=== PATIENT | female | born 1990 | race Caucasian/White ===

== ENCOUNTER 2016-11-25 00:50 | Emergency (ER) | payer MEDICARE, OTHER ==
[2016-11-25 01:00] VITALS: BP 120/67; PULSE 82; RESP 20; TEMP 98
--- NOTE | 2016-11-25 01:19 | ED ---
General Adult HPI - General Chief complaint: Overdose Stated complaint: Tylenol Overdose Time Seen by Provider: 11/25/16 01:08 Source: patient, RN notes reviewed Mode of arrival: ambulatory Limitations: no limitations - History of Present Illness Initial comments: 26-year-old female presents to the emergency department with a chief complaint of drowsiness. The patient had a mild headache this afternoon. She takes one of her Tylenol threes tonight she is not taking this in over a year. After she took this she felt drowsy. Family states that they were concerned due to the fact that she was drowsy so she thought that they should be evaluated. Mom states that she saw her take the pill there is no other pills taken today. The patient states she just her headache so she took the pill that her mom and her discussed. Patient states she just feels more tired than normal. There is no other medications taken mom states she was started on Tim there is no other medications taken. Child states that she does not feel anything but drowsiness at this time.Patient denies any recent fever, chills, shortness of breath, chest pain, back pain, abdominal pain, nausea vomiting, numbness or tingling, dysuria or hematuria, constipation or diarrhea, headaches or visual changes, or any other current symptoms. - Related Data Home Medications Medication Instructions Recorded Confirmed FLUoxetine HCL [FLUoxetine DR] 90 mg PO FR 04/07/16 09/22/16 Albuterol Sulfate [Proair Hfa] 1 - 2 puff INHALATION [id number] PRN 09/22/16 Allergies Allergy/AdvReac Type Severity Reaction Status Date / Time No Known Allergies Allergy Verified 11/25/16 00:59 Review of Systems ROS Statement: Those systems with pertinent positive or pertinent negative responses have been documented in the HPI. ROS Other: All systems not noted in ROS Statement are negative. Past Medical History Past Medical History: Seizure Disorder Additional Past Medical History / Comment(s): Learning disability, cognitive deficit History of Any Multi-Drug Resistant Organisms: None Reported Past Surgical History: Orthopedic Surgery Additional Past Surgical History / Comment(s): feet Past Anesthesia/Blood Transfusion Reactions: No Reported Reaction Past Psychological History: ADD/ADHD, Depression Smoking Status: Never smoker Past Alcohol Use History: None Reported Past Drug Use History: None Reported General Exam - General Exam Comments Initial Comments: General: The patient is awake and alert, in no distress, and does not appear acutely ill. Eye: Pupils are equal, round and reactive to light, extra-ocular movements are intact; there is normal conjunctiva bilaterally. No signs of icterus. Ears, nose, mouth and throat: There are moist mucous membranes and no oral lesions. Neck: The neck is supple, there is no tenderness. Cardiovascular: There is a regular rate and rhythm. No murmur, rub or gallop is appreciated. Respiratory: Lungs are clear to auscultation, respirations are non-labored, breath sounds are equal. No wheezes, stridor, rales, or rhonchi. Gastrointestinal: Soft, non-distended, non-tender abdomen without masses or organomegaly noted. There is no rebound or guarding present. No CVA tenderness. Bowel sounds are unremarkable. Back: There is no tenderness to palpation in the midline. There is no obvious deformity. No rashes noted. Musculoskeletal: Normal ROM, no tenderness, There is no pedal edema. There is no calf tenderness or swelling. Sensation intact. Pulses equal bilaterally 2+. Neurological: CN II-XII intact, There are no obvious motor or sensory deficits. Coordination appears grossly intact. Speech is normal. Skin: Skin is warm and dry and no rashes or lesions are noted. Psychiatric: Cooperative, appropriate mood & affect, normal judgment. Limitations: no limitations Course Vital Signs 11/25/16 00:57 Temperature 98 F Pulse Rate 82 Respiratory 20 Rate Blood Pressure 120/67 O2 Sat by Pulse 99 Oximetry Medical Decision Making - Medical Decision Making 26-year-old female presents for drowsiness after taking a Tylenol 3. At this time we discussed that this is one of the side effects of the medications. Patient's vital signs are stable patient's exam is stable. Mother was with the child all night and there was no other medications taken. They state they were concerned because she got drowsy after taking the 1 pills the Patient be evaluated. We did offer additional workup that they state now that he notices a side effect they do feel comfortable going home. This time we discussed return parameters and all their questions. They stated they understood. They are in agreement with the plan. This time the patient will be discharged home. Disposition Clinical Impression: Medication side effect, Drowsiness Disposition: HOME SELF-CARE Condition: Stable Instructions: Acetaminophen/Codeine (By mouth) Additional Instructions: Please use medication as discussed. Please follow up with family doctor if symptoms have not improved over the next two days. Please return to the emergency room if your symptoms increase or worsen or for any other concerns. Referrals: Nery Petersen MD [Primary Care Provider] - 1-2 days Time of Disposition: 01:19
== END 2016-11-25 01:24 | disposition home or self-care (01) ==
LOC: EC 00:50
DX: R40.0 Somnolence (principal); T40.2X5A Adverse effect of other opioids, initial encounter; F32.9 Major depressive disorder, single episode, unspecified; R41.89 Other symptoms and signs involving cognitive functions and awareness; F81.9 Developmental disorder of scholastic skills, unspecified; Z79.899 Other long term (current) drug therapy
CPT/HCPCS: 99283

== ENCOUNTER 2017-01-22 16:39 | Emergency (ER) | payer MEDICARE, OTHER ==
[2017-01-22 16:46] VITALS: PULSE 76
[2017-01-22 18:49] LABS: Glucose,Whole Blood 87 mg/dL (75-99)
[2017-01-22] MEDS ORDERED: SODIUM CHLORIDE 0.9% 1,000 ML IV ONE (18:49)
--- NOTE | 2017-01-22 18:54 | ED ---
Altered Mental Status HPI - General Chief Complaint: Altered Mental Status Stated Complaint: Confusion Time Seen by Provider: 01/22/17 18:39 Source: family, RN notes reviewed Mode of arrival: wheelchair Limitations: no limitations - History of Present Illness Initial Comments: 26-year-old female presents to the emergency department with a chief complaint of concern for possible altered mental status. They state that since around 3: 00 today the patient has just been different than normal. They state that she doesn't know the answers to most questions they state that she is just acting off. They state that she did not take anything to their knowledge. They state that she has had a fever she hasn't had a cough she hasn't had any nausea vomiting. Patient denies any pain or discomfort. Patient answers all questions the patient is able to tell who her dad is but states she does not remember the other person in the room she is able to know where she has been not which hospital she knows her birthday she knows the day but she does not know who is present. The patient to the family history is seemed often they are concerned. The patient denies taking any medications besides her Prozac today.Patient denies any recent fever, chills, shortness of breath, chest pain, back pain, abdominal pain, nausea vomiting, numbness or tingling, dysuria or hematuria, constipation or diarrhea, headaches or visual changes, or any other current symptoms. - Related Data Home Medications Medication Instructions Recorded Confirmed FLUoxetine HCL [FLUoxetine DR] 90 mg PO FR 04/07/16 01/22/17 Allergies Allergy/AdvReac Type Severity Reaction Status Date / Time No Known Allergies Allergy Verified 01/22/17 19:24 Review of Systems ROS Statement: Those systems with pertinent positive or pertinent negative responses have been documented in the HPI. ROS Other: All systems not noted in ROS Statement are negative. Past Medical History Past Medical History: Seizure Disorder Additional Past Medical History / Comment(s): Learning disability, cognitive deficit History of Any Multi-Drug Resistant Organisms: None Reported Past Surgical History: Orthopedic Surgery Additional Past Surgical History / Comment(s): feet Past Anesthesia/Blood Transfusion Reactions: No Reported Reaction Past Psychological History: ADD/ADHD, Depression Smoking Status: Never smoker Past Alcohol Use History: None Reported Past Drug Use History: None Reported General Exam - General Exam Comments Initial Comments: General: The patient is awake and alert, in no distress, and does not appear acutely ill. Eye: Pupils are equal, round and reactive to light, extra-ocular movements are intact; there is normal conjunctiva bilaterally. No signs of icterus. Ears, nose, mouth and throat: There are moist mucous membranes. Neck: The neck is supple, there is no tenderness. Cardiovascular: There is a regular rate and rhythm. No murmur, rub or gallop is appreciated. Respiratory: Lungs are clear to auscultation, respirations are non-labored, breath sounds are equal. No wheezes, stridor, rales, or rhonchi. Gastrointestinal: Soft, non-distended, non-tender abdomen without masses or organomegaly noted. There is no rebound or guarding present. No CVA tenderness. Bowel sounds are unremarkable. Back: There is no tenderness to palpation in the midline. There is no obvious deformity. No rashes noted. Musculoskeletal: Normal ROM, no tenderness, There is no pedal edema. There is no calf tenderness or swelling. Sensation intact. Pulses equal bilaterally 2+. Neurological: CN II-XII intact, There are no obvious motor or sensory deficits. Coordination appears grossly intact. Speech is normal. Skin: Skin is warm and dry and no rashes or lesions are noted. Psychiatric: Cooperative, appropriate mood & affect, normal judgment. Limitations: no limitations Course Vital Signs 01/22/17 16:43 Temperature 97.5 F L Pulse Rate 76 Respiratory 20 Rate Blood Pressure 130/75 O2 Sat by Pulse 99 Oximetry Medical Decision Making - Medical Decision Making 26-year-old female presents for concern for possible altered mental status. At this time the patient has normal mentation on reexamination. At this time family states she is doing much better. This started recently after taking the medication. This time we discussed follow-up with her doctor. Discussed return parameters all her questions. They stated they understood and they this time will be discharged home. - Lab Data Result diagrams: 01/22/17 18:55 01/22/17 18:55 Lab Results 01/22/17 01/22/17 01/22/17 Range/Units 18:43 18:55 18:55 WBC 9.9 (3.8-10.6) k/uL RBC 4.65 (3.80-5.40) m/uL Hgb 14.1 (11.4-16.0) gm/dL Hct 42.0 (34.0-46.0) % MCV 90.3 (80.0-100.0) fL MCH 30.3 (25.0-35.0) pg MCHC 33.6 (31.0-37.0) g/dL RDW 12.8 (11.5-15.5) % Plt Count 419 (150-450) k/uL Neutrophils % 60 % Lymphocytes % 29 % Monocytes % 7 % Eosinophils % 2 % Basophils % 1 % Neutrophils # 6.0 (1.3-7.7) k/uL Lymphocytes # 2.8 (1.0-4.8) k/uL Monocytes # 0.7 (0-1.0) k/uL Eosinophils # 0.2 (0-0.7) k/uL Basophils # 0.1 (0-0.2) k/uL PT (9.0-12.0) sec INR (<1.1) APTT (22.0-30.0) sec Sodium (137-145) mmol/L Potassium (3.5-5.1) mmol/L Chloride (98-107) mmol/L Carbon Dioxide (22-30) mmol/L Anion Gap mmol/L BUN (7-17) mg/dL Creatinine (0.52-1.04) mg/dL Est GFR (MDRD) Af Amer (>60 ml/min/1.73 sqM) Est GFR (MDRD) Non-Af (>60 ml/min/1.73 sqM) Glucose (74-99) mg/dL POC Glucose (mg/dL) 87 (75-99) mg/dL POC Glu Shake Cutter ID Tyrone, Nelsy Calcium (8.4-10.2) mg/dL Total Bilirubin (0.2-1.3) mg/dL AST (14-36) U/L ALT (9-52) U/L Alkaline Phosphatase (38-126) U/L Total Creatine Kinase 81 (30-135) U/L CK-MB (CK-2) 0.3 (0.0-2.4) ng/mL CK-MB (CK-2) Rel Index 0.4 Troponin I <0.012 (0.000-0.034) ng/mL Total Protein (6.3-8.2) g/dL Albumin (3.5-5.0) g/dL Urine Color Urine Appearance (Clear) Urine pH (5.0-8.0) Ur Specific [place] (1.001-1.035) Urine Protein (Negative) Urine Glucose (UA) (Negative) Urine Ketones (Negative) Urine Blood (Negative) Urine Nitrite (Negative) Urine Bilirubin (Negative) Urine Urobilinogen (<2.0) mg/dL Ur Leukocyte Esterase (Negative) Urine RBC (0-5) /hpf Urine WBC (0-5) /hpf Ur Squamous Epith Cells (0-4) /hpf Amorphous Sediment (None) /hpf Hyaline Casts (0-2) /lpf Urine HCG, Qual (Not Detectd) Urine Opiates Screen (NotDetected) Ur Oxycodone Screen (NotDetected) Urine Methadone Screen (NotDetected) Ur Propoxyphene Screen (NotDetected) Ur Barbiturates Screen (NotDetected) U Tricyclic Antidepress (NotDetected) Ur Phencyclidine Scrn (NotDetected) Ur Amphetamines Screen (NotDetected) U Methamphetamines Scrn (NotDetected) U Benzodiazepines Scrn (NotDetected) Urine Cocaine Screen (NotDetected) U Marijuana (THC) Screen (NotDetected) 01/22/17 01/22/17 01/22/17 Range/Units 18:55 18:55 18:55 WBC (3.8-10.6) k/uL RBC (3.80-5.40) m/uL Hgb (11.4-16.0) gm/dL Hct (34.0-46.0) % MCV (80.0-100.0) fL MCH (25.0-35.0) pg MCHC (31.0-37.0) g/dL RDW (11.5-15.5) % Plt Count (150-450) k/uL Neutrophils % % Lymphocytes % % Monocytes % % Eosinophils % % Basophils % % Neutrophils # (1.3-7.7) k/uL Lymphocytes # (1.0-4.8) k/uL Monocytes # (0-1.0) k/uL Eosinophils # (0-0.7) k/uL Basophils # (0-0.2) k/uL PT (9.0-12.0) sec INR (<1.1) APTT (22.0-30.0) sec Sodium 142 (137-145) mmol/L Potassium 4.2 (3.5-5.1) mmol/L Chloride 108 H (98-107) mmol/L Carbon Dioxide 28 (22-30) mmol/L Anion Gap 6 mmol/L BUN 13 (7-17) mg/dL Creatinine 0.80 (0.52-1.04) mg/dL Est GFR (MDRD) Af Amer >60 (>60 ml/min/1.73 sqM) Est GFR (MDRD) Non-Af >60 (>60 ml/min/1.73 sqM) Glucose 82 (74-99) mg/dL POC Glucose (mg/dL) (75-99) mg/dL POC Glu Shake Cutter ID Calcium 9.5 (8.4-10.2) mg/dL Total Bilirubin 0.4 (0.2-1.3) mg/dL AST 25 (14-36) U/L ALT 32 (9-52) U/L Alkaline Phosphatase 55 (38-126) U/L Total Creatine Kinase (30-135) U/L CK-MB (CK-2) (0.0-2.4) ng/mL CK-MB (CK-2) Rel Index Troponin I (0.000-0.034) ng/mL Total Protein 6.0 L (6.3-8.2) g/dL Albumin 3.5 (3.5-5.0) g/dL Urine Color Yellow Urine Appearance Cloudy H (Clear) Urine pH 5.5 (5.0-8.0) Ur Specific [place] 1.015 (1.001-1.035) Urine Protein Negative (Negative) Urine Glucose (UA) Negative (Negative) Urine Ketones Negative (Negative) Urine Blood Small H (Negative) Urine Nitrite Negative (Negative) Urine Bilirubin Negative (Negative) Urine Urobilinogen <2.0 (<2.0) mg/dL Ur Leukocyte Esterase Trace H (Negative) Urine RBC 1 (0-5) /hpf Urine WBC 3 (0-5) /hpf Ur Squamous Epith Cells 5 H (0-4) /hpf Amorphous Sediment Rare H (None) /hpf Hyaline Casts 1 (0-2) /lpf Urine HCG, Qual Not Detected (Not Detectd) Urine Opiates Screen Not Detected (NotDetected) Ur Oxycodone Screen Not Detected (NotDetected) Urine Methadone Screen Not Detected (NotDetected) Ur Propoxyphene Screen Not Detected (NotDetected) Ur Barbiturates Screen Not Detected (NotDetected) U Tricyclic Antidepress Not Detected (NotDetected) Ur Phencyclidine Scrn Not Detected (NotDetected) Ur Amphetamines Screen Not Detected (NotDetected) U Methamphetamines Scrn Not Detected (NotDetected) U Benzodiazepines Scrn Not Detected (NotDetected) Urine Cocaine Screen Not Detected (NotDetected) U Marijuana (THC) Screen Not Detected (NotDetected) 01/22/17 Range/Units 18:55 WBC (3.8-10.6) k/uL RBC (3.80-5.40) m/uL Hgb (11.4-16.0) gm/dL Hct (34.0-46.0) % MCV (80.0-100.0) fL MCH (25.0-35.0) pg MCHC (31.0-37.0) g/dL RDW (11.5-15.5) % Plt Count (150-450) k/uL Neutrophils % % Lymphocytes % % Monocytes % % Eosinophils % % Basophils % % Neutrophils # (1.3-7.7) k/uL Lymphocytes # (1.0-4.8) k/uL Monocytes # (0-1.0) k/uL Eosinophils # (0-0.7) k/uL Basophils # (0-0.2) k/uL PT 9.6 (9.0-12.0) sec INR 0.9 (<1.1) APTT 23.4 (22.0-30.0) sec Sodium (137-145) mmol/L Potassium (3.5-5.1) mmol/L Chloride (98-107) mmol/L Carbon Dioxide (22-30) mmol/L Anion Gap mmol/L BUN (7-17) mg/dL Creatinine (0.52-1.04) mg/dL Est GFR (MDRD) Af Amer (>60 ml/min/1.73 sqM) Est GFR (MDRD) Non-Af (>60 ml/min/1.73 sqM) Glucose (74-99) mg/dL POC Glucose (mg/dL) (75-99) mg/dL POC Glu Shake Cutter ID Calcium (8.4-10.2) mg/dL Total Bilirubin (0.2-1.3) mg/dL AST (14-36) U/L ALT (9-52) U/L Alkaline Phosphatase (38-126) U/L Total Creatine Kinase (30-135) U/L CK-MB (CK-2) (0.0-2.4) ng/mL CK-MB (CK-2) Rel Index Troponin I (0.000-0.034) ng/mL Total Protein (6.3-8.2) g/dL Albumin (3.5-5.0) g/dL Urine Color Urine Appearance (Clear) Urine pH (5.0-8.0) Ur Specific [place] (1.001-1.035) Urine Protein (Negative) Urine Glucose (UA) (Negative) Urine Ketones (Negative) Urine Blood (Negative) Urine Nitrite (Negative) Urine Bilirubin (Negative) Urine Urobilinogen (<2.0) mg/dL Ur Leukocyte Esterase (Negative) Urine RBC (0-5) /hpf Urine WBC (0-5) /hpf Ur Squamous Epith Cells (0-4) /hpf Amorphous Sediment (None) /hpf Hyaline Casts (0-2) /lpf Urine HCG, Qual (Not Detectd) Urine Opiates Screen (NotDetected) Ur Oxycodone Screen (NotDetected) Urine Methadone Screen (NotDetected) Ur Propoxyphene Screen (NotDetected) Ur Barbiturates Screen (NotDetected) U Tricyclic Antidepress (NotDetected) Ur Phencyclidine Scrn (NotDetected) Ur Amphetamines Screen (NotDetected) U Methamphetamines Scrn (NotDetected) U Benzodiazepines Scrn (NotDetected) Urine Cocaine Screen (NotDetected) U Marijuana (THC) Screen (NotDetected) 01/22/17 20:23 Normal EKG, 81, VT 156, QRS duration 72, QT 404. Disposition Clinical Impression: Adverse drug reaction Disposition: HOME SELF-CARE Condition: Stable Instructions: Altered Mental Status (ED) Additional Instructions: Please use medication as discussed. Please follow up with family doctor if symptoms have not improved over the next two days. Please return to the emergency room if your symptoms increase or worsen or for any other concerns. Referrals: Nery Petersen MD [Primary Care Provider] - 1-2 days Time of Disposition: 20:23
[2017-01-22 19:20] LABS: Basophils # (A) 0.1 k/uL (0-0.2); Basophils % (A) 1 %; CH 30.2; CHCM 33.5; Eosinophils # (A) 0.2 k/uL (0-0.7); Eosinophils % (A) 2 %; HDW 2.31; HGB 14.1 gm/dL (11.4-16.0); Luc # (Auto) 0.22; Luc % (Auto) 2; Lymphocytes # (A) 2.8 k/uL (1.0-4.8); Lymphocytes % (A) 29 %; MCH 30.3 pg (25.0-35.0); MCHC 33.6 g/dL (31.0-37.0); MCV 90.3 fL (80.0-100.0); Mean Platelet Volume 6.4; Monocytes # (A) 0.7 k/uL (0-1.0); Monocytes % (A) 7 %; Neutrophils % (A) 60 %; RBC 4.65 m/uL (3.80-5.40); RDW 12.8 % (11.5-15.5); WBC 9.9 k/uL (3.8-10.6); WBC (Perox) 9.82
[2017-01-22 19:23] LABS: Amorphous Sediment,Urine Rare /hpf; Appearance,Urine Cloudy (Clear); Bilirubin,Urine Negative (Negative); Glucose,Urine (UA) Negative (Negative); Ketones,Urine Negative (Negative); Leukocyte Esterase,Urine Trace (Negative); Nitrite,Urine Negative (Negative); PH, Urine 5.5 (5.0-8.0); Particle Count 5076; Protein,Urine Negative (Negative); RBC,Urine 1 /hpf (0-5); Specific Gravity,Urine 1.015 (1.001-1.035); Squamous Epithelial Cell,Urine 5 /hpf (0-4); UA Billing (MACRO vs. MICRO) MICRO; Urobilinogen,Urine <2.0 mg/dL (<2.0); WBC,Urine 3 /hpf (0-5)
[2017-01-22 19:30] LABS: ALT 32 U/L (9-52); AST 25 U/L (14-36); Alkaline Phosphatase 55 U/L (38-126); Anion Gap 6 mmol/L; Blood Urea Nitrogen 13 mg/dL (7-17); Calcium 9.5 mg/dL (8.4-10.2); Carbon Dioxide 28 mmol/L (22-30); Chloride 108 mmol/L (98-107); Glucose 82 mg/dL (74-99); Non-African American GFR(MDRD) >60 (>60 ml/min/1.73 sqM); Potassium 4.2 mmol/L (3.5-5.1); Sodium 142 mmol/L (137-145); Total Bilirubin 0.4 mg/dL (0.2-1.3)
[2017-01-22 19:44] LABS: INR 0.9 (<1.1); Partial Thromboplastin Time 23.4 sec (22.0-30.0); Prothrombin Time 9.6 sec (9.0-12.0)
[2017-01-22 19:51] LABS: Creatine Kinase 81 U/L (30-135)
[2017-01-22 20:02] LABS: Creatine Kinase MB 0.3 ng/mL (0.0-2.4); Troponin I <0.012 ng/mL (0.000-0.034)
[2017-01-22 20:57] VITALS: BP 110/69; RESP 18; TEMP 97.9
== END 2017-01-22 20:57 | disposition home or self-care (01) ==
LOC: EC 16:39
DX: R41.82 Altered mental status, unspecified (principal); T50.905A Adverse effect of unspecified drugs, medicaments and biological substances, initial encounter; F32.9 Major depressive disorder, single episode, unspecified; F81.9 Developmental disorder of scholastic skills, unspecified; R41.89 Other symptoms and signs involving cognitive functions and awareness; Z79.899 Other long term (current) drug therapy
CPT/HCPCS: 36415; 80053; 80306; 81001; 81025; 82550; 82553; 84484; 85025; 85610; 85730; 93005; 96360; 99285

== ENCOUNTER 2017-03-20 20:37 | Emergency (ER) | payer MEDICARE, OTHER ==
[2017-03-20 20:45] VITALS: BP 139/86; PULSE 76; RESP 20; TEMP 98.6
--- NOTE | 2017-03-20 20:59 | ED ---
ENT HPI - General Chief complaint: ENT Stated complaint: eye redness Time Seen by Provider: 03/20/17 20:50 Source: patient Mode of arrival: ambulatory Limitations: no limitations - History of Present Illness Initial comments: 26-year-old female presents to the ER complaining of left eye redness for the last week. Patient states it feels irritated and itchy with some mucousy drainage at times. Patient states that she is not getting better. Patient did try 1 dose of ALLERGY eyedrops is just not improving. No visual changes no recent colds or drainage. No fevers no blurry or double vision. No new products. MD complaint: other (Left eye redness) - Related Data Home Medications Medication Instructions Recorded Confirmed FLUoxetine HCL [FLUoxetine DR] 90 mg PO FR 04/07/16 01/22/17 Previous Rx's Medication Instructions Recorded Tobramycin 0.3% Ophth Soln [Tobrex 2 drop BOTH EYES Q6H #10 ml 03/20/17 0.3% Ophth Soln] Allergies Allergy/AdvReac Type Severity Reaction Status Date / Time No Known Allergies Allergy Verified 03/20/17 20:45 Review of Systems ROS Statement: Those systems with pertinent positive or pertinent negative responses have been documented in the HPI. ROS Other: All systems not noted in ROS Statement are negative. Eyes: Reports: eye discharge. Denies: eye pain, vision change ENT: Denies: ear pain, throat pain, dental pain Respiratory: Denies: cough Past Medical History Past Medical History: Seizure Disorder Additional Past Medical History / Comment(s): Learning disability, cognitive deficit History of Any Multi-Drug Resistant Organisms: None Reported Past Surgical History: Orthopedic Surgery Additional Past Surgical History / Comment(s): feet Past Anesthesia/Blood Transfusion Reactions: No Reported Reaction Past Psychological History: ADD/ADHD, Depression Smoking Status: Never smoker Past Alcohol Use History: None Reported Past Drug Use History: None Reported General Exam Limitations: no limitations General appearance: alert, in no apparent distress Eye exam: Present: PERRL, EOMI, conjunctival injection (left medial, no d/c). Absent: periorbital swelling ENT exam: Present: normal exam, mucous membranes moist Respiratory exam: Present: normal lung sounds bilaterally. Absent: respiratory distress, wheezes, rales, rhonchi, stridor Cardiovascular Exam: Present: regular rate, normal rhythm, normal heart sounds. Absent: systolic murmur, diastolic murmur, rubs, gallop, clicks Course Vital Signs 03/20/17 20:42 Temperature 98.6 F Pulse Rate 76 Respiratory 20 Rate Blood Pressure 139/86 O2 Sat by Pulse 99 Oximetry Medical Decision Making - Medical Decision Making Discussed that I think this is more ALLERGIC conjunctivitis and to try over-the- counter Zaditor drops twice a day as needed. Patient may take [id number] antihistamine tablets as well. Patient to only fill antibiotic drops to symptoms progress or worsen. Disposition Clinical Impression: Acute conjunctivitis of left eye Clinical Impression: (Ruled Out): Acute conjunctivitis of right eye Disposition: HOME SELF-CARE Condition: Good Instructions: Conjunctivitis (ED) Prescriptions: Tobramycin 0.3% Ophth Soln [Tobrex 0.3% Ophth Soln] 2 drop BOTH EYES Q6H #10 ml Referrals: Nery Petersen MD [Primary Care Provider] - 1-2 days Time of Disposition: 20:59
== END 2017-03-20 21:20 | disposition home or self-care (01) ==
LOC: EC 20:37
DX: H10.32 Unspecified acute conjunctivitis, left eye (principal); F32.9 Major depressive disorder, single episode, unspecified; Z79.899 Other long term (current) drug therapy
CPT/HCPCS: 99282

== ENCOUNTER → 2017-04-15 | Outpatient (CLI) | payer MEDICARE, OTHER ==
[2017-04-15 12:59] LABS: Basophils % (A) 0 %; CH 29.5; CHCM 33.1; Eosinophils # (A) 0.1 k/uL (0-0.7); Eosinophils % (A) 1 %; HCT 41.6 % (34.0-46.0); HDW 2.28; HGB 14.2 gm/dL (11.4-16.0); Luc # (Auto) 0.12; Luc % (Auto) 1; Lymphocytes # (A) 2.2 k/uL (1.0-4.8); Lymphocytes % (A) 27 %; MCH 30.5 pg (25.0-35.0); MCHC 34.1 g/dL (31.0-37.0); MCV 89.5 fL (80.0-100.0); Mean Platelet Volume 6.5; Monocytes # (A) 0.4 k/uL (0-1.0); Monocytes % (A) 5 %; Neutrophils # (A) 5.3 k/uL (1.3-7.7); Neutrophils % (A) 65 %; RBC 4.65 m/uL (3.80-5.40); RDW 12.7 % (11.5-15.5); WBC 8.1 k/uL (3.8-10.6); WBC (Perox) 8.45
[2017-04-15 13:05] LABS: Anion Gap 9 mmol/L; Blood Urea Nitrogen 12 mg/dL (7-17); Calcium 9.3 mg/dL (8.4-10.2); Carbon Dioxide 25 mmol/L (22-30); Chloride 106 mmol/L (98-107); Cholesterol 173 mg/dL (<200); Glucose 92 mg/dL (74-99); HDL Cholesterol 56 mg/dL (40-60); Non-African American GFR(MDRD) >60 (>60 ml/min/1.73 sqM); Potassium 4.5 mmol/L (3.5-5.1); Sodium 140 mmol/L (137-145); Triglycerides 126 mg/dL (<150)
== END | disposition home or self-care (01) ==
LOC: LABWHC1 12:03
PROVIDERS: ATTEND Internal Medicine
DX: Z13.0 Encounter for screening for diseases of the blood and blood-forming organs and certain disorders involving the immune mechanism (principal); Z13.228 Encounter for screening for other metabolic disorders; Z13.220 Encounter for screening for lipoid disorders; Z13.29 Encounter for screening for other suspected endocrine disorder
CPT/HCPCS: 36415; 80048; 80061; 84443; 85025

== ENCOUNTER 2017-05-13 22:20 | Emergency (ER) | payer MEDICARE, OTHER ==
[2017-05-13] MEDS ORDERED: KETOROLAC 30 MG/ML 1 ML VIAL IVP STA (23:01)
[2017-05-13 23:18] LABS: Basophils % (A) 0 %; CH 30.6; CHCM 33.7; Eosinophils # (A) 0.2 k/uL (0-0.7); Eosinophils % (A) 2 %; HCT 38.9 % (34.0-46.0); HDW 2.21; HGB 12.9 gm/dL (11.4-16.0); Luc % (Auto) 2; Lymphocytes # (A) 2.7 k/uL (1.0-4.8); Lymphocytes % (A) 32 %; MCH 30.3 pg (25.0-35.0); MCHC 33.2 g/dL (31.0-37.0); MCV 91.2 fL (80.0-100.0); Mean Platelet Volume 6.9; Monocytes # (A) 0.5 k/uL (0-1.0); Monocytes % (A) 6 %; Neutrophils # (A) 4.8 k/uL (1.3-7.7); Neutrophils % (A) 57 %; RBC 4.26 m/uL (3.80-5.40); RDW 13.8 % (11.5-15.5); WBC 8.4 k/uL (3.8-10.6); WBC (Perox) 8.31
[2017-05-13 23:27] LABS: ALT 31 U/L (9-52); AST 21 U/L (14-36); Alkaline Phosphatase 62 U/L (38-126); Anion Gap 11 mmol/L; Blood Urea Nitrogen 18 mg/dL (7-17); Calcium 9.4 mg/dL (8.4-10.2); Carbon Dioxide 25 mmol/L (22-30); Chloride 105 mmol/L (98-107); Glucose 91 mg/dL (74-99); Non-African American GFR(MDRD) >60 (>60 ml/min/1.73 sqM); Potassium 4.5 mmol/L (3.5-5.1); Sodium 141 mmol/L (137-145); Total Bilirubin 0.3 mg/dL (0.2-1.3); Total Protein 6.6 g/dL (6.3-8.2)
--- NOTE | 2017-05-13 23:27 | ED ---
Chest Pain HPI - General Chief Complaint: Chest Pain Stated Complaint: Chest Pain Source: patient Mode of arrival: ambulatory Limitations: no limitations - History of Present Illness Initial Comments: Patient is a 26-year-old female who presents for evaluation for left-sided chest pain that is been constant over the last 4 days. Past medical history as below. Patient states the pain is 5 out of 10 at its worse. Improves with rest. Seems to be a little bit worse with exertion. The pain characteristic is a pinching type of sensation. Has been working out more than usual and states that it could be a muscle strain. Has tried Motrin at home with some relief. No radiation of pain. Risk factors for ACS include a family history of her father's cousin having an ND which she from at the age of 31. She' s never had any formal cardiac testing in the past. Currently denies fever, chills, headache, changes in vision, URI symptoms, shortness breath, cough, nausea, vomiting, diarrhea, pain or burning with urination. - Related Data Home Medications Medication Instructions Recorded Confirmed FLUoxetine HCL [FLUoxetine DR] 90 mg PO FR 04/07/16 01/22/17 Previous Rx's Medication Instructions Recorded Tobramycin 0.3% Ophth Soln [Tobrex 2 drop BOTH EYES Q6H #10 ml 03/20/17 0.3% Ophth Soln] Naproxen 500 mg PO BID PRN #14 tablet 05/14/17 Allergies Allergy/AdvReac Type Severity Reaction Status Date / Time No Known Allergies Allergy Verified 05/13/17 22:27 Review of Systems ROS Statement: Those systems with pertinent positive or pertinent negative responses have been documented in the HPI. ROS Other: All systems not noted in ROS Statement are negative. Past Medical History Past Medical History: Seizure Disorder Additional Past Medical History / Comment(s): Learning disability, cognitive deficit, chest pain History of Any Multi-Drug Resistant Organisms: None Reported Past Surgical History: Orthopedic Surgery Additional Past Surgical History / Comment(s): feet Past Anesthesia/Blood Transfusion Reactions: No Reported Reaction Past Psychological History: ADD/ADHD, Depression Smoking Status: Never smoker Past Alcohol Use History: None Reported Past Drug Use History: None Reported General Exam Limitations: no limitations General appearance: alert, in no apparent distress, other (No apparent distress) Head exam: Present: atraumatic, normocephalic, normal inspection Eye exam: Present: normal appearance, PERRL, EOMI. Absent: scleral icterus, conjunctival injection, periorbital swelling ENT exam: Present: normal exam, mucous membranes moist Neck exam: Present: normal inspection. Absent: tenderness, meningismus, lymphadenopathy Respiratory exam: Present: normal lung sounds bilaterally, chest wall tenderness , other (Pain is reproducible with palpation of the left upper chest wall.). Absent: respiratory distress, wheezes, rales, rhonchi, stridor Cardiovascular Exam: Present: regular rate, normal rhythm, normal heart sounds, other (Normal S1 and S2. No murmurs. Distal pulses intact. Warm extremities.) . Absent: systolic murmur, diastolic murmur, rubs, gallop, clicks GI/Abdominal exam: Present: soft, normal bowel sounds. Absent: distended, tenderness, guarding, rebound, rigid Extremities exam: Present: normal inspection, full ROM, normal capillary refill. Absent: tenderness, pedal edema, joint swelling, calf tenderness Back exam: Present: normal inspection Neurological exam: Present: alert, oriented X3, CN II-XII intact Psychiatric exam: Present: normal affect, normal mood Skin exam: Present: warm, dry, intact, normal color. Absent: rash Course Vital Signs 05/13/17 05/13/17 05/13/17 22:23 23:27 23:42 Temperature 98.3 F Pulse Rate 81 74 Respiratory 16 18 18 Rate Blood Pressure 130/83 112/69 O2 Sat by Pulse 99 95 Oximetry [facility] Patient is a 26 year old female who presents with 4 day constant chest pain in the left upper chest. Worse with palpation of the chest. Heart score of 0 as of right now. We'll order EKG, chest x-ray, basic labs with a troponin at the patient's request. We'll also order 15 mg IV Toradol. 2243: Reviewed EKG. Normal sinus rhythm at 72. CT 160. QRS 84. QTc 455. No ST changes. Similar to EKG on 01/22/17. 2355: Reviewed laboratory studies. CBC and CMP within normal limits. Reviewed UA which was concerning for hematuria and leukocytes in the urine. However, the patient is on her menstrual cycle. She denies any pain or burning with urination at this time. Chest pain is greatly improved. 0041: Troponin negative. Reevaluated the patient. She states that she feels comfortable going home. Low risk chest pain. Encourage close follow-up with a primary care physician. Believe that her chest pain associated with either costochondritis versus a pulled muscle as she is been more active as of late. We'll discharge home with a prescription for naproxen. Told her not to take any other NSAIDs with it. Discussed specific signs and symptoms on when to return to the emergency department for further evaluation. Comfortable discharge home and will follow-up with her primary care physician. Disposition Clinical Impression: Chest pain Disposition: HOME SELF-CARE Condition: Good Instructions: Chest Pain (ED), Costochondritis (ED) Prescriptions: Naproxen 500 mg PO BID PRN #14 tablet PRN Reason: Pain Referrals: Nery Petersen MD [Primary Care Provider] - 1-2 days
[2017-05-13 23:30] VITALS: RESP 18
[2017-05-13 23:44] LABS: Appearance,Urine Cloudy (Clear); Bilirubin,Urine Negative (Negative); Glucose,Urine (UA) Negative (Negative); Ketones,Urine Trace (Negative); Leukocyte Esterase,Urine Small (Negative); Nitrite,Urine Negative (Negative); Particle Count 13906; Protein,Urine 2+ (Negative); RBC,Urine >182 /hpf (0-5); Specific Gravity,Urine 1.024 (1.001-1.035); Squamous Epithelial Cell,Urine 18 /hpf (0-4); UA Billing (MACRO vs. MICRO) MICRO; Urobilinogen,Urine <2.0 mg/dL (<2.0); WBC,Urine >182 /hpf (0-5)
--- NOTE | 2017-05-14 00:08 | XR ---
EXAM: XR Chest, 1 View CLINICAL HISTORY: Pain. TECHNIQUE: Frontal view of the chest. COMPARISON: CXR dated 07/23/2016. FINDINGS: Lungs: No focal consolidation. No evidence of pulmonary edema. Pleural space: No pleural effusion. No pneumothorax. Heart: Unremarkable. Normal cardiac silhouette size. Mediastinum: Unremarkable. Bones/joints: Unremarkable. IMPRESSION: No radiographic evidence of acute cardiopulmonary process.
[2017-05-14 00:46] VITALS: BP 116/80; PULSE 70; TEMP 97.9
== END 2017-05-14 00:45 | disposition home or self-care (01) ==
LOC: EC 22:20
DX: R07.9 Chest pain, unspecified (principal); F32.9 Major depressive disorder, single episode, unspecified; Z79.899 Other long term (current) drug therapy
CPT/HCPCS: 36415; 93005; 80053; 84484; 85025; 81001; 81025; 71010; 99285; 96374; J1885

== ENCOUNTER 2017-05-20 13:46 | Emergency (ER) | payer MEDICARE, OTHER ==
[2017-05-20 13:58] VITALS: BP 108/69; PULSE 76; RESP 20; TEMP 97.6
--- NOTE | 2017-05-20 14:45 | ED ---
General Adult HPI - General Chief complaint: Abdominal Pain Stated complaint: No Bowel Movement Time Seen by Provider: 05/20/17 14:01 Source: patient, RN notes reviewed Mode of arrival: ambulatory Limitations: no limitations - History of Present Illness Initial comments: 26 yo female presents to the ER with cc of constipation. Patient states she's been unable had a good bowel movement for the past 2 days. Patient states she does not get the bowel movement out. Patient denies any abdominal pain nausea vomiting fever or chills. Patient states she has not history of constipation in the past. Patient states there is no other symptoms at this time. Patient denies any recent fever, chills, shortness of breath, chest pain, back pain, abdominal pain, nausea vomiting, numbness or tingling, dysuria or hematuria, diarrhea, headaches or visual changes, or any other current symptoms. - Related Data Home Medications Medication Instructions Recorded Confirmed FLUoxetine HCL [FLUoxetine DR] 90 mg PO FR 04/07/16 05/20/17 Omeprazole [Omeprazole] 20 mg PO DAILY 05/20/17 05/20/17 Previous Rx's Medication Instructions Recorded Naproxen 500 mg PO BID PRN #14 tablet 05/14/17 Allergies Allergy/AdvReac Type Severity Reaction Status Date / Time No Known Allergies Allergy Verified 05/20/17 14:12 Review of Systems ROS Statement: Those systems with pertinent positive or pertinent negative responses have been documented in the HPI. ROS Other: All systems not noted in ROS Statement are negative. Past Medical History Past Medical History: Seizure Disorder Additional Past Medical History / Comment(s): Learning disability, cognitive deficit, chest pain History of Any Multi-Drug Resistant Organisms: None Reported Past Surgical History: Orthopedic Surgery Additional Past Surgical History / Comment(s): feet Past Anesthesia/Blood Transfusion Reactions: No Reported Reaction Past Psychological History: ADD/ADHD, Depression Smoking Status: Never smoker Past Alcohol Use History: None Reported Past Drug Use History: None Reported General Exam Limitations: no limitations General appearance: alert, in no apparent distress ENT exam: Present: normal exam, mucous membranes moist Neck exam: Present: normal inspection. Absent: tenderness, meningismus, lymphadenopathy Respiratory exam: Present: normal lung sounds bilaterally. Absent: respiratory distress, wheezes, rales, rhonchi, stridor Cardiovascular Exam: Present: regular rate, normal rhythm, normal heart sounds. Absent: systolic murmur, diastolic murmur, rubs, gallop, clicks GI/Abdominal exam: Present: soft, normal bowel sounds. Absent: distended, tenderness, guarding, rebound, rigid Neurological exam: Present: alert, oriented X3 Psychiatric exam: Present: normal affect, normal mood Skin exam: Present: warm, dry, intact, normal color. Absent: rash Course Vital Signs 05/20/17 13:55 Temperature 97.6 F Pulse Rate 76 Respiratory 20 Rate Blood Pressure 108/69 O2 Sat by Pulse 97 Oximetry Medical Decision Making - Medical Decision Making 26-year-old female presents to the emergency department with a chief complaint of constipation. This time the patient received an enema. The patient states that she is having better. All questions have been answered. This time she will be discharged home. We discussed return parameters and follow-up. - Radiology Data Radiology results: report reviewed, image reviewed Disposition Clinical Impression: Constipation Disposition: HOME SELF-CARE Condition: Stable Instructions: Constipation (ED) Additional Instructions: Please use medication as discussed. Please follow up with family doctor if symptoms have not improved over the next two days. Please return to the emergency room if your symptoms increase or worsen or for any other concerns. Referrals: Nery Petersen MD [Primary Care Provider] - 1-2 days Time of Disposition: 15:35
--- NOTE | 2017-05-20 14:51 | XR ---
EXAMINATION TYPE: XR abdomen 2V DATE OF EXAM: 05/20/2017 COMPARISON: NONE HISTORY: Pain TECHNIQUE: One view abdominal series FINDINGS: The osseous structures are intact. The bowel gas pattern is nonspecific. Lung bases are clear. Hype rtrophic change of the acetabulum bilaterally. Osteitis pubis condensans noted. IMPRESSION: 1. Nonspecific abdomen.
== END 2017-05-20 15:41 | disposition home or self-care (01) ==
LOC: EC 13:46
DX: K59.00 Constipation, unspecified (principal); F32.9 Major depressive disorder, single episode, unspecified; F90.9 Attention-deficit hyperactivity disorder, unspecified type; Z79.899 Other long term (current) drug therapy
CPT/HCPCS: 74020; 99284

== ENCOUNTER 2017-07-15 21:23 | Emergency (ER) | payer MEDICARE, OTHER ==
--- NOTE | 2017-07-15 21:46 | ED ---
General Adult HPI - General Chief complaint: Upper Respiratory Infection Stated complaint: Cough Time Seen by Provider: 07/15/17 21:31 Source: patient, family, RN notes reviewed, old records reviewed Mode of arrival: ambulatory Limitations: no limitations - History of Present Illness Initial comments: Chief complaint history of present illness this is a 26-year-old female who was a complaint of upper respiratory symptoms for one week. Complains of coughing and feeling short of breath. No fever - Related Data Home Medications Medication Instructions Recorded Confirmed FLUoxetine HCL [FLUoxetine DR] 90 mg PO FR 04/07/16 07/15/17 Omeprazole [Omeprazole] 20 mg PO DAILY 05/20/17 07/15/17 Previous Rx's Medication Instructions Recorded Naproxen 500 mg PO BID PRN #14 tablet 05/14/17 Allergies Allergy/AdvReac Type Severity Reaction Status Date / Time No Known Allergies Allergy Verified 07/15/17 22:05 Review of Systems ROS Statement: Those systems with pertinent positive or pertinent negative responses have been documented in the HPI. Review of systems patient denies headache no visual acuity changes mild raspy throat. Frequent coughing but nonproductive. Short of breath at times. No GI/ problems no neuro deficits. All systems are reviewed. Past medical problems significant for learning disability. She had orthopedic surgery on her feet. No cancers in the family. Patient has seasonal ALLERGIES. Nonsmoker nondrinker. No chance of being . ROS Other: All systems not noted in ROS Statement are negative. Past Medical History Past Medical History: Seizure Disorder Additional Past Medical History / Comment(s): Learning disability, cognitive deficit, chest pain History of Any Multi-Drug Resistant Organisms: None Reported Past Surgical History: Orthopedic Surgery Additional Past Surgical History / Comment(s): feet Past Anesthesia/Blood Transfusion Reactions: No Reported Reaction Past Psychological History: ADD/ADHD, Depression Smoking Status: Never smoker Past Alcohol Use History: None Reported Past Drug Use History: None Reported General Exam - General Exam Comments Initial Comments: General: The patient is awake and alert, complains of not feeling well for one week because of frequent coughing. She's taking NyQuil every 4 hours. Vital signs temp 98.8 pulse 123 respiratory rate 24 pulse ox 96% room air blood pressure 125 /86. Eye: Pupils are equal, round and reactive to light, extra-ocular movements are intact ; there is normal conjunctiva bilaterally. No signs of icterus. Ears, nose, mouth and throat: There are moist mucous membranes and no oral lesions. Neck: The neck is supple, there is no tenderness, no anterior cervical lymphadenopathy. Cardiovascular: There is a regular rate and rhythm. No murmur, rub or gallop is appreciated. Respiratory: Lungs are clear to auscultation, respirations are non-labored, breath sounds are equal. No wheezes, stridor, rales, or rhonchi. The patient is calm she's not coughing. Gastrointestinal: Soft, non-distended, non-tender abdomen without masses or organomegaly noted. There is no rebound or guarding present. No CVA tenderness. Bowel sounds are unremarkable. Back: There is no tenderness to palpation in the midline. There is no obvious deformity. No rashes noted. Musculoskeletal: Normal ROM, no tenderness, There is no pedal edema. There is no calf tenderness or swelling. Sensation intact. Neurological: CN II-XII intact, There are no obvious motor or sensory deficits. Coordination appears grossly intact. Speech is normal. No difficulty walking. Denies any weakness. Skin: Skin is warm and dry and no rashes or lesions are noted. Psychiatric: Cooperative, appropriate mood & affect, normal judgment. History of ADD, ADHD and depression. Limitations: no limitations Course Vital Signs 07/15/17 07/15/17 21:25 21:56 Temperature 98.8 F Pulse Rate 123 H Respiratory 24 20 Rate Blood Pressure 125/86 O2 Sat by Pulse 96 Oximetry Medical Decision Making - Medical Decision Making chest x-ray is done AP and lateral view and reviewed by radiologist radiologist' s findings include copious soft tissues partially obscure the lower lungs. There is no focal airspace opacity, pleural effusion, or pneumothorax seen. Cardiac silhouette size is within normal limits. The osseous structures are intact. Impression no acute cardiopulmonary process. As read by Dr. Villalba The patient is afebrile. With probable upper respiratory virus. The patient will be advised to continue with [id number] preparations including Mucinex and NyQuil as needed. Patient advised to follow-up with family physician. Disposition Clinical Impression: Viral syndrome, Common cold Disposition: HOME SELF-CARE Condition: Stable Instructions: Viral Syndrome (ED), Antihistamine/Decongestant (By mouth), Cold Symptoms (ED) Additional Instructions: Increase fluid, use Tylenol or ibuprofen as needed for discomfort and fever. Take [id number] coughs ears or decongestants. Follow-up with family physician Referrals: Nery Petersen MD [Primary Care Provider] - 1-2 days Time of Disposition: 22:41
--- NOTE | 2017-07-15 22:00 | XR ---
EXAMINATION TYPE: XR chest 2V DATE OF EXAM: 07/15/2017 COMPARISON: 05/13/2017 HISTORY: Shortness of breath TECHNIQUE: Frontal and lateral views of the chest are obtained. FINDINGS: Copious soft tissues partially obscure the lower lungs. There is no focal air space opacity , pleural effusion, or pneumothorax seen. The cardiac silhouette size is within normal limits. The osseous structures are intact. IMPRESSION: No acute cardiopulmonary process.
[2017-07-15 22:57] VITALS: BP 133/78; PULSE 77; RESP 18; TEMP 97.6
== END 2017-07-15 22:57 | disposition home or self-care (01) ==
LOC: EC 21:23
DX: B34.9 Viral infection, unspecified (principal); J00 Acute nasopharyngitis [common cold]; F32.9 Major depressive disorder, single episode, unspecified; Z79.899 Other long term (current) drug therapy
CPT/HCPCS: 71020; 99284

== ENCOUNTER → 2017-08-11 | Outpatient (CLI) | payer MEDICARE, OTHER ==
[2017-08-11 13:44] VITALS: BP 125/75; PULSE 87; RESP 16; TEMP 99.6; BMI 48.1
--- NOTE | 2017-10-09 21:54 | P.PN ---
Subjective Progress Note Date: 08/11/17 DATE OF SERVICE: 08/11/2017 CHIEF COMPLAINT: Bariatric evaluation. HISTORY OF PRESENT ILLNESS: Celena Nava is a 26-year-old female who presented with morbid obesity to the bariatric center 07/28/2017. At that time, she cames in weighing 277 pounds. Today she comes in weighing 280 pounds. She has gained 3 pounds in 2 weeks. At her height of 5 foot 4 inches, her ideal body weight is 144 pounds. She is 136 pounds overweight. Her body mass index is 48.1. As a result of her obesity, she has developed hypertensive heart disease, osteoarthritis, depression and gastroesophageal reflux disease. She has completed an upper endoscopy. She was tolerating for a sleeve gastrectomy. She presents for further evaluation and management. Since being started on omeprazole and continuing her medication, her epigastric abdominal pain and reflux has improved. PAST MEDICAL HISTORY: 1. Morbid obesity. 2. Body mass index of 47.6. 3. Depression. 4. Osteoarthritis of the lower back. 5. Hypertensive heart disease. 6. Gastroesophageal reflux disease. PAST SURGICAL HISTORY: 1. Upper endoscopy. HOME MEDICATIONS: 1. Omeprazole. 2. Fluoxetine. ALLERGIES: Denies. SOCIAL HISTORY: No active tobacco use. She is planning to be April 2018. FAMILY HISTORY: No family history of ulcerative colitis disease or Crohn's disease. She does have a family history of morbid obesity. She denies any lupus in her family. No reports of stomach or esophageal cancer. She has a family history of diabetes. Family history of H. pylori gastritis. His grandmother with osteoporosis. REVIEW OF ORGAN SYSTEMS: CONSTITUTIONAL: At her height of 5 foot 4 inches, her ideal body weight is 144 pounds. She is 136 pounds overweight. Her body mass index is 48.1. HEENT: Denies any active troubles with vision or hearing. No troubles with swallowing. ENDOCRINE: No diabetes. No hypothyroidism. CARDIOVASCULAR: No reports of palpitations or heart attacks or chest pain. RESPIRATORY: Has daytime somnolence including occassional snoring. No asthma. GI: Denies any bright red blood per rectum. Has constipation. Does have gastroesophageal reflux disease as described above. MUSCULOSKELETAL: Has lower back pain and joint pain. Has osteoarthritis of the hips and knees. She reports foot problems from flat feet. NEURO: No headaches. No seizure disorders. PSYCH: Has depression without suicidal ideation. RHEUMATOLOGIC: No lupus. No rheumatoid arthritis. HEMATOLOGIC: Denies any abnormal bleeding or bruising. No personal history of DVTs. SKIN: No rash. No skin cancer. FOOD HISTORY: Has intolerance tomatoes including lactose intolerant. PHYSICAL EXAM: VITAL SIGNS: Height 5 foot 4 inches, weight 280 pounds. BMI 48.1. Vital Signs 08/11/17 13:36 Temperature 99.6 F Pulse Rate 87 Respiratory 16 Rate Blood Pressure 125/75 GENERAL: Well-developed female in no acute distress. HEENT: No scleral icterus. Extraocular movements grossly intact. Hears conversational speech. No nasal drainage. NECK: Supple without lymphadenopathy. CHEST: Nonlabored respirations with equal bilateral excursions. CARDIOVASCULAR: Regular rate. Distal 2+ pulses. ABDOMEN: Obese, soft, nontender, nondistended. MUSCULOSKELETAL: No clubbing, cyanosis, or edema. Gross strength 5/5 distal lower extremities. NEURO: No focal or lateralizing signs. Cranial nerves 2 through 12 grossly within normal limits. PSYCH: Appropriate affect. Alert and oriented to person, place and time. SKIN: Good skin turgor. Well perfused. LABS: Vitamin D deficiency. EKG: Reviewed. EGD FINDINGS: Squamocolumnar junction 36 cm from the incisors. Diaphragmatic hiatus at 37 cm. Hiatal hernia 2 cm. Hill grade 3 lower esophageal valve. LA grade B erosive esophagitis. Superficial gastritis. No active duodenitis. Final Pathologic Diagnosis GASTRIC ANTRUM, BIOPSY: CHRONIC GASTRITIS, FOCALLY ACTIVE. IMMUNOPEROXIDASE STAIN NEGATIVE FOR HELICOBACTER PYLORI ORGANISMS (CONTROLS APPROPRIATE). ASSESSMENT: 1. Morbid obesity due to excess calories. 2. Body mass index of 48.1. 3. Depression. 4. Osteoarthritis of the lower back. 5. Hypertensive heart disease. 6. Gastroesophageal reflux disease. 7. Family history of morbid obesity. 8. Family history of diabetes type 2. 9. Obstructive sleep apnea. 10. Diaphragmatic hiatal hernia. PLAN: 1. Laboratory results reviewed in detail. Vitamin D deficiency was identified. Recommend vitamin D supplementation. 2. Upper endoscopy findings were reviewed in detail with diaphragmatic hiatal hernia. Separately, she reports gastroesophageal reflux disease improved with treatment. She is looking into the gastric bypass as a result. 3. She is pending completion of her medical risk assessment, psych assessment, and bariatric profile. 4. Follow-up upon completion of bariatric profile. Objective - Vital Signs Vital signs: Vital Signs Temp 99.6 F 08/11/17 13:36 Pulse 87 08/11/17 13:36 Resp 16 08/11/17 13:36 BP 125/75 08/11/17 13:36 Pulse Ox Intake & Output 08/10/17 08/11/17 08/11/17 18:59 06:59 18:59 Weight 127.176 kg
== END ==
LOC: BARWHC3 12:44
PROVIDERS: ATTEND Surgery Plastic and Reconstructive Surgery
DX: Z48.815 Encounter for surgical aftercare following surgery on the digestive system (principal); E66.01 Morbid (severe) obesity due to excess calories; F32.9 Major depressive disorder, single episode, unspecified; M47.816 Spondylosis without myelopathy or radiculopathy, lumbar region; I11.9 Hypertensive heart disease without heart failure; K21.9 Gastro-esophageal reflux disease without esophagitis; G47.33 Obstructive sleep apnea (adult) (pediatric); K44.9 Diaphragmatic hernia without obstruction or gangrene; Z68.42 Body mass index [BMI] 45.0-49.9, adult; Z79.899 Other long term (current) drug therapy
CPT/HCPCS: 99211

== ENCOUNTER → 2017-08-30 | Outpatient (CLI) | payer MEDICARE, OTHER ==
[2017-08-30 12:47] VITALS: BMI 47.8
== END | disposition home or self-care (01) ==
LOC: BARWHC3 08:51
PROVIDERS: ATTEND Surgery Plastic and Reconstructive Surgery
DX: E66.01 Morbid (severe) obesity due to excess calories (principal)
CPT/HCPCS: 97804

== ENCOUNTER → 2017-10-01 | Outpatient (CLI) | payer MEDICARE, OTHER ==
[2017-10-01 11:34] VITALS: BP 107/77; PULSE 86; TEMP 97.8; BMI 48.8
--- NOTE | 2017-10-27 23:01 | P.PN ---
Subjective Progress Note Date: 10/01/17 DATE OF SERVICE: 10/01/2017 CHIEF COMPLAINT: Bariatric evaluation. HISTORY OF PRESENT ILLNESS: Celena Nava is a 26-year-old female who presented with morbid obesity to the bariatric center 07/28/2017. She has completed her bariatric risk assessment. As result of her obesity, she developed gastroesophageal reflux disease including hypertensive heart disease, osteoarthritis of lower back, and sleep apnea. She reports worsening gastresophageal reflux disease following discontinuation of her omeprazole. At her height of 5 foot 4 inches, her ideal body weight is 144 pounds. She has gained 4 pounds in 1 month. Her highest weight is presently 284 pounds. She is 140 pounds overweight. Her body mass index is 48.8. She has been carefully evaluated and assessed where initially she wanted the sleeve gastrectomy. After treatment for gastroesophageal reflux disease, she is now looking into the gastric bypass to resolve her reflux disease and obtain the most weight loss. PAST MEDICAL HISTORY: 1. Morbid obesity. 2. Body mass index of 47.6. 3. Depression. 4. Osteoarthritis of the lower back. 5. Hypertensive heart disease. 6. Gastroesophageal reflux disease. PAST SURGICAL HISTORY: 1. Upper endoscopy. HOME MEDICATIONS: 1. Omeprazole. 2. Fluoxetine. ALLERGIES: Denies. SOCIAL HISTORY: No active tobacco use. She is planning to be April 2018. FAMILY HISTORY: No family history of ulcerative colitis disease or Crohn's disease. She does have a family history of morbid obesity. She denies any lupus in her family. No reports of stomach or esophageal cancer. She has a family history of diabetes. Family history of H. pylori gastritis. His grandmother with osteoporosis. REVIEW OF ORGAN SYSTEMS: CONSTITUTIONAL: At her height of 5 foot 4 inches, her ideal body weight is 144 pounds. She has gained 4 pounds in 1 month. Her highest weight is presently 284 pounds. She is 140 pounds overweight. Her body mass index is 48.8. HEENT: Denies any active troubles with vision or hearing. No troubles with swallowing. ENDOCRINE: No diabetes. No hypothyroidism. CARDIOVASCULAR: No reports of palpitations or heart attacks or chest pain. RESPIRATORY: Has daytime somnolence including occassional snoring. No asthma. GI: Denies any bright red blood per rectum. Has constipation. Does have gastroesophageal reflux disease as described above. MUSCULOSKELETAL: Has lower back pain and joint pain. Has osteoarthritis of the hips and knees. She reports foot problems from flat feet. NEURO: No headaches. No seizure disorders. PSYCH: Has depression without suicidal ideation. RHEUMATOLOGIC: No lupus. No rheumatoid arthritis. HEMATOLOGIC: Denies any abnormal bleeding or bruising. No personal history of DVTs. SKIN: No rash. No skin cancer. FOOD HISTORY: Has intolerance tomatoes including lactose intolerant. PHYSICAL EXAM: VITAL SIGNS: Height 5 foot 4 inches, weight 284 pounds. BMI 48.8. Vital Signs Temp 97.8 F 10/01/17 11:26 Pulse 86 10/01/17 11:26 Resp BP 107/77 10/01/17 11:26 Pulse Ox GENERAL: Well-developed female in no acute distress. HEENT: No scleral icterus. Extraocular movements grossly intact. Hears conversational speech. No nasal drainage. NECK: Supple without lymphadenopathy. CHEST: Nonlabored respirations with equal bilateral excursions. CARDIOVASCULAR: Regular rate. Distal 2+ pulses. ABDOMEN: Obese, soft, nontender, nondistended. MUSCULOSKELETAL: No clubbing, cyanosis, or edema. Gross strength 5/5 distal lower extremities. NEURO: No focal or lateralizing signs. Cranial nerves 2 through 12 grossly within normal limits. PSYCH: Appropriate affect. Alert and oriented to person, place and time. SKIN: Good skin turgor. Well perfused. ASSESSMENT: 1. Morbid obesity due to excess calories. 2. Body mass index of 48.1. 3. Depression. 4. Osteoarthritis of the lower back. 5. Hypertensive heart disease. 6. Gastroesophageal reflux disease. 7. Family history of morbid obesity. 8. Family history of diabetes type 2. 9. Obstructive sleep apnea. 10. Diaphragmatic hiatal hernia. PLAN: 1. She comes in changing her procedure of choice from sleeve gastrectomy to a gastric bypass. An 8-page bariatric second-generation consent form was reviewed in detail including increased risk for nutritional deficiencies, internal hernias, leak, abdominal pain. 2. DVT prophylaxis. 3. Antibiotic prophylaxis. 4. Inpatient hospitalization anticipated for 2 nights. 5. Two-week high-protein low-carb diet to address hepatomegaly. Objective - Vital Signs Vital signs: Vital Signs Temp 97.8 F 10/01/17 11:26 Pulse 86 10/01/17 11:26 Resp BP 107/77 10/01/17 11:26 Pulse Ox Intake & Output 09/30/17 10/01/17 10/01/17 18:59 06:59 18:59 Weight 129.047 kg
== END | disposition home or self-care (01) ==
LOC: BARWHC3 09:42
PROVIDERS: ATTEND Surgery Plastic and Reconstructive Surgery
DX: E66.01 Morbid (severe) obesity due to excess calories (principal); F32.9 Major depressive disorder, single episode, unspecified; M47.9 Spondylosis, unspecified; I11.9 Hypertensive heart disease without heart failure; G47.33 Obstructive sleep apnea (adult) (pediatric); K21.9 Gastro-esophageal reflux disease without esophagitis; Z83.3 Family history of diabetes mellitus; Z83.49 Family history of other endocrine, nutritional and metabolic diseases; K44.9 Diaphragmatic hernia without obstruction or gangrene; Z68.42 Body mass index [BMI] 45.0-49.9, adult; Z79.899 Other long term (current) drug therapy
CPT/HCPCS: 99211

== ENCOUNTER → 2017-10-14 | Outpatient (CLI) | payer MEDICARE, OTHER ==
[2017-10-14 15:56] LABS: Basophils # (A) 0.1 k/uL (0-0.2); Basophils % (A) 1 %; Eosinophils # (A) 0.1 k/uL (0-0.7); Eosinophils % (A) 1 %; HCT 43.6 % (34.0-46.0); HGB 13.8 gm/dL (11.4-16.0); Lymphocytes % (A) 26 %; MCH 28.1 pg (25.0-35.0); MCHC 31.8 g/dL (31.0-37.0); MCV 88.6 fL (80.0-100.0); Mean Platelet Volume 6.5; Monocytes # (A) 0.4 k/uL (0-1.0); Monocytes % (A) 5 %; Neutrophils # (A) 5.1 k/uL (1.3-7.7); Neutrophils % (A) 65 %; Platelet Count 484 k/uL (150-450); RBC 4.91 m/uL (3.80-5.40); RDW 13.5 % (11.5-15.5); WBC 7.8 k/uL (3.8-10.6)
[2017-10-14 16:07] LABS: ALT 59 U/L (9-52); AST 46 U/L (14-36); Albumin 4.2 g/dL (3.5-5.0); Alkaline Phosphatase 74 U/L (38-126); Anion Gap 14 mmol/L; Blood Urea Nitrogen 16 mg/dL (7-17); Carbon Dioxide 25 mmol/L (22-30); Chloride 100 mmol/L (98-107); Glucose 76 mg/dL (74-99); Potassium 4.8 mmol/L (3.5-5.1); Sodium 139 mmol/L (137-145); Total Bilirubin 0.6 mg/dL (0.2-1.3); Total Protein 7.4 g/dL (6.3-8.2)
== END | disposition home or self-care (01) ==
LOC: LABWHC1 14:56
PROVIDERS: ATTEND Surgery Plastic and Reconstructive Surgery
DX: Z01.812 Encounter for preprocedural laboratory examination (principal)
CPT/HCPCS: 36415; 80053; 85025; 86850; 86900; 86901

== ENCOUNTER 2017-10-25 05:50 | Inpatient (IN) | payer MEDICARE, OTHER ==
[2017-10-15 15:27] VITALS: BMI 46.8
--- NOTE | 2017-10-25 05:15 | P.GSHP ---
History of Present Illness H&P Date: 10/25/17 DATE OF SERVICE: 10/25/2017 CHIEF COMPLAINT: Morbid obesity. HISTORY OF PRESENT ILLNESS: Celena Nava is a 27-year-old female who presented with morbid obesity to the bariatric center 07/28/2017. At that time, she cames in weighing 277 pounds. Today she comes in weighing 272 pounds. She has gained 8 pounds in 3 months. At her height of 5 foot 4 inches, her ideal body weight is 144 pounds. She is 128 pounds overweight. Her body mass index is 48.1 down to 46.9. As a result of her obesity, she has developed hypertensive heart disease, osteoarthritis, depression and gastroesophageal reflux disease. She presents for a gastric bypass. PAST MEDICAL HISTORY: 1. Morbid obesity. 2. Body mass index of 48.1. 3. Depression. 4. Osteoarthritis of the lower back. 5. Hypertensive heart disease. 6. Gastroesophageal reflux disease. PAST SURGICAL HISTORY: 1. Upper endoscopy. HOME MEDICATIONS: 1. Omeprazole. 2. Fluoxetine. ALLERGIES: Denies. SOCIAL HISTORY: No active tobacco use. She is planning to be April 2018. FAMILY HISTORY: No family history of ulcerative colitis disease or Crohn's disease. She does have a family history of morbid obesity. She denies any lupus in her family. No reports of stomach or esophageal cancer. She has a family history of diabetes. Family history of H. pylori gastritis. His grandmother with osteoporosis. REVIEW OF ORGAN SYSTEMS: CONSTITUTIONAL: At her height of 5 foot 4 inches, her ideal body weight is 144 pounds. She is 128 pounds overweight. Her body mass index is 46.9.. HEENT: Denies any active troubles with vision or hearing. No troubles with swallowing. ENDOCRINE: No diabetes. No hypothyroidism. CARDIOVASCULAR: No reports of palpitations or heart attacks or chest pain. RESPIRATORY: Has daytime somnolence including occassional snoring. No asthma. GI: Denies any bright red blood per rectum. Has constipation. Does have gastroesophageal reflux disease as described above. MUSCULOSKELETAL: Has lower back pain and joint pain. Has osteoarthritis of the hips and knees. She reports foot problems from flat feet. NEURO: No headaches. No seizure disorders. PSYCH: Has depression without suicidal ideation. RHEUMATOLOGIC: No lupus. No rheumatoid arthritis. HEMATOLOGIC: Denies any abnormal bleeding or bruising. No personal history of DVTs. SKIN: No rash. No skin cancer. FOOD HISTORY: Has intolerance tomatoes including lactose intolerant. PHYSICAL EXAM: VITAL SIGNS: Height 5 foot 4 inches, weight 280 pounds. BMI 46.9. GENERAL: Well-developed female in no acute distress. HEENT: No scleral icterus. Extraocular movements grossly intact. Hears conversational speech. No nasal drainage. NECK: Supple without lymphadenopathy. CHEST: Nonlabored respirations with equal bilateral excursions. CARDIOVASCULAR: Regular rate. Distal 2+ pulses. ABDOMEN: Obese, soft, nontender, nondistended. MUSCULOSKELETAL: No clubbing, cyanosis, or edema. Gross strength 5/5 distal lower extremities. NEURO: No focal or lateralizing signs. Cranial nerves 2 through 12 grossly within normal limits. PSYCH: Appropriate affect. Alert and oriented to person, place and time. SKIN: Good skin turgor. Well perfused. ASSESSMENT: 1. Morbid obesity due to excess calories. 2. Body mass index of 48.1 down to 46.9. 3. Depression. 4. Osteoarthritis of the lower back. 5. Hypertensive heart disease. 6. Gastroesophageal reflux disease. 7. Family history of morbid obesity. 8. Family history of diabetes type 2. 9. Obstructive sleep apnea. 10. Diaphragmatic hiatal hernia. 11. Elevated liver AST and ALT. 12. Elevated platelets, thrombocytosis. PLAN: 1. Bariatric options between a sleeve and a Kyle-en-Y gastric bypass were reviewed in detail. She elected for a Kyle-en-Y gastric bypass. Robotic assisted approac described. 2. The [place] [facility] Data was also reviewed with benefits and risks as described. 3. An 8 page second-generation bariatric consent form was reviewed in detail including potential of bleeding, infection, leaks, adequate weight loss, nutritional deficiencies which she demonstrated understanding of the risks. 4. She has completed 2 week high-protein low caloric 800 kcal diet to address hepatomegaly. 5. Preoperative labs including compress metabolic panel and CBC with type and screen completed. 6. DVT prophylaxis per [place] [facility]. 7. Antibiotic prophylaxis. 8. Inpatient hospitalization anticipated for more than 2 nights. 9. All questions and concerns were addressed with the patient. 10. Recommend diet classes completed. Past Medical History Past Medical History: GERD/Reflux, Seizure Disorder Additional Past Medical History / Comment(s): seizures as child-no rx, last seizure 2000, "blood clot in head age 4" History of Any Multi-Drug Resistant Organisms: None Reported Past Surgical History: Orthopedic Surgery Additional Past Surgical History / Comment(s): surgery w/plates in arianna feet for "flat feet", recent EGD Past Anesthesia/Blood Transfusion Reactions: No Reported Reaction Smoking Status: Never smoker - Past Family History Mother Family Medical History: No Reported History Medications and Allergies Home Medications Medication Instructions Recorded Confirmed Type FLUoxetine HCL [FLUoxetine DR] 90 mg PO FR 04/07/16 10/15/17 History Omeprazole [Omeprazole] 20 mg PO DAILY 05/20/17 10/15/17 History Ergocalciferol [Vitamin D2 50,000 unit PO Q7D #12 cap 08/11/17 10/15/17 Rx (DRISDOL)] Allergies Allergy/AdvReac Type Severity Reaction Status Date / Time No Known Allergies Allergy Verified 10/15/17 15:25
[~2017-10-25 05:50] MED LIST: CHLORHEXIDINE GLUCONATE 15 ML CUP MUCOUS MEM ONE; DEXAMETHASONE SOD PHOSPHATE 10 MG/ML 1 ML VIAL IV ONE; ENOXAPARIN 40 MG/0.4 ML SYRINGE SQ STA; MORPHINE SULFATE 4 MG/ML SYRINGE IV PRN; ONDANSETRON 4 MG/2 ML VIAL IVP ONE; ONDANSETRON 4 MG/2 ML VIAL IVP PRN; PANTOPRAZOLE 40 MG/10 ML VIAL IV STA; SCOPOLAMINE 1.5MG/72HR PATCH TRANSDERM STA
[2017-10-25] MEDS: LACTATED RINGERS 1,000 ML IV SCH ×3 (06:48→15:31)
[2017-10-25] MEDS ORDERED: DEXAMETHASONE SOD PHOS (MDV) 100 MG/10 ML VIAL IV ONE (06:49)
[2017-10-25] MEDS ORDERED: LIDOCAINE 1% 20 ML VIAL (10MG/ML) FOR IV START INTRADERMA ONE (06:49)
[2017-10-25] MEDS ORDERED: LABETALOL 5 MG/ML VIAL MDV ONE (07:28)
[2017-10-25] MEDS ORDERED: GLYCOPYRROLATE 0.2 MG/ML 2 ML VIAL ONE (07:28)
[2017-10-25] MEDS ORDERED: SUCCINYLCHOLINE CHLORIDE VIAL 200 MG/10 ML VIAL IV ONE (07:28)
[2017-10-25] MEDS ORDERED: LIDOCAINE 1% INJ 10MG/ML (20 ML MDV) ONE (07:28)
[2017-10-25] MEDS ORDERED: NEOSTIGMINE 1 MG/ML 10 ML VIAL ONE (07:28)
[2017-10-25] MEDS ORDERED: PROPOFOL 10 MG/ML 50 ML VIAL IV ONE (07:28)
[2017-10-25] MEDS ORDERED: ROCURONIUM BROMIDE 10 MG/ML 10 ML VIAL IV ONE (07:28)
[2017-10-25] MEDS ORDERED: fentaNYL (PF) 50 MCG/ML 2 ML AMP ONE (07:28)
[2017-10-25] MEDS ORDERED: MIDAZOLAM 2 MG/2 ML VIAL ONE (07:28)
[2017-10-25] MEDS ORDERED: BUPIVACAINE (PF) 0.25% 30 ML VIAL SQ ONE (07:57)
[2017-10-25] MEDS ORDERED: LACTATED RINGERS 1,000 ML IV ONE (09:10)
[2017-10-25] MEDS ORDERED: diphenhydrAMINE 50 MG/ML 1 ML VIAL IVP PRN (11:35)
[2017-10-25] MEDS ORDERED: NALOXONE 0.4 MG/ML 1 ML VIAL IV PRN (11:35)
[2017-10-25] MEDS: HYDROmorphone 0.5 MG/0.5 ML SYRINGE IVP PRN ×3 (11:36→12:00)
--- NOTE | 2017-10-25 11:59 | P.OP ---
Date of Procedure: 10/25/17 Description of Procedure: DESCRIPTION OF PROCEDURE(S): SURGEON: STEPHANI ELLIOTT MD RAILROAD OPERATOR: 1. LINK ROMAN 2. ZIA JUNE PREOPERATIVE DIAGNOSES: 1. Morbid obesity due to excess calories. 2. Body mass index of 48.1 down to 46.9. 3. Depression. 4. Osteoarthritis of the lower back. 5. Hypertensive heart disease. 6. Gastroesophageal reflux disease. 7. Family history of morbid obesity. 8. Family history of diabetes type 2. 9. Obstructive sleep apnea. 10. Diaphragmatic hiatal hernia. 11. Elevated liver AST and ALT. 12. Elevated platelets, thrombocytosis. POSTOPERATIVE DIAGNOSES: 1. Morbid obesity due to excess calories. 2. Body mass index of 48.1 down to 46.9. 3. Depression. 4. Osteoarthritis of the lower back. 5. Hypertensive heart disease. 6. Gastroesophageal reflux disease. 7. Family history of morbid obesity. 8. Family history of diabetes type 2. 9. Obstructive sleep apnea. 10. Diaphragmatic hiatal hernia. 11. Elevated liver AST and ALT. 12. Elevated platelets, thrombocytosis. 13. Right indirect inguinal hernia, initial. 14. Diaphragmatic hiatal hernia. OPERATION: 1. Robotic assisted da Adi Xi laparoscopic Job-en-Y gastric bypass, 100cm antecolic antegastric Job limb, with 25 mm EEA. 2. Intraoperative esophagogastrojejunoscopy. ANESTHESIA: GETA and local ESTIMATED BLOOD LOSS: 50 mL SPECIMENS REMOVED: None. COMPLICATIONS: NONE. INDICATIONS: Celena Nava is a 27-year-old female who presented with morbid obesity to the bariatric center 07/28/2017. At that time, she cames in weighing 277 pounds. Today she comes in weighing 272 pounds. She has gained 8 pounds in 3 months. At her height of 5 foot 4 inches, her ideal body weight is 144 pounds. She is 128 pounds overweight. Her body mass index is 48.1 down to 46.9. As a result of her obesity, she has developed hypertensive heart disease , osteoarthritis, depression and gastroesophageal reflux disease. She now presents to undergo robotic assisted gastric bypass. A second-generation bariatric consent form was described in detail including the possibility of protein malnutrition, leaks, gastrojejunal stricture, venous thrombosis, need for further surgery for which she demonstrated understanding. Benefits and risks of the procedure were described at length. Informed consent was obtained. DESCRIPTION: The patient was brought into the operating room theater. She was placed on a split leg table. She had received Lovenox subcutaneously for DVT prophylaxis. Additionally she Peridex oral solution as an oral decontaminant was placed per anesthesia. After general induction, the abdomen was prepped and draped in standard sterile fashion. Ioban draping was placed along the abdomen. A robotic da Adi Xi system was prepped and primed. The xiphoid to umbilicus was measured of 19 cm. Proposed port sites were marked with indelible marker along the anterior axillary line bilaterally, mid clavicular line bilaterally with each port marked 10 cm from each other. The assistant child care teacher port was marked along the right lateral lower abdominal wall. The robotic stapler port was marked for the right midclavicular line including along the left midclavicular line. A 5 mm 0 degrees laparoscopic trocar entry was performed along the left upper quadrant. The abdomen was insufflated to 15 mmHg pressure, which she tolerated well. Diagnostic laparoscopy demonstrated no injury to bowel, viscera, or mesentery. The liver surface was unremarkable. A small hiatal hernia was encountered. Along the right groin, a small Nyhus type I inguinal hernia, indirect was identified without incarceration, 1 cm in size. An 8 mm camera port was placed left lateral to the umbilicus at the epigastrium , 15 cm distal to the xiphoid. Next, 12-mm robot stapler port was placed along the right mid abdomen. An 12 mm port was exchanged along the left upper quadrant. An 8 mm port was placed on the left lateral abdominal wall under direct localization. An assistant child care teacher 12 mm trocar was placed along the right lower abdomen under direct visualization approximately 5-7 cm distal to the stapler port and abdominal line. All bariatric length robotic trochars were used. Please note that the ports were placed 18 to 20 cm away from the target anatomy of the stomach. Care was taken to check that each robotic arm was safely away from collision with the bed or the patient. At the epigastrium, a medium sized Vivian liver retractor was placed under direct visualization with the [facility] Manager placed over the right shoulder of the patient. The patient was repositioned in reverse Trendelenburg position at 14-degress after lowering the bed. The robot was docked over the patient. Using grasper for arm 3, a grasper for arm 1, including vessel sealer for arm 2 , the robotic system was docked and primed as described. Instruments were interchanged by the assistant child care teacher including endoscissors, the needle local flatbed driver, and stapler. I had sat at the console. Next, the transverse mesocolon was reflected into the upper abdomen preparing for the jejunojejunostomy portion of the case. The ligament of Treitz was identified and measured 60 cm antegrade and marked using 2-0 Vicryl. The jejunum was divided at the 60 cm point using 45-mm white loads above the suture measurement. The biliopancreatic limb was held in place. The Job limb was measured 100 cm in an antegrade fashion to avoid tension along the proposed gastrojejunal anastomosis. At 100 cm along the anti-mesenteric border of the Job limb, a jejunojejunostomy was proposed whereby enterotomies were created along the biliopancreatic limb including the Job limb using a Bovie cautery. A stay suture of 2-0 Vicryl was placed to align and create the anastomosis. The enterotomies along the anti-mesenteric borders were created followed by unidirectional fire from the patient's right side using 2 - 45 mm white load Smart technology robotic stapler. The jejunojejunostomy was found to be hemostatic. The enterotomy was closed after horizontal mattress stitch of 2-0 silk used to elevate the enterotomy followed by closure with the robotic stapler white load. The jejunal limb was temporarily tacked along the left upper quadrant. Along the jejunojejunostomy, a Ray-Raymond sponge was released from the anastomosis. Attention was now brought to the creation of the gastrojejunostomy. Along the lesser curvature of the stomach between the second and third veins, dissection was made along the retrogastric space to allow first firing of the robotic staple. Moderate posterior stomach were identified, hence increasing the complexity of her case. Multiple blue and green loads of 45 mm staplers were used to divide the stomach to create the gastric pouch. The patient was then prepared for placement of a Orvil. The patient was Mallampati 3. A 25-mm Orvil was selected for placement by the nurse seamark advanced operator maintainer. The Orvil tubing was placed anterior to the staple line of the gastric pouch and brought out through the left inferior lateral port. I re-scrubbed into the case. The robotic arms were temporarily undocked. The Orvil was then carefully and successfully navigated with the help of the nurse seamark advanced operator maintainer into the gastric pouch. The sutures were identified and divided. The tubing was from the 25 mm anvil. As the Orvil had been placed, the blind jejunal limb was brought proximally into the upper abdomen. No torsion was found upon the Job limb. No tension was identified as the limb was brought along the upper abdomen. The blind jejunal limb was previouslu opened using Bovie cautery. The 25-mm EEA stapler was brought through the left anterior lateral port site from the left side. The EEA stapler was brought through the open jejunal limb and its needle was deployed at the antimesenteric border where the anvil were mated for approximately 1 minute upon firing. The stapler was removed after irrigating the shaft of the instrument with warm normal saline. Donuts were found to be intact and on both sides. The da Adi XiI robot arms were then re-docked. I sat at the console. The open jejunal limb defect was closed using 45 mm white loads after releasing any tension from the blind jejunal limb. Care was taken to avoid any long blind limb to avoid candycane syndrome. Reinforcement sutures were placed along the gastrojejunal anastomosis at the 12: 00, 9:00 and 3 o'clock position using 3-0 Vicryl. The Dooley and jejunojejunostomy mesenteric defects were obliterated by her intra-abdominal fat. I then went to the head of the bed to perform the esophagogastrojejunoscopy and a leak test. An Olympus gastroscope was passed along the posterior oropharynx which was unremarkable for any injury to the vocal cords. The scope was passed down to the proximal portion of the pouch, whereby no active bleeding was encountered. Excellent visualization of the gastrojejunostomy anastomosis, including the Job limb was encountered with endoscopic image obtained. The anastomosis was found to be patent. The gastrointestinal tract was desufflated. No evidence of intraoperative leak was encountered as the gastric pouch and anastomosis were submerged under normal saline solution. The robot was then undocked. I then went back to the bedside of the patient, whereby with coordinated effort of the assistant child care teacher, irrigation was aspirated from the upper abdominal cavity. Tisseel was placed circumferentially over the anastomosis of the gastrojejunostomy. The fascial defect of the EEA stapler was closed using Finesse Ramirez and 0 Vicryl. All instruments and pneumoperitoneum were evacuated from the abdominal cavity. The port correlating with the EEA stapler device was cleansed with normal saline solution and hydrogen peroxide. The rest of incisions were reapproximated using 3-0 Vicryl for deep subcutaneous tissue and dermis followed by 4-0 Monocryl in an interrupted subcuticular fashion. Local anesthetic was infiltrated along the skin for postop analgesia. Dermabond was applied to the skin. OptiFoam dressing was placed along the EEA stapler site. At the end of the procedure, needle, sponge and instrument count had been verified correct by the licensed psychiatric technician. She had tolerated the procedure well and was extubated and taken to the postanesthesia unit in stable condition. Operative Findings: 1. Initial right inguinal hernia without incarceration, indirect, 1 cm. 2. Bypass performed using 100 cm job limb secondary to avoid increased tension at 150 cm. 3. Villegas defect and jejunojejunostomy defect obliterated by moderate intra- abdominal fat. 4. Leak test negative with gastrojejunal anastomosis patent and hemostatic. 5. Robotic staplers total of 13 combined blue and green 45 mm used. 6. Reinforcement sutures were placed along the gastrojejunal anastomosis at the 12:00, 9:00 and 3 o'clock position using 3-0 Vicryl.
[2017-10-25] MEDS ORDERED: 0.9% NACL WITH KCL 20 MEQ/L 1,000 ML IV ONE (13:15)
[2017-10-25] MEDS: AMPICILLIN-SULBACTAM 3 GM in SODIUM CHLORIDE 0.9% 100 ML IVPB SCH ×3 (13:30→17:33)
[2017-10-25] MEDS: 0.9% NACL WITH KCL 20 MEQ/L 1,000 ML IV SCH ×3 (13:30→19:33)
[2017-10-25] MEDS ORDERED: ONDANSETRON 4 MG/2 ML VIAL IVP ONE (14:51)
[2017-10-25] MEDS: HYOSCYAMINE ORAL DROPS 1.875 MG/15 ML BOTTLE PO SCH ×2 (15:32→17:36)
[2017-10-25] MEDS: SIMETHICONE 40 MG/0.6 ML DROPS 2,000 MG/30 ML BOTTLE PO SCH ×2 (15:32→17:39)
[2017-10-25] MEDS: ALBUTEROL NEBULIZED 2.5 MG/3 ML INHALATION SCH ×3 (15:37→19:24)
[2017-10-25] MEDS: HYDROmorphone 2 MG/ML 1 ML SYRINGE IVP PRN (18:02)
[2017-10-25] MEDS ORDERED: SCOPOLAMINE 1.5MG/72HR PATCH TRANSDERM STA (18:12)
[2017-10-25] MEDS ORDERED: METOCLOPRAMIDE 5 MG/ML 2 ML VIAL IVP STA (18:13)
[2017-10-25] MEDS ORDERED: SODIUM CHLORIDE 0.9% 2,000 ML IV ONE (18:21)
[2017-10-26] MEDS: HYDROmorphone 2 MG/ML 1 ML SYRINGE IVP PRN (00:30)
[2017-10-26] MEDS: SIMETHICONE 40 MG/0.6 ML DROPS 2,000 MG/30 ML BOTTLE PO SCH ×4 (00:31→17:34)
[2017-10-26] MEDS: HYOSCYAMINE ORAL DROPS 1.875 MG/15 ML BOTTLE PO SCH ×4 (00:31→17:34)
[2017-10-26] MEDS: ONDANSETRON 4 MG/2 ML VIAL IVP PRN ×2 (00:41→14:48)
[2017-10-26] MEDS: 0.9% NACL WITH KCL 20 MEQ/L 1,000 ML IV SCH ×2 (01:27→10:21)
[2017-10-26] MEDS: HYDROcodone/APAP 15 ML SOLUTION PO PRN ×2 (05:35→17:37)
[2017-10-26 07:43] LABS: Basophils % (A) 0 %; Eosinophils # (A) 0.1 k/uL (0-0.7); Eosinophils % (A) 1 %; HCT 37.1 % (34.0-46.0); HGB 11.9 gm/dL (11.4-16.0); Lymphocytes # (A) 0.8 k/uL (1.0-4.8); Lymphocytes % (A) 7 %; MCH 28.7 pg (25.0-35.0); MCV 89.8 fL (80.0-100.0); Mean Platelet Volume 6.9; Monocytes # (A) 0.6 k/uL (0-1.0); Monocytes % (A) 5 %; Neutrophils # (A) 9.8 k/uL (1.3-7.7); Neutrophils % (A) 85 %; Platelet Count 355 k/uL (150-450); RBC 4.14 m/uL (3.80-5.40); RDW 13.5 % (11.5-15.5); WBC 11.5 k/uL (3.8-10.6)
[2017-10-26 07:59] LABS: Anion Gap 10 mmol/L; Blood Urea Nitrogen 7 mg/dL (7-17); Calcium 8.6 mg/dL (8.4-10.2); Carbon Dioxide 22 mmol/L (22-30); Chloride 108 mmol/L (98-107); Magnesium 1.7 mg/dL (1.6-2.3); Phosphorus 2.3 mg/dL (2.5-4.5); Potassium 3.9 mmol/L (3.5-5.1); Sodium 140 mmol/L (137-145)
[2017-10-26] MEDS ORDERED: 1: MVI, ADULT NO.4 WITH VIT K 10 ML, THIAMINE 100 MG, FOLIC ACID 1 MG, POTASSIUM CHLORID IV SCH ×6 (08:00)
[2017-10-26 08:17] VITALS: TEMP 97.5
[2017-10-26] MEDS: ALBUTEROL NEBULIZED 2.5 MG/3 ML INHALATION SCH ×3 (08:45→16:36)
[2017-10-26] MEDS ORDERED: ENOXAPARIN 40 MG/0.4 ML SYRINGE SQ SCH (09:00)
[2017-10-26] MEDS: MAGNESIUM SULFATE-D5W PMX 1 GM in DEXTROSE/WATER 1 100ML.BAG IVPB SCH ×3 (10:21→16:08)
--- NOTE | 2017-10-26 10:22 | P.PN ---
Subjective Progress Note Date: 10/26/17 27-year-old female being seen and examined at bedside. Patient has been up ambulating in the hallway this morning. No nausea vomiting. Surgical tenderness appropriate white count 11.5 this morning hemoglobin 11.9 electrolytes reviewed within normal limits afebrile heart rate 90s to 110 with a sat of 91% on room air Patient is postop done on October 25 Robotic assisted da Adi Xi laparoscopic Kyle-en-Y gastric bypass, 100cm antecolic antegastric Kyle limb, with 25 mm EEA intraoperative esophagogastrojejunoscopy . Patient has a history of morbid obesity being followed by the bariatric center. Presented to undergo gastric bypass surgery Objective - Vital Signs Vital signs: Vital Signs Temp 97.5 F L 10/26/17 07:00 Pulse 110 H 10/26/17 09:06 Resp 17 10/26/17 07:00 BP 104/61 10/26/17 07:00 Pulse Ox 91 L 10/26/17 09:06 Intake & Output 10/25/17 10/26/17 10/26/17 18:59 06:59 18:59 Intake Total 2872 2000 Output Total 420 2200 700 Balance 2452 -200 -700 Weight 123.831 kg Intake: IV 2772 Invasive Line 1 372 Intake, IV Titration 100 2000 Amount Ampicillin-Sulbactam 3 gm 100 In Sodium Chloride 0.9% 100 ml @ 100 mls/hr IVPB Q6HR [facility] Rx#:[id number] Sodium Chloride 0.9% 2, 2000 000 ml @ 999 mls/hr IV . Q2H1M ONE Rx#:[id number] Output: Urine 370 2200 700 Uretheral (Cruz) 700 Estimated Blood Loss 50 Other: Voiding Method Indwelling Catheter Indwelling Catheter Indwelling Catheter - Exam Physical exam 27-year-old female pleasant oriented 3 appears in no acute distress Lungs adequate air movement bilaterally currently on room air sats 91% Heart S1-S2 audible regular Abdomen obese soft nontender surgical dressing sites dry not distended bowel tones present urinating no difficulty no nausea no vomiting Extremities Venodyne's on to the bilateral lower extremities no edema noted - Labs CBC & Chem 7: 10/26/17 07:17 10/26/17 07:17 Labs: Abnormal Lab Results - Last 24 Hours (Table) 01/30/18 01/30/18 Range/Units 07:17 07:17 WBC 11.5 H (3.8-10.6) k/uL Neutrophils # 9.8 H (1.3-7.7) k/uL Lymphocytes # 0.8 L (1.0-4.8) k/uL Chloride 108 H (98-107) mmol/L Phosphorus 2.3 L (2.5-4.5) mg/dL Assessment and Plan Assessment: Impression Morbid obesity due to excess calories BMI of 48 down to 46 Depression Osteoarthritis of the lower back Family history of morbid obesity Elevated liver AST and ALT Elevated platelets Positive family history of diabetes type 2 Postop robotic-assisted kyle-en-y gastric bypass done on October 25 History of obstructive sleep apnea A diaphragmatic hiatal hernia Plan Bariatric clear liquid diet Continue postop surgical care Increase activity Prepped for probable discharge today after seen by dr rush Dietary consult for nutritional support PT OT eval Pain control The above impression and plan of care have been discussed and directed by signing physician. Adriane Lafleur nurse practitioner acting as scribe for signing physician.
[2017-10-26] MEDS: SODIUM PHOSPHATE 10 MMOL in SODIUM CHLORIDE 0.9% 250 ML IVPB SCH ×3 (11:41→16:08)
[2017-10-26] MEDS: LACTATED RINGERS 1,000 ML IV SCH ×2 (13:55→14:44)
[2017-10-26 15:11] VITALS: BP 106/60; RESP 16
[2017-10-26 16:57] VITALS: PULSE 90
[2017-10-27] MEDS ORDERED: BISACODYL 5 MG TABLET.DR PO PRN (08:00)
== END 2017-10-26 18:45 | disposition home or self-care (01) | DRG 621 ==
LOC: 2ORMAIN 05:50 → 3SUR 14:42
PROVIDERS: ADMIT Surgery Plastic and Reconstructive Surgery; ATTEND Surgery Plastic and Reconstructive Surgery
PROC: 0DJ08ZZ Inspection of Upper Intestinal Tract, Via Natural or Artificial Opening Endoscopic (ICD-10-PCS; 2017-10-25)
PROC: 8E0W4CZ Robotic Assisted Procedure of Trunk Region, Percutaneous Endoscopic Approach (ICD-10-PCS; 2017-10-25)
PROC: 0D164ZA Bypass Stomach to Jejunum, Percutaneous Endoscopic Approach (ICD-10-PCS; principal; 2017-10-25 07:30)
DX: E66.01 Morbid (severe) obesity due to excess calories (principal); I11.9 Hypertensive heart disease without heart failure; F32.9 Major depressive disorder, single episode, unspecified; G40.909 Epilepsy, unspecified, not intractable, without status epilepticus; G47.33 Obstructive sleep apnea (adult) (pediatric); K21.9 Gastro-esophageal reflux disease without esophagitis; K40.90 Unilateral inguinal hernia, without obstruction or gangrene, not specified as recurrent; K44.9 Diaphragmatic hernia without obstruction or gangrene; M47.9 Spondylosis, unspecified; R74.8 Abnormal levels of other serum enzymes; R79.89 Other specified abnormal findings of blood chemistry; Z68.42 Body mass index [BMI] 45.0-49.9, adult; Z79.899 Other long term (current) drug therapy
CPT/HCPCS: 80051; 81025; 82310; 82565; 83735; 84100; 84520; 85025; 86850; 86900; 86901; 94640

== ENCOUNTER → 2017-10-27 | Outpatient (CLI) | payer MEDICARE, OTHER ==
[~2017-10-27] MED LIST changes: -CHLORHEXIDINE GLUCONATE 15 ML CUP MUCOUS MEM ONE; -DEXAMETHASONE SOD PHOSPHATE 10 MG/ML 1 ML VIAL IV ONE; -ENOXAPARIN 40 MG/0.4 ML SYRINGE SQ STA; -MORPHINE SULFATE 4 MG/ML SYRINGE IV PRN; -ONDANSETRON 4 MG/2 ML VIAL IVP ONE; -ONDANSETRON 4 MG/2 ML VIAL IVP PRN; -PANTOPRAZOLE 40 MG/10 ML VIAL IV STA
[2017-10-27 16:50] VITALS: BP 122/71; PULSE 94; TEMP 97.6; BMI 48.8
--- NOTE | 2017-11-28 20:16 | P.PN ---
Subjective Progress Note Date: 10/27/17 DATE OF SERVICE: 10/27/2017 CHIEF COMPLAINT: Status post gastric bypass HISTORY OF PRESENT ILLNESS: Celena Nava is a 26-year-old female is status post gastric bypass 10/25/2017. She is now postoperative day 2. Since her evaluation one month ago, she has not lost any weight. She did not follow the preop bariatric diet as evidenced by her lack of weight loss. She comes in today complaining of nausea. She is not drinking her fluids. She is exhibiting medical noncompliance. No reports of fevers or chills. At her height of 5 foot 4 inches, her ideal body weight is 144 pounds. Her weight is unchanged in 1 month. Her highest weight is presently 284 pounds. She is 140 pounds overweight. Her body mass index is 48.8. PHYSICAL EXAM: VITAL SIGNS: Height 5 foot 4 inches, weight 284 pounds. BMI 48.8. Vital Signs Temp 97.6 F 10/27/17 16:45 Pulse 94 10/27/17 16:45 Resp BP 122/71 10/27/17 16:45 Pulse Ox GENERAL: Well-developed female in no acute distress. HEENT: No scleral icterus. Extraocular movements grossly intact. Hears conversational speech. No nasal drainage. NECK: Supple without lymphadenopathy. CHEST: Nonlabored respirations with equal bilateral excursions. CARDIOVASCULAR: Regular rate. Distal 2+ pulses. ABDOMEN: Obese, soft, mildly distended. Incisions clean dry and intact. No signs of infection. Dressing discontinued. Minimal tenderness along the left upper quadrant as expected. MUSCULOSKELETAL: No clubbing, cyanosis, or edema. Gross strength 5/5 distal lower extremities. NEURO: No focal or lateralizing signs. Cranial nerves 2 through 12 grossly within normal limits. PSYCH: Appropriate affect. Alert and oriented to person, place and time. SKIN: Good skin turgor. Well perfused. ASSESSMENT: 1. Morbid obesity due to excess calories. 2. Body mass index of 48.8. 3. Dehydration. 4. Status post gastric bypass. 5. Medical noncompliance to bariatric diet. PLAN: 1. Recommend IV fluid hydration. 2. She was counseled to strictly adhere to her daily fluids. 3. Additional Zofran and scopolamine has been written for her 4. Will need close follow-up weekly. Additionally, bariatric center is calling daily to follow patient.
== END | disposition home or self-care (01) ==
LOC: BARWHC3 15:27
PROVIDERS: ATTEND Surgery Plastic and Reconstructive Surgery
DX: Z48.815 Encounter for surgical aftercare following surgery on the digestive system (principal); E66.01 Morbid (severe) obesity due to excess calories; E86.0 Dehydration; Z98.84 Bariatric surgery status; Z91.19 Patient's noncompliance with other medical treatment and regimen; Z68.42 Body mass index [BMI] 45.0-49.9, adult
CPT/HCPCS: 99211

== ENCOUNTER → 2017-10-28 | Outpatient (CLI) | payer MEDICARE, OTHER ==
[2017-10-28 12:52] VITALS: BP 120/65; PULSE 90; RESP 17; TEMP 98.2
[2017-10-28] MEDS: SODIUM CHLORIDE 0.9% 1,000 ML IV SCH ×2 (13:01→13:57)
== END | disposition home or self-care (01) ==
LOC: PROCWHC3 12:40
PROVIDERS: ATTEND Surgery Plastic and Reconstructive Surgery
DX: E86.0 Dehydration (principal); R11.2 Nausea with vomiting, unspecified
CPT/HCPCS: 96360; 96361

== ENCOUNTER → 2017-11-03 | Outpatient (CLI) | payer MEDICARE, OTHER ==
[2017-11-03 15:13] VITALS: BP 131/77; PULSE 93; TEMP 97; BMI 44.4
--- NOTE | 2017-11-28 20:23 | P.PN ---
Subjective Progress Note Date: 11/03/17 DATE OF SERVICE: 11/03/2017 CHIEF COMPLAINT: Status post gastric bypass HISTORY OF PRESENT ILLNESS: Celena Nava is a 26-year-old female is status post gastric bypass 10/25/2017. She is now one week out. She has had troubles following her bariatric diet. She is now drinking more water. She required multiple IV infusions secondary to her lack of following care plan. She denies any current nausea and vomiting. She is eager to start eating more including solid food which is against the bariatric diet plan. At her height of 5 foot 4 inches, her ideal body weight is 144 pounds. Her weight is down 25 pounds in 1 week. She comes in weighing 258 pounds. Her highest weight was 284 pounds. She is 114 pounds overweight. Her body mass index is down from 48.8 to 44.4. Percent excess weight loss is 18%. PHYSICAL EXAM: VITAL SIGNS: Height 5 foot 4 inches, weight 258 pounds. BMI 44.4 Vital Signs Temp 97 F L 11/03/17 15:10 Pulse 93 11/03/17 15:10 Resp BP 131/77 11/03/17 15:10 Pulse Ox GENERAL: Well-developed female in no acute distress. HEENT: No scleral icterus. Extraocular movements grossly intact. Hears conversational speech. No nasal drainage. NECK: Supple without lymphadenopathy. CHEST: Nonlabored respirations with equal bilateral excursions. CARDIOVASCULAR: Regular rate. Distal 2+ pulses. ABDOMEN: Obese, soft, nondistended. Minimal tenderness left upper quadrant incision. No signs of infection or cellulitis. MUSCULOSKELETAL: No clubbing, cyanosis, or edema. Gross strength 5/5 distal lower extremities. NEURO: No focal or lateralizing signs. Cranial nerves 2 through 12 grossly within normal limits. PSYCH: Appropriate affect. Alert and oriented to person, place and time. SKIN: Good skin turgor. Well perfused. ASSESSMENT: 1. Morbid obesity due to excess calories. 2. Body mass index of 48.8 down to 44.4. 3. Status post gastric bypass. 4. Medical noncompliance to bariatric diet. PLAN: 1. Sugar-free putting is encouraged. She may also start Sinhala yogurt. 2. She is encouraged to drink more water. 3. She was emphasized to avoid vitamins at this time. 4. Close follow-up at the bariatric center advised in 1 week. Objective - Vital Signs Vital signs: Vital Signs Temp 97 F L 11/03/17 15:10 Pulse 93 11/03/17 15:10 Resp BP 131/77 11/03/17 15:10 Pulse Ox Intake & Output 11/02/17 11/03/17 11/03/17 18:59 06:59 18:59 Weight 117.344 kg
== END | disposition home or self-care (01) ==
LOC: BARWHC3 14:47
PROVIDERS: ATTEND Surgery Plastic and Reconstructive Surgery
DX: Z48.815 Encounter for surgical aftercare following surgery on the digestive system (principal); T73.0XXA Starvation, initial encounter; E66.01 Morbid (severe) obesity due to excess calories; Z68.42 Body mass index [BMI] 45.0-49.9, adult; Z98.84 Bariatric surgery status; Z91.19 Patient's noncompliance with other medical treatment and regimen
CPT/HCPCS: 97803; G0463; 99211

== ENCOUNTER 2017-11-11 15:26 | Emergency (ER) | payer MEDICARE, OTHER ==
[2017-11-11] MEDS ORDERED: SODIUM CHLORIDE 0.9% 1,000 ML IV STA ×2 (18:54→20:12)
[2017-11-11] MEDS ORDERED: ONDANSETRON 4 MG/2 ML VIAL IVP STA (18:54)
[2017-11-11] MEDS ORDERED: FAMOTIDINE 20 MG/2 ML VIAL IV STA (18:55)
--- NOTE | 2017-11-11 19:08 | ED ---
Nausea/Vomiting/Diarrhea HPI - General Chief complaint: Nausea/Vomiting/Diarrhea Stated complaint: Vomiting Time Seen by Provider: 11/11/17 18:44 Source: patient, family Mode of arrival: ambulatory - History of Present Illness Initial comments: Patient presents with nausea and vomiting for one day. Patient states she ate old hard-boiled eggs for breakfast that had been in the refrigerator for over a week, had a foul smell to them. States around noon she started vomiting. Denies diarrhea. Denies blood in vomit. Patient states she had a protein shake and yogurt at lunch time which she also vomited. Patient states she's been able to tolerate water but nothing else. Patient had bariatric Kyle-en-Y surgery and of September 2017. Patient states she has mild cramping pain across her upper abdomen. Patient denies constipation. Patient states everything was normal yesterday. Denies any fevers. Denies urinary symptoms. MD complaint: nausea, vomiting - Related Data Home Medications Medication Instructions Recorded Confirmed FLUoxetine HCL [FLUoxetine DR] 90 mg PO FR 04/07/16 11/11/17 Omeprazole [Omeprazole] 20 mg PO DAILY 05/20/17 11/11/17 Previous Rx's Medication Instructions Recorded Acetaminophen Oral Susp (Peds) 500 mg PO Q4H PRN #480 bottle 10/27/17 [Tylenol Oral Susp For Peds (Grape)] Ondansetron Odt [Zofran Odt] 4 mg PO Q8HR PRN #10 tab 11/12/17 Allergies Allergy/AdvReac Type Severity Reaction Status Date / Time No Known Allergies Allergy Verified 11/11/17 19:49 Review of Systems ROS Statement: Those systems with pertinent positive or pertinent negative responses have been documented in the HPI. ROS Other: All systems not noted in ROS Statement are negative. Constitutional: Denies: fever, chills, weakness Eyes: Denies: vision change ENT: Reports: throat pain (after vomiting). Denies: congestion Respiratory: Denies: cough, dyspnea, wheezes Cardiovascular: Denies: chest pain, palpitations Endocrine: Denies: fatigue Gastrointestinal: Reports: abdominal pain, nausea, vomiting. Denies: diarrhea, constipation, hematemesis, melena, hematochezia Genitourinary: Denies: urgency, dysuria, frequency, hematuria, discharge, abnormal menses Musculoskeletal: Denies: back pain Skin: Denies: rash, change in color Neurological: Denies: headache, confusion Past Medical History Past Medical History: GERD/Reflux, Seizure Disorder Additional Past Medical History / Comment(s): seizures as child-no rx, last seizure 2000, "blood clot in head age 4", History of Any Multi-Drug Resistant Organisms: None Reported Past Surgical History: Bariatric Surgery, Orthopedic Surgery Additional Past Surgical History / Comment(s): surgery to pu plates in arianna feet for "flat feet" gastric bypass 10-25-17 Past Anesthesia/Blood Transfusion Reactions: No Reported Reaction Past Psychological History: ADD/ADHD, Depression Smoking Status: Never smoker Past Alcohol Use History: None Reported Past Drug Use History: None Reported - Past Family History Mother Family Medical History: Asthma, Diabetes Mellitus, Sleep Apnea/CPAP/BIPAP Additional Family Medical History / Comment(s): Type 2 Diabetes - diet controlled Father Family Medical History: Hyperlipidemia, Hypertension Additional Family Medical History / Comment(s): Hypertension. Hyperlipidaemia General Exam - General Exam Comments Initial Comments: Sitting up on bed. There is mildly nauseated. Conversing normally. Calm, pleasant. Does not appear in pain. Limitations: no limitations General appearance: alert, in no apparent distress Head exam: Present: atraumatic, normocephalic Eye exam: Present: normal appearance, PERRL, EOMI ENT exam: Present: normal exam, normal oropharynx, mucous membranes moist, other (Oropharynx clear, no erythema or exudates appreciated.) Neck exam: Present: normal inspection Respiratory exam: Present: normal lung sounds bilaterally. Absent: respiratory distress, wheezes, rales, rhonchi, chest wall tenderness, accessory muscle use Cardiovascular Exam: Present: normal rhythm, tachycardia GI/Abdominal exam: Present: soft, tenderness. Absent: distended, guarding, rebound, rigid, hernia (Mild diffuse tenderness across upper abdomen. Nondistended. Port incisions appear clean dry and intact.) Extremities exam: Present: normal inspection Neurological exam: Present: alert, oriented X3 Psychiatric exam: Present: normal affect, normal mood Skin exam: Present: warm, dry, intact, normal color. Absent: rash, erythema, pallor Course Vital Signs 11/11/17 11/11/17 11/11/17 16:10 19:55 22:05 Temperature 98.4 F 98.1 F 98.5 F Pulse Rate 111 H 90 109 H Respiratory 20 20 18 Rate Blood Pressure 128/70 122/66 118/80 O2 Sat by Pulse 99 95 98 Oximetry Medical Decision Making - Medical Decision Making IV fluids, Zofran ordered. Lipase 800 XR shows poss obstruction vs ileus, given elevated lipase we'll get computed tomography scan of abdomen and pelvis. CT abdomen and pelvis negative. Spoke with patient's surgeon Dr. Early, updated patient condition results. Recommends patient start clear liquid diet, states patient can follow-up in her office tomorrow morning. Request ultrasound of the abdomen to assess for possible gallstones, can f/u on results in her office tomorrow morning. Ultrasound normal. Patient's family updated with results and plan. Patient agrees to clear liquid diet home. Agrees to follow-up with surgeons office in the morning without fail. We'll discharge home at this time. Prescription Zofran given. All questions answered. - Lab Data Result diagrams: 11/11/17 19:15 11/11/17 19:15 Lab Results 11/11/17 11/11/17 11/11/17 Range/Units 16:20 19:15 19:15 WBC 7.6 (3.8-10.6) k/uL RBC 4.98 (3.80-5.40) m/uL Hgb 14.0 (11.4-16.0) gm/dL Hct 44.9 (34.0-46.0) % MCV 90.1 (80.0-100.0) fL MCH 28.1 (25.0-35.0) pg MCHC 31.2 (31.0-37.0) g/dL RDW 14.1 (11.5-15.5) % Plt Count 411 (150-450) k/uL Neutrophils % 65 % Lymphocytes % 24 % Monocytes % 7 % Eosinophils % 3 % Basophils % 1 % Neutrophils # 4.9 (1.3-7.7) k/uL Lymphocytes # 1.8 (1.0-4.8) k/uL Monocytes # 0.5 (0-1.0) k/uL Eosinophils # 0.2 (0-0.7) k/uL Basophils # 0.0 (0-0.2) k/uL Sodium 140 (137-145) mmol/L Potassium 3.6 (3.5-5.1) mmol/L Chloride 104 (98-107) mmol/L Carbon Dioxide 20 L (22-30) mmol/L Anion Gap 16 mmol/L BUN 9 (7-17) mg/dL Creatinine 0.60 (0.52-1.04) mg/dL Est GFR (MDRD) Af Amer >60 (>60 ml/min/1.73 sqM) Est GFR (MDRD) Non-Af >60 (>60 ml/min/1.73 sqM) Glucose 85 (74-99) mg/dL Calcium 9.7 (8.4-10.2) mg/dL Total Bilirubin 0.5 (0.2-1.3) mg/dL AST 41 H (14-36) U/L ALT 73 H (9-52) U/L Alkaline Phosphatase 94 (38-126) U/L Total Protein 6.9 (6.3-8.2) g/dL Albumin 4.0 (3.5-5.0) g/dL Lipase 808 H (23-300) U/L Urine Color Urine Appearance (Clear) Urine pH (5.0-8.0) Ur Specific [place] (1.001-1.035) Urine Protein (Negative) Urine Glucose (UA) (Negative) Urine Ketones (Negative) Urine Blood (Negative) Urine Nitrite (Negative) Urine Bilirubin (Negative) Urine Urobilinogen (<2.0) mg/dL Ur Leukocyte Esterase (Negative) Urine RBC (0-5) /hpf Urine WBC (0-5) /hpf Ur Squamous Epith Cells (0-4) /hpf Urine Mucus (None) /hpf Urine HCG, Qual (Not Detectd) Group A Strep Rapid Negative (Negative) 11/11/17 11/11/17 Range/Units 19:22 19:22 WBC (3.8-10.6) k/uL RBC (3.80-5.40) m/uL Hgb (11.4-16.0) gm/dL Hct (34.0-46.0) % MCV (80.0-100.0) fL MCH (25.0-35.0) pg MCHC (31.0-37.0) g/dL RDW (11.5-15.5) % Plt Count (150-450) k/uL Neutrophils % % Lymphocytes % % Monocytes % % Eosinophils % % Basophils % % Neutrophils # (1.3-7.7) k/uL Lymphocytes # (1.0-4.8) k/uL Monocytes # (0-1.0) k/uL Eosinophils # (0-0.7) k/uL Basophils # (0-0.2) k/uL Sodium (137-145) mmol/L Potassium (3.5-5.1) mmol/L Chloride (98-107) mmol/L Carbon Dioxide (22-30) mmol/L Anion Gap mmol/L BUN (7-17) mg/dL Creatinine (0.52-1.04) mg/dL Est GFR (MDRD) Af Amer (>60 ml/min/1.73 sqM) Est GFR (MDRD) Non-Af (>60 ml/min/1.73 sqM) Glucose (74-99) mg/dL Calcium (8.4-10.2) mg/dL Total Bilirubin (0.2-1.3) mg/dL AST (14-36) U/L ALT (9-52) U/L Alkaline Phosphatase (38-126) U/L Total Protein (6.3-8.2) g/dL Albumin (3.5-5.0) g/dL Lipase (23-300) U/L Urine Color Yellow Urine Appearance Turbid H (Clear) Urine pH 6.5 (5.0-8.0) Ur Specific [place] 1.027 (1.001-1.035) Urine Protein 2+ H (Negative) Urine Glucose (UA) Negative (Negative) Urine Ketones 4+ H (Negative) Urine Blood Negative (Negative) Urine Nitrite Negative (Negative) Urine Bilirubin 1+ H (Negative) Urine Urobilinogen 4.0 (<2.0) mg/dL Ur Leukocyte Esterase Trace H (Negative) Urine RBC 2 (0-5) /hpf Urine WBC 6 H (0-5) /hpf Ur Squamous Epith Cells 11 H (0-4) /hpf Urine Mucus Few H (None) /hpf Urine HCG, Qual Not Detected (Not Detectd) Group A Strep Rapid (Negative) Disposition Clinical Impression: Pancreatitis Disposition: HOME SELF-CARE Condition: Good Instructions: Pancreatitis (ED), Acute Nausea and Vomiting (ED) Additional Instructions: Drink clear liquids only until cleared by your surgeon. Follow-up at your surgeon's office tomorrow morning without fail. Return to ER if new or worsening symptoms. Prescriptions: Ondansetron Odt [Zofran Odt] 4 mg PO Q8HR PRN #10 tab PRN Reason: Nausea Referrals: Nery Petersen MD [Primary Care Provider] - 1-2 days
[2017-11-11 19:25] LABS: Basophils % (A) 1 %; Eosinophils # (A) 0.2 k/uL (0-0.7); Eosinophils % (A) 3 %; HCT 44.9 % (34.0-46.0); Lymphocytes # (A) 1.8 k/uL (1.0-4.8); Lymphocytes % (A) 24 %; MCH 28.1 pg (25.0-35.0); MCHC 31.2 g/dL (31.0-37.0); MCV 90.1 fL (80.0-100.0); Mean Platelet Volume 6.4; Monocytes # (A) 0.5 k/uL (0-1.0); Monocytes % (A) 7 %; Neutrophils # (A) 4.9 k/uL (1.3-7.7); Neutrophils % (A) 65 %; Platelet Count 411 k/uL (150-450); RBC 4.98 m/uL (3.80-5.40); RDW 14.1 % (11.5-15.5); WBC 7.6 k/uL (3.8-10.6)
[2017-11-11 19:36] LABS: ALT 73 U/L (9-52); AST 41 U/L (14-36); Alkaline Phosphatase 94 U/L (38-126); Anion Gap 16 mmol/L; Blood Urea Nitrogen 9 mg/dL (7-17); Calcium 9.7 mg/dL (8.4-10.2); Carbon Dioxide 20 mmol/L (22-30); Chloride 104 mmol/L (98-107); Glucose 85 mg/dL (74-99); Lipase 808 U/L (23-300); Potassium 3.6 mmol/L (3.5-5.1); Sodium 140 mmol/L (137-145); Total Bilirubin 0.5 mg/dL (0.2-1.3); Total Protein 6.9 g/dL (6.3-8.2)
[2017-11-11 19:46] LABS: Appearance,Urine Turbid (Clear); Bilirubin,Urine 1+ (Negative); Blood,Urine Negative (Negative); Color,Urine Yellow; Glucose,Urine (UA) Negative (Negative); Ketones,Urine 4+ (Negative); Leukocyte Esterase,Urine Trace (Negative); Mucus,Urine Few /hpf; Nitrite,Urine Negative (Negative); PH, Urine 6.5 (5.0-8.0); Protein,Urine 2+ (Negative); RBC,Urine 2 /hpf (0-5); Specific Gravity,Urine 1.027 (1.001-1.035); Squamous Epithelial Cell,Urine 11 /hpf (0-4); WBC,Urine 6 /hpf (0-5)
[2017-11-11] MEDS ORDERED: RX INFO: IV CONTRAST WAS GIVEN 1 EACH MISC MISCELLANE PRN (20:10)
--- NOTE | 2017-11-11 20:11 | XR ---
EXAMINATION TYPE: XR abdomen acute w cxr DATE OF EXAM: 11/11/2017 COMPARISON: 05/20/2017 HISTORY: Abdominal pain TECHNIQUE: 4 views. FINDINGS: Heart and mediastinum are normal. Lungs are clear. Diaphragm is normal. Bowel gas pattern shows some gas-filled mildly dilated small bowel loops. There is no sign of free air. There are no pathologic c alcifications over the kidneys. IMPRESSION: There are new dilated small bowel loops that could relate to a localized ileus or mechanical small saúl wel obstruction. There are some surgical clips in the left mid abdomen. No active cardiopulmonary disease.
--- NOTE | 2017-11-11 21:42 | CT ---
EXAMINATION TYPE: CT abdomen pelvis w con DATE OF EXAM: 11/11/2017 COMPARISON: NONE HISTORY: Post op vomiting. CT DLP: 1981.1 mGycm Automated exposure control for dose reduction was used. TECHNIQUE: Helical acquisition of images was performed from the lung bases through the pelvis. CONTRAST: Performed without Oral Contrast and with IV Contrast, patient injected with 100ml mL of Omnipaque 300 . FINDINGS: Lung bases are clear. There is no pleural effusion. There are numerous surgical clips around the stom ach. Liver spleen pancreas gallbladder appear normal. Bile ducts are not dilated. There is no adrenal mass. Kidneys show satisfactory contrast opacification. There is no hydronephrosi s. I see no intestinal wall thickening. There are no dilated loops. There is no sign of free air. The re is no ascites. There is no retroperitoneal adenopathy. Bladder distends smoothly. There is no sign of a pelvic mass. I see no intestinal wall thickening. Th ere are surgical clips in the left mid abdomen probably in the jejunum. The bony structures are intac t. IMPRESSION: GASTRIC BYPASS SURGERY. NO SIGN OF ACUTE ABDOMEN AND PELVIS.
--- NOTE | 2017-11-11 23:58 | US ---
EXAMINATION TYPE: US abdomen limited DATE OF EXAM: 11/11/2017 COMPARISON: 11/20/2014 CLINICAL HISTORY: Pain, poss gall stone pancreatitis. RUQ pain. Exam limitations due to body habitus. EXAM MEASUREMENTS: Liver Length: 15.3 cm Gallbladder Wall: 0.3 cm CBD: 0.3 cm Right Kidney: 11.7 x 4.8 x 4.9 cm Pancreas: Obscured by bowel gas Liver: Increased attenuation Gallbladder: Suggestive of stones vs. sludge. Evidence for sonographic Jorge's sign: No CBD: wnl Right Kidney: No hydronephrosis or masses seen Suggestive of gallstones vs. sludge. IMPRESSION: There is echogenic bile. No dilated ducts. No definite gallstones identified.
[2017-11-12 00:47] VITALS: BP 126/75; PULSE 107; RESP 20; TEMP 98
== END 2017-11-12 00:44 | disposition home or self-care (01) ==
LOC: EC 15:26
DX: K85.90 Acute pancreatitis without necrosis or infection, unspecified (principal); K21.9 Gastro-esophageal reflux disease without esophagitis; F32.9 Major depressive disorder, single episode, unspecified; F90.9 Attention-deficit hyperactivity disorder, unspecified type; Z79.899 Other long term (current) drug therapy
CPT/HCPCS: 36415; 80053; 83690; 85025; 81001; 81025; 87081; 87430; 74022; 76705; 74177; 99284; 96374; 96375; 96361 ×5; J2405; Q9967

== ENCOUNTER → 2017-11-12 | Outpatient (CLI) | payer MEDICARE, OTHER ==
[2017-11-12 14:13] VITALS: BP 123/77; PULSE 86; RESP 14; TEMP 97.7; BMI 43.6
--- NOTE | 2017-11-28 20:30 | P.PN ---
Subjective Progress Note Date: 11/12/17 DATE OF SERVICE: 11/12/2017 CHIEF COMPLAINT: Status post gastric bypass HISTORY OF PRESENT ILLNESS: Celena Nava is a 26-year-old female is status post gastric bypass 10/25/2017. She is now 3 weeks out. Yesterday she went to the ER despite close discussion to follow up at the bariatric center for any issues. She comes in with diffuse abdominal pain. She has not had a bowel movement. Her father at bedside reports that she is not following increased activity of at least 5000 steps daily. She overall is not following the care plan set for her. At her height of 5 foot 4 inches, her ideal body weight is 144 pounds. Her weight is down 4 pounds in 1 week. She comes in weighing 254 pounds. Her highest weight was 284 pounds. She has lost 30 pounds lifetime. She is 110 pounds overweight. Her body mass index is down from 48.8 to 43.7. Percent excess weight loss is 22%. PHYSICAL EXAM: VITAL SIGNS: Height 5 foot 4 inches, weight 254 pounds. BMI 43.7 Vital Signs Temp 97.7 F 11/12/17 13:38 Pulse 86 11/12/17 13:38 Resp 14 11/12/17 13:38 BP 123/77 11/12/17 13:38 Pulse Ox GENERAL: Well-developed female in no acute distress. HEENT: No scleral icterus. Extraocular movements grossly intact. Hears conversational speech. No nasal drainage. NECK: Supple without lymphadenopathy. CHEST: Nonlabored respirations with equal bilateral excursions. CARDIOVASCULAR: Regular rate. Distal 2+ pulses. ABDOMEN: Obese, soft, nondistended. Bilateral lower abdominal tenderness. All incisions granulated. MUSCULOSKELETAL: No clubbing, cyanosis, or edema. Gross strength 5/5 distal lower extremities. NEURO: No focal or lateralizing signs. Cranial nerves 2 through 12 grossly within normal limits. PSYCH: Appropriate affect. Alert and oriented to person, place and time. SKIN: Good skin turgor. Well perfused. LABS: Reviewed from ER demonstrated elevated lipase. STUDIES: CT of the abdomen and pelvis to machetes no evidence of leak. Findings consistent with diffuse constipation. ASSESSMENT: 1. Morbid obesity due to excess calories. 2. Body mass index of 48.8 down to 44.4. 3. Status post gastric bypass. 4. Medical noncompliance to bariatric diet. 5. Inadequate oral intake. 6. Inadequate protein intake. 7. Constipation. PLAN: 1. I've asked her to do primarily liquid diet as she has severe constipation. Protein shakes advised. 2. MiraLAX constipation has been written. 3. Recommend ambulation daily at least 4 times day. 4. Patient overall demonstrates difficulty in understanding bariatric plan despite multiple education opportunities with myself, bariatric team, including bariatric dietitian. We'll continue with close observation. Objective - Vital Signs Vital signs: Vital Signs Temp 97.7 F 11/12/17 13:38 Pulse 86 11/12/17 13:38 Resp 14 11/12/17 13:38 BP 123/77 11/12/17 13:38 Pulse Ox
== END | disposition home or self-care (01) ==
LOC: BARWHC3 08:38
PROVIDERS: ATTEND Surgery Plastic and Reconstructive Surgery
DX: E66.01 Morbid (severe) obesity due to excess calories (principal); K59.00 Constipation, unspecified; Z98.84 Bariatric surgery status; Z68.42 Body mass index [BMI] 45.0-49.9, adult; Z91.19 Patient's noncompliance with other medical treatment and regimen
CPT/HCPCS: 99211

== ENCOUNTER → 2017-11-17 | Outpatient (CLI) | payer MEDICARE, OTHER ==
[~2017-11-17] MED LIST changes: -SCOPOLAMINE 1.5MG/72HR PATCH TRANSDERM STA; +SODIUM CHLORIDE 0.9% 500 ML IV NR
[2017-11-17 11:29] VITALS: BP 105/76
[2017-11-17] MEDS: SODIUM CHLORIDE 0.9% 500 ML in EMPTY BAG 1 BAG IV PRN ×4 (11:35→13:00)
[2017-11-17 12:13] LABS: Basophils % (A) 1 %; Eosinophils # (A) 0.2 k/uL (0-0.7); Eosinophils % (A) 3 %; HCT 43.5 % (34.0-46.0); HGB 13.4 gm/dL (11.4-16.0); Hypochromasia Slight; Lymphocytes # (A) 1.6 k/uL (1.0-4.8); Lymphocytes % (A) 27 %; MCHC 30.8 g/dL (31.0-37.0); Mean Platelet Volume 6.9; Monocytes # (A) 0.5 k/uL (0-1.0); Monocytes % (A) 8 %; Neutrophils # (A) 3.4 k/uL (1.3-7.7); Neutrophils % (A) 59 %; Platelet Count 452 k/uL (150-450); RBC 4.78 m/uL (3.80-5.40); WBC 5.7 k/uL (3.8-10.6)
[2017-11-17 12:18] VITALS: BMI 42.9
[2017-11-17 12:20] LABS: INR 1.1 (<1.2); Partial Thromboplastin Time 24.8 sec (22.0-30.0); Prothrombin Time 10.7 sec (9.0-12.0)
[2017-11-17 12:52] LABS: ALT 53 U/L (9-52); AST 45 U/L (14-36); Albumin 3.7 g/dL (3.5-5.0); Alkaline Phosphatase 75 U/L (38-126); Anion Gap 17 mmol/L; Blood Urea Nitrogen 3 mg/dL (7-17); Calcium 9.5 mg/dL (8.4-10.2); Carbon Dioxide 18 mmol/L (22-30); Chloride 106 mmol/L (98-107); Cholesterol 134 mg/dL (<200); Glucose 89 mg/dL (74-99); HDL Cholesterol 41 mg/dL (40-60); LDL Cholesterol,Calculated 73 mg/dL (0-99); Magnesium 1.7 mg/dL (1.6-2.3); Phosphorus 3.8 mg/dL (2.5-4.5); Sodium 141 mmol/L (137-145); Total Bilirubin 0.9 mg/dL (0.2-1.3); Total Protein 6.8 g/dL (6.3-8.2); Triglycerides 99 mg/dL (<150)
[2017-11-17 15:30] VITALS: PULSE 80; RESP 14; TEMP 97.6
[2017-11-17 19:44] LABS: Iron Saturation 18.18 (12.00-45.00)
[2017-11-17 19:51] LABS: Vitamin D 25 Hydroxy 33.7 ng/mL (30.0-100.0)
[2017-11-17 20:16] LABS: Folate, Serum 11.8 ng/mL
[2017-11-17 20:32] LABS: Parathyroid Hormone Intact 41.1 pg/mL (14.0-72.0)
[2017-11-18 14:17] LABS: Vitamin B1 40 ug/L (38-122)
[2017-11-18 14:22] LABS: Zinc, Serum 124 ug/dL (60-130)
[2017-11-20 08:44] LABS: Vitamin A <13 ug/dL (38-106)
[2017-11-20 11:01] LABS: Selenium 109 mcg/L (63-160)
--- NOTE | 2017-11-28 20:36 | P.PN ---
Subjective Progress Note Date: 11/17/17 DATE OF SERVICE: 11/17/2017 CHIEF COMPLAINT: Status post gastric bypass HISTORY OF PRESENT ILLNESS: Celena Nava is a 26-year-old female is status post gastric bypass 10/25/2017. She is now 3.5 weeks out. She is undergoing very close observation as she last presented with constipation 5 days ago despite MiraLAX. She still is not drinking adequate fluids. She is not exercising. In fact upon further discussion, patient has been eating stale food. She comes in with abdominal pain since she had stale food. She had been asked to stay on liquid diet but she's been eating foods with fat and solid foods despite education. At her height of 5 foot 4 inches, her ideal body weight is 144 pounds. Her weight is down 4 pounds in 5 days. She comes in weighing 249 pounds. Her highest weight was 284 pounds. She has lost 35 pounds lifetime. She is 105 pounds overweight. Her body mass index is down from 48.8 to 42.9. Percent excess weight loss is 25%. PHYSICAL EXAM: VITAL SIGNS: Height 5 foot 4 inches, weight 249 pounds. BMI 42.9 Vital Signs Temp 97.6 F 11/17/17 14:07 Pulse 80 11/17/17 14:07 Resp 14 11/17/17 14:07 BP 105/76 11/17/17 14:07 Pulse Ox GENERAL: Well-developed female in no acute distress. HEENT: No scleral icterus. Extraocular movements grossly intact. Hears conversational speech. No nasal drainage. NECK: Supple without lymphadenopathy. CHEST: Nonlabored respirations with equal bilateral excursions. CARDIOVASCULAR: Regular rate. Distal 2+ pulses. ABDOMEN: Obese, soft, mildly distended. Bilateral lower abdominal tenderness. All incisions granulated. No signs of infection. MUSCULOSKELETAL: No clubbing, cyanosis, or edema. Gross strength 5/5 distal lower extremities. NEURO: No focal or lateralizing signs. Cranial nerves 2 through 12 grossly within normal limits. PSYCH: Appropriate affect. Alert and oriented to person, place and time. SKIN: Good skin turgor. Well perfused. ASSESSMENT: 1. Morbid obesity due to excess calories. 2. Body mass index of 48.8 down to 42.9. 3. Status post gastric bypass. 4. Medical noncompliance to bariatric diet. 5. Inadequate oral intake. 6. Inadequate protein intake. 7. Constipation. PLAN: 1. She was encouraged to exercise it is hoped with her bowel movements. Per discussion with her family members, she has still not adhered to the guidelines of her bariatric education and activity. 2. Continue with liquid diet as stool softener and MiraLAX is prescribed. 3. Recommend IV fluid hydration. 4. Zofran and scopolamine patches written. Objective - Vital Signs Vital signs: Vital Signs Temp 97.9 F 11/17/17 12:15 Pulse 82 11/17/17 12:15 Resp 16 11/17/17 11:27 BP 105/76 11/17/17 12:15 Pulse Ox Intake & Output 11/16/17 11/17/17 11/17/17 18:59 06:59 18:59 Intake Total 708.333 Balance 708.333 Weight 113.398 kg Intake: Intake, IV Titration 708.333 Amount Sodium Chloride 0.9% 500 708.333 ml In Empty Bag 1 bag @ 20 mls/hr IV .Q24H PRN Rx #:[id number] - Labs CBC & Chem 7: 11/17/17 11:35 11/17/17 11:35 Labs: Abnormal Lab Results - Last 24 Hours (Table) 11/17/17 11/17/17 Range/Units 11:35 11:35 MCHC 30.8 L (31.0-37.0) g/dL Plt Count 452 H (150-450) k/uL Carbon Dioxide 18 L (22-30) mmol/L BUN 3 L (7-17) mg/dL Creatinine 0.50 L (0.52-1.04) mg/dL AST 45 H (14-36) U/L ALT 53 H (9-52) U/L
== END | disposition home or self-care (01) ==
LOC: BARWHC3 10:54
PROVIDERS: ATTEND Surgery Plastic and Reconstructive Surgery
DX: E86.0 Dehydration (principal); E21.1 Secondary hyperparathyroidism, not elsewhere classified; E89.1 Postprocedural hypoinsulinemia; D50.9 Iron deficiency anemia, unspecified; K90.9 Intestinal malabsorption, unspecified; E55.9 Vitamin D deficiency, unspecified; K74.1 Hepatic sclerosis; N19 Unspecified kidney failure; K50.90 Crohn's disease, unspecified, without complications; E66.01 Morbid (severe) obesity due to excess calories; Z68.41 Body mass index [BMI] 40.0-44.9, adult; Z71.3 Dietary counseling and surveillance
CPT/HCPCS: 84255; 84134; 84425; 80061; 80053; 82607; 82728; 82525; 82746; 83540; 83550; 83735; 84100; 84443; 84590; 84630; 85025; 85610; 85730; 82306; 83970; 97803; 96360; 96361; 36415; G0463; 99211

== ENCOUNTER 2017-11-19 22:40 | Emergency (ER) | payer MEDICARE, OTHER ==
[2017-11-19 23:22] VITALS: RESP 18
[2017-11-20] MEDS ORDERED: SODIUM CHLORIDE 0.9% 2,000 ML IV ONE (00:23)
--- NOTE | 2017-11-20 00:58 | US ---
EXAMINATION TYPE: US venous doppler duplex LE RT DATE OF EXAM: 11/20/2017 12:46 AM COMPARISON: NONE CLINICAL HISTORY: Pain. Right leg pain SIDE PERFORMED: right TECHNIQUE: The lower extremity deep venous system is examined utilizing real time linear array sonog rashida with graded compression, doppler sonography and color-flow sonography. VESSELS IMAGED: External Iliac Vein (EIV) Common Femoral Vein Deep Femoral Vein Greater Saphenous Vein * Femoral Vein Popliteal Vein Small Saphenous Vein * Proximal Calf Veins (* superficial vessels) Right Leg: No evidence of DVT. Anechoic area right popliteal fossa = 3.4 x 1.6 x 1.8cm, probable Michael er's cyst IMPRESSION: Popliteal cyst is demonstrated. No evidence of deep venous thrombosis in the right leg.
[2017-11-20 01:31] LABS: Appearance,Urine Cloudy (Clear); Bacteria,Urine Occasional /hpf; Bilirubin,Urine 1+ (Negative); Blood,Urine Negative (Negative); Color,Urine Yellow; Glucose,Urine (UA) Negative (Negative); Hyaline Casts,Urine 4 /lpf (0-2); Ketones,Urine 4+ (Negative); Leukocyte Esterase,Urine Trace (Negative); Mucus,Urine Few /hpf; Nitrite,Urine Negative (Negative); Protein,Urine 1+ (Negative); RBC,Urine 1 /hpf (0-5); Specific Gravity,Urine 1.015 (1.001-1.035); Squamous Epithelial Cell,Urine 12 /hpf (0-4); WBC,Urine 9 /hpf (0-5)
--- NOTE | 2017-11-20 01:32 | ED ---
Nausea/Vomiting/Diarrhea HPI - General Chief complaint: Nausea/Vomiting/Diarrhea Stated complaint: left leg pain Time Seen by Provider: 11/19/17 23:52 Source: patient Mode of arrival: wheelchair Limitations: no limitations - History of Present Illness Initial comments: 27-year-old female patient presents to the emergency department today with complaints of right leg pain and vomiting. Patient states that she has been vomiting for the last week. Patient underwent gastric bypass surgery one month ago. She states that she was seen here when symptoms started. States she had lab testing and computed tomography scan. States that she follow-up with Dr. Early in the office. The changed her diet from pure back to full liquids. Patient states that she has been keeping down water and Jell-O however is unable to keep down anything thicker. States that she vomited 4 times today. Denies any hematemesis. She denies any constipation or diarrhea. Denies any hematochezia or melena. Patient states that her right leg has been hurting since this morning. Patient states that she was told by her surgeon that she should walk around frequently however reports that since her surgery she's been mostly lying on the couch watching television, states that she only and relates to get to the bathroom. Patient states the pain is located in her thigh and behind her knee. She denies any redness or swelling. She denies any fevers or chills. Denies any known injury to the leg. Denies any numbness or tingling. Patient denies any recent rash, fever, chills, shortness breath, chest pain, abdominal pain, back pain, dizziness, weakness, hematuria, dysuria, urinary urgency, urinary frequency, headache, visual changes, or any other complaints. - Related Data Home Medications Medication Instructions Recorded Confirmed FLUoxetine HCL [FLUoxetine DR] 90 mg PO FR 04/07/16 11/17/17 Omeprazole [Omeprazole] 20 mg PO DAILY 05/20/17 11/17/17 Previous Rx's Medication Instructions Recorded Acetaminophen Oral Susp (Peds) 500 mg PO Q4H PRN #480 bottle 10/27/17 [Tylenol Oral Susp For Peds (Grape)] Ondansetron Odt [Zofran Odt] 4 mg PO Q8HR PRN #10 tab 11/12/17 Ondansetron [Zofran ODT] 8 mg PO Q8HR #10 tab 11/16/17 Magnesium Hydroxide [Milk of 2,400 mg PO DAILY #780 ml 11/17/17 Magnesia] Scopolamine 1.5MG/72Hr Patch 1 patch TRANSDERM Q72H #4 patch 11/17/17 [TransDerm Scop] Allergies Allergy/AdvReac Type Severity Reaction Status Date / Time No Known Allergies Allergy Verified 11/19/17 23:22 Review of Systems ROS Statement: Those systems with pertinent positive or pertinent negative responses have been documented in the HPI. ROS Other: All systems not noted in ROS Statement are negative. Past Medical History Past Medical History: GERD/Reflux, Seizure Disorder Additional Past Medical History / Comment(s): seizures as child-no rx, last seizure 2000, "blood clot in head age 4", History of Any Multi-Drug Resistant Organisms: None Reported Past Surgical History: Bariatric Surgery, Orthopedic Surgery Additional Past Surgical History / Comment(s): surgery to pu plates in arianna feet for "flat feet" gastric bypass 10-25-17 Past Anesthesia/Blood Transfusion Reactions: No Reported Reaction Past Psychological History: ADD/ADHD, Depression Smoking Status: Never smoker Past Alcohol Use History: None Reported Past Drug Use History: None Reported - Past Family History Mother Family Medical History: Asthma, Diabetes Mellitus, Sleep Apnea/CPAP/BIPAP Additional Family Medical History / Comment(s): Type 2 Diabetes - diet controlled Father Family Medical History: Hyperlipidemia, Hypertension Additional Family Medical History / Comment(s): Hypertension. Hyperlipidaemia General Exam Limitations: no limitations General appearance: alert, in no apparent distress, other (This is a well- developed, well-nourished obese female patient in no acute distress. Vital signs upon presentation are temperature 97.4F, pulse 80, respirations 18, blood pressure 109/67, pulse ox 99% on room air.) Eye exam: Present: normal appearance, PERRL, EOMI. Absent: scleral icterus, conjunctival injection, periorbital swelling ENT exam: Present: normal exam, normal oropharynx, mucous membranes moist Respiratory exam: Present: normal lung sounds bilaterally. Absent: respiratory distress, wheezes, rales, rhonchi, stridor Cardiovascular Exam: Present: regular rate, normal rhythm, normal heart sounds. Absent: systolic murmur, diastolic murmur, rubs, gallop, clicks GI/Abdominal exam: Present: soft, normal bowel sounds, other (There are multiple healing laparoscopic incisions noted over the abdomen. There is no surrounding erythema, drainage, or tenderness around the incisions.). Absent: distended, tenderness, guarding, rebound, rigid Neurological exam: Present: alert, oriented X3, CN II-XII intact Psychiatric exam: Present: normal affect, normal mood Skin exam: Present: warm, dry, intact, normal color. Absent: rash Course Vital Signs 11/19/17 23:19 Temperature 97.4 F L Pulse Rate 80 Respiratory 18 Rate Blood Pressure 109/67 O2 Sat by Pulse 99 Oximetry Medical Decision Making - Medical Decision Making 27-year-old female patient percents into the emergency department today for evaluation of vomiting and right leg pain. Physical examination is unremarkable. Labs reviewed and unremarkable. Patient was concerned for DVT, right leg was negative for DVT via ultrasound. We did do CT of the abdomen and pelvis as patient did have recent gastric bypass surgery. CT showed that there is no obstruction or leakage from her surgical site. Did show possible mild ileus as her as a couple of small bowel air-fluid levels. Labs do not reflect dehydration. Patient appears well moisturized. She does have nausea medication at home. We will discharge her to follow-up with her surgeon as soon as possible. We did attempt multiple times to call her surgeon, we received no call back. As patient is stable at this time imaging appears stable. We feel is safe to discharge her home. I did discuss results and plan with the patient. She is in agreement. Return parameters were discussed in detail. - Lab Data Result diagrams: 11/20/17 01:17 11/20/17 01:17 Lab Results 11/20/17 11/20/17 11/20/17 Range/Units 01:07 01:17 01:17 WBC 6.5 (3.8-10.6) k/uL RBC 4.71 (3.80-5.40) m/uL Hgb 13.4 (11.4-16.0) gm/dL Hct 41.3 (34.0-46.0) % MCV 87.7 (80.0-100.0) fL MCH 28.5 (25.0-35.0) pg MCHC 32.5 (31.0-37.0) g/dL RDW 14.5 (11.5-15.5) % Plt Count 426 (150-450) k/uL Neutrophils % 53 % Lymphocytes % 34 % Monocytes % 9 % Eosinophils % 2 % Basophils % 0 % Neutrophils # 3.5 (1.3-7.7) k/uL Lymphocytes # 2.2 (1.0-4.8) k/uL Monocytes # 0.6 (0-1.0) k/uL Eosinophils # 0.1 (0-0.7) k/uL Basophils # 0.0 (0-0.2) k/uL Sodium 138 (137-145) mmol/L Potassium 3.8 (3.5-5.1) mmol/L Chloride 105 (98-107) mmol/L Carbon Dioxide 17 L (22-30) mmol/L Anion Gap 16 mmol/L BUN 2 L (7-17) mg/dL Creatinine 0.50 L (0.52-1.04) mg/dL Est GFR (MDRD) Af Amer >60 (>60 ml/min/1.73 sqM) Est GFR (MDRD) Non-Af >60 (>60 ml/min/1.73 sqM) Glucose 80 (74-99) mg/dL Calcium 9.5 (8.4-10.2) mg/dL Total Bilirubin 0.7 (0.2-1.3) mg/dL AST 33 (14-36) U/L ALT 49 (9-52) U/L Alkaline Phosphatase 82 (38-126) U/L Total Protein 6.8 (6.3-8.2) g/dL Albumin 3.7 (3.5-5.0) g/dL Amylase 55 (30-110) U/L Lipase 565 H (23-300) U/L Urine Color Yellow Urine Appearance Cloudy H (Clear) Urine pH 6.0 (5.0-8.0) Ur Specific Pawling 1.015 (1.001-1.035) Urine Protein 1+ H (Negative) Urine Glucose (UA) Negative (Negative) Urine Ketones 4+ H (Negative) Urine Blood Negative (Negative) Urine Nitrite Negative (Negative) Urine Bilirubin 1+ H (Negative) Urine Urobilinogen 3.0 (<2.0) mg/dL Ur Leukocyte Esterase Trace H (Negative) Urine RBC 1 (0-5) /hpf Urine WBC 9 H (0-5) /hpf Ur Squamous Epith Cells 12 H (0-4) /hpf Urine Bacteria Occasional H (None) /hpf Hyaline Casts 4 H (0-2) /lpf Urine Mucus Few H (None) /hpf - Radiology Data Radiology results: report reviewed, image reviewed CT of the abdomen and pelvis with oral and IV contrast was obtained, the report was reviewed in its entirety. Impression by Dr. Gregg shows stable post bariatric surgical changes without evidence for bowel obstruction or focal inflammation. There are a few small bowel full levels which may be transient or related to a mild ileus. Ultrasound of the right lower extremities was obtained, report was reviewed in its entirety. Impression by Dr. Johnston shows negative for DVT. Disposition Clinical Impression: Michelle's cyst, Knee pain, Vomiting Disposition: HOME SELF-CARE Condition: Good Instructions: Acute Nausea and Vomiting (ED), Bakers Cyst (ED), Knee Pain (ED) Additional Instructions: Rest and ice the right knee. Follow-up with her primary care physician if symptoms aren't improving over the next few days. Continue taking home nausea medication. Follow diet as indicated by her surgeon. Follow-up with her surgeon as soon as possible for further recommendations regarding the vomiting. Return here immediately for any new, worsening, or concerning symptoms. Referrals: Nery Petersen MD [Primary Care Provider] - 1-2 days Time of Disposition: 04:06
[2017-11-20 01:36] LABS: Basophils % (A) 0 %; Eosinophils # (A) 0.1 k/uL (0-0.7); Eosinophils % (A) 2 %; HCT 41.3 % (34.0-46.0); HGB 13.4 gm/dL (11.4-16.0); Lymphocytes # (A) 2.2 k/uL (1.0-4.8); Lymphocytes % (A) 34 %; MCH 28.5 pg (25.0-35.0); MCHC 32.5 g/dL (31.0-37.0); MCV 87.7 fL (80.0-100.0); Mean Platelet Volume 6.6; Monocytes # (A) 0.6 k/uL (0-1.0); Monocytes % (A) 9 %; Neutrophils # (A) 3.5 k/uL (1.3-7.7); Neutrophils % (A) 53 %; Platelet Count 426 k/uL (150-450); RBC 4.71 m/uL (3.80-5.40); RDW 14.5 % (11.5-15.5); WBC 6.5 k/uL (3.8-10.6)
[2017-11-20 01:47] LABS: ALT 49 U/L (9-52); AST 33 U/L (14-36); Albumin 3.7 g/dL (3.5-5.0); Alkaline Phosphatase 82 U/L (38-126); Amylase 55 U/L (30-110); Anion Gap 16 mmol/L; Blood Urea Nitrogen 2 mg/dL (7-17); Calcium 9.5 mg/dL (8.4-10.2); Carbon Dioxide 17 mmol/L (22-30); Chloride 105 mmol/L (98-107); Glucose 80 mg/dL (74-99); Lipase 565 U/L (23-300); Potassium 3.8 mmol/L (3.5-5.1); Sodium 138 mmol/L (137-145); Total Bilirubin 0.7 mg/dL (0.2-1.3); Total Protein 6.8 g/dL (6.3-8.2)
[2017-11-20] MEDS ORDERED: IOHEXOL 350 MG/ML 25 ML BOTTLE (ORAL USE) PO PRN (03:02)
[2017-11-20] MEDS ORDERED: RX INFO: IV CONTRAST WAS GIVEN 1 EACH MISC MISCELLANE PRN (03:02)
--- NOTE | 2017-11-20 03:55 | CT ---
EXAM: CT Abdomen and Pelvis With Intravenous Contrast CLINICAL HISTORY: ITS.REASON CT Reason: Pain TECHNIQUE: Axial computed tomography images of the abdomen and pelvis with intravenous contrast. CTDI is 34.1 mGy and DLP is 2640.3 mGy-cm. This CT exam was performed using one or more of the following dose reduction techniques: automated exposure control, adjustment of the mA and/or kV according to patient size, and/or use of iterative reconstruction technique. Coronal and sagittal reformatted images were created and reviewed. COMPARISON: 11/11/2017 FINDINGS: Lower thorax: No acute findings. ABDOMEN: Liver: Nonacute. No mass. Gallbladder and bile ducts: Unremarkable. No calcified stones. No ductal dilation. Pancreas: Unremarkable. No mass. No ductal dilation. Spleen: Unremarkable. No splenomegaly. Adrenals: Unremarkable. No mass. Kidneys and ureters: No evidence for hydronephrosis or nephrolithiasis. Small right renal cyst is stable. Stomach and bowel: Stable postoperative configuration of the stomach, with gastrojejunostomy changes. Contrast is seen within the GI system, without evidence for extravasation into the peritoneal cavity at this time. No significant regional edema or evidence for acute inflammation. Small bowel anastomosis also seen in the leftward abdomen, without evidence for obstruction. A few fluid levels are present in the small bowel, without dilation and may be transient related to a mild ileus. Slight multifocal colonic wall thickening is likely related to peristalsis and under distention. Appendix: No findings to suggest acute appendicitis. PELVIS: Bladder: Under distended. Reproductive: Unremarkable as visualized. ABDOMEN and PELVIS: Intraperitoneal space: Scant free fluid. No free air. Bones/joints: No acute fracture. No dislocation. Soft tissues: Small fatty umbilical hernia. Multiple foci of scarring in the anterior abdominal soft tissues. Vasculature: Unremarkable. No abdominal aortic aneurysm. Lymph nodes: Unremarkable. No enlarged lymph nodes. IMPRESSION: 1. Stable post-bariatric surgical changes, without evidence for bowel obstruction or focal inflammation. 2. A few small bowel fluid levels may be transient or related to a mild ileus.
[2017-11-20 04:29] VITALS: BP 138/76; PULSE 72; TEMP 98
== END 2017-11-20 04:29 | disposition home or self-care (01) ==
LOC: EC 22:40
DX: M71.21 Synovial cyst of popliteal space [Baker], right knee (principal); R11.10 Vomiting, unspecified; K21.9 Gastro-esophageal reflux disease without esophagitis; F32.9 Major depressive disorder, single episode, unspecified; Z98.84 Bariatric surgery status; Z79.899 Other long term (current) drug therapy
CPT/HCPCS: 36415; 80053; 82150; 83690; 85025; 81001; 93971; 74177; 99283; 96360; Q9967

== ENCOUNTER → 2017-11-26 | Outpatient (CLI) | payer MEDICARE, OTHER ==
[~2017-11-26] MED LIST changes: -SODIUM CHLORIDE 0.9% 500 ML IV NR; +SODIUM CHLORIDE 0.9% 500 ML in EMPTY BAG 1 BAG IV PRN
[2017-11-26 13:33] VITALS: BP 127/86; PULSE 73; RESP 16; TEMP 98.7
[2017-11-26] MEDS: SODIUM CHLORIDE 0.9% 1,000 ML IV NR ×2 (13:33→14:30)
== END ==
LOC: PROCWHC3 12:47
PROVIDERS: ATTEND Surgery Plastic and Reconstructive Surgery
DX: E86.0 Dehydration (principal)
CPT/HCPCS: 96360; 96361

== ENCOUNTER 2017-11-29 07:35 | Day surgery (SDC) | payer MEDICARE, OTHER ==
[2017-11-26 12:18] VITALS: BMI 40.3
--- NOTE | 2017-11-29 05:24 | P.GSHP ---
History of Present Illness H&P Date: 11/29/17 CHIEF COMPLAINT: GERD HISTORY OF PRESENT ILLNESS: The patient is a 27-year-old female who presents reports gastroesophageal reflux disease. Upper endoscopy was offered for further evaluation and management. PAST MEDICAL HISTORY: Please see list. PAST SURGICAL HISTORY: Please see list. MEDICATIONS: Please see list. ALLERGIES: Please see list. SOCIAL HISTORY: No illicit drug use FAMILY HISTORY: No reports of Crohn disease or ulcerative colitis. REVIEW OF ORGAN SYSTEMS: CONSTITUTIONAL: No reports of fevers or chills. GI: Denies any blood in stools or constipation. PHYSICAL EXAM: VITAL SIGNS: Stable GENERAL: Well-developed and pleasant in no acute distress. HEENT: No scleral icterus. Extraocular movements grossly intact. Moist buccal mucosa. NECK: Supple without lymphadenopathy. CHEST: Unlabored respirations. Equal bilateral excursions. CARDIOVASCULAR: Regular rate and rhythm. Distal 2+ pulses. ABDOMEN: Soft, nondistended. MUSCULOSKELETAL: No clubbing, cyanosis, or edema. ASSESSMENT: 1. Gastroesophageal reflux disease PLAN: 1. Recommend proceeding with an upper endoscopy Past Medical History Past Medical History: GERD/Reflux, Seizure Disorder Additional Past Medical History / Comment(s): seizures as child-no rx, last seizure 2000, "blood clot in head age 4", History of Any Multi-Drug Resistant Organisms: None Reported Past Surgical History: Bariatric Surgery, Orthopedic Surgery Additional Past Surgical History / Comment(s): surgery to pu plates in arianna feet for "flat feet", gastric bypass 10-25-17 Past Anesthesia/Blood Transfusion Reactions: No Reported Reaction Smoking Status: Never smoker - Past Family History Mother Family Medical History: Asthma, Diabetes Mellitus, Sleep Apnea/CPAP/BIPAP Additional Family Medical History / Comment(s): Type 2 Diabetes - diet controlled Father Family Medical History: Hyperlipidemia, Hypertension Additional Family Medical History / Comment(s): Hypertension. Hyperlipidaemia Medications and Allergies Home Medications Medication Instructions Recorded Confirmed Type FLUoxetine HCL [FLUoxetine DR] 90 mg PO FR 04/07/16 11/26/17 History Omeprazole [Omeprazole] 20 mg PO DAILY PRN 05/20/17 11/26/17 History Acetaminophen Oral Susp (Peds) 500 mg PO Q4H PRN #480 bottle 10/27/17 11/26/17 Rx [Tylenol Oral Susp For Peds (Grape)] Ondansetron Odt [Zofran Odt] 4 mg PO Q8HR PRN #10 tab 11/12/17 11/26/17 Rx Allergies Allergy/AdvReac Type Severity Reaction Status Date / Time No Known Allergies Allergy Verified 11/26/17 12:10
[~2017-11-29 07:35] MED LIST changes: +LACTATED RINGERS 1,000 ML IV SCH; +LIDOCAINE 1% 20 ML VIAL (10MG/ML) FOR IV START INTRADERMA PRN; -SODIUM CHLORIDE 0.9% 500 ML in EMPTY BAG 1 BAG IV PRN
[2017-11-29 09:21] VITALS: RESP 16; TEMP 97.3
[2017-11-29] MEDS ORDERED: SODIUM CHLORIDE 0.9% 1,000 ML IV SCH (09:37)
[2017-11-29 09:49] LABS: ALT 38 U/L (9-52); AST 31 U/L (14-36); Albumin 3.5 g/dL (3.5-5.0); Alkaline Phosphatase 74 U/L (38-126); Anion Gap 13 mmol/L; Blood Urea Nitrogen 5 mg/dL (7-17); Calcium 9.1 mg/dL (8.4-10.2); Carbon Dioxide 22 mmol/L (22-30); Chloride 101 mmol/L (98-107); Glucose 101 mg/dL (74-99); Potassium 3.3 mmol/L (3.5-5.1); Sodium 136 mmol/L (137-145); Total Bilirubin 0.8 mg/dL (0.2-1.3); Total Protein 6.2 g/dL (6.3-8.2)
[2017-11-29] MEDS ORDERED: LIDOCAINE 1% INJ 10MG/ML (20 ML MDV) ONE (10:03)
[2017-11-29] MEDS ORDERED: MIDAZOLAM 2 MG/2 ML VIAL ONE (10:03)
[2017-11-29] MEDS ORDERED: fentaNYL (PF) 50 MCG/ML 2 ML AMP ONE (10:03)
[2017-11-29] MEDS ORDERED: PROPOFOL 10 MG/ML 20 ML VIAL IV ONE (10:03)
[2017-11-29] MEDS ORDERED: POTASSIUM CHLORIDE 20 MEQ in SODIUM CHLORIDE 0.9% 100 ML IVPB STA (10:20)
--- NOTE | 2017-11-29 10:24 | P.PCN ---
Date of Procedure: 11/29/17 Description of Procedure: PREOPERATIVE DIAGNOSIS: Dysphagia. Nausea with vomiting, intractable. Morbid obesity. POSTOPERATIVE DIAGNOSIS: Dysphagia. Nausea with vomiting, intractable. Morbid obesity. Gastrojejunal stricture with chronic ulcer without perforation OPERATION: Esophagogastrojejunoscopy with balloon dilatation from 5 to 10 mm. SURGEON: Leila Early MD ANESTHESIA: MAC. INDICATIONS: The patient is a 27-year-old female who presents with a history of dysphagia, gastric bypass including new-onset nausea and vomiting. Benefits and risks of the procedure were described. Informed consent was obtained. DESCRIPTION: The patient was brought into the endoscopy suite and laid in the left lateral decubitus position. After a timeout was confirmed, the procedure was initiated. An Olympus gastroscope was passed along the posterior oropharynx down to the distal esophagus where the squamocolumnar junction was unremarkable. The gastric pouch was entered. A gastrojejunal stricture of 5 mm was found as the adult gastroscope was 9.2 mm in size. A [employer]iva balloon dilator was placed through the scope. Final insufflation up to 10 mm was performed with a total of 2 minutes. The scope was advanced up to 60 cm from the incisors into the Kyle limb. The mucosa of the gastrojejunal anastomosis was intact. However chronic gastrojejunal marginal ulcer was encountered. No full-thickness injury was encountered. The GI tract was desufflated. The patient tolerated the procedure well. FINDINGS: Squamocolumnar junction unremarkable at 37 cm. Stricture of approximately 5 mm encountered. Chronic gastrojejunal ulceration encountered. Successful balloon dilatation to 20 mm. RECOMMENDATIONS: Start combined therapy of Carafate and omeprazole of at least 4 weeks. Plan - Discharge Summary New Discharge Prescriptions: New Omeprazole 40 mg PO DAILY #30 capsule.dr Sucralfate [Carafate] 1 gm PO BID #480 ml Discontinued Omeprazole [Omeprazole] 20 mg PO DAILY PRN PRN Reason: reflux No Action FLUoxetine HCL [FLUoxetine DR] 90 mg PO FR Acetaminophen Oral Susp (Peds) [Tylenol Oral Susp For Peds (Grape)] 500 mg PO Q4H PRN #480 bottle PRN Reason: Pain Ondansetron Odt [Zofran Odt] 4 mg PO Q8HR PRN #10 tab PRN Reason: Nausea Discharge Medication List FLUoxetine HCL [FLUoxetine DR] 90 mg PO FR 04/07/16 [History] Acetaminophen Oral Susp (Peds) [Tylenol Oral Susp For Peds (Grape)] 500 mg PO Q4H PRN #480 bottle 10/27/17 [Rx] Ondansetron Odt [Zofran Odt] 4 mg PO Q8HR PRN #10 tab 11/12/17 [Rx] Omeprazole 40 mg PO DAILY #30 capsule. 11/29/17 [Rx] Sucralfate [Carafate] 1 gm PO BID #480 ml 11/29/17 [Rx] Follow up Appointment(s)/Referral(s): [facility] [[facility]] - 12/08/17 Patient Instructions/Handouts: Esophageal Dilation (DC) Activity/Diet/Wound Care/Special Instructions: Liquid diet today. Discharge Disposition: HOME SELF-CARE
[2017-11-29] MEDS ORDERED: MAGNESIUM SULFATE-D5W PMX 1 GM in DEXTROSE/WATER 1 100ML.BAG IVPB SCH (10:30)
[2017-11-29 11:28] VITALS: BP 120/71; PULSE 88
== END 2017-11-29 12:01 | disposition home or self-care (01) ==
LOC: ORWHC2ENDO 07:35
PROVIDERS: ATTEND Surgery Plastic and Reconstructive Surgery
DX: K31.89 Other diseases of stomach and duodenum (principal); Z98.84 Bariatric surgery status; E66.01 Morbid (severe) obesity due to excess calories; Z68.41 Body mass index [BMI] 40.0-44.9, adult; Z79.899 Other long term (current) drug therapy
CPT/HCPCS: 81025; 80053; 83735; 43245; J2250; J2001; J3010; J2704; C1726

== ENCOUNTER 2017-11-30 07:38 | Outpatient (CLI) | payer MEDICARE, OTHER ==
[~2017-11-30 07:38] MED LIST changes: -LACTATED RINGERS 1,000 ML IV SCH; -LIDOCAINE 1% 20 ML VIAL (10MG/ML) FOR IV START INTRADERMA PRN; +SODIUM CHLORIDE 0.9% 1,000 ML IV NR; +SODIUM CHLORIDE 0.9% 500 ML in EMPTY BAG 1 BAG IV PRN
[2017-11-30 08:39] VITALS: RESP 16; TEMP 98.7
[2017-11-30] MEDS: POTASSIUM CHLORIDE 10 MEQ in SODIUM CHLORIDE 0.9% 100 ML IVPB NR ×3 (08:40→10:43)
[2017-11-30 10:45] VITALS: BP 112/83; PULSE 91
[2017-11-30] MEDS: MAGNESIUM SULFATE-D5W PMX 1 GM in DEXTROSE/WATER 1 100ML.BAG IVPB NR ×3 (11:48→14:22)
[2017-11-30] MEDS ORDERED: ONDANSETRON 4 MG/2 ML VIAL IVP STA (13:58)
== END 2017-12-01 11:25 | disposition home or self-care (01) ==
LOC: PROCWHC3 07:38
PROVIDERS: ATTEND Surgery Plastic and Reconstructive Surgery
DX: E61.2 Magnesium deficiency (principal); E87.6 Hypokalemia; E86.0 Dehydration
CPT/HCPCS: 96365; 96366; 96367; 96375; J2405; J3480; J3475

== ENCOUNTER 2017-12-01 21:25 | Emergency (ER) | payer MEDICARE, OTHER ==
[2017-12-01 21:31] VITALS: RESP 18
--- NOTE | 2017-12-01 21:44 | ED ---
Abdominal Pain HPI - General Chief Complaint: Abdominal Pain Stated Complaint: SOB Time Seen by Provider: 12/01/17 21:34 Source: patient Mode of arrival: wheelchair Limitations: no limitations - History of Present Illness Initial Comments: This patient is a 27-year-old woman with history of previous Kyle-en-Y for morbid obesity, who presents with complaint of one day of epigastric abdominal pain and multiple episodes of nausea and vomiting. The patient relates that she had been in the hospital on the fifth and had a procedure with her surgeon who is Dr. Early. Review of the records reveal that the patient had balloon dilation of a stricture of the gastrojejunal area. The patient was doing fairly well that evening and then over the course the past day has had the above symptoms develop. She states she is not able to keep down much oral intake at all. Denies fever or chills. No change in bowel movements or urination. MD Complaint: abdominal pain, other Onset/Timin -: days(s) Location: epigastric Radiation: none Migration to: no migration Severity: moderate Quality: aching Consistency: constant Improves With: nothing Worsens With: nothing - Related Data Home Medications Medication Instructions Recorded Confirmed FLUoxetine HCL [FLUoxetine DR] 90 mg PO FR 04/07/16 12/01/17 Ibuprofen 600 mg PO Q6H PRN 12/01/17 12/01/17 Scopolamine 1 patch TRANSDERM Q72H 12/01/17 12/01/17 Previous Rx's Medication Instructions Recorded Ondansetron Odt [Zofran Odt] 4 mg PO Q8HR PRN #10 tab 11/12/17 Omeprazole 40 mg PO DAILY #30 capsule. 11/29/17 Sucralfate [Carafate] 1 gm PO BID #480 ml 11/29/17 Ondansetron Odt [Zofran ODT] 4 mg PO Q8HR PRN #10 tab 12/02/17 Allergies Allergy/AdvReac Type Severity Reaction Status Date / Time No Known Allergies Allergy Verified 12/01/17 21:53 Review of Systems ROS Statement: Those systems with pertinent positive or pertinent negative responses have been documented in the HPI. ROS Other: All systems not noted in ROS Statement are negative. Constitutional: Denies: fever, chills Respiratory: Denies: cough, dyspnea Cardiovascular: Denies: chest pain, palpitations Gastrointestinal: Reports: abdominal pain, nausea, vomiting. Denies: diarrhea, constipation, hematemesis, melena, hematochezia Genitourinary: Denies: dysuria, hematuria Musculoskeletal: Denies: back pain Skin: Denies: rash Neurological: Denies: headache, weakness Past Medical History Past Medical History: GERD/Reflux, Seizure Disorder Additional Past Medical History / Comment(s): seizures as child-no rx, last seizure 2000, "blood clot in head age 4", History of Any Multi-Drug Resistant Organisms: None Reported Past Surgical History: Bariatric Surgery, Orthopedic Surgery Additional Past Surgical History / Comment(s): surgery to pu plates in arianna feet for "flat feet", gastric bypass 10-25-17 Past Anesthesia/Blood Transfusion Reactions: No Reported Reaction Past Psychological History: ADD/ADHD, Depression Smoking Status: Never smoker - Past Family History Mother Family Medical History: Asthma, Diabetes Mellitus, Sleep Apnea/CPAP/BIPAP Additional Family Medical History / Comment(s): Type 2 Diabetes - diet controlled Father Family Medical History: Hyperlipidemia, Hypertension Additional Family Medical History / Comment(s): Hypertension. Hyperlipidaemia General Exam Limitations: no limitations General appearance: alert, obese Head exam: Present: atraumatic Eye exam: Present: normal appearance. Absent: scleral icterus, conjunctival injection ENT exam: Present: normal oropharynx Neck exam: Present: normal inspection Respiratory exam: Present: normal lung sounds bilaterally. Absent: respiratory distress, wheezes, rales, rhonchi, stridor Cardiovascular Exam: Present: regular rate, normal rhythm, normal heart sounds. Absent: systolic murmur, diastolic murmur, rubs, gallop GI/Abdominal exam: Present: soft, normal bowel sounds. Absent: distended, tenderness, guarding, rebound, mass, pulsatile mass, hernia Extremities exam: Present: normal inspection, normal capillary refill. Absent: pedal edema, calf tenderness Back exam: Present: normal inspection. Absent: CVA tenderness (R), CVA tenderness (L) Neurological exam: Present: alert Skin exam: Present: warm, dry, intact, normal color. Absent: rash Course Vital Signs 12/01/17 12/01/17 21:27 23:37 Temperature 97.7 F 97.5 F L Pulse Rate 74 72 Respiratory 18 18 Rate Blood Pressure 116/74 120/75 O2 Sat by Pulse 98 97 Oximetry Medical Decision Making - Medical Decision Making Patient is 27-year-old woman with nausea vomiting abdominal pain. She does have some mild hypokalemia and mild elevation of the lipase. Remainder of the workup is normal. She has had marked improvement with medications and following fluid and ondansetron requested to go home. Return parameters discussed and patient will follow-up with Dr. Early. - Lab Data Result diagrams: 12/01/17 21:59 12/01/17 21:59 Lab Results 12/01/17 12/01/17 12/01/17 Range/Units 21:59 21:59 21:59 WBC 6.5 (3.8-10.6) k/uL RBC 4.74 (3.80-5.40) m/uL Hgb 13.8 (11.4-16.0) gm/dL Hct 41.0 (34.0-46.0) % MCV 86.6 (80.0-100.0) fL MCH 29.1 (25.0-35.0) pg MCHC 33.6 (31.0-37.0) g/dL RDW 15.3 (11.5-15.5) % Plt Count 365 (150-450) k/uL Neutrophils % 64 % Lymphocytes % 22 % Monocytes % 10 % Eosinophils % 3 % Basophils % 0 % Neutrophils # 4.1 (1.3-7.7) k/uL Lymphocytes # 1.5 (1.0-4.8) k/uL Monocytes # 0.6 (0-1.0) k/uL Eosinophils # 0.2 (0-0.7) k/uL Basophils # 0.0 (0-0.2) k/uL Sodium 138 (137-145) mmol/L Potassium 3.2 L (3.5-5.1) mmol/L Chloride 100 (98-107) mmol/L Carbon Dioxide 29 (22-30) mmol/L Anion Gap 9 mmol/L BUN 4 L (7-17) mg/dL Creatinine 0.50 L (0.52-1.04) mg/dL Est GFR (CKD-EPI)AfAm >90 (>60 ml/min/1.73 sqM) Est GFR (CKD-EPI)NonAf >90 (>60 ml/min/1.73 sqM) Glucose 99 (74-99) mg/dL Plasma Lactic Acid Scott 1.1 (0.7-2.0) mmol/L Calcium 9.4 (8.4-10.2) mg/dL Total Bilirubin 0.6 (0.2-1.3) mg/dL AST 41 H (14-36) U/L ALT 49 (9-52) U/L Alkaline Phosphatase 80 (38-126) U/L Total Protein 6.4 (6.3-8.2) g/dL Albumin 3.6 (3.5-5.0) g/dL Amylase 58 (30-110) U/L Lipase 639 H (23-300) U/L Urine Color Urine Appearance (Clear) Urine pH (5.0-8.0) Ur Specific Adkins (1.001-1.035) Urine Protein (Negative) Urine Glucose (UA) (Negative) Urine Ketones (Negative) Urine Blood (Negative) Urine Nitrite (Negative) Urine Bilirubin (Negative) Urine Urobilinogen (<2.0) mg/dL Ur Leukocyte Esterase (Negative) Urine RBC (0-5) /hpf Urine WBC (0-5) /hpf Ur Squamous Epith Cells (0-4) /hpf Urine Bacteria (None) /hpf Hyaline Casts (0-2) /lpf Urine Mucus (None) /hpf Urine HCG, Qual (Not Detectd) 12/01/17 12/01/17 Range/Units 21:59 21:59 WBC (3.8-10.6) k/uL RBC (3.80-5.40) m/uL Hgb (11.4-16.0) gm/dL Hct (34.0-46.0) % MCV (80.0-100.0) fL MCH (25.0-35.0) pg MCHC (31.0-37.0) g/dL RDW (11.5-15.5) % Plt Count (150-450) k/uL Neutrophils % % Lymphocytes % % Monocytes % % Eosinophils % % Basophils % % Neutrophils # (1.3-7.7) k/uL Lymphocytes # (1.0-4.8) k/uL Monocytes # (0-1.0) k/uL Eosinophils # (0-0.7) k/uL Basophils # (0-0.2) k/uL Sodium (137-145) mmol/L Potassium (3.5-5.1) mmol/L Chloride (98-107) mmol/L Carbon Dioxide (22-30) mmol/L Anion Gap mmol/L BUN (7-17) mg/dL Creatinine (0.52-1.04) mg/dL Est GFR (CKD-EPI)AfAm (>60 ml/min/1.73 sqM) Est GFR (CKD-EPI)NonAf (>60 ml/min/1.73 sqM) Glucose (74-99) mg/dL Plasma Lactic Acid Scott (0.7-2.0) mmol/L Calcium (8.4-10.2) mg/dL Total Bilirubin (0.2-1.3) mg/dL AST (14-36) U/L ALT (9-52) U/L Alkaline Phosphatase (38-126) U/L Total Protein (6.3-8.2) g/dL Albumin (3.5-5.0) g/dL Amylase (30-110) U/L Lipase (23-300) U/L Urine Color Dark Brown Urine Appearance Turbid H (Clear) Urine pH 6.0 (5.0-8.0) Ur Specific Adkins 1.017 (1.001-1.035) Urine Protein 2+ H (Negative) Urine Glucose (UA) Negative (Negative) Urine Ketones 2+ H (Negative) Urine Blood Large H (Negative) Urine Nitrite Negative (Negative) Urine Bilirubin Negative (Negative) Urine Urobilinogen 4.0 (<2.0) mg/dL Ur Leukocyte Esterase Large H (Negative) Urine RBC >182 H (0-5) /hpf Urine WBC >182 H (0-5) /hpf Ur Squamous Epith Cells 28 H (0-4) /hpf Urine Bacteria Rare H (None) /hpf Hyaline Casts 22 H (0-2) /lpf Urine Mucus Few H (None) /hpf Urine HCG, Qual Not Detected (Not Detectd) Disposition Clinical Impression: Nausea & vomiting, Pancreatitis, Hypokalemia Disposition: HOME SELF-CARE Condition: Good Instructions: Acute Nausea and Vomiting (ED) Prescriptions: Ondansetron Odt [Zofran ODT] 4 mg PO Q8HR PRN #10 tab PRN Reason: Nausea Referrals: Nery Petersen MD [Primary Care Provider] - 1-2 days Leila Early MD [STAFF PHYSICIAN] - 1-2 days
[2017-12-01] MEDS ORDERED: ONDANSETRON 4 MG/2 ML VIAL IVP STA ×2 (22:02→23:21)
[2017-12-01 22:17] LABS: Basophils % (A) 0 %; Eosinophils # (A) 0.2 k/uL (0-0.7); Eosinophils % (A) 3 %; HGB 13.8 gm/dL (11.4-16.0); Lymphocytes # (A) 1.5 k/uL (1.0-4.8); Lymphocytes % (A) 22 %; MCH 29.1 pg (25.0-35.0); MCHC 33.6 g/dL (31.0-37.0); MCV 86.6 fL (80.0-100.0); Mean Platelet Volume 7.4; Monocytes # (A) 0.6 k/uL (0-1.0); Monocytes % (A) 10 %; Neutrophils # (A) 4.1 k/uL (1.3-7.7); Neutrophils % (A) 64 %; Platelet Count 365 k/uL (150-450); RBC 4.74 m/uL (3.80-5.40); RDW 15.3 % (11.5-15.5); WBC 6.5 k/uL (3.8-10.6)
[2017-12-01 22:24] LABS: ALT 49 U/L (9-52); AST 41 U/L (14-36); Albumin 3.6 g/dL (3.5-5.0); Alkaline Phosphatase 80 U/L (38-126); Amylase 58 U/L (30-110); Anion Gap 9 mmol/L; Blood Urea Nitrogen 4 mg/dL (7-17); Calcium 9.4 mg/dL (8.4-10.2); Carbon Dioxide 29 mmol/L (22-30); Chloride 100 mmol/L (98-107); Glucose 99 mg/dL (74-99); Lipase 639 U/L (23-300); Potassium 3.2 mmol/L (3.5-5.1); Sodium 138 mmol/L (137-145); Total Bilirubin 0.6 mg/dL (0.2-1.3); Total Protein 6.4 g/dL (6.3-8.2)
[2017-12-01 22:38] LABS: Appearance,Urine Turbid (Clear); Bacteria,Urine Rare /hpf; Bilirubin,Urine Negative (Negative); Blood,Urine Large (Negative); Color,Urine Dark Brown; Glucose,Urine (UA) Negative (Negative); Hyaline Casts,Urine 22 /lpf (0-2); Ketones,Urine 2+ (Negative); Leukocyte Esterase,Urine Large (Negative); Mucus,Urine Few /hpf; Protein,Urine 2+ (Negative); RBC,Urine >182 /hpf (0-5); Specific Gravity,Urine 1.017 (1.001-1.035); Squamous Epithelial Cell,Urine 28 /hpf (0-4); WBC,Urine >182 /hpf (0-5)
--- NOTE | 2017-12-01 22:45 | XR ---
EXAMINATION TYPE: XR KUB DATE OF EXAM: 12/01/2017 COMPARISON: 11/11/2017 HISTORY: Abdominal pain TECHNIQUE: 2 views FINDINGS: There is no sign of intestinal obstruction or pneumoperitoneum. Fecal pattern is normal. Skyla ng bases are clear. There is no sign of a mass. There are no pathologic calcifications over the kidne ys. IMPRESSION: Nonacute abdomen. There is clearing of the distended gas-filled small bowel loops in the midabdomen compared to old exam..
[2017-12-01] MEDS ORDERED: cefTRIAXone IN SWFI 1,000 MG/10 ML SYRINGE IVP STA (23:12)
[2017-12-01] MEDS ORDERED: POTASSIUM BICARB-CITRIC ACID 25 MEQ TABLET.EFF PO STA (23:13)
[2017-12-01] MEDS ORDERED: POTASSIUM BICARBONATE/CIT AC 20 MEQ TABLET.EFF PO STA (23:17)
[2017-12-01] MEDS ORDERED: DICYCLOMINE 10 MG/ML 2 ML AMP IM STA (23:21)
[2017-12-01 23:38] VITALS: BP 120/75; PULSE 72; TEMP 97.5
== END 2017-12-02 00:34 | disposition home or self-care (01) ==
LOC: EC 21:25
DX: K85.90 Acute pancreatitis without necrosis or infection, unspecified (principal); E87.6 Hypokalemia; F32.9 Major depressive disorder, single episode, unspecified; E66.01 Morbid (severe) obesity due to excess calories; Z68.41 Body mass index [BMI] 40.0-44.9, adult; Z98.84 Bariatric surgery status; Z79.899 Other long term (current) drug therapy
CPT/HCPCS: 36415; 80053; 82150; 83605; 83690; 85025; 81001; 81025; 74018; 99284; 96374; 96375; 96376; 96372; J0500; J2405; J0696

== ENCOUNTER → 2017-12-08 | Outpatient (CLI) | payer MEDICARE, OTHER ==
[2017-12-08 17:22] VITALS: BP 111/79; PULSE 102; RESP 16; TEMP 98.3; BMI 42.3
--- NOTE | 2018-01-21 11:53 | P.PN ---
Subjective Progress Note Date: 12/08/17 DATE OF SERVICE: 12/08/2017 CHIEF COMPLAINT: Status post gastric bypass HISTORY OF PRESENT ILLNESS: Celena Nava is a 27-year-old female is status post gastric bypass 10/25/2017. She is over 1.5 months out. She previously had epigastric abdominal pain. She completed upper endoscopy consistent with a large gastrojejunal ulcer. After her upper endoscopy and balloon dilatation, her abdominal pain is resolved. She has been placed on Carafate including Prilosec. She is eager to eat solid food. No further ports of vomiting. At her height of 5 foot 4 inches, her ideal body weight is 144 pounds. Her weight is down 3 pounds in 1 month. She comes in weighing 246 pounds. Her highest weight was 284 pounds. She has lost 38 pounds lifetime. She is 102 pounds overweight. Her body mass index is down from 48.9 to 42.3. Percent excess weight loss is 27%. PHYSICAL EXAM: VITAL SIGNS: Height 5 foot 4 inches, weight 246 pounds. BMI 42.3 Vital Signs Temp 98.3 F 12/08/17 17:19 Pulse 102 H 12/08/17 17:19 Resp 16 12/08/17 17:19 BP 111/79 12/08/17 17:19 Pulse Ox GENERAL: Well-developed female in no acute distress. HEENT: No scleral icterus. Extraocular movements grossly intact. Hears conversational speech. No nasal drainage. NECK: Supple without lymphadenopathy. CHEST: Nonlabored respirations with equal bilateral excursions. CARDIOVASCULAR: Tachycardic. Distal 2+ pulses. ABDOMEN: Obese, soft, nontender. Nondistended. MUSCULOSKELETAL: No clubbing, cyanosis, or edema. Gross strength 5/5 distal lower extremities. NEURO: No focal or lateralizing signs. Cranial nerves 2 through 12 grossly within normal limits. PSYCH: Appropriate affect. Alert and oriented to person, place and time. SKIN: Good skin turgor. Well perfused. ASSESSMENT: 1. Morbid obesity due to excess calories. 2. Body mass index of 48.8 down to 42.3. 3. Status post gastric bypass. 4. Chronic gastrojejunal ulcer. 5. Epigastric abdominal pain resolved 6. Gastric stricture PLAN: 1. She will likely need another upper endoscopy with balloon dilatation for the severity of her stricture. 2. Continue omeprazole and Prilosec for at least 4 weeks. 3. She has been encouraged to increase her protein intake including eating chili. 4. Follow-up in 1 month. Objective - Vital Signs Vital signs: Vital Signs Temp 98.3 F 12/08/17 17:19 Pulse 102 H 12/08/17 17:19 Resp 16 12/08/17 17:19 BP 111/79 12/08/17 17:19 Pulse Ox Intake & Output 12/07/17 12/08/17 12/08/17 18:59 06:59 18:59 Weight 111.839 kg
== END | disposition home or self-care (01) ==
LOC: BARWHC3 15:43
PROVIDERS: ATTEND Surgery Plastic and Reconstructive Surgery
DX: Z48.815 Encounter for surgical aftercare following surgery on the digestive system (principal); E66.01 Morbid (severe) obesity due to excess calories; K28.9 Gastrojejunal ulcer, unspecified as acute or chronic, without hemorrhage or perforation; K31.2 Hourglass stricture and stenosis of stomach; T73.0XXA Starvation, initial encounter; Z98.84 Bariatric surgery status; Z68.41 Body mass index [BMI] 40.0-44.9, adult
CPT/HCPCS: 99211

== ENCOUNTER 2017-12-15 09:39 | Day surgery (SDC) | payer MEDICARE, OTHER ==
[2017-12-13 16:08] VITALS: BMI 42.2
[~2017-12-15 09:39] MED LIST changes: +LACTATED RINGERS 1,000 ML IV SCH; -SODIUM CHLORIDE 0.9% 1,000 ML IV NR; -SODIUM CHLORIDE 0.9% 500 ML in EMPTY BAG 1 BAG IV PRN
--- NOTE | 2017-12-15 09:55 | P.GSHP ---
History of Present Illness H&P Date: 12/15/17 CHIEF COMPLAINT: GERD HISTORY OF PRESENT ILLNESS: The patient is a 27-year-old female who presents reports gastroesophageal reflux disease. Upper endoscopy was offered for further evaluation and management. PAST MEDICAL HISTORY: Please see list. PAST SURGICAL HISTORY: Please see list. MEDICATIONS: Please see list. ALLERGIES: Please see list. SOCIAL HISTORY: No illicit drug use FAMILY HISTORY: No reports of Crohn disease or ulcerative colitis. REVIEW OF ORGAN SYSTEMS: CONSTITUTIONAL: No reports of fevers or chills. GI: Denies any blood in stools or constipation. PHYSICAL EXAM: VITAL SIGNS: Stable GENERAL: Well-developed and pleasant in no acute distress. HEENT: No scleral icterus. Extraocular movements grossly intact. Moist buccal mucosa. NECK: Supple without lymphadenopathy. CHEST: Unlabored respirations. Equal bilateral excursions. CARDIOVASCULAR: Regular rate and rhythm. Distal 2+ pulses. ABDOMEN: Soft, nondistended. MUSCULOSKELETAL: No clubbing, cyanosis, or edema. ASSESSMENT: 1. Gastroesophageal reflux disease PLAN: 1. Recommend proceeding with an upper endoscopy Past Medical History Past Medical History: GERD/Reflux, Seizure Disorder Additional Past Medical History / Comment(s): seizures as child-no rx, last seizure 2000, "blood clot in head age 4", ulcer History of Any Multi-Drug Resistant Organisms: None Reported Past Surgical History: Bariatric Surgery, Orthopedic Surgery Additional Past Surgical History / Comment(s): surgery to put plates in arianna feet for "flat feet", gastric bypass 10-25-17, recent endoscopy 11-29-17 Past Anesthesia/Blood Transfusion Reactions: No Reported Reaction Smoking Status: Never smoker - Past Family History Mother Family Medical History: Asthma, Diabetes Mellitus, Sleep Apnea/CPAP/BIPAP Additional Family Medical History / Comment(s): Type 2 Diabetes - diet controlled Father Family Medical History: Hyperlipidemia, Hypertension Additional Family Medical History / Comment(s): Hypertension. Hyperlipidaemia Medications and Allergies Home Medications Medication Instructions Recorded Confirmed Type FLUoxetine HCL [FLUoxetine DR] 90 mg PO FR 04/07/16 12/13/17 History Ondansetron Odt [Zofran Odt] 4 mg PO Q8HR PRN #10 tab 11/12/17 12/13/17 Rx Omeprazole 40 mg PO DAILY #30 capsule. 11/29/17 12/13/17 Rx Sucralfate [Carafate] 1 gm PO BID #480 ml 11/29/17 12/13/17 Rx Allergies Allergy/AdvReac Type Severity Reaction Status Date / Time No Known Allergies Allergy Verified 12/13/17 15:55
[2017-12-15 10:13] VITALS: RESP 16; TEMP 96.4
[2017-12-15] MEDS ORDERED: LIDOCAINE 1% 20 ML VIAL (10MG/ML) FOR IV START INTRADERMA ONE (10:21)
[2017-12-15] MEDS ORDERED: LIDOCAINE 1% INJ 10MG/ML (20 ML MDV) ONE (11:28)
[2017-12-15] MEDS ORDERED: PROPOFOL 10 MG/ML 20 ML VIAL IV ONE (11:28)
--- NOTE | 2017-12-15 11:43 | P.PCN ---
Date of Procedure: 12/15/17 Description of Procedure: PREOPERATIVE DIAGNOSIS: Dysphagia. Gastrojejunal stricture with chronic ulcer without perforation POSTOPERATIVE DIAGNOSIS: Dysphagia. Gastrojejunal stricture with chronic ulcer without perforation OPERATION: Esophagogastrojejunoscopy with balloon dilatation from 5 to 9.5 mm. SURGEON: Leila Early MD ANESTHESIA: MAC. INDICATIONS: The patient is a 27-year-old female who presents with a gastrojejunal stricture. Benefits and risks of the procedure were described. Informed consent was obtained. DESCRIPTION: The patient was brought into the endoscopy suite and laid in the left lateral decubitus position. After a timeout was confirmed, the procedure was initiated. An Olympus gastroscope was passed along the posterior oropharynx down to the distal esophagus where the squamocolumnar junction was unremarkable. The gastric pouch was entered. A gastrojejunal stricture of 5 mm was found as the adult gastroscope was 9.6 mm in size. A [employer] balloon dilator was placed through the scope. Final insufflation up to 9.5 mm was performed with a total of 2 minutes. The mucosa of the gastrojejunal anastomosis was intact. However chronic gastrojejunal marginal ulcer was encountered. No full-thickness injury was encountered. The GI tract was desufflated. The patient tolerated the procedure well. FINDINGS: Stricture of approximately 5 mm encountered. Chronic gastrojejunal ulceration encountered. Successful balloon dilatation to 9.5 mm. RECOMMENDATIONS: Continue Carafate and omeprazole for at least another 4 weeks. Plan - Discharge Summary New Discharge Prescriptions: No Action FLUoxetine HCL [FLUoxetine DR] 90 mg PO FR Ondansetron Odt [Zofran Odt] 4 mg PO Q8HR PRN #10 tab PRN Reason: Nausea Omeprazole 40 mg PO DAILY #30 capsule. Sucralfate [Carafate] 1 gm PO BID #480 ml Discharge Medication List FLUoxetine HCL [FLUoxetine DR] 90 mg PO FR 04/07/16 [History] Ondansetron Odt [Zofran Odt] 4 mg PO Q8HR PRN #10 tab 11/12/17 [Rx] Omeprazole 40 mg PO DAILY #30 capsule. 11/29/17 [Rx] Sucralfate [Carafate] 1 gm PO BID #480 ml 11/29/17 [Rx]
[2017-12-15 12:13] VITALS: BP 116/72; PULSE 86
== END 2017-12-15 12:21 | disposition home or self-care (01) ==
LOC: ORWHC2ENDO 09:39
PROVIDERS: ATTEND Surgery Plastic and Reconstructive Surgery
DX: K31.89 Other diseases of stomach and duodenum (principal); Z98.84 Bariatric surgery status; K21.9 Gastro-esophageal reflux disease without esophagitis; F32.9 Major depressive disorder, single episode, unspecified; Z79.899 Other long term (current) drug therapy
CPT/HCPCS: 81025; 84703; 43245; J2001; J2704; C1726; 43249

== ENCOUNTER → 2017-12-29 | Outpatient (CLI) | payer MEDICARE, OTHER ==
[2017-12-29 16:13] VITALS: BP 110/76; PULSE 80; RESP 15; TEMP 98.7; BMI 39.7
--- NOTE | 2018-01-22 16:22 | P.PN ---
Subjective Progress Note Date: 12/29/17 DATE OF SERVICE: 12/29/2017 CHIEF COMPLAINT: Status post gastric bypass HISTORY OF PRESENT ILLNESS: Celena Nava is a 27-year-old female is status post gastric bypass 10/25/2017. She is over 2 months out. She is feeling well no reports of abdominal pain. She is also eating. She is about to get in May 14, 2018. She is still on omeprazole and Carafate for her gastric ulcer. At her height of 5 foot 4 inches, her ideal body weight is 144 pounds. Her weight is down 15 pounds in 3 weeks. She comes in weighing 231 pounds. Her highest weight was 284 pounds. She has lost 53 pounds lifetime. She is 87 pounds overweight. Her body mass index is down from 48.9 to 39.8 Percent excess weight loss is 38%. PHYSICAL EXAM: VITAL SIGNS: Height 5 foot 4 inches, weight 231 pounds. BMI 39.8 Vital Signs Temp 98.7 F 12/29/17 16:11 Pulse 80 12/29/17 16:11 Resp 15 12/29/17 16:11 BP 110/76 12/29/17 16:11 Pulse Ox GENERAL: Well-developed female in no acute distress. HEENT: No scleral icterus. Extraocular movements grossly intact. Hears conversational speech. No nasal drainage. NECK: Supple without lymphadenopathy. CHEST: Nonlabored respirations with equal bilateral excursions. CARDIOVASCULAR: Regular rate and regular rhythm. Distal 2+ pulses. ABDOMEN: Obese, soft, nontender. Nondistended. No incisional hernia. MUSCULOSKELETAL: No clubbing, cyanosis, or edema. Gross strength 5/5 distal lower extremities. NEURO: No focal or lateralizing signs. Cranial nerves 2 through 12 grossly within normal limits. PSYCH: Appropriate affect. Alert and oriented to person, place and time. SKIN: Good skin turgor. Well perfused. ASSESSMENT: 1. Morbid obesity due to excess calories. 2. Body mass index of 48.8 down to 39.8 3. Status post gastric bypass. 4. Chronic gastrojejunal ulcer with stricture. 5. Dietary surveillance and counseling PLAN: 1. Recommend repeat upper endoscopy for history of gastric stricture. 2. Recommend refill for Carafate and omeprazole. 3. recommend increasing diet including eating chicken. 4. Follow-up in 1 month. Objective - Vital Signs Vital signs: Vital Signs Temp 98.7 F 12/29/17 16:11 Pulse 80 12/29/17 16:11 Resp 15 12/29/17 16:11 BP 110/76 12/29/17 16:11 Pulse Ox Intake & Output 12/28/17 12/29/17 12/29/17 18:59 06:59 18:59 Weight 105.097 kg
== END | disposition home or self-care (01) ==
LOC: BARWHC3 14:23
PROVIDERS: ATTEND Surgery Plastic and Reconstructive Surgery
DX: E66.01 Morbid (severe) obesity due to excess calories (principal); K28.9 Gastrojejunal ulcer, unspecified as acute or chronic, without hemorrhage or perforation; E21.1 Secondary hyperparathyroidism, not elsewhere classified; E89.1 Postprocedural hypoinsulinemia; K90.9 Intestinal malabsorption, unspecified; D50.9 Iron deficiency anemia, unspecified; E55.9 Vitamin D deficiency, unspecified; K74.1 Hepatic sclerosis; N19 Unspecified kidney failure; K50.90 Crohn's disease, unspecified, without complications; Z98.84 Bariatric surgery status; Z71.3 Dietary counseling and surveillance; Z68.39 Body mass index [BMI] 39.0-39.9, adult
CPT/HCPCS: 99211

== ENCOUNTER → 2018-01-05 | Outpatient (CLI) | payer MEDICARE, OTHER ==
[2018-01-05 17:50] VITALS: BP 118/71; PULSE 89; TEMP 98.1; BMI 39.9
--- NOTE | 2018-01-22 16:35 | P.PN ---
Subjective Progress Note Date: 01/05/18 DATE OF SERVICE: 01/05/2018 CHIEF COMPLAINT: Status post gastric bypass HISTORY OF PRESENT ILLNESS: Celena Nava is a 27-year-old female is status post gastric bypass 10/25/2017. She is over 2 months out. She is tolerating diet. She presents accompanying her mother. No nausea or vomiting at this time. No epigastric abdominal pain. She has limited her dietary intake. At her height of 5 foot 4 inches, her ideal body weight is 144 pounds. She has gained 1 pound in 1 week. She comes in weighing 232 pounds. Her highest weight was 284 pounds. She has lost 52 pounds lifetime. She is 88 pounds overweight. Her body mass index is down from 48.9 to 40.0. Percent excess weight loss is 37%. PHYSICAL EXAM: VITAL SIGNS: Height 5 foot 4 inches, weight 232 pounds. BMI 40.0 Vital Signs Temp 98.1 F 01/05/18 17:47 Pulse 89 01/05/18 17:47 Resp BP 118/71 01/05/18 17:47 Pulse Ox GENERAL: Well-developed female in no acute distress. HEENT: No scleral icterus. Extraocular movements grossly intact. Hears conversational speech. No nasal drainage. NECK: Supple without lymphadenopathy. CHEST: Nonlabored respirations with equal bilateral excursions. CARDIOVASCULAR: Regular rate and regular rhythm. Distal 2+ pulses. ABDOMEN: Obese, soft, nontender. Nondistended. No incisional hernia. MUSCULOSKELETAL: No clubbing, cyanosis, or edema. Gross strength 5/5 distal lower extremities. NEURO: No focal or lateralizing signs. Cranial nerves 2 through 12 grossly within normal limits. PSYCH: Appropriate affect. Alert and oriented to person, place and time. SKIN: Good skin turgor. Well perfused. ASSESSMENT: 1. Morbid obesity due to excess calories. 2. Body mass index of 48.8 down to 40.0. 3. Status post gastric bypass. 4. Chronic gastrojejunal ulcer with stricture. 5. Dietary surveillance and counseling 6. Inadequate protein intake. PLAN: 1. Recommend follow-up bariatric dietitian. 2. Protein intake over 70 g advised daily. 3. Will need bariatric metabolic panel. 4. Repeat upper endoscopy in 3 weeks. Objective - Vital Signs Vital signs: Vital Signs Temp 98.1 F 01/05/18 17:47 Pulse 89 01/05/18 17:47 Resp BP 118/71 01/05/18 17:47 Pulse Ox
== END | disposition home or self-care (01) ==
LOC: BARWHC3 17:39
PROVIDERS: ATTEND Surgery Plastic and Reconstructive Surgery
DX: Z48.815 Encounter for surgical aftercare following surgery on the digestive system (principal); E66.01 Morbid (severe) obesity due to excess calories; Z68.41 Body mass index [BMI] 40.0-44.9, adult; Z98.84 Bariatric surgery status; K28.9 Gastrojejunal ulcer, unspecified as acute or chronic, without hemorrhage or perforation; Z71.3 Dietary counseling and surveillance
CPT/HCPCS: 97803; G0463; 99211

== ENCOUNTER → 2018-01-10 | Outpatient (CLI) | payer MEDICARE, OTHER ==
[2018-01-10 14:05] LABS: HCT 38.6 % (34.0-46.0); HGB 12.7 gm/dL (11.4-16.0); MCH 29.3 pg (25.0-35.0); MCHC 32.9 g/dL (31.0-37.0); MCV 89.1 fL (80.0-100.0); Mean Platelet Volume 7.1; Platelet Count 325 k/uL (150-450); RBC 4.33 m/uL (3.80-5.40); RDW 15.1 % (11.5-15.5); WBC 5.7 k/uL (3.8-10.6)
[2018-01-10 14:23] LABS: INR 1.1 (<1.2); Partial Thromboplastin Time 24.6 sec (22.0-30.0); Prothrombin Time 10.4 sec (9.0-12.0)
[2018-01-10 14:32] LABS: ALT 32 U/L (9-52); AST 27 U/L (14-36); Albumin 3.5 g/dL (3.5-5.0); Alkaline Phosphatase 71 U/L (38-126); Anion Gap 14 mmol/L; Blood Urea Nitrogen 6 mg/dL (7-17); Calcium 9.4 mg/dL (8.4-10.2); Carbon Dioxide 24 mmol/L (22-30); Chloride 105 mmol/L (98-107); Cholesterol 137 mg/dL (<200); Glucose 91 mg/dL (74-99); HDL Cholesterol 44 mg/dL (40-60); LDL Cholesterol,Calculated 74 mg/dL (0-99); Magnesium 1.9 mg/dL (1.6-2.3); Phosphorus 4.2 mg/dL (2.5-4.5); Potassium 4.1 mmol/L (3.5-5.1); Sodium 143 mmol/L (137-145); Total Bilirubin 0.7 mg/dL (0.2-1.3); Total Protein 6.4 g/dL (6.3-8.2); Triglycerides 96 mg/dL (<150)
[2018-01-10 19:31] LABS: Parathyroid Hormone Intact 55.8 pg/mL (14.0-72.0)
[2018-01-10 20:29] LABS: Iron Saturation 18.42 (12.00-45.00)
[2018-01-10 20:42] LABS: Folate, Serum 6.6 ng/mL; Vitamin D 25 Hydroxy 31.4 ng/mL (30.0-100.0)
[2018-01-11 03:40] LABS: Hemoglobin A1C 4.9 % (4.0-6.0)
[2018-01-11 12:36] LABS: Zinc, Serum 87 ug/dL (60-130)
[2018-01-12 06:46] LABS: Vitamin A 22 ug/dL (38-106)
[2018-01-12 09:16] LABS: Vitamin B1 49 ug/L (38-122)
[2018-01-14 12:37] LABS: Selenium 87 mcg/L (63-160)
== END | disposition home or self-care (01) ==
LOC: LABWHC1 13:41
PROVIDERS: ATTEND Surgery Plastic and Reconstructive Surgery
DX: E66.01 Morbid (severe) obesity due to excess calories (principal); E21.1 Secondary hyperparathyroidism, not elsewhere classified; E89.1 Postprocedural hypoinsulinemia; D50.9 Iron deficiency anemia, unspecified; E44.0 Moderate protein-calorie malnutrition; E55.9 Vitamin D deficiency, unspecified; K74.1 Hepatic sclerosis; N19 Unspecified kidney failure; K50.90 Crohn's disease, unspecified, without complications
CPT/HCPCS: 36415; 80053; 80061; 82306; 82525; 82607; 82728; 82746; 83036; 83540; 83550; 83735; 83970; 84100; 84134; 84255; 84425; 84443; 84590; 84630; 85027; 85610; 85730

== ENCOUNTER 2018-02-02 10:37 | Day surgery (SDC) | payer MEDICARE, OTHER ==
[2018-02-01 08:18] VITALS: BMI 37.8
--- NOTE | 2018-02-02 07:49 | P.GSHP ---
History of Present Illness H&P Date: 02/02/18 CHIEF COMPLAINT: GERD HISTORY OF PRESENT ILLNESS: The patient is a 27-year-old female who presents reports gastroesophageal reflux disease. Upper endoscopy was offered for further evaluation and management. PAST MEDICAL HISTORY: Please see list. PAST SURGICAL HISTORY: Please see list. MEDICATIONS: Please see list. ALLERGIES: Please see list. SOCIAL HISTORY: No illicit drug use FAMILY HISTORY: No reports of Crohn disease or ulcerative colitis. REVIEW OF ORGAN SYSTEMS: CONSTITUTIONAL: No reports of fevers or chills. GI: Denies any blood in stools or constipation. PHYSICAL EXAM: VITAL SIGNS: Stable GENERAL: Well-developed and pleasant in no acute distress. HEENT: No scleral icterus. Extraocular movements grossly intact. Moist buccal mucosa. NECK: Supple without lymphadenopathy. CHEST: Unlabored respirations. Equal bilateral excursions. CARDIOVASCULAR: Regular rate and rhythm. Distal 2+ pulses. ABDOMEN: Soft, nondistended. MUSCULOSKELETAL: No clubbing, cyanosis, or edema. ASSESSMENT: 1. Gastroesophageal reflux disease PLAN: 1. Recommend proceeding with an upper endoscopy Past Medical History Past Medical History: GERD/Reflux, Seizure Disorder Additional Past Medical History / Comment(s): seizures as child-no rx, last seizure 2000, "blood clot in head age 4", ulcer History of Any Multi-Drug Resistant Organisms: None Reported Past Surgical History: Bariatric Surgery, Orthopedic Surgery Additional Past Surgical History / Comment(s): surgery to put plates in arianna feet for "flat feet", gastric bypass 10-25-17, recent endoscopy 11-29-17 Past Anesthesia/Blood Transfusion Reactions: No Reported Reaction Past Psychological History: ADD/ADHD, Depression Additional Psychological History / Comment(s): Takes fluoxetine regularly Smoking Status: Never smoker Past Alcohol Use History: None Reported Past Drug Use History: None Reported - Past Family History Mother Family Medical History: Asthma, Diabetes Mellitus, Sleep Apnea/CPAP/BIPAP Additional Family Medical History / Comment(s): Type 2 Diabetes - diet controlled Father Family Medical History: Hyperlipidemia, Hypertension Additional Family Medical History / Comment(s): Hypertension. Hyperlipidaemia Medications and Allergies Home Medications Medication Instructions Recorded Confirmed Type FLUoxetine HCL [Pam MEDEROS] 90 mg PO FR 04/07/16 02/01/18 History Omeprazole 40 mg PO DAILY #30 capsule. 11/29/17 02/01/18 Rx Sucralfate [Carafate] 1 gm PO BID #480 ml 11/29/17 02/01/18 Rx Multivitamin/Iron/Folic Acid 1 each PO DAILY 02/01/18 02/01/18 History [Centrum Adults Tablet] Allergies Allergy/AdvReac Type Severity Reaction Status Date / Time No Known Allergies Allergy Verified 02/01/18 08:05
[~2018-02-02 10:37] MED LIST changes: +LIDOCAINE 1% 20 ML VIAL (10MG/ML) FOR IV START INTRADERMA PRN; +MIDAZOLAM 2 MG/2 ML VIAL IV PRN
[2018-02-02 11:45] VITALS: RESP 20; TEMP 98.4
[2018-02-02] MEDS ORDERED: LIDOCAINE 1% INJ 10MG/ML (20 ML MDV) ONE (12:10)
[2018-02-02] MEDS ORDERED: PROPOFOL 10 MG/ML 20 ML VIAL IV ONE (12:10)
--- NOTE | 2018-02-02 12:24 | P.PCN ---
Date of Procedure: 02/02/18 Description of Procedure: PREOPERATIVE DIAGNOSIS: Dysphagia. Gastrojejunal stricture with chronic ulcer without perforation POSTOPERATIVE DIAGNOSIS: Dysphagia. Gastrojejunal stricture with chronic ulcer without perforation OPERATION: Esophagogastrojejunoscopy with balloon dilatation from 12 to 18 mm. Esophagogastrojejunoscopy with cold biopsy forceps of gastric pouch SURGEON: Leila Early MD ANESTHESIA: MAC. INDICATIONS: The patient is a 27-year-old female who presents with a gastrojejunal stricture and ulcer. Benefits and risks of the procedure were described. Informed consent was obtained. DESCRIPTION: The patient was brought into the endoscopy suite and laid in the left lateral decubitus position. After a timeout was confirmed, the procedure was initiated. An Olympus gastroscope was passed along the posterior oropharynx down to the distal esophagus where the squamocolumnar junction was unremarkable. The gastric pouch was entered. A gastrojejunal stricture of 12 mm was found as the adult gastroscope was 9.6 mm in size. A Aurora Spine balloon dilator was placed through the scope. Final insufflation up to 18 mm was performed with a total of 2 minutes. The mucosa of the gastrojejunal anastomosis was intact. However chronic gastrojejunal marginal ulcer was encountered but improved. No full-thickness injury was encountered. The GI tract was desufflated. The patient tolerated the procedure well. FINDINGS: Stricture of approximately 12 mm encountered. Chronic gastrojejunal ulceration improved Successful balloon dilatation to 18 mm Cold biopsy of the gastric pouch RECOMMENDATIONS: Continue omeprazole Plan - Discharge Summary New Discharge Prescriptions: No Action FLUoxetine HCL [FLUoxetine DR] 90 mg PO FR Omeprazole 40 mg PO DAILY #30 capsule. Sucralfate [Carafate] 1 gm PO BID #480 ml Multivitamin/Iron/Folic Acid [Centrum Adults Tablet] 1 each PO DAILY Discharge Medication List FLUoxetine HCL [FLUoxetine DR] 90 mg PO FR 04/07/16 [History] Omeprazole 40 mg PO DAILY #30 capsule. 11/29/17 [Rx] Sucralfate [Carafate] 1 gm PO BID #480 ml 11/29/17 [Rx] Multivitamin/Iron/Folic Acid [Centrum Adults Tablet] 1 each PO DAILY 02/01/18 [ History]
[2018-02-02 12:43] VITALS: BP 108/76; PULSE 87
== END 2018-02-02 12:55 | disposition home or self-care (01) ==
LOC: ORWHC2ENDO 10:37
PROVIDERS: ATTEND Surgery Plastic and Reconstructive Surgery
DX: K31.89 Other diseases of stomach and duodenum (principal); K25.7 Chronic gastric ulcer without hemorrhage or perforation; K29.50 Unspecified chronic gastritis without bleeding; Z98.84 Bariatric surgery status; K21.9 Gastro-esophageal reflux disease without esophagitis; R56.9 Unspecified convulsions; F90.9 Attention-deficit hyperactivity disorder, unspecified type; F32.9 Major depressive disorder, single episode, unspecified; Z79.899 Other long term (current) drug therapy
CPT/HCPCS: 81025; 88305; 43239; 43245; J2001; J2704; C1726; 43249

== ENCOUNTER → 2018-02-09 | Outpatient (CLI) | payer MEDICARE, OTHER ==
[2018-02-09 16:28] VITALS: BP 130/86; PULSE 88; TEMP 97.1; BMI 36.2
--- NOTE | 2018-02-09 17:51 | P.PN ---
Subjective Progress Note Date: 02/09/18 DATE OF SERVICE: 02/09/2018 CHIEF COMPLAINT: Status post gastric bypass HISTORY OF PRESENT ILLNESS: Celena Nava is a 27-year-old female is status post gastric bypass 10/25/2017. She is over 4 months out. She ate a large chunk of chicken and got sick yesterday. No further abdominal pain. She is preparing for her wedding day 3 months from now. At her height of 5 foot 4 inches, her ideal body weight is 144 pounds. She has lost 21 pounds in 1 month. She comes in weighing 211 from 232 pounds at her last visit Her highest weight was 284 pounds. She has lost 73 pounds lifetime. She is 67 pounds overweight. Her body mass index is down from 48.9 to 36.3. Percent excess weight loss is 52%. PAST MEDICAL HISTORY: 1. Morbid obesity. 2. Body mass index of 48.9, initial 3. Depression. 4. Osteoarthritis of the lower back. 5. Hypertensive heart disease. 6. Gastroesophageal reflux disease. PAST SURGICAL HISTORY: 1. Upper endoscopy. 2. Gastric bypass. HOME MEDICATIONS: 1. Omeprazole. 2. Fluoxetine. ALLERGIES: Denies. SOCIAL HISTORY: No active tobacco use. She is planning to be April 2018. FAMILY HISTORY: No family history of ulcerative colitis disease or Crohn's disease. She does have a family history of morbid obesity. She denies any lupus in her family. No reports of stomach or esophageal cancer. She has a family history of diabetes. Family history of H. pylori gastritis. His grandmother with osteoporosis. REVIEW OF ORGAN SYSTEMS: CONSTITUTIONAL: Her body mass index was 48.8. At her height of 5 foot 4 inches , her ideal body weight is 144 pounds. She has lost 21 pounds in 1 month. She comes in weighing 211 from 232 pounds at her last visit Her highest weight was 284 pounds. She has lost 73 pounds lifetime. She is 67 pounds overweight. Her body mass index is down from 48.9 to 36.3. Percent excess weight loss is 52 %. HEENT: Denies any active troubles with vision or hearing. Occasional troubles with swallowing. ENDOCRINE: No diabetes. No hypothyroidism. CARDIOVASCULAR: No reports of palpitations or heart attacks or chest pain. RESPIRATORY: Has daytime somnolence including occassional snoring. No asthma. GI: Denies any bright red blood per rectum. Has constipation. Does have gastroesophageal reflux disease as described above. MUSCULOSKELETAL: Has lower back pain and joint pain. Has osteoarthritis of the hips and knees. She reports foot problems from flat feet. NEURO: No headaches. No seizure disorders. PSYCH: Has depression without suicidal ideation. RHEUMATOLOGIC: No lupus. No rheumatoid arthritis. HEMATOLOGIC: Denies any abnormal bleeding or bruising. No personal history of DVTs. SKIN: No rash. No skin cancer. PHYSICAL EXAM: VITAL SIGNS: Height 5 foot 4 inches, weight 211 pounds. BMI 36.3 Vital Signs Temp 97.1 F L 02/09/18 16:23 Pulse 88 02/09/18 16:23 Resp BP 130/86 02/09/18 16:23 Pulse Ox GENERAL: Well-developed female in no acute distress. HEENT: No scleral icterus. Extraocular movements grossly intact. Hears conversational speech. No nasal drainage. NECK: Supple without lymphadenopathy. CHEST: Nonlabored respirations with equal bilateral excursions. CARDIOVASCULAR: Regular rate and regular rhythm. Distal 2+ pulses. ABDOMEN: Obese, soft, nontender. Nondistended. No incisional hernia. MUSCULOSKELETAL: No clubbing, cyanosis, or edema. Gross strength 5/5 distal lower extremities. NEURO: No focal or lateralizing signs. Cranial nerves 2 through 12 grossly within normal limits. PSYCH: Appropriate affect. Alert and oriented to person, place and time. SKIN: Good skin turgor. Well perfused. LABS: Reviewed. Prealbumin is low. Vitamin A is low. TSH suppressed. ASSESSMENT: 1. Morbid obesity due to excess calories. 2. Body mass index of 48.8 down to 36.3 3. Status post gastric bypass. 4. Chronic gastrojejunal ulcer with stricture. 5. Dietary surveillance and counseling 6. Inadequate protein intake. 7. Vitamin A deficiency. 8. Hyperthyroidism from suppressed TSH. PLAN: 1. We reviewed food portions with chicken to avoid any further dysphagia to solid foods. 2. Her abdominal pain is resolved. 3. Blood work from her bariatric labs is reviewed. 4. She will need vitamin A supplement. Objective - Vital Signs Vital signs: Vital Signs Temp 97.1 F L 02/09/18 16:23 Pulse 88 02/09/18 16:23 Resp BP 130/86 02/09/18 16:23 Pulse Ox Intake & Output 02/08/18 02/09/18 02/09/18 18:59 06:59 18:59 Weight 95.844 kg
== END | disposition home or self-care (01) ==
LOC: BARWHC3 15:42
PROVIDERS: ATTEND Surgery Plastic and Reconstructive Surgery
DX: E66.01 Morbid (severe) obesity due to excess calories (principal); Z68.36 Body mass index [BMI] 36.0-36.9, adult; Z98.84 Bariatric surgery status; E50.9 Vitamin A deficiency, unspecified; E05.90 Thyrotoxicosis, unspecified without thyrotoxic crisis or storm; K21.9 Gastro-esophageal reflux disease without esophagitis; K28.9 Gastrojejunal ulcer, unspecified as acute or chronic, without hemorrhage or perforation
CPT/HCPCS: 99211

== ENCOUNTER 2018-02-23 17:04 | Emergency (ER) | payer MEDICARE, OTHER ==
[2018-02-23] MEDS ORDERED: PANTOPRAZOLE 40 MG/10 ML VIAL IVP STA (18:35)
[2018-02-23] MEDS ORDERED: SODIUM CHLORIDE 0.9% 1,000 ML IV STA ×2 (18:35)
[2018-02-23] MEDS ORDERED: MAG HYDROX/AL HYDROX/SIMETH 30 ML, HYOSCYAMINE ELIXIR 10 ML, CIMETIDINE HCL 300 MG, LID... PO STA ×4 (18:37)
[2018-02-23] MEDS ORDERED: ONDANSETRON 4 MG/2 ML VIAL IVP STA (18:37)
--- NOTE | 2018-02-23 18:39 | ED ---
Abdominal Pain HPI - General Chief Complaint: Abdominal Pain Stated Complaint: ABDOMINAL PAIN, Hx BARIATRIC Sx Time Seen by Provider: 02/23/18 18:22 Source: patient, RN notes reviewed, old records reviewed Mode of arrival: ambulatory Limitations: no limitations - History of Present Illness Initial Comments: 27-year-old female with a history of a Kyle-en-Y bariatric surgery in September presents today with 1 day of abdominal pain. She reports some burning in her esophagus and difficulty swallowing. Patient states that she had episodes of vomiting last night. She states she did not eat anything she is not supposed to. Patient is here with her mother and father. Patient denies any changes in bowel habits. No urinary symptoms. - Related Data Home Medications Medication Instructions Recorded Confirmed FLUoxetine HCL [FLUoxetine DR] 90 mg PO FR 04/07/16 02/23/18 Vitamin A Acetate [Vitamin A] 10,000 unit SL DAILY 02/23/18 02/23/18 Vitamin C Gummie 1 tab PO DAILY 02/23/18 02/23/18 Previous Rx's Medication Instructions Recorded Sucralfate [Carafate] 1 gm PO BID #480 ml 11/29/17 Omeprazole 40 mg PO DAILY #30 capsule. 02/02/18 Allergies Allergy/AdvReac Type Severity Reaction Status Date / Time No Known Allergies Allergy Verified 02/23/18 19:03 Review of Systems ROS Statement: Those systems with pertinent positive or pertinent negative responses have been documented in the HPI. ROS Other: All systems not noted in ROS Statement are negative. Past Medical History Past Medical History: GERD/Reflux, Seizure Disorder Additional Past Medical History / Comment(s): seizures as child-no rx, last seizure 2000, "blood clot in head age 4", ulcer History of Any Multi-Drug Resistant Organisms: None Reported Past Surgical History: Bariatric Surgery, Orthopedic Surgery Additional Past Surgical History / Comment(s): surgery to put plates in arianna feet for "flat feet", gastric bypass 10-25-17, recent endoscopy 11-29-17 Past Anesthesia/Blood Transfusion Reactions: No Reported Reaction Past Psychological History: ADD/ADHD, Depression Smoking Status: Never smoker Past Alcohol Use History: None Reported Past Drug Use History: None Reported - Past Family History Mother Family Medical History: Asthma, Diabetes Mellitus, Sleep Apnea/CPAP/BIPAP Additional Family Medical History / Comment(s): Type 2 Diabetes - diet controlled Father Family Medical History: Hyperlipidemia, Hypertension Additional Family Medical History / Comment(s): Hypertension. Hyperlipidaemia General Exam - General Exam Comments Initial Comments: 27-year-old female. Limitations: no limitations General appearance: alert, in no apparent distress Head exam: Present: atraumatic, normocephalic, normal inspection Eye exam: Present: normal appearance, PERRL, EOMI. Absent: scleral icterus, conjunctival injection, periorbital swelling ENT exam: Present: normal exam, mucous membranes moist Neck exam: Present: normal inspection. Absent: tenderness, meningismus, lymphadenopathy Respiratory exam: Present: normal lung sounds bilaterally. Absent: respiratory distress, wheezes, rales, rhonchi, stridor Cardiovascular Exam: Present: regular rate, normal rhythm, normal heart sounds. Absent: systolic murmur, diastolic murmur, rubs, gallop, clicks GI/Abdominal exam: Present: soft, normal bowel sounds. Absent: distended, tenderness, guarding, rebound, rigid Extremities exam: Present: normal inspection, full ROM, normal capillary refill. Absent: tenderness, pedal edema, joint swelling, calf tenderness Back exam: Present: normal inspection Neurological exam: Present: alert, oriented X3, CN II-XII intact Psychiatric exam: Present: normal affect, normal mood Skin exam: Present: warm, dry, intact, normal color. Absent: rash Course Vital Signs 02/23/18 02/23/18 02/23/18 17:31 19:07 20:01 Temperature 97.8 F 98.0 F Pulse Rate 74 76 62 Respiratory 16 18 16 Rate Blood Pressure 127/77 112/72 109/72 O2 Sat by Pulse 99 98 100 Oximetry Medical Decision Making - Lab Data Result diagrams: 02/23/18 19:17 02/23/18 19:17 Lab Results 02/23/18 02/23/18 02/23/18 Range/Units 19:17 19:17 21:15 WBC 7.2 (3.8-10.6) k/uL RBC 4.81 (3.80-5.40) m/uL Hgb 14.1 (11.4-16.0) gm/dL Hct 42.4 (34.0-46.0) % MCV 88.2 (80.0-100.0) fL MCH 29.4 (25.0-35.0) pg MCHC 33.3 (31.0-37.0) g/dL RDW 14.5 (11.5-15.5) % Plt Count 368 (150-450) k/uL Neutrophils % 60 % Lymphocytes % 29 % Monocytes % 6 % Eosinophils % 2 % Basophils % 0 % Neutrophils # 4.3 (1.3-7.7) k/uL Lymphocytes # 2.1 (1.0-4.8) k/uL Monocytes # 0.4 (0-1.0) k/uL Eosinophils # 0.2 (0-0.7) k/uL Basophils # 0.0 (0-0.2) k/uL Sodium 143 (137-145) mmol/L Potassium 3.9 (3.5-5.1) mmol/L Chloride 104 (98-107) mmol/L Carbon Dioxide 18 L (22-30) mmol/L Anion Gap 21 mmol/L BUN 6 L (7-17) mg/dL Creatinine 0.45 L (0.52-1.04) mg/dL Est GFR (CKD-EPI)AfAm >90 (>60 ml/min/1.73 sqM) Est GFR (CKD-EPI)NonAf >90 (>60 ml/min/1.73 sqM) Glucose 62 L (74-99) mg/dL Calcium 9.7 (8.4-10.2) mg/dL Total Bilirubin 0.5 (0.2-1.3) mg/dL AST 27 (14-36) U/L ALT 34 (9-52) U/L Alkaline Phosphatase 72 (38-126) U/L Total Protein 6.8 (6.3-8.2) g/dL Albumin 4.2 (3.5-5.0) g/dL Amylase 46 (30-110) U/L Lipase 240 (23-300) U/L Urine Color Yellow Urine Appearance Cloudy H (Clear) Urine pH 6.0 (5.0-8.0) Ur Specific [place] 1.024 (1.001-1.035) Urine Protein 1+ H (Negative) Urine Glucose (UA) Negative (Negative) Urine Ketones 4+ H (Negative) Urine Blood Negative (Negative) Urine Nitrite Negative (Negative) Urine Bilirubin Negative (Negative) Urine Urobilinogen 2.0 (<2.0) mg/dL Ur Leukocyte Esterase Small H (Negative) Urine RBC 1 (0-5) /hpf Urine WBC 4 (0-5) /hpf Ur Squamous Epith Cells 4 (0-4) /hpf Urine Bacteria Rare H (None) /hpf Hyaline Casts 4 H (0-2) /lpf Urine Mucus Occasional H (None) /hpf Urine HCG, Qual (Not Detectd) 02/23/18 Range/Units 21:15 WBC (3.8-10.6) k/uL RBC (3.80-5.40) m/uL Hgb (11.4-16.0) gm/dL Hct (34.0-46.0) % MCV (80.0-100.0) fL MCH (25.0-35.0) pg MCHC (31.0-37.0) g/dL RDW (11.5-15.5) % Plt Count (150-450) k/uL Neutrophils % % Lymphocytes % % Monocytes % % Eosinophils % % Basophils % % Neutrophils # (1.3-7.7) k/uL Lymphocytes # (1.0-4.8) k/uL Monocytes # (0-1.0) k/uL Eosinophils # (0-0.7) k/uL Basophils # (0-0.2) k/uL Sodium (137-145) mmol/L Potassium (3.5-5.1) mmol/L Chloride (98-107) mmol/L Carbon Dioxide (22-30) mmol/L Anion Gap mmol/L BUN (7-17) mg/dL Creatinine (0.52-1.04) mg/dL Est GFR (CKD-EPI)AfAm (>60 ml/min/1.73 sqM) Est GFR (CKD-EPI)NonAf (>60 ml/min/1.73 sqM) Glucose (74-99) mg/dL Calcium (8.4-10.2) mg/dL Total Bilirubin (0.2-1.3) mg/dL AST (14-36) U/L ALT (9-52) U/L Alkaline Phosphatase (38-126) U/L Total Protein (6.3-8.2) g/dL Albumin (3.5-5.0) g/dL Amylase (30-110) U/L Lipase (23-300) U/L Urine Color Urine Appearance (Clear) Urine pH (5.0-8.0) Ur Specific [place] (1.001-1.035) Urine Protein (Negative) Urine Glucose (UA) (Negative) Urine Ketones (Negative) Urine Blood (Negative) Urine Nitrite (Negative) Urine Bilirubin (Negative) Urine Urobilinogen (<2.0) mg/dL Ur Leukocyte Esterase (Negative) Urine RBC (0-5) /hpf Urine WBC (0-5) /hpf Ur Squamous Epith Cells (0-4) /hpf Urine Bacteria (None) /hpf Hyaline Casts (0-2) /lpf Urine Mucus (None) /hpf Urine HCG, Qual Not Detected (Not Detectd) Disposition Clinical Impression: Nausea & vomiting, Gastritis Disposition: HOME SELF-CARE Condition: Good Instructions: Gastritis (ED) Additional Instructions: Patient is a Motrin Tylenol for pain. Clear liquid diet for the next 1-2 days. follow up with her surgeon. Is patient prescribed a controlled substance at d/c from ED?: No When asked, does pt state using other controlled substances?: No If prescribed controlled substance>3 days was MAPS reviewed?: No If opioid is for acute pain is fill amount 7 days or less?: No If Rx opioid, was Start Talking consent form obtained?: No Referrals: Nery Petersen MD [Primary Care Provider] - 1-2 days Time of Disposition: 21:40
[2018-02-23 19:09] VITALS: TEMP 98
[2018-02-23 19:27] LABS: Basophils % (A) 0 %; Eosinophils # (A) 0.2 k/uL (0-0.7); Eosinophils % (A) 2 %; HCT 42.4 % (34.0-46.0); HGB 14.1 gm/dL (11.4-16.0); Lymphocytes # (A) 2.1 k/uL (1.0-4.8); Lymphocytes % (A) 29 %; MCH 29.4 pg (25.0-35.0); MCHC 33.3 g/dL (31.0-37.0); MCV 88.2 fL (80.0-100.0); Mean Platelet Volume 6.6; Monocytes # (A) 0.4 k/uL (0-1.0); Monocytes % (A) 6 %; Neutrophils # (A) 4.3 k/uL (1.3-7.7); Neutrophils % (A) 60 %; Platelet Count 368 k/uL (150-450); RBC 4.81 m/uL (3.80-5.40); RDW 14.5 % (11.5-15.5); WBC 7.2 k/uL (3.8-10.6)
[2018-02-23 19:59] LABS: ALT 34 U/L (9-52); AST 27 U/L (14-36); Albumin 4.2 g/dL (3.5-5.0); Alkaline Phosphatase 72 U/L (38-126); Amylase 46 U/L (30-110); Anion Gap 21 mmol/L; Blood Urea Nitrogen 6 mg/dL (7-17); Calcium 9.7 mg/dL (8.4-10.2); Carbon Dioxide 18 mmol/L (22-30); Chloride 104 mmol/L (98-107); Glucose 62 mg/dL (74-99); Lipase 240 U/L (23-300); Potassium 3.9 mmol/L (3.5-5.1); Sodium 143 mmol/L (137-145); Total Bilirubin 0.5 mg/dL (0.2-1.3); Total Protein 6.8 g/dL (6.3-8.2)
--- NOTE | 2018-02-23 20:14 | XR ---
EXAMINATION TYPE: XR KUB DATE OF EXAM: 02/23/2018 COMPARISON: 12/14/2017 INDICATION: Abdomen pain history of bypass surgery TECHNIQUE: Single view abdomen FINDINGS: Nonspecific bowel gas within the abdomen. No mass effect is evident. No suspicious air-fluid levels o r differential air-fluid levels are present. No free air is present. Psoas margins are normal. No organomegaly is present. IMPRESSION: 1. Nonspecific abdomen.
[2018-02-23 21:30] LABS: Appearance,Urine Cloudy (Clear); Bacteria,Urine Rare /hpf; Bilirubin,Urine Negative (Negative); Blood,Urine Negative (Negative); Color,Urine Yellow; Glucose,Urine (UA) Negative (Negative); Hyaline Casts,Urine 4 /lpf (0-2); Ketones,Urine 4+ (Negative); Leukocyte Esterase,Urine Small (Negative); Mucus,Urine Occasional /hpf; Nitrite,Urine Negative (Negative); Protein,Urine 1+ (Negative); RBC,Urine 1 /hpf (0-5); Specific Gravity,Urine 1.024 (1.001-1.035); Squamous Epithelial Cell,Urine 4 /hpf (0-4); WBC,Urine 4 /hpf (0-5)
[2018-02-23 22:06] VITALS: BP 121/77; PULSE 71; RESP 18
== END 2018-02-23 22:06 | disposition home or self-care (01) ==
LOC: EC 17:04
DX: K29.70 Gastritis, unspecified, without bleeding (principal); F32.9 Major depressive disorder, single episode, unspecified; F90.9 Attention-deficit hyperactivity disorder, unspecified type; Z79.899 Other long term (current) drug therapy; Z98.84 Bariatric surgery status
CPT/HCPCS: 36415; 80053; 82150; 83690; 85025; 81001; 81025; 74018; 99284; 96374; 96375; 96361 ×2; J2405; C9113

== ENCOUNTER → 2018-03-21 | Outpatient (CLI) | payer MEDICARE, OTHER ==
[2018-03-21 14:09] LABS: T4, Free (Free Thyroxine) 1.35 ng/dL (0.78-2.19)
== END | disposition home or self-care (01) ==
LOC: LABWHC1 12:26
PROVIDERS: ATTEND Internal Medicine Endocrinology, Diabetes & Metabolism
DX: E05.90 Thyrotoxicosis, unspecified without thyrotoxic crisis or storm (principal)
CPT/HCPCS: 36415; 84439; 84443; 84445; 84480

== ENCOUNTER → 2018-04-06 | Outpatient (CLI) | payer MEDICARE, OTHER ==
[2018-04-06 14:59] VITALS: BP 104/77; PULSE 79; RESP 15; TEMP 98.3; BMI 32.2
--- NOTE | 2018-04-06 16:03 | P.PN ---
Subjective Progress Note Date: 04/06/18 HPI: She has lost 96 pounds in 6 pounds. She has not had BM in 2 weeks. PLAN: 1. Bowel prep recommended after hydration. 2. She is seeing Dr. Brown for her thyroid medication. 3. Food portions reviewed. 4. Recommend more fluids daily. Objective - Vital Signs Vital signs: Vital Signs Temp 98.3 F 04/06/18 14:44 Pulse 79 04/06/18 14:44 Resp 15 04/06/18 14:44 BP 104/77 04/06/18 14:44 Pulse Ox Intake & Output 04/05/18 04/06/18 04/06/18 18:59 06:59 18:59 Weight 85.275 kg
== END | disposition home or self-care (01) ==
LOC: BARWHC3 14:33
PROVIDERS: ATTEND Surgery Plastic and Reconstructive Surgery
DX: E66.01 Morbid (severe) obesity due to excess calories (principal); E21.1 Secondary hyperparathyroidism, not elsewhere classified; D50.9 Iron deficiency anemia, unspecified; K90.9 Intestinal malabsorption, unspecified; E55.9 Vitamin D deficiency, unspecified; K76.9 Liver disease, unspecified; N19 Unspecified kidney failure; K50.90 Crohn's disease, unspecified, without complications; Z68.32 Body mass index [BMI] 32.0-32.9, adult
CPT/HCPCS: 97803; G0463; 99211

== ENCOUNTER → 2018-04-20 | Outpatient (CLI) | payer MEDICARE, OTHER ==
--- NOTE | 2018-04-21 09:13 | NM ---
EXAMINATION TYPE: NM thyroid image w uptake DATE OF EXAM: 04/21/2018 COMPARISON: NONE HISTORY: Hyperthyroidism TECHNIQUE: Thyroid iodine uptake is calculated and images performed after the oral administration of 314 uCi 1-123 Capsule. FINDINGS: There is normal distribution of activity throughout the gland. The 4 hour iodine uptake is calculated at 5.7% (normal range 8-14%). The 24-hour iodine uptake is calculated at 14.3% (normal ra nge 15-35%). IMPRESSION: 4 and 24 uptakes are within normal limits or borderline as noted above. No hot or cold de fects are seen.
== END ==
LOC: RADNMMAIN 08:52
PROVIDERS: ATTEND Internal Medicine Endocrinology, Diabetes & Metabolism
DX: E05.90 Thyrotoxicosis, unspecified without thyrotoxic crisis or storm (principal)
CPT/HCPCS: 78014; A9516

== ENCOUNTER 2018-07-25 20:28 | Emergency (ER) | payer MEDICARE, OTHER ==
[2018-07-25 20:35] VITALS: TEMP 98
[2018-07-25] MEDS ORDERED: MECLIZINE 12.5 MG TAB PO STA (21:17)
--- NOTE | 2018-07-25 21:43 | ED ---
Dizziness HPI - General Source: patient, RN notes reviewed, old records reviewed Mode of arrival: wheelchair Limitations: no limitations <Dee Palma - Last Filed: 07/25/18 21:39> <Rhianna Hand - Last Filed: 07/26/18 02:26> - General Chief Complaint: Dizziness Stated Complaint: dizziness/blurred vision Time Seen by Provider: 07/25/18 21:08 - History of Present Illness Initial Comments: Patient is a 27-year-old female who presents emergency Department with occasional dizziness, room spinning sensation for the past 10 days. She also reports to blurriness of her vision. She reports she is supposed to wear glasses but does not. Patient states that she has no black spots in her vision denies any drainage from the eyes. No headache or trauma. She denies any pain. No nausea or vomiting diarrhea. Patient states that she has history of bariatric surgery. No other complaints. Patient denies emergency department and a Halloween costume. (Dee Palma) - Related Data Home Medications Medication Instructions Recorded Confirmed FLUoxetine HCL [FLUoxetine DR] 90 mg PO FR 04/07/16 07/25/18 Vitamin A Acetate [Vitamin A] 10,000 unit SL DAILY 02/23/18 07/25/18 Vitamin C Gummie 1 tab PO DAILY 02/23/18 07/25/18 Vitamin D3 (Unknown Dose) 1 tab PO DAILY 02/24/18 07/25/18 Previous Rx's Medication Instructions Recorded Meclizine [Antivert] 25 mg PO BID #20 tab 07/25/18 Allergies Allergy/AdvReac Type Severity Reaction Status Date / Time No Known Allergies Allergy Verified 07/25/18 20:52 Review of Systems ROS Other: All systems not noted in ROS Statement are negative. <Dee Palma - Last Filed: 07/25/18 21:39> ROS Other: All systems not noted in ROS Statement are negative. <Rhianna Hand - Last Filed: 07/26/18 02:26> ROS Statement: Those systems with pertinent positive or pertinent negative responses have been documented in the HPI. Past Medical History Past Medical History: GERD/Reflux, Seizure Disorder Additional Past Medical History / Comment(s): seizures as child-no rx, last seizure 2000, "blood clot in head age 4", ulcer History of Any Multi-Drug Resistant Organisms: None Reported Past Surgical History: Bariatric Surgery, Orthopedic Surgery Additional Past Surgical History / Comment(s): surgery to put plates in arianna feet for "flat feet", gastric bypass 10-25-17, recent endoscopy 11-29-17 Past Anesthesia/Blood Transfusion Reactions: No Reported Reaction Past Psychological History: ADD/ADHD, Depression Smoking Status: Never smoker Past Alcohol Use History: None Reported Past Drug Use History: None Reported - Past Family History Mother Family Medical History: Asthma, Diabetes Mellitus, Sleep Apnea/CPAP/BIPAP Additional Family Medical History / Comment(s): Type 2 Diabetes - diet controlled Father Family Medical History: Hyperlipidemia, Hypertension Additional Family Medical History / Comment(s): Hypertension. Hyperlipidaemia <Dee Palma - Last Filed: 07/25/18 21:39> General Exam Limitations: no limitations General appearance: alert, in no apparent distress Head exam: Present: atraumatic, normocephalic, normal inspection Eye exam: Present: normal appearance, PERRL, EOMI. Absent: scleral icterus, conjunctival injection, periorbital swelling ENT exam: Present: normal exam, mucous membranes moist Neck exam: Present: normal inspection. Absent: tenderness, meningismus, lymphadenopathy Respiratory exam: Present: normal lung sounds bilaterally. Absent: respiratory distress, wheezes, rales, rhonchi, stridor Cardiovascular Exam: Present: regular rate, normal rhythm, normal heart sounds. Absent: systolic murmur, diastolic murmur, rubs, gallop, clicks Extremities exam: Present: normal inspection, full ROM, normal capillary refill. Absent: tenderness, pedal edema, joint swelling, calf tenderness Back exam: Present: normal inspection Neurological exam: Present: alert, oriented X3, CN II-XII intact Psychiatric exam: Present: normal affect, normal mood <Dee Palma - Last Filed: 07/25/18 21:39> <Rhianna Hand - Last Filed: 07/26/18 02:26> - General Exam Comments Initial Comments: This patient's a 27-year-old female. Alert and oriented 3. No acute distress. (Dee Palma) Vital Signs 07/25/18 07/25/18 20:33 21:49 Temperature 98 F Pulse Rate 84 78 Respiratory 18 16 Rate Blood Pressure 107/72 106/80 O2 Sat by Pulse 98 99 Oximetry Medical Decision Making <Beverley Palmaily - Last Filed: 07/25/18 21:39> <Rhianna Hand - Last Filed: 07/26/18 02:26> - Medical Decision Making 27-year-old female presents emergency department today with chief complaint of dizziness for a few days, complains of room spinning. She also reports that her vision seems a blurry. She does wear glasses but has not been wearing them lately. Patient otherwise appears no acute distress. She arrives emergency department wearing a Halloween costume. I discussed the Patient should be wearing her glasses and she supposed to. Visual acuity is 20/50 of the left eye and 20/30 bilaterally. Patient has no headache or pain. Her eyes appear without conjunctivitis or drainage. Patient at this time will be discharged with prescription for Antivert for seems to be vertigo symptoms as well as nausea medication. Discussed following up with her PCP. (Dee Palma) I was available for consultation in the emergency department. The history and physical exam were done by the midlevel provider. I was consulted for this patient's care. I reviewed the case with the midlevel provider and based on their presentation of the patient, I agree with the assessment, medical decision making and plan of care as documented. (Rhianna Hand) Disposition Is patient prescribed a controlled substance at d/c from ED?: No Time of Disposition: 21:42 <Dee Palma - Last Filed: 07/25/18 21:39> <Rhianna Hand - Last Filed: 07/26/18 02:26> Clinical Impression: Vertigo Disposition: HOME SELF-CARE Condition: Good Instructions: Dizziness (ED) Additional Instructions: Patient should be wearing her glasses. Follow-up with ophthalmology in optometry. Return to the emergency department if any alarming signs or symptoms occur. Ensure staying hydrated and take the medication for anti- dizziness as prescribed. Prescriptions: Meclizine [Antivert] 25 mg PO BID #20 tab Referrals: Nery Petersen MD [Primary Care Provider] - 1-2 days
[2018-07-25 21:50] VITALS: BP 106/80; PULSE 78; RESP 16
== END 2018-07-25 21:48 | disposition home or self-care (01) ==
LOC: EC 20:28
DX: R42 Dizziness and giddiness (principal); H53.8 Other visual disturbances; F32.9 Major depressive disorder, single episode, unspecified; Z98.84 Bariatric surgery status; Z98.890 Other specified postprocedural states; Z79.899 Other long term (current) drug therapy
CPT/HCPCS: 99284

== ENCOUNTER → 2018-09-14 | Outpatient (CLI) | payer MEDICARE, OTHER ==
[2018-09-14 15:14] VITALS: BP 113/80; PULSE 71; TEMP 97.7; BMI 29.8
--- NOTE | 2018-09-14 15:54 | P.PN ---
Subjective Progress Note Date: 09/14/18 HPI: She is doing well. No GERD. She has dysphagia. She has lost 100 pounds. She is looking into skin removal surgery. Has dysphagia PLAN: 1. Needs gallbladder out for cholecystectomy, needs 1 week recovery 2. Needs EGD for dysphagia Objective - Vital Signs Vital signs: Vital Signs Temp 97.7 F 09/14/18 15:12 Pulse 71 09/14/18 15:12 Resp BP 113/80 09/14/18 15:12 Pulse Ox Intake & Output 09/13/18 09/14/18 09/14/18 18:59 06:59 18:59 Weight 78.925 kg
[2018-09-14 16:47] LABS: HCT 40.7 % (34.0-46.0); HGB 12.8 gm/dL (11.4-16.0); MCH 29.6 pg (25.0-35.0); MCHC 31.5 g/dL (31.0-37.0); Mean Platelet Volume 6.4; Platelet Count 382 k/uL (150-450); RBC 4.33 m/uL (3.80-5.40); RDW 12.9 % (11.5-15.5); WBC 7.8 k/uL (3.8-10.6)
[2018-09-14 16:54] LABS: INR 0.9 (<1.2); Partial Thromboplastin Time 25.6 sec (22.0-30.0); Prothrombin Time 10.1 sec (9.0-12.0)
[2018-09-15 02:22] LABS: Parathyroid Hormone Intact 87.5 pg/mL (14.0-72.0)
[2018-09-15 02:31] LABS: Hemoglobin A1C 5.1 % (4.0-6.0)
[2018-09-15 04:16] LABS: Iron Saturation 11.86 (12.00-45.00)
[2018-09-15 04:19] LABS: Albumin 4.4 g/dL (3.80-4.90); Albumin/Globulin Ratio 2.2 (1.20-2.10); Calcium 9.1 mg/dL (8.7-10.3); Phosphorus 4.6 mg/dL (2.4-5.1); Potassium 4.2 mmol/L (3.5-5.5); Total Bilirubin 0.4 mg/dL (0.3-1.2); Total Protein 6.4 g/dL (6.2-8.2)
[2018-09-15 04:23] LABS: Vitamin D 25 Hydroxy 21.3 ng/mL (30.0-100.0)
[2018-09-15 04:25] LABS: Folate, Serum 4.3 ng/mL
[2018-09-15 12:40] LABS: Zinc, Serum 75 ug/dL (60-130)
[2018-09-15 12:52] LABS: Vitamin A 47 ug/dL (38-106)
[2018-09-16 05:52] LABS: Vitamin B1 83 ug/L (38-122)
== END ==
LOC: BARWHC3 14:57
PROVIDERS: ATTEND Surgery Plastic and Reconstructive Surgery
DX: R13.10 Dysphagia, unspecified (principal); E66.01 Morbid (severe) obesity due to excess calories; E89.1 Postprocedural hypoinsulinemia; E21.1 Secondary hyperparathyroidism, not elsewhere classified; K90.9 Intestinal malabsorption, unspecified; E44.0 Moderate protein-calorie malnutrition; E55.9 Vitamin D deficiency, unspecified; K74.1 Hepatic sclerosis; N19 Unspecified kidney failure; K50.90 Crohn's disease, unspecified, without complications; Z68.29 Body mass index [BMI] 29.0-29.9, adult
CPT/HCPCS: 84255; 84134; 84425; 80061; 80053; 82607; 82728; 82525; 82746; 83540; 83550; 83735; 84100; 84443; 84590; 84630; 85027; 85610; 85730; 82306; 83970; 83036; 97803; 36415; G0463; 99211

== ENCOUNTER 2018-10-31 07:04 | Day surgery (SDC) | payer OTHER ==
[2018-10-27 11:35] VITALS: BMI 27.4
--- NOTE | 2018-10-31 05:35 | P.GSHP ---
History of Present Illness H&P Date: 10/31/18 CHIEF COMPLAINT: GERD HISTORY OF PRESENT ILLNESS: The patient is a 28-year-old female who presents reports gastroesophageal reflux disease. Upper endoscopy was offered for further evaluation and management. PAST MEDICAL HISTORY: Please see list. PAST SURGICAL HISTORY: Please see list. MEDICATIONS: Please see list. ALLERGIES: Please see list. SOCIAL HISTORY: No illicit drug use FAMILY HISTORY: No reports of Crohn disease or ulcerative colitis. REVIEW OF ORGAN SYSTEMS: CONSTITUTIONAL: No reports of fevers or chills. GI: Denies any blood in stools or constipation. PHYSICAL EXAM: VITAL SIGNS: Stable GENERAL: Well-developed and pleasant in no acute distress. HEENT: No scleral icterus. Extraocular movements grossly intact. Moist buccal mucosa. NECK: Supple without lymphadenopathy. CHEST: Unlabored respirations. Equal bilateral excursions. CARDIOVASCULAR: Regular rate and rhythm. Distal 2+ pulses. ABDOMEN: Soft, nondistended. MUSCULOSKELETAL: No clubbing, cyanosis, or edema. ASSESSMENT: 1. Gastroesophageal reflux disease PLAN: 1. Recommend proceeding with an upper endoscopy Past Medical History Past Medical History: GERD/Reflux, Seizure Disorder, Thyroid Disorder Additional Past Medical History / Comment(s): seizures as child-no rx, last seizure 2000, "blood clot in head age 4", ulcer History of Any Multi-Drug Resistant Organisms: None Reported Past Surgical History: Bariatric Surgery, Orthopedic Surgery Additional Past Surgical History / Comment(s): surgery to put plates in arianna feet for "flat feet", gastric bypass 10-25-17, endoscopy 11-29-17 Past Anesthesia/Blood Transfusion Reactions: No Reported Reaction Smoking Status: Never smoker - Past Family History Mother Family Medical History: Asthma, Diabetes Mellitus, Sleep Apnea/CPAP/BIPAP Additional Family Medical History / Comment(s): Type 2 Diabetes - diet controlled Father Family Medical History: Hyperlipidemia, Hypertension Additional Family Medical History / Comment(s): Hypertension. Hyperlipidaemia Medications and Allergies Home Medications Medication Instructions Recorded Confirmed Type Vitamin A Acetate [Vitamin A] 10,000 unit SL DAILY 02/23/18 10/27/18 History Vitamin D3 (Unknown Dose) 1 tab PO DAILY 02/24/18 10/27/18 History FLUoxetine HCL [PROzac] 40 mg PO FR 09/14/18 10/27/18 History Melatonin 5 mg PO HS 09/14/18 10/27/18 History Multivitamins, Thera [Multivitamin 1 tab PO DAILY 09/14/18 10/27/18 History (formulary)] Allergies Allergy/AdvReac Type Severity Reaction Status Date / Time No Known Allergies Allergy Verified 10/27/18 11:26
[~2018-10-31 07:04] MED LIST changes: -LIDOCAINE 1% 20 ML VIAL (10MG/ML) FOR IV START INTRADERMA PRN; -MIDAZOLAM 2 MG/2 ML VIAL IV PRN
[2018-10-31 07:20] VITALS: RESP 18; TEMP 97.8
[2018-10-31] MEDS ORDERED: LACTATED RINGERS 1,000 ML IV ONE (07:20)
[2018-10-31] MEDS ORDERED: LIDOCAINE 1% 20 ML VIAL (10MG/ML) FOR IV START INTRADERMA ONE (07:21)
[2018-10-31] MEDS ORDERED: PROPOFOL 10 MG/ML 20 ML VIAL IV ONE (08:55)
[2018-10-31] MEDS ORDERED: LIDOCAINE 1% INJ 10MG/ML (20 ML MDV) ONE (08:55)
--- NOTE | 2018-10-31 09:36 | P.PCN ---
Date of Procedure: 10/31/18 Description of Procedure: PREOPERATIVE DIAGNOSIS: Dysphagia. s/p Kyle-en-y gastric bypass. Nausea with vomiting. POSTOPERATIVE DIAGNOSIS: Dysphagia. s/p Kyle-en-y gastric bypass. Nausea with vomiting. Gastrojejunal stricture with chronic ulcer without perforation OPERATION: Esophagogastrojejunoscopy with balloon dilatation 20 mm. SURGEON: Leila Early MD ANESTHESIA: MAC. INDICATIONS: The patient is a 28-year-old female who presents with a history of dysphagia, gastric bypass including nausea and vomiting. Benefits and risks of the procedure were described. Informed consent was obtained. DESCRIPTION: The patient was brought into the endoscopy suite and laid in the left lateral decubitus position. After a timeout was confirmed, the procedure was initiated. An Olympus gastroscope was passed along the posterior oropharynx down to the distal esophagus where the squamocolumnar junction was unremarkable. The gastric pouch was entered. A gastrojejunal stricture of 15 mm was found as the adult gastroscope was 9.5 mm in size. A Design A balloon dilator was placed through the scope. Final insufflation up to 20 mm was performed with a total of 2 minutes. The scope was advanced up to 60 cm from the incisors into the Kyle limb. The mucosa of the gastrojejunal anastomosis was intact. However chronic gastrojejunal marginal ulcer was encountered. No full-thickness injury was encountered. The GI tract was desufflated. The patient tolerated the procedure well. FINDINGS: Squamocolumnar junction remarkable at 37 cm. Stricture of approximately 15 mm encountered. Chronic gastrojejunal ulceration encountered. Successful balloon dilatation to 20 mm. Diaphragmatic hiatus at 40 cm. RECOMMENDATIONS: Omeprazole 40 mg daily Plan - Discharge Summary Discharge Rx Participant: Yes New Discharge Prescriptions: No Action Vitamin A Acetate [Vitamin A] 10,000 unit SL DAILY Vitamin D3 (Unknown Dose) 1 tab PO DAILY FLUoxetine HCL [PROzac] 40 mg PO FR Melatonin 5 mg PO HS Multivitamins, Thera [Multivitamin (formulary)] 1 tab PO DAILY Discharge Medication List Vitamin A Acetate [Vitamin A] 10,000 unit SL DAILY 02/23/18 [History] Vitamin D3 (Unknown Dose) 1 tab PO DAILY 02/24/18 [History] FLUoxetine HCL [PROzac] 40 mg PO FR 09/14/18 [History] Melatonin 5 mg PO HS 09/14/18 [History] Multivitamins, Thera [Multivitamin (formulary)] 1 tab PO DAILY 09/14/18 [History ] Patient Instructions/Handouts: *Surgery [facility] - (Anesthesia) Endoscopy Discharge Instructions, Esophageal Dilation (DC), Upper Endoscopy (DC)
[2018-10-31 10:02] VITALS: BP 97/65; PULSE 67
== END 2018-10-31 10:25 | disposition home or self-care (01) ==
LOC: ORWHC2ENDO 07:04
PROVIDERS: ATTEND Surgery Plastic and Reconstructive Surgery
DX: K31.89 Other diseases of stomach and duodenum (principal); K28.7 Chronic gastrojejunal ulcer without hemorrhage or perforation; K21.9 Gastro-esophageal reflux disease without esophagitis; G40.909 Epilepsy, unspecified, not intractable, without status epilepticus; E07.9 Disorder of thyroid, unspecified; Z98.84 Bariatric surgery status; Z79.899 Other long term (current) drug therapy
CPT/HCPCS: 81025; 43245; J2001; J2704; C1726

== ENCOUNTER → 2019-08-10 | Outpatient (CLI) | payer OTHER ==
[2019-08-10 10:59] VITALS: BP 112/74; PULSE 75; TEMP 97.8; BMI 26.6
--- NOTE | 2019-08-10 11:09 | P.PN ---
Subjective Progress Note Date: 08/10/19 She comes is over 1.5 years out. She reports occasional abdominal pain. She is down from BMI 48. Recommend EGD with dilation. Recommend dietitian follow-up. Protein is unclear. She is going out. NO gas cramps. She has cheese. US gallbladder Gallbladder problems. Get labs Objective - Vital Signs Vital signs: Vital Signs Temp 97.8 F 08/10/19 10:54 Pulse 75 08/10/19 10:54 Resp BP 112/74 08/10/19 10:54 Pulse Ox Intake & Output 08/09/19 08/10/19 08/10/19 18:59 06:59 18:59 Weight 70.307 kg
[2019-08-10 14:06] LABS: HCT 38.9 % (34.0-46.0); HGB 12.6 gm/dL (11.4-16.0); MCH 30.5 pg (25.0-35.0); MCHC 32.4 g/dL (31.0-37.0); MCV 94.1 fL (80.0-100.0); Mean Platelet Volume 5.6; Platelet Count 380 k/uL (150-450); RBC 4.13 m/uL (3.80-5.40); RDW 13.1 % (11.5-15.5); WBC 6.4 k/uL (3.8-10.6)
[2019-08-10 14:22] LABS: INR 0.9 (<1.2); Prothrombin Time 10.2 sec (9.0-12.0)
[2019-08-10 20:17] LABS: % Iron Saturation 16.95 (12.00-45.00); ALT 17 U/L (8-44); AST 26 U/L (13-35); African American GFR (CKD) 136.7 (60.0-200.0); Albumin/Globulin Ratio 2.15 (1.60-3.17); Alkaline Phosphatase 61 U/L (41-126); BUN/Creat Ratio 22.86 Ratio (12.00-20.00); Calcium 8.9 mg/dL (8.7-10.3); Carbon Dioxide 24.6 mmol/L (21.6-31.8); Chloride 106 mmol/L (96-109); Chol/HDL Ratio 2.06; Cholesterol 130 mg/dL (0-200); Glucose 75 mg/dL (70-110); Iron 69 ug/dL (50-170); Magnesium 2.1 mg/dL (1.5-2.4); Phosphorus 4.2 mg/dL (2.4-5.1); Potassium 4.2 mmol/L (3.5-5.5); Sodium 139 mmol/L (135-145); Total Bilirubin 0.5 mg/dL (0.3-1.2); Total Iron Binding Capacity 407 ug/dL (228-460); Total Protein 6.3 g/dL (6.2-8.2); Triglycerides <50.0 mg/dL (0.0-149.0)
[2019-08-10 21:10] LABS: Ferritin 11.3 ng/mL (10.0-291.0)
[2019-08-11 12:33] LABS: Zinc, Serum 80 ug/dL (60-130)
[2019-08-12 13:55] LABS: Vit B1(Thiamine) 65 ug/L (38-122)
== END | disposition home or self-care (01) ==
LOC: BARWHC3 09:49
PROVIDERS: ATTEND Surgery Plastic and Reconstructive Surgery
DX: R10.9 Unspecified abdominal pain (principal); E21.1 Secondary hyperparathyroidism, not elsewhere classified; D50.9 Iron deficiency anemia, unspecified; E44.0 Moderate protein-calorie malnutrition; E55.9 Vitamin D deficiency, unspecified; K74.1 Hepatic sclerosis; K50.90 Crohn's disease, unspecified, without complications
CPT/HCPCS: 80053; 80061; 82306; 82525; 82607; 82728; 82746; 83036; 83540; 83550; 83735; 83970; 84100; 84134; 84255; 84425; 84443; 84590; 84630; 85027; 85610; 85730; 99211

== ENCOUNTER → 2019-08-29 | Outpatient (CLI) | payer OTHER ==
--- NOTE | 2019-08-29 09:15 | US ---
EXAMINATION TYPE: US gallbladder DATE OF EXAM: 08/29/2019 COMPARISON: CT November 20, 2017 CLINICAL HISTORY: R10.11 right upper quadrant pain. Abdominal pain, nausea, gastric bypass 10/14 EXAM MEASUREMENTS: Liver Length: 15.9 cm Gallbladder Wall: 0.3 cm CBD: 0.3 cm Right Kidney: 11.8 x 4.0 x 4.7 cm Pancreas: Obscured by bowel gas Liver: appears wnl Gallbladder: no evidence of stones Evidence for sonographic Jorge's sign: no CBD: wnl Right Kidney: no evidence of hydronephrosis Suboptimal evaluation of pancreas on initial 2 images. Visualized liver shows no worrisome mass or du ctal dilatation. Gallbladder shows no shadowing mobile gallstones. No right-sided hydronephrosis. Yanni pect right extrarenal pelvis. Subcentimeter simple appearing cyst upper pole right kidney on CT is no t clearly identified on ultrasound images saved. IMPRESSION: No gallstones or ultrasound evidence for acute cholecystitis. Suboptimal evaluation of pa ncreas otherwise unremarkable study.
== END | disposition home or self-care (01) ==
LOC: RADUSWWP 08:17
PROVIDERS: ATTEND Surgery Plastic and Reconstructive Surgery
DX: R10.11 Right upper quadrant pain (principal)
CPT/HCPCS: 76705

== ENCOUNTER → 2020-02-14 | Outpatient (CLI) | payer OTHER ==
--- NOTE | 2020-02-14 14:53 | P.PN ---
Subjective Progress Note Date: 02/14/20 DATE OF SERVICE: 02/14/2020 CHIEF COMPLAINT: Status post gastric bypass HISTORY OF PRESENT ILLNESS: Celena Nava now Celena Jorge is a 29-year-old female is status post gastric bypass 10/25/2017. She is 2 years out. She has been trying to undergo skin removal surgery with the plastic surgeon h ad been denied. She comes in with new complaints of bilateral lower abdominal pain. She reports diarrhea. She reports vomiting. She has trouble swallowing. No reports of blood in stools. She is trying to get . She also reports panniculitis and troubles with her apron. She is taking tylenol for pain. She comes in with new problems panniculitis including bilateral lower abdominal pain and dysphagia. She also reports ongoing problems with her skin for over 6 months. At her height of 5 foot 4 inches, her ideal body weight is 144 pounds. Her highest weight was 284 pounds. She comes in 171 pounds from 155 pounds, 6 months ago. She has gained 16 pounds in 6 months. Lifetime weight loss of 113 pounds. Her body mass index is down from 48.9 to 29.4. Percent excess weight loss is 81 %. PAST MEDICAL HISTORY: 1. Morbid obesity due to excess weight loss 2. Body mass index of 48.9, initial 3. Depression. 4. Osteoarthritis of the lower back. 5. Hypertensive heart disease. 6. Gastroesophageal reflux disease. PAST SURGICAL HISTORY: 1. Upper endoscopy. 2. Gastric bypass. HOME MEDICATIONS: Medication Instructions Recorded Confirmed FLUoxetine HCL [PROzac] 40 mg PO FR 09/14/18 02/16/20 Melatonin 5 mg PO HS PRN 09/14/18 02/16/20 Multivitamins, Thera [Multivitamin 1 tab PO DAILY 09/14/18 02/16/20 (formulary)] Ferrous Sulfate [Feosol] 325 mg PO DAILY 08/10/19 02/16/20 OXcarbazepine [Oxtellar Xr] 150 mg PO DAILY 08/10/19 02/16/20 Omeprazole [PriLOSEC] 20 mg PO [id number] 08/10/19 02/16/20 Previous Rx's Medication Instructions Recorded Nystatin 100,000 Unit/gm Powd 1 applic TOPICAL BID #60 powder 02/14/20 [Mycostatin Powder] ALLERGIES: Denies. SOCIAL HISTORY: No active tobacco use. She is planning to be April 2018. FAMILY HISTORY: No family history of ulcerative colitis disease or Crohn's disease. She does have a family history of morbid obesity. She denies any lupus in her family. No reports of stomach or esophageal cancer. She has a family history of diabetes. Family history of H. pylori gastritis. His grandmother with osteoporosis. REVIEW OF ORGAN SYSTEMS: CONSTITUTIONAL: Her body mass index was 48.9. At her height of 5 foot 4 inches, her ideal body weight is 144 pounds. Her highest weight was 284 pounds. HEENT: Denies any active troubles with vision or hearing. ENDOCRINE: No diabetes. No hypothyroidism. CARDIOVASCULAR: No reports of palpitations or heart attacks or chest pain. RESPIRATORY: Has daytime somnolence including occassional snoring. No asthma. GI: Denies any bright red blood per rectum. Has diarrhea. MUSCULOSKELETAL: Has lower back pain and joint pain. Has osteoarthritis of the hips and knees. She reports foot problems from flat feet. NEURO: No headaches. No seizure disorders. PSYCH: Has depression without suicidal ideation. RHEUMATOLOGIC: No lupus. No rheumatoid arthritis. HEMATOLOGIC: Denies any abnormal bleeding or bruising. No personal history of DVTs. SKIN: Has panniculitis. No skin cancer. PHYSICAL EXAM: VITAL SIGNS: Height 5 foot 4 inches, weight 171 pounds. BMI 29.4 Vital Signs Temp 98.4 F 02/14/20 16:00 Pulse 77 02/14/20 16:00 Resp BP 100/74 02/14/20 16:00 Pulse Ox GENERAL: Well-developed female in no acute distress. HEENT: No scleral icterus. Extraocular movements grossly intact. Hears conversational speech. No nasal drainage. NECK: Supple without lymphadenopathy. CHEST: Nonlabored respirations with equal bilateral excursions. CARDIOVASCULAR: Regular rate and regular rhythm. Distal 2+ pulses. ABDOMEN: Obese, soft, nontender. Nondistended. Pannus over pubis at least 7 cm. Hyperpigmentation of with panniculitis identified. Weight of pannus over 10 pounds. MUSCULOSKELETAL: No clubbing, cyanosis, or edema. Tender along the bilateral pelvic bones NEURO: No focal or lateralizing signs. Cranial nerves 2 through 12 grossly within normal limits. PSYCH: Appropriate affect. Alert and oriented to person, place and time. SKIN: Good skin turgor. Well perfused. STUDIES: Gallbladder ultrasound reviewed demonstrating no evidence of gallstones. No evidence of cholecystitis or gallbladder wall thickening LABS: Vitamin D is low. Bariatric labs revieiwed. ASSESSMENT: 1. Morbid obesity due to excess calories. 2. Body mass index of 48.9 down to 29.4 3. Status post gastric bypass. 4. Chronic gastrojejunal ulcer with stricture 5. Dietary surveillance and counseling 6. Inadequate protein intake. 7. Vitamin A deficiency. 8. Panniculitis 9. Dysphagia 10. Gallbladder disorder PLAN: 1. Recommend CT of abdomen for diverticulitis and bilateral lower abdominal pain. 2. She reports recurrent panniculitis. Recommend treatment with nystatin po wder. 3. Recommend EGD with possible dilation for which she is increased risk for complication with history of gastric ulcers 4. Recommend bariatric labs 5. Recommend current ultrasound of gallbladder for gallstones.
[2020-02-14 16:02] VITALS: BP 100/74; PULSE 77; TEMP 98.4; BMI 29.3
== END | disposition home or self-care (01) ==
LOC: BARWHC3 13:57
PROVIDERS: ATTEND Surgery Plastic and Reconstructive Surgery
DX: E66.01 Morbid (severe) obesity due to excess calories (principal); Z68.29 Body mass index [BMI] 29.0-29.9, adult; M79.3 Panniculitis, unspecified; R13.10 Dysphagia, unspecified; E44.1 Mild protein-calorie malnutrition; K28.7 Chronic gastrojejunal ulcer without hemorrhage or perforation; E50.9 Vitamin A deficiency, unspecified; Z71.3 Dietary counseling and surveillance; Z98.84 Bariatric surgery status; Z79.899 Other long term (current) drug therapy
CPT/HCPCS: 99211

== ENCOUNTER 2020-02-22 16:54 | Emergency (ER) | payer OTHER ==
[2020-02-22] MEDS ORDERED: SODIUM CHLORIDE 0.9% 1,000 ML IV STA (17:28)
--- NOTE | 2020-02-22 17:33 | ED ---
General Adult HPI - General Chief complaint: Overdose Stated complaint: Overdose Time Seen by Provider: 02/22/20 17:18 Source: patient, RN notes reviewed, old records reviewed Mode of arrival: ambulatory Limitations: no limitations - History of Present Illness Initial comments: Patient is a 29-year-old female who presents emergency Department today with a "accidental overdose". Patient reports that she was upset as her and her cousin were in an argument. She then subsequently took 10 40 mg tablets of Prozac to help her calm down at 1 PM. Patient complains of dizziness, and shakiness after this occurred. She subsequently became dizzy and fell forward cracking the front upper tooth and half. She states that she has no other complaints of pain at this time just complains of some dizziness and nausea. She reports that she did have some episodes of vomiting but does not know if she vomited the pills up. Patient states that she is not suicidal. She does follow with a counselor at [facility] and psychiatrist at [facility]. - Related Data Home Medications Medication Instructions Recorded Confirmed FLUoxetine HCL [PROzac] 40 mg PO FR 09/14/18 02/16/20 Melatonin 5 mg PO HS PRN 09/14/18 02/16/20 Multivitamins, Thera [Multivitamin 1 tab PO DAILY 09/14/18 02/16/20 (formulary)] Ferrous Sulfate [Feosol] 325 mg PO DAILY 08/10/19 02/16/20 OXcarbazepine [Oxtellar Xr] 150 mg PO DAILY 08/10/19 02/16/20 Omeprazole [PriLOSEC] 20 mg PO AC-BRKFST 08/10/19 02/16/20 Previous Rx's Medication Instructions Recorded Nystatin 100,000 Unit/gm Powd 1 applic TOPICAL BID #60 powder 02/14/20 [Mycostatin Powder] Amoxicillin/Potassium Clav 1 tab PO BID 10 Days #20 tab 02/22/20 [Augmentin 875-125 Tablet] Allergies Allergy/AdvReac Type Severity Reaction Status Date / Time No Known Allergies Allergy Verified 02/22/20 17:17 Review of Systems ROS Statement: Those systems with pertinent positive or pertinent negative responses have been documented in the HPI. ROS Other: All systems not noted in ROS Statement are negative. Past Medical History Past Medical History: GERD/Reflux, Seizure Disorder, Thyroid Disorder Additional Past Medical History / Comment(s): seizures as child-no rx, last seizure 2000, "blood clot in head age 4", ulcer History of Any Multi-Drug Resistant Organisms: None Reported Past Surgical History: Bariatric Surgery, Orthopedic Surgery Additional Past Surgical History / Comment(s): surgery to put plates in arianna feet for "flat feet", gastric bypass 10-25-17, endoscopy 11-29-17 Past Anesthesia/Blood Transfusion Reactions: No Reported Reaction Past Psychological History: ADD/ADHD, Depression Smoking Status: Never smoker Past Alcohol Use History: None Reported Past Drug Use History: None Reported - Past Family History Mother Family Medical History: Asthma, Diabetes Mellitus, Sleep Apnea/CPAP/BIPAP Additional Family Medical History / Comment(s): Type 2 Diabetes - diet controlled Father Family Medical History: Hyperlipidemia, Hypertension Additional Family Medical History / Comment(s): Hypertension. Hyperlipidaemia General Exam - General Exam Comments Initial Comments: 29 year old female, no distress. Limitations: no limitations General appearance: alert, in no apparent distress Head exam: Present: atraumatic, normocephalic, normal inspection Eye exam: Present: normal appearance, PERRL, EOMI. Absent: scleral icterus, conjunctival injection, periorbital swelling ENT exam: Present: normal exam, mucous membranes moist Neck exam: Present: normal inspection. Absent: tenderness, meningismus, lymphadenopathy Respiratory exam: Present: normal lung sounds bilaterally. Absent: respiratory distress, wheezes, rales, rhonchi, stridor Cardiovascular Exam: Present: regular rate, normal rhythm, normal heart sounds. Absent: systolic murmur, diastolic murmur, rubs, gallop, clicks GI/Abdominal exam: Present: soft, normal bowel sounds. Absent: distended, tenderness, guarding, rebound, rigid Extremities exam: Present: normal inspection, full ROM, normal capillary refill. Absent: tenderness, pedal edema, joint swelling, calf tenderness Back exam: Present: normal inspection Neurological exam: Present: alert, oriented X3, CN II-XII intact Psychiatric exam: Present: normal affect, normal mood Skin exam: Present: warm, dry, intact, normal color. Absent: rash Course Vital Signs 02/22/20 02/22/20 02/22/20 17:14 17:16 18:16 Temperature 97.4 F L Pulse Rate 103 H 92 Respiratory 18 20 20 Rate Blood Pressure 127/78 124/82 O2 Sat by Pulse 98 96 Oximetry 02/22/20 02/22/20 19:00 22:30 Temperature Pulse Rate 92 102 H Respiratory 20 18 Rate Blood Pressure 124/82 119/73 O2 Sat by Pulse 96 98 Oximetry - Reevaluation(s) Reevaluation #1: 02/22/20 18:30 Poison control was contacted and informed of patient's overdose. He suggested to give the Patient normal saline and to continue to monitor to for any concerning for torsades and seizure. Reevaluation #2: 02/22/20 19:49 Patient was reevaluated this time so complaint dizziness, spinning episodes as well as with her history of fall computed tomography scan will be completed. EKG Findings - EKG Comments: EKG Findings:: EKG performed at 1748 shows normal sinus rhythm nonspecific ST abnormality. Prolonged QT. Abnormal EKG. Ventricular rate 85 beats were minute. Intervals 156 ms. QRS duration is 82 ms. QT QTc is 416/4 and 95 ms. Repeat EKG performed at 2302 shows normal sinus rhythm with normal EKG. Ventricular rate of 89 bpm. Intervals 162 ms. QS duration 74 ms. QT QTc is 394/479 ms. Medical Decision Making - Medical Decision Making Patient is 29-year-old female, who presents emergency department today for evaluation with complaint of overdose of Prozac. She reports that this was not intentional for suicide but she took it because she was anxious about this will help calm her down. She complains of some nausea. Patient labs show some leukocytosis, patient has no fever. Patient has no acute abdominal pain. Patient has no vomiting. Patient was dizzy and patient has fallen and broken tooth. Patient CT brain is normal. Patient CXR is negative. Patient has no other complaints at this time. Patient has been evaluated by EPS and agrees to safety plan. Patient is medically clear after second normal EKG. Patient will be discharged at this time. - Lab Data Result diagrams: 02/22/20 18:16 02/22/20 18:16 Lab Results 02/22/20 02/22/20 02/22/20 Range/Units 18:16 18:16 18:16 WBC 18.1 H (3.8-10.6) k/uL RBC 4.28 (3.80-5.40) m/uL Hgb 13.1 (11.4-16.0) gm/dL Hct 38.9 (34.0-46.0) % MCV 91.0 (80.0-100.0) fL MCH 30.7 (25.0-35.0) pg MCHC 33.7 (31.0-37.0) g/dL RDW 12.8 (11.5-15.5) % Plt Count 347 (150-450) k/uL Neutrophils % 89 % Lymphocytes % 5 % Monocytes % 5 % Eosinophils % 1 % Basophils % 0 % Neutrophils # 16.0 H (1.3-7.7) k/uL Lymphocytes # 1.0 (1.0-4.8) k/uL Monocytes # 0.9 (0-1.0) k/uL Eosinophils # 0.1 (0-0.7) k/uL Basophils # 0.0 (0-0.2) k/uL Sodium 135 L (137-145) mmol/L Potassium 3.8 (3.5-5.1) mmol/L Chloride 102 (98-107) mmol/L Carbon Dioxide 22 (22-30) mmol/L Anion Gap 11 mmol/L BUN 16 (7-17) mg/dL Creatinine 0.54 (0.52-1.04) mg/dL Est GFR (CKD-EPI)AfAm >90 (>60 ml/min/1.73 sqM) Est GFR (CKD-EPI)NonAf >90 (>60 ml/min/1.73 sqM) Glucose 156 H (74-99) mg/dL Calcium 9.1 (8.4-10.2) mg/dL Phosphorus (2.5-4.5) mg/dL Magnesium (1.6-2.3) mg/dL Total Bilirubin 0.4 (0.2-1.3) mg/dL AST 26 (14-36) U/L ALT 12 (4-34) U/L Alkaline Phosphatase 69 (38-126) U/L Troponin I <0.012 (0.000-0.034) ng/mL Total Protein 7.0 (6.3-8.2) g/dL Albumin 4.1 (3.5-5.0) g/dL Urine Color Urine Appearance (Clear) Urine pH (5.0-8.0) Ur Specific Oak (1.001-1.035) Urine Protein (Negative) Urine Glucose (UA) (Negative) Urine Ketones (Negative) Urine Blood (Negative) Urine Nitrite (Negative) Urine Bilirubin (Negative) Urine Urobilinogen (<2.0) mg/dL Ur Leukocyte Esterase (Negative) Urine RBC (0-5) /hpf Urine WBC (0-5) /hpf Urine Mucus (None) /hpf Urine HCG, Qual (Not Detectd) Salicylates <1.0 mg/dL Urine Opiates Screen (NotDetected) Ur Oxycodone Screen (NotDetected) Urine Methadone Screen (NotDetected) Ur Propoxyphene Screen (NotDetected) Acetaminophen <10.0 ug/mL Ur Barbiturates Screen (NotDetected) U Tricyclic Antidepress (NotDetected) Ur Phencyclidine Scrn (NotDetected) Ur Amphetamines Screen (NotDetected) U Methamphetamines Scrn (NotDetected) U Benzodiazepines Scrn (NotDetected) Urine Cocaine Screen (NotDetected) U Marijuana (THC) Screen (NotDetected) Serum Alcohol <10 mg/dL 02/22/20 02/22/20 02/22/20 Range/Units 18:16 19:10 19:41 WBC (3.8-10.6) k/uL RBC (3.80-5.40) m/uL Hgb (11.4-16.0) gm/dL Hct (34.0-46.0) % MCV (80.0-100.0) fL MCH (25.0-35.0) pg MCHC (31.0-37.0) g/dL RDW (11.5-15.5) % Plt Count (150-450) k/uL Neutrophils % % Lymphocytes % % Monocytes % % Eosinophils % % Basophils % % Neutrophils # (1.3-7.7) k/uL Lymphocytes # (1.0-4.8) k/uL Monocytes # (0-1.0) k/uL Eosinophils # (0-0.7) k/uL Basophils # (0-0.2) k/uL Sodium (137-145) mmol/L Potassium (3.5-5.1) mmol/L Chloride (98-107) mmol/L Carbon Dioxide (22-30) mmol/L Anion Gap mmol/L BUN (7-17) mg/dL Creatinine (0.52-1.04) mg/dL Est GFR (CKD-EPI)AfAm (>60 ml/min/1.73 sqM) Est GFR (CKD-EPI)NonAf (>60 ml/min/1.73 sqM) Glucose (74-99) mg/dL Calcium (8.4-10.2) mg/dL Phosphorus 3.9 (2.5-4.5) mg/dL Magnesium 1.6 (1.6-2.3) mg/dL Total Bilirubin (0.2-1.3) mg/dL AST (14-36) U/L ALT (4-34) U/L Alkaline Phosphatase (38-126) U/L Troponin I (0.000-0.034) ng/mL Total Protein (6.3-8.2) g/dL Albumin (3.5-5.0) g/dL Urine Color Urine Appearance (Clear) Urine pH (5.0-8.0) Ur Specific Oak (1.001-1.035) Urine Protein (Negative) Urine Glucose (UA) (Negative) Urine Ketones (Negative) Urine Blood (Negative) Urine Nitrite (Negative) Urine Bilirubin (Negative) Urine Urobilinogen (<2.0) mg/dL Ur Leukocyte Esterase (Negative) Urine RBC (0-5) /hpf Urine WBC (0-5) /hpf Urine Mucus (None) /hpf Urine HCG, Qual Not Detected (Not Detectd) Salicylates mg/dL Urine Opiates Screen (NotDetected) Ur Oxycodone Screen (NotDetected) Urine Methadone Screen (NotDetected) Ur Propoxyphene Screen (NotDetected) Acetaminophen ug/mL Ur Barbiturates Screen (NotDetected) U Tricyclic Antidepress (NotDetected) Ur Phencyclidine Scrn (NotDetected) Ur Amphetamines Screen (NotDetected) U Methamphetamines Scrn (NotDetected) U Benzodiazepines Scrn (NotDetected) Urine Cocaine Screen (NotDetected) U Marijuana (THC) Screen (NotDetected) Serum Alcohol mg/dL 02/22/20 Range/Units 19:41 WBC (3.8-10.6) k/uL RBC (3.80-5.40) m/uL Hgb (11.4-16.0) gm/dL Hct (34.0-46.0) % MCV (80.0-100.0) fL MCH (25.0-35.0) pg MCHC (31.0-37.0) g/dL RDW (11.5-15.5) % Plt Count (150-450) k/uL Neutrophils % % Lymphocytes % % Monocytes % % Eosinophils % % Basophils % % Neutrophils # (1.3-7.7) k/uL Lymphocytes # (1.0-4.8) k/uL Monocytes # (0-1.0) k/uL Eosinophils # (0-0.7) k/uL Basophils # (0-0.2) k/uL Sodium (137-145) mmol/L Potassium (3.5-5.1) mmol/L Chloride (98-107) mmol/L Carbon Dioxide (22-30) mmol/L Anion Gap mmol/L BUN (7-17) mg/dL Creatinine (0.52-1.04) mg/dL Est GFR (CKD-EPI)AfAm (>60 ml/min/1.73 sqM) Est GFR (CKD-EPI)NonAf (>60 ml/min/1.73 sqM) Glucose (74-99) mg/dL Calcium (8.4-10.2) mg/dL Phosphorus (2.5-4.5) mg/dL Magnesium (1.6-2.3) mg/dL Total Bilirubin (0.2-1.3) mg/dL AST (14-36) U/L ALT (4-34) U/L Alkaline Phosphatase (38-126) U/L Troponin I (0.000-0.034) ng/mL Total Protein (6.3-8.2) g/dL Albumin (3.5-5.0) g/dL Urine Color Yellow Urine Appearance Clear (Clear) Urine pH 5.5 (5.0-8.0) Ur Specific Oak 1.023 (1.001-1.035) Urine Protein Negative (Negative) Urine Glucose (UA) Negative (Negative) Urine Ketones 1+ H (Negative) Urine Blood Negative (Negative) Urine Nitrite Negative (Negative) Urine Bilirubin Negative (Negative) Urine Urobilinogen <2.0 (<2.0) mg/dL Ur Leukocyte Esterase Small H (Negative) Urine RBC 1 (0-5) /hpf Urine WBC 1 (0-5) /hpf Urine Mucus Rare H (None) /hpf Urine HCG, Qual (Not Detectd) Salicylates mg/dL Urine Opiates Screen Not Detected (NotDetected) Ur Oxycodone Screen Not Detected (NotDetected) Urine Methadone Screen Not Detected (NotDetected) Ur Propoxyphene Screen Not Detected (NotDetected) Acetaminophen ug/mL Ur Barbiturates Screen Not Detected (NotDetected) U Tricyclic Antidepress Not Detected (NotDetected) Ur Phencyclidine Scrn Not Detected (NotDetected) Ur Amphetamines Screen Not Detected (NotDetected) U Methamphetamines Scrn Not Detected (NotDetected) U Benzodiazepines Scrn Detected H (NotDetected) Urine Cocaine Screen Not Detected (NotDetected) U Marijuana (THC) Screen Not Detected (NotDetected) Serum Alcohol mg/dL - Radiology Data Radiology results: report reviewed Negative unenhanced head CT scan. No change. CXR is negative for acute process. Disposition Clinical Impression: Overdose, Broken tooth Disposition: HOME SELF-CARE Condition: Good Instructions (If sedation given, give patient instructions): Adult Overdose (ED), Acute Dental Trauma (ED) Additional Instructions: Follow up with [facility] and take medication for dental trauma. Patient should return to ED if any alarming signs or symptoms occur. Prescriptions: Amoxicillin/Potassium Clav [Augmentin 875-125 Tablet] 1 tab PO BID 10 Days #20 tab Is patient prescribed a controlled substance at d/c from ED?: No Referrals: None,Stated [Primary Care Provider] - 1-2 days Time of Disposition: 23:14
[2020-02-22 18:27] LABS: Basophils % (A) 0 %; Eosinophils # (A) 0.1 k/uL (0-0.7); Eosinophils % (A) 1 %; HCT 38.9 % (34.0-46.0); HGB 13.1 gm/dL (11.4-16.0); Lymphocytes % (A) 5 %; MCH 30.7 pg (25.0-35.0); MCHC 33.7 g/dL (31.0-37.0); Mean Platelet Volume 7.1; Monocytes # (A) 0.9 k/uL (0-1.0); Monocytes % (A) 5 %; Neutrophils % (A) 89 %; Platelet Count 347 k/uL (150-450); RBC 4.28 m/uL (3.80-5.40); RDW 12.8 % (11.5-15.5); WBC 18.1 k/uL (3.8-10.6)
[2020-02-22 18:37] LABS: ALT 12 U/L (4-34); AST 26 U/L (14-36); Acetaminophen <10.0 ug/mL; African American GFR (CKD) >90 (>60 ml/min/1.73 sqM); Albumin 4.1 g/dL (3.5-5.0); Alcohol <10 mg/dL; Alkaline Phosphatase 69 U/L (38-126); Anion Gap 11 mmol/L; Blood Urea Nitrogen 16 mg/dL (7-17); Calcium 9.1 mg/dL (8.4-10.2); Carbon Dioxide 22 mmol/L (22-30); Chloride 102 mmol/L (98-107); Glucose 156 mg/dL (74-99); Non-African American GFR(CKD) >90 (>60 ml/min/1.73 sqM); Potassium 3.8 mmol/L (3.5-5.1); Salicylate <1.0 mg/dL; Sodium 135 mmol/L (137-145); Total Bilirubin 0.4 mg/dL (0.2-1.3)
--- NOTE | 2020-02-22 19:18 | XR ---
EXAMINATION TYPE: XR chest 2V DATE OF EXAM: 02/22/2020 COMPARISON: 07/15/2017 HISTORY: Dizziness TECHNIQUE: FINDINGS: Heart and mediastinum are normal. Lungs are clear. Diaphragm is normal. Bony thorax is inta ct. IMPRESSION: Normal chest. No change.
[2020-02-22] MEDS ORDERED: ACETAMINOPHEN TAB 500 MG TAB PO STA (19:38)
[2020-02-22] MEDS ORDERED: SODIUM CHLORIDE 0.9% 1,000 ML IV ONE (19:48)
[2020-02-22 19:50] LABS: Appearance,Urine Clear (Clear); Bilirubin,Urine Negative (Negative); Blood,Urine Negative (Negative); Color,Urine Yellow; Glucose,Urine (UA) Negative (Negative); Ketones,Urine 1+ (Negative); Leukocyte Esterase,Urine Small (Negative); Mucus,Urine Rare /hpf; Nitrite,Urine Negative (Negative); PH, Urine 5.5 (5.0-8.0); Protein,Urine Negative (Negative); RBC,Urine 1 /hpf (0-5); Specific Gravity,Urine 1.023 (1.001-1.035); Urobilinogen,Urine <2.0 mg/dL (<2.0); WBC,Urine 1 /hpf (0-5)
[2020-02-22] MEDS ORDERED: SODIUM CHLORIDE 0.9% 1,000 ML IV SCH (20:00)
[2020-02-22 20:03] LABS: Amphetamine Screen,Urine Not Detected (NotDetected); Barbiturate Screen,Urine Not Detected (NotDetected); Benzodiazepines Screen,Urine Detected (NotDetected); Cocaine Screen,Urine Not Detected (NotDetected); Methadone Screen, Urine Not Detected (NotDetected); Opiate Screen,Urine Not Detected (NotDetected); Oxycodone Screen, Urine Not Detected (NotDetected); Phencyclidine Screen,Urine Not Detected (NotDetected); Tricyclic Antidepressant,Urine Not Detected (NotDetected); Urn Cannabinoid Scrn Not Detected (NotDetected)
--- NOTE | 2020-02-22 20:26 | CT ---
EXAMINATION TYPE: CT brain wo con DATE OF EXAM: 02/22/2020 COMPARISON: 08/19/2015 HISTORY: Overdose CT DLP: 1211.4 mGycm Automated exposure control for dose reduction was used. Ventricles and sulci appear normal. There is no mass effect nor midline shift. There is no sign of in tracranial hemorrhage. Calvarium is intact. There is no evidence of cerebral edema. IMPRESSION: Negative unenhanced head CT scan. No change.
[2020-02-22] MEDS ORDERED: IBUPROFEN 600 MG TAB PO STA (20:40)
[2020-02-22] MEDS ORDERED: PANTOPRAZOLE 40 MG/10 ML VIAL IVP STA (21:06)
[2020-02-22 22:31] VITALS: RESP 18
[2020-02-22 23:55] VITALS: BP 117/74; PULSE 84; TEMP 98.2
== END 2020-02-22 23:50 | disposition home or self-care (01) ==
LOC: EC 16:54
DX: T43.221A Poisoning by selective serotonin reuptake inhibitors, accidental (unintentional), initial encounter (principal); S02.5XXA Fracture of tooth (traumatic), initial encounter for closed fracture; D72.829 Elevated white blood cell count, unspecified; K21.9 Gastro-esophageal reflux disease without esophagitis; F32.9 Major depressive disorder, single episode, unspecified; G40.909 Epilepsy, unspecified, not intractable, without status epilepticus; Z79.899 Other long term (current) drug therapy; W19.XXXA Unspecified fall, initial encounter
CPT/HCPCS: 36415; 93005; 80053; 83735; 84100; 84484; 85025; 81001; 81025; 80306; 83520; 80329; 80320; 71046; 70450; 96374; 96361 ×3; 99285; C9113

== ENCOUNTER → 2020-02-27 | Outpatient (CLI) | payer OTHER | END | disposition home or self-care (01) | LOC: LABWHC1 14:16 | PROVIDERS: ATTEND Surgery Plastic and Reconstructive Surgery | DX: Z11.59 Encounter for screening for other viral diseases (principal) ==

== ENCOUNTER 2020-02-29 07:30 | Day surgery (SDC) | payer OTHER ==
[2020-02-28 10:05] VITALS: BMI 29.3
--- NOTE | 2020-02-28 19:46 | P.GSHP ---
History of Present Illness H&P Date: 02/29/20 CHIEF COMPLAINT: GERD HISTORY OF PRESENT ILLNESS: The patient is a 29-year-old female who presents reports gastroesophageal reflux disease. Upper endoscopy was offered for further evaluation and management. PAST MEDICAL HISTORY: Please see list. PAST SURGICAL HISTORY: Please see list. MEDICATIONS: Please see list. ALLERGIES: Please see list. SOCIAL HISTORY: No illicit drug use FAMILY HISTORY: No reports of Crohn disease or ulcerative colitis. REVIEW OF ORGAN SYSTEMS: CONSTITUTIONAL: No reports of fevers or chills. GI: Denies any blood in stools or constipation. PHYSICAL EXAM: VITAL SIGNS: Stable GENERAL: Well-developed and pleasant in no acute distress. HEENT: No scleral icterus. Extraocular movements grossly intact. Moist buccal mucosa. NECK: Supple without lymphadenopathy. CHEST: Unlabored respirations. Equal bilateral excursions. CARDIOVASCULAR: Regular rate and rhythm. Distal 2+ pulses. ABDOMEN: Soft, nondistended. MUSCULOSKELETAL: No clubbing, cyanosis, or edema. ASSESSMENT: 1. Gastroesophageal reflux disease PLAN: 1. Recommend proceeding with an upper endoscopy Past Medical History Past Medical History: GERD/Reflux, Seizure Disorder, Thyroid Disorder Additional Past Medical History / Comment(s): seizures as child-no rx, last seizure 2000, "blood clot in head age 4", hx of stomach ulcer History of Any Multi-Drug Resistant Organisms: None Reported Past Surgical History: Bariatric Surgery, Orthopedic Surgery Additional Past Surgical History / Comment(s): surgery to put plates in arianna feet for "flat feet", gastric bypass 10-25-17, endoscopy 11-29-17 Past Anesthesia/Blood Transfusion Reactions: No Reported Reaction Smoking Status: Never smoker - Past Family History Mother Family Medical History: Asthma, Diabetes Mellitus, Sleep Apnea/CPAP/BIPAP Additional Family Medical History / Comment(s): Type 2 Diabetes - diet controlled Father Family Medical History: Hyperlipidemia, Hypertension Additional Family Medical History / Comment(s): Hypertension. Hyperlipidaemia Medications and Allergies Home Medications Medication Instructions Recorded Confirmed Type FLUoxetine HCL [PROzac] 40 mg PO DAILY 09/14/18 02/28/20 History Multivitamins, Thera [Multivitamin 1 tab PO DAILY 09/14/18 02/28/20 History (formulary)] OXcarbazepine [Oxtellar Xr] 150 mg PO TID 08/10/19 02/28/20 History FLUoxetine HCL [PROzac] 20 mg PO TID 02/28/20 02/28/20 History Allergies Allergy/AdvReac Type Severity Reaction Status Date / Time No Known Allergies Allergy Verified 02/28/20 10:05
[2020-02-29 08:01] VITALS: TEMP 98.4
[2020-02-29] MEDS ORDERED: LACTATED RINGERS 1,000 ML IV ONE (08:08)
[2020-02-29] MEDS ORDERED: PROPOFOL 10 MG/ML 20 ML VIAL IV ONE (08:41)
[2020-02-29] MEDS ORDERED: LIDOCAINE 1% INJ 10MG/ML (20 ML MDV) ONE (08:41)
--- NOTE | 2020-02-29 08:49 | P.HPADDEND ---
H&P Addendum H&P Addendum Date: 02/29/20 Patient reports epigastric abdominal pain including her sister ulcers. We'll proceed with upper endoscopy.
--- NOTE | 2020-02-29 09:00 | P.PCN ---
Date of Procedure: 02/29/20 Description of Procedure: PREOPERATIVE DIAGNOSIS: Dysphagia. Epigastric abdominal pain Nausea with vomiting. Morbid obesity. POSTOPERATIVE DIAGNOSIS: Dysphagia. Epigastric abdominal pain Nausea with vomiting. Morbid obesity. 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 SURGEON: Leila Early MD ANESTHESIA: MAC. INDICATIONS: The patient is a 29-year-old female who presents with a history of dysphagia, epigastric abdominal pain and nausea and vomiting. Benefits and risks of the procedure were described. Informed consent was obtained. DESCRIPTION: The patient was brought into the endoscopy suite and laid in the left lateral decubitus position. After a timeout was confirmed, the procedure was initiated. An Olympus gastroscope was passed along the posterior oropharynx down to the distal esophagus where the squamocolumnar junction was unremarkable. The gastric pouch was entered. A gastrojejunal stricture of 15 mm was found as the adult gastroscope was 9.5 mm in size. A [employer] balloon dilator was placed through the scope. Final insufflation up to 20 mm was performed with a total of 2 minutes. The scope was advanced up to 60 cm from the incisors into the Kyle limb. The mucosa of the gastrojejunal anastomosis was intact. However chronic gastrojejunal marginal ulcer was encountered, less than 5 mm x 4 islands along the jejunal side. No full-thickness injury was encountered. The GI tract was desufflated. The patient tolerated the procedure well. FINDINGS: Squamocolumnar junction unremarkable at 35 cm. Diaphragmatic hiatus at 38 cm from the incisor Diaphragmatic hiatal hernia, 3 cm fixed Blind jejunal limb 5 cm Anastomosis at 43 cm from the anastomosis Gastric pouch 5 cm Stricture of approximately 12 mm encountered. Chronic gastrojejunal ulceration encountered. Successful balloon dilatation to 20 mm. RECOMMENDATIONS: Start combined therapy of Carafate and omeprazole of at least [address] of abdomen and pelvis for patient's history of epigastric and bilateral upper abdominal pain with history of gastric bypass Plan - Discharge Summary Discharge Rx Participant: No New Discharge Prescriptions: New Sucralfate [Carafate] 1 gm PO BID #60 tablet Omeprazole [PriLOSEC] 40 mg PO DAILY #90 cap Continue FLUoxetine HCL [PROzac] 40 mg PO DAILY Multivitamins, Thera [Multivitamin (formulary)] 1 tab PO DAILY OXcarbazepine [Oxtellar Xr] 150 mg PO TID FLUoxetine HCL [PROzac] 20 mg PO ONCE Discharge Medication List FLUoxetine HCL [PROzac] 40 mg PO DAILY 09/14/18 [History] Multivitamins, Thera [Multivitamin (formulary)] 1 tab PO DAILY 09/14/18 [History] OXcarbazepine [Oxtellar Xr] 150 mg PO TID 08/10/19 [History] FLUoxetine HCL [PROzac] 20 mg PO ONCE 02/28/20 [History] Omeprazole [PriLOSEC] 40 mg PO DAILY #90 cap 02/29/20 [Rx] Sucralfate [Carafate] 1 gm PO BID #60 tablet 02/29/20 [Rx] [facility]ment[facility]Ref[facility] [place] [facility] - [facility] Patient Instructions/Handouts: *Surgery [facility] - (Anesthesia) Endoscopy Discharge Instructions, Upper Endoscopy (DC), Diet for Stomach Ulcers and Gastritis (ED), Esophageal Dilation (DC) Activity/Diet/Wound Care/Special Instructions: Avoid Motrin, ibuprofen, aspirin, Aleve for ulcers. Discharge Disposition: HOME SELF-CARE
[2020-02-29 09:41] VITALS: BP 125/74; PULSE 77; RESP 16
== END 2020-02-29 09:55 | disposition home or self-care (01) ==
LOC: ORWHC2ENDO 07:30
PROVIDERS: ATTEND Surgery Plastic and Reconstructive Surgery
DX: K95.89 Other complications of other bariatric procedure (principal); K56.699 Other intestinal obstruction unspecified as to partial versus complete obstruction; K28.7 Chronic gastrojejunal ulcer without hemorrhage or perforation; K44.9 Diaphragmatic hernia without obstruction or gangrene; K21.9 Gastro-esophageal reflux disease without esophagitis; K08.89 Other specified disorders of teeth and supporting structures; F90.9 Attention-deficit hyperactivity disorder, unspecified type; F41.9 Anxiety disorder, unspecified; F32.9 Major depressive disorder, single episode, unspecified; E66.01 Morbid (severe) obesity due to excess calories; Z68.29 Body mass index [BMI] 29.0-29.9, adult; G40.909 Epilepsy, unspecified, not intractable, without status epilepticus; E07.9 Disorder of thyroid, unspecified; Z86.79 Personal history of other diseases of the circulatory system; Z98.890 Other specified postprocedural states; Z79.899 Other long term (current) drug therapy; Z82.5 Family history of asthma and other chronic lower respiratory diseases; Z83.3 Family history of diabetes mellitus; Z82.0 Family history of epilepsy and other diseases of the nervous system; Z83.438 Family history of other disorder of lipoprotein metabolism and other lipidemia; Z82.49 Family history of ischemic heart disease and other diseases of the circulatory system
CPT/HCPCS: 81025; 43245; J2001; J2704; C1726; 43249

== ENCOUNTER → 2020-03-16 | Outpatient (CLI) | payer OTHER ==
--- NOTE | 2020-03-17 23:11 | CT ---
EXAMINATION TYPE: CT abdomen pelvis w con DATE OF EXAM: 03/16/2020 COMPARISON: 11/20/2017 HISTORY: 29-year-old female abdominal pain TECHNIQUE: Contiguous axial scanning of the abdomen and pelvis following administration of 100 ml Iso nelida 300 IV contrast. Delayed images through the kidneys and coronal/sagittal reconstructions perform ed. CT DLP: 1013.4 mGycm Automated exposure control for dose reduction was used. FINDINGS: Heart normal size without pericardial effusion. Lung bases clear without pleural effusion. Srimw-po-zlimwtcp size hiatal hernia with post surgical changes of Kyle-en-Y gastric bypass. Transient short 1.6 cm long segment intussusception of the left mid abdominal jejunal loop, axial claudia ge 40. Some scattered prominent small bowel loops are present measuring up to 2.8 cm there are no dilated sm all bowel, free fluid, or free air. Oral contrast has progressed to the distal small bowel but not in to the colon. Mild to moderate overall stone burden. No pericolonic inflammatory change. Scattered prominent mesenteric lymph nodes are present measuring up to 6 mm. Tiny 5 mm hypodensity posterior right liver lobe, indeterminate, although tiny cyst. Portal venous sy stem is patent. No biliary ductal dilatation. Gallbladder, adrenal glands, kidneys, spleen, and pancreas show no gross abnormality. As compared to 2018, there has been significant interval decrease in the amount of intra-abdominal fa t. Additional decrease in the amount of subcutaneous adipose is well. Bladder urine distended. Uterus anteverted. Both ovaries are visualized. No abnormal fluid collection in the pelvis or pelvic lymphadenopathy. Bones: No osseous destructive process. IMPRESSION: 1. INTERVAL DECREASE IN THE INTRA-ABDOMINAL FAT COMPARED TO 2018 STATUS POST KYLE-EN-Y GASTRIC BYP ASS. SOME OF THE SUBCUTANEOUS ADIPOSE HAS ALSO DECREASED. 2. THE KYLE-EN-Y GASTRIC BYPASS SHOWS A SMALL TO MODERATE-SIZED HIATAL HERNIA. 3. SOME PROMINENT SMALL BOWEL LOOPS THROUGHOUT THE LEFT SIDE OF THE ABDOMEN MEASURING UP TO 2.8 CM CO ULD BE TRANSIENT. CORRELATE TO EXCLUDE ANY SYMPTOMS OF ENTERITIS.
== END | disposition home or self-care (01) ==
LOC: RADCTMAIN 10:52
PROVIDERS: ATTEND Surgery Plastic and Reconstructive Surgery
DX: K44.9 Diaphragmatic hernia without obstruction or gangrene (principal); K57.80 Diverticulitis of intestine, part unspecified, with perforation and abscess without bleeding; Z98.84 Bariatric surgery status
CPT/HCPCS: 74177; Q9967

== ENCOUNTER → 2020-04-03 | Outpatient (CLI) | payer OTHER ==
--- NOTE | 2020-04-03 16:33 | P.PN ---
Subjective Progress Note Date: 04/03/20 She reports pain from her pannus. She also reports pain from her pannus. She is looking into skin removal. Looking for stable weight loss. Hiatal hernia advised from CT scan Objective - Vital Signs Vital signs: Vital Signs Temp 98.2 F 04/03/20 16:04 Pulse 85 04/03/20 16:04 Resp 16 04/03/20 16:04 BP 112/76 04/03/20 16:04 Pulse Ox Intake & Output 04/02/20 04/03/20 04/03/20 18:59 06:59 18:59 Weight 78.273 kg
[2020-04-05 09:35] VITALS: BP 112/76; PULSE 85; RESP 16; TEMP 98.2; BMI 29.6
== END | disposition home or self-care (01) ==
LOC: BARWHC3 15:01
PROVIDERS: ATTEND Surgery Plastic and Reconstructive Surgery
DX: E66.01 Morbid (severe) obesity due to excess calories (principal); Z71.3 Dietary counseling and surveillance; Z68.29 Body mass index [BMI] 29.0-29.9, adult; K44.9 Diaphragmatic hernia without obstruction or gangrene
CPT/HCPCS: 99211

== ENCOUNTER → 2020-04-30 | Outpatient (CLI) | payer OTHER ==
[2020-04-30 09:02] LABS: Basophils % (A) 0 %; Eosinophils # (A) 0.1 k/uL (0-0.7); Eosinophils % (A) 1 %; HCT 37.8 % (34.0-46.0); HGB 11.8 gm/dL (11.4-16.0); Lymphocytes # (A) 1.6 k/uL (1.0-4.8); Lymphocytes % (A) 23 %; MCH 28.6 pg (25.0-35.0); MCHC 31.3 g/dL (31.0-37.0); MCV 91.5 fL (80.0-100.0); Mean Platelet Volume 6.6; Monocytes # (A) 0.5 k/uL (0-1.0); Monocytes % (A) 8 %; Neutrophils # (A) 4.4 k/uL (1.3-7.7); Neutrophils % (A) 65 %; Platelet Count 350 k/uL (150-450); RBC 4.13 m/uL (3.80-5.40); RDW 13.4 % (11.5-15.5); WBC 6.7 k/uL (3.8-10.6)
[2020-04-30 09:17] LABS: ALT 8 U/L (4-34); AST 22 U/L (14-36); African American GFR (CKD) >90 (>60 ml/min/1.73 sqM); Albumin 3.7 g/dL (3.5-5.0); Alkaline Phosphatase 56 U/L (38-126); Anion Gap 6 mmol/L; Blood Urea Nitrogen 15 mg/dL (7-17); Calcium 8.8 mg/dL (8.4-10.2); Carbon Dioxide 27 mmol/L (22-30); Chloride 104 mmol/L (98-107); Glucose 72 mg/dL (74-99); Non-African American GFR(CKD) >90 (>60 ml/min/1.73 sqM); Potassium 4.5 mmol/L (3.5-5.1); Sodium 137 mmol/L (137-145); Total Bilirubin 0.4 mg/dL (0.2-1.3); Total Protein 6.1 g/dL (6.3-8.2)
== END | disposition home or self-care (01) ==
LOC: LABPAT 07:35
PROVIDERS: ATTEND Surgery Plastic and Reconstructive Surgery
DX: Z01.818 Encounter for other preprocedural examination (principal)
CPT/HCPCS: 36415; 80053; 85025

== ENCOUNTER → 2020-05-13 | Day surgery (SDC) | payer OTHER ==
[2020-05-03 16:06] VITALS: BMI 29.2
[~2020-05-13] MED LIST changes: +ACETAMINOPHEN TAB 500 MG TAB PO STA; +CHLORHEXIDINE GLUCONATE 15 ML CUP MUCOUS MEM ONE; +DEXAMETHASONE SOD PHOSPHATE 10 MG/ML 1 ML VIAL IV ONE; +GABAPENTIN 300 MG CAP PO STA; +HYDROmorphone 0.5 MG/0.5 ML SYRINGE IVP PRN; +MIDAZOLAM 2 MG/2 ML VIAL IV PRN; +ONDANSETRON 4 MG/2 ML VIAL IVP ONE; +PANTOPRAZOLE 40 MG/10 ML VIAL IV STA; +SCOPOLAMINE 1.5MG/72HR PATCH TRANSDERM ONE; +SCOPOLAMINE 1.5MG/72HR PATCH TRANSDERM STA
--- NOTE | 2020-05-13 07:43 | P.GSHP ---
History of Present Illness H&P Date: 05/13/20 CHIEF COMPLAINT: Paraesophageal hiatal hernia with gastroesophageal reflux disease. HISTORY OF PRESENT ILLNESS: The patient is a 83-year-old female who presents with paraesophageal hiatal hernia. She has completed an upper endoscopy workup. Now she presents for surgical intervention. PAST MEDICAL HISTORY: Please see list. PAST SURGICAL HISTORY: Please see list. MEDICATIONS: Please see list. ALLERGIES: Please see list. SOCIAL HISTORY: No illicit drug use FAMILY HISTORY: No reports of Crohn disease or ulcerative colitis. REVIEW OF ORGAN SYSTEMS: CONSTITUTIONAL: No reports of fevers or chills. GI: Denies any blood in stools or constipation. PHYSICAL EXAM: VITAL SIGNS: Stable GENERAL: Well-developed pleasant and in no acute distress. HEENT: No scleral icterus. Extraocular movements grossly intact. Moist buccal mucosa. NECK: Supple without lymphadenopathy. CHEST: Unlabored respirations. Equal bilateral excursions. CARDIOVASCULAR: Regular rate and rhythm. Distal 2+ pulses. ABDOMEN: Soft, nondistended. No peritoneal signs. MUSCULOSKELETAL: No clubbing, cyanosis, or edema. SKIN: Well-perfused. Good skin turgor. ASSESSMENT: 1. Diaphragmatic paraesophageal hiatal hernia with severe gastroesophageal reflux disease. PLAN: 1. Recommend proceeding with a robotic paraesophageal hiatal hernia with possible mesh. 2. Benefits and risks of surgical intervention was discussed including possibility of open technique. 3. Inpatient hospitalization recommended of 2 nights 4. DVT prophylaxis. 5. Antibiotic prophylaxis. 6. She has also completed a very low caloric high-protein diet to address underlying hepatomegaly. Past Medical History Past Medical History: GERD/Reflux, Seizure Disorder, Thyroid Disorder Additional Past Medical History / Comment(s): seizures as child-no rx, last seiz ure 2000, "blood clot in head age 4", ulcer History of Any Multi-Drug Resistant Organisms: None Reported Past Surgical History: Bariatric Surgery, Orthopedic Surgery Additional Past Surgical History / Comment(s): surgery to put plates in arianna feet for "flat feet", gastric bypass 10-25-17, endoscopy 11-29-17 Past Anesthesia/Blood Transfusion Reactions: No Reported Reaction Smoking Status: Never smoker - Past Family History Mother Family Medical History: Asthma, Diabetes Mellitus, Sleep Apnea/CPAP/BIPAP Additional Family Medical History / Comment(s): Type 2 Diabetes - diet controlled Father Family Medical History: Hyperlipidemia, Hypertension Additional Family Medical History / Comment(s): Hypertension. Hyperlipidaemia Medications and Allergies Home Medications Medication Instructions Recorded Confirmed Type FLUoxetine HCL [PROzac] 60 mg PO DAILY 09/14/18 05/03/20 History Multivitamins, Thera [Multivitamin 1 tab PO DAILY 09/14/18 05/03/20 History (formulary)] OXcarbazepine [Oxtellar Xr] 150 mg PO TID 08/10/19 05/03/20 History Omeprazole [PriLOSEC] 40 mg PO DAILY #90 cap 02/29/20 05/03/20 Rx Allergies Allergy/AdvReac Type Severity Reaction Status Date / Time No Known Allergies Allergy Verified 05/03/20 15:59
[2020-05-13 09:53] VITALS: BP 137/67; PULSE 78; RESP 18; TEMP 99.2
--- NOTE | 2020-05-13 10:47 | P.HPADDEND ---
H&P Addendum H&P Addendum Date: 05/13/20 Patient presented to the preanesthesia care unit area. Blood drawn including urine hCG test positive for . Patient is not aware that she was . Case is canceled secondary to new . Patient advised to immediately contact her knapsack sprayer and start care
== END ==
LOC: OR 09:37
PROVIDERS: ATTEND Surgery Plastic and Reconstructive Surgery
DX: K44.9 Diaphragmatic hernia without obstruction or gangrene (principal); Z53.09 Procedure and treatment not carried out because of other contraindication; Z33.1 Pregnant state, incidental; G40.909 Epilepsy, unspecified, not intractable, without status epilepticus; E07.9 Disorder of thyroid, unspecified; Z79.899 Other long term (current) drug therapy; Z98.84 Bariatric surgery status; Z98.890 Other specified postprocedural states; Z83.3 Family history of diabetes mellitus; Z82.5 Family history of asthma and other chronic lower respiratory diseases; Z82.49 Family history of ischemic heart disease and other diseases of the circulatory system
CPT/HCPCS: 36415; 86850; 86900; 86901

== ENCOUNTER 2020-06-17 19:17 | Emergency (ER) | payer OTHER ==
[2020-06-17 19:26] VITALS: RESP 18
[2020-06-17] MEDS ORDERED: SODIUM CHLORIDE 0.9% 1,000 ML IV ONE (19:52)
--- NOTE | 2020-06-17 20:06 | ED ---
Female Urogenital HPI - General Chief complaint: Vaginal Bleeding Stated complaint: vaginal bleeding Time Seen by Provider: 06/17/20 19:20 Source: patient, EMS, RN notes reviewed, old records reviewed Mode of arrival: EMS Limitations: no limitations - History of Present Illness Initial comments: 29-year-old female presents the ER today for evaluation with complaints of vaginal bleeding for the past 2 days. She was seen at [facility] yesterday for vaginal bleeding starting at that time. Discussed she is likely miscarrying. She states that she is a female. She is aproximately 12 weeks . Her last menstrual period. Her work called EMS because reports that she is bleeding through her pants today. Her RUBBER GOODS TESTER is Dr. Rodriguez and in [place]. - Related Data Home Medications Medication Instructions Recorded Confirmed FLUoxetine HCL [PROzac] 60 mg PO DAILY 09/14/18 05/03/20 Multivitamins, Thera [Multivitamin 1 tab PO DAILY 09/14/18 05/03/20 (formulary)] OXcarbazepine [Oxtellar Xr] 150 mg PO TID 08/10/19 05/03/20 Previous Rx's Medication Instructions Recorded Omeprazole [PriLOSEC] 40 mg PO DAILY #90 cap 02/29/20 Allergies Allergy/AdvReac Type Severity Reaction Status Date / Time No Known Allergies Allergy Verified 06/17/20 19:26 Review of Systems ROS Statement: Those systems with pertinent positive or pertinent negative responses have been documented in the HPI. ROS Other: All systems not noted in ROS Statement are negative. Past Medical History Past Medical History: GERD/Reflux, Seizure Disorder, Thyroid Disorder Additional Past Medical History / Comment(s): seizures as child-no rx, last seizure 2000, "blood clot in head age 4", ulcer History of Any Multi-Drug Resistant Organisms: None Reported Past Surgical History: Bariatric Surgery, Orthopedic Surgery Additional Past Surgical History / Comment(s): surgery to put plates in arianna feet for "flat feet", gastric bypass 10-25-17, endoscopy 11-29-17 Past Anesthesia/Blood Transfusion Reactions: No Reported Reaction Past Psychological History: ADD/ADHD, Depression Smoking Status: Never smoker Past Alcohol Use History: None Reported Past Drug Use History: None Reported - Past Family History Mother Family Medical History: Asthma, Diabetes Mellitus, Sleep Apnea/CPAP/BIPAP Additional Family Medical History / Comment(s): Type 2 Diabetes - diet controlled Father Family Medical History: Hyperlipidemia, Hypertension Additional Family Medical History / Comment(s): Hypertension. Hyperlipidaemia General Exam - General Exam Comments Initial Comments: 29-year-old female. Alert and oriented. No distress. Limitations: no limitations General appearance: alert, in no apparent distress Head exam: Present: atraumatic, normocephalic, normal inspection Eye exam: Present: normal appearance, PERRL, EOMI. Absent: scleral icterus, conjunctival injection, periorbital swelling ENT exam: Present: normal exam, mucous membranes moist Neck exam: Present: normal inspection. Absent: tenderness, meningismus, lymphadenopathy Respiratory exam: Present: normal lung sounds bilaterally. Absent: respiratory distress, wheezes, rales, rhonchi, stridor Cardiovascular Exam: Present: regular rate, normal rhythm, normal heart sounds. Absent: systolic murmur, diastolic murmur, rubs, gallop, clicks GI/Abdominal exam: Present: soft, normal bowel sounds. Absent: distended, tenderness, guarding, rebound, rigid External exam: Present: normal external exam Speculum exam: Present: vaginal bleeding, other (Patient passed large clots). Absent: normal speculum exam By manual exam: Absent: normal by manual exam Extremities exam: Present: normal inspection, full ROM, normal capillary refill. Absent: tenderness, pedal edema, joint swelling, calf tenderness Course Vital Signs 06/17/20 06/17/20 19:23 22:21 Temperature 98.6 F 98.1 F Pulse Rate 85 77 Respiratory 18 18 Rate Blood Pressure 114/70 107/69 O2 Sat by Pulse 100 100 Oximetry Medical Decision Making - Medical Decision Making 29-year-old female presenting to the ER today for increased vaginal bleeding. Patient is a female. She believes she is approximately 12 weeks . She was diagnosed with miscarriage at [facility] yesterday. I reviewed lab work and findings from [facility]. Ultrasound at that time did show a non-viable 10 week . She has an upcoming appointment scheduled with her [employer]BBER GOODS TESTER on Wednesday. She presents today with bleeding. Patient is an ER she did pass large clots and likely appears to have passed the retained particles of conception. The ultrasound shows no intrauterine . Serum hCG is 1500. Previously she states it was 14,000. I discussed that this is confirmatory of completing a miscarriage. She is Rh+. I discussed that she needs to have her hCG redrawn and to follow-up with PCP. Hemoglobin is stable at 11.5. Yesterday was also 11. I discussed the Patient will proceed have some bleeding but needs follow-up with her [employer]ER GOODS TESTER. Patient is agreeable to plan. - Lab Data Result diagrams: 06/17/20 20:02 Lab Results 06/17/20 06/17/20 06/17/20 Range/Units 20:02 20:02 20:13 WBC 8.2 (3.8-10.6) k/uL RBC 4.09 (3.80-5.40) m/uL Hgb 11.7 (11.4-16.0) gm/dL Hct 36.9 (34.0-46.0) % MCV 90.1 (80.0-100.0) fL MCH 28.6 (25.0-35.0) pg MCHC 31.8 (31.0-37.0) g/dL RDW 13.9 (11.5-15.5) % Plt Count 312 (150-450) k/uL Neutrophils % 74 % Lymphocytes % 18 % Monocytes % 5 % Eosinophils % 1 % Basophils % 0 % Neutrophils # 6.1 (1.3-7.7) k/uL Lymphocytes # 1.5 (1.0-4.8) k/uL Monocytes # 0.4 (0-1.0) k/uL Eosinophils # 0.1 (0-0.7) k/uL Basophils # 0.0 (0-0.2) k/uL HCG, Quant 1566.9 mIU/mL Blood Type A Positive Blood Type Recheck A Pos Bld Type Recheck Status No - Radiology Data Radiology results: report reviewed Ultrasound shows empty uterus. No adnexal mass. Tiny amount of fluid in the cul-de-sac. Disposition Clinical Impression: Miscarriage Disposition: HOME SELF-CARE Condition: Good Instructions (If sedation given, give patient instructions): Miscarriage (ED) Additional Instructions: Patient take Motrin Tylenol for pain. Please follow up with RUBBER GOODS TESTER on Wednesday. Please return to the emergency room if your symptoms increase or worsen or for any other concerns. Is patient prescribed a controlled substance at d/c from ED?: No Referrals: Nery Petersen MD [Primary Care Provider] - 1-2 days Time of Disposition: 22:28
[2020-06-17 20:18] LABS: Basophils % (A) 0 %; Eosinophils # (A) 0.1 k/uL (0-0.7); Eosinophils % (A) 1 %; HCT 36.9 % (34.0-46.0); HGB 11.7 gm/dL (11.4-16.0); Lymphocytes # (A) 1.5 k/uL (1.0-4.8); Lymphocytes % (A) 18 %; MCH 28.6 pg (25.0-35.0); MCHC 31.8 g/dL (31.0-37.0); MCV 90.1 fL (80.0-100.0); Mean Platelet Volume 6.9; Monocytes # (A) 0.4 k/uL (0-1.0); Monocytes % (A) 5 %; Neutrophils # (A) 6.1 k/uL (1.3-7.7); Neutrophils % (A) 74 %; Platelet Count 312 k/uL (150-450); RBC 4.09 m/uL (3.80-5.40); RDW 13.9 % (11.5-15.5); WBC 8.2 k/uL (3.8-10.6)
--- NOTE | 2020-06-17 21:15 | US ---
EXAMINATION TYPE: Transabdominal DATE OF EXAM: 06/17/2020 9:03 PM COMPARISON: NONE CLINICAL HISTORY: pain. Pain and bleeding x 2 days. Large clots passed. . EXAM PERFORMED: Transabdominal (TA). Patient passing large clots. No transvaginal ultrasound to be p erformed at this time per ordering physician. EXAM MEASUREMENTS: GESTATIONAL AGE / DATING Physician Established: Unknown Dates by LMP: Unknown Dates by First Scan: This is first scan. Dates by Current Scan for: No IUP seen at this time. MATERNAL ANATOMY Uterus: 10.9 x 6.7 x 5.7 cm. Anteverted. No gestational sac seen at this time. Endometrium appears to be slightly heterogeneous and thick measuring 1.63 cm AP. Right Ovary: Not seen Left Ovary: Not seen Post CDS / Adnexa: Possible minimal fluid in cul de sac. Presence of free fluid: Possible minimal amount of fluid in CDS. GESTATION / SURVEY IUP: No definite gestational sac seen at this time. Date of LMP: Unknown Beta HcG (if available): 1,566.9 IMPRESSION: Empty uterus. No adnexal mass. Tiny amount of free fluid in the cul-de-sac.
[2020-06-17 22:22] VITALS: BP 107/69; PULSE 77; TEMP 98.1
== END 2020-06-17 22:40 | disposition home or self-care (01) ==
LOC: EC 19:17
DX: O03.9 Complete or unspecified spontaneous abortion without complication (principal); F32.9 Major depressive disorder, single episode, unspecified; F90.9 Attention-deficit hyperactivity disorder, unspecified type; G40.909 Epilepsy, unspecified, not intractable, without status epilepticus; Z79.899 Other long term (current) drug therapy
CPT/HCPCS: 36415; 76801; 84702; 85025; 86900; 86901; 96360; 96361; 99285

== ENCOUNTER → 2020-06-19 | Outpatient (CLI) | payer OTHER | END | disposition home or self-care (01) | LOC: LABWHC1 07:31 | PROVIDERS: ATTEND Physician Assistant Medical | DX: O20.0 Threatened abortion (principal); Z3A.00 Weeks of gestation of pregnancy not specified | CPT/HCPCS: 36415; 84702 ==

== ENCOUNTER → 2020-07-24 | Outpatient (CLI) | payer OTHER ==
[2020-07-24 12:52] VITALS: BP 115/63; PULSE 72; TEMP 98.2
--- NOTE | 2020-07-24 13:06 | P.PN ---
Subjective Progress Note Date: 07/24/20 DATE OF SERVICE: 07/24/2020 CHIEF COMPLAINT: Status post gastric bypass HISTORY OF PRESENT ILLNESS: Celena Nava now Celena Jorge is a 29-year-old female is status post gastric bypass 10/25/2017. She is 2 years out. She had a threatened less than 1 month ago. She presents with moderate epigastric pain and symptomatic hiatal hernia. She reports trouble with eating as well. At her height of 5 foot 4 inches, her ideal body weight is 144 pounds. Her highest weight was 284 pounds. She comes in 171 pounds from 172 pounds, 3 months ago. She has lost 2 pounds in 3 months. Lifetime weight loss of 113 pounds. Her body mass index is down from 48.9 to 29.4. Percent excess weight loss is 81 %. PAST MEDICAL HISTORY: 1. Morbid obesity due to excess weight loss 2. Body mass index of 48.9, initial 3. Depression. 4. Osteoarthritis of the lower back. 5. Hypertensive heart disease. 6. Gastroesophageal reflux disease. PAST SURGICAL HISTORY: 1. Upper endoscopy. 2. Gastric bypass. HOME MEDICATIONS: Medication Instructions Recorded Confirmed FLUoxetine HCL [PROzac] 40 mg PO FR 09/14/18 02/16/20 Melatonin 5 mg PO HS PRN 09/14/18 02/16/20 Multivitamins, Thera [Multivitamin 1 tab PO DAILY 09/14/18 02/16/20 (formulary)] Ferrous Sulfate [Feosol] 325 mg PO DAILY 08/10/19 02/16/20 OXcarbazepine [Oxtellar Xr] 150 mg PO DAILY 08/10/19 02/16/20 Omeprazole [PriLOSEC] 20 mg PO [id number] 08/10/19 02/16/20 Previous Rx's Medication Instructions Recorded Nystatin 100,000 Unit/gm Powd 1 applic TOPICAL BID #60 powder 02/14/20 [Mycostatin Powder] ALLERGIES: Denies. SOCIAL HISTORY: No active tobacco use. She is planning to be April 2018. FAMILY HISTORY: No family history of ulcerative colitis disease or Crohn's disease. She does have a family history of morbid obesity. She denies any lupus in her family. No reports of stomach or esophageal cancer. She has a family history of diabetes. Family history of H. pylori gastritis. His grandmother with osteoporosis. REVIEW OF ORGAN SYSTEMS: CONSTITUTIONAL: Her body mass index was 48.9. At her height of 5 foot 4 inches, her ideal body weight is 144 pounds. Her highest weight was 284 pounds. HEENT: Denies any active troubles with vision or hearing. ENDOCRINE: No diabetes. No hypothyroidism. CARDIOVASCULAR: No reports of palpitations or heart attacks or chest pain. RESPIRATORY: Has daytime somnolence including occassional snoring. No asthma. GI: Denies any bright red blood per rectum. Has gastroesophageal reflux disease. MUSCULOSKELETAL: Has lower back pain and joint pain. Has osteoarthritis of the hips and knees. NEURO: No headaches. No seizure disorders. PSYCH: Has depression without suicidal ideation. RHEUMATOLOGIC: No lupus. No rheumatoid arthritis. HEMATOLOGIC: Denies any abnormal bleeding or bruising. No personal history of DVTs. SKIN: Has panniculitis. No skin cancer. PHYSICAL EXAM: VITAL SIGNS: Height 5 foot 4 inches, weight 171 pounds. BMI 29.4 Vital Signs Temp 98.2 F 07/24/20 12:47 Pulse 72 07/24/20 12:47 Resp BP 115/63 07/24/20 12:47 Pulse Ox GENERAL: Well-developed female in no acute distress. HEENT: No scleral icterus. Extraocular movements grossly intact. Hears conversational speech. No nasal drainage. NECK: Supple without lymphadenopathy. CHEST: Nonlabored respirations with equal bilateral excursions. CARDIOVASCULAR: Regular rate and regular rhythm. Distal 2+ pulses. ABDOMEN: Obese, soft, nontender. Nondistended. MUSCULOSKELETAL: No clubbing, cyanosis, or edema. NEURO: No focal or lateralizing signs. Cranial nerves 2 through 12 grossly within normal limits. PSYCH: Appropriate affect. Alert and oriented to person, place and time. SKIN: Good skin turgor. Well perfused. ASSESSMENT: 1. Morbid obesity due to excess calories. 2. Body mass index of 48.9 down to 29.4 3. Status post gastric bypass. 4. Chronic gastrojejunal ulcer with stricture 5. Dietary surveillance and counseling 6. Inadequate protein intake. 7. Vitamin A deficiency. 8. Panniculitis 9. Dysphagia 10. Gallbladder disorder 11. Hiatal hernia PLAN: 1. Recommend hiatal hernia repair for symptomatic gastroesophageal reflux disease. 2. She also reports panniculitis and may benefit from panniculectomy in the future. 3. Recommend 2 week protein diet. Objective - Vital Signs Vital signs: Vital Signs Temp 98.2 F 07/24/20 12:47 Pulse 72 07/24/20 12:47 Resp BP 115/63 07/24/20 12:47 Pulse Ox Intake & Output 07/23/20 07/24/20 07/24/20 18:59 06:59 18:59 Weight 77.564 kg
== END | disposition home or self-care (01) ==
LOC: BARWHC3 11:54
PROVIDERS: ATTEND Surgery Plastic and Reconstructive Surgery
DX: Z48.815 Encounter for surgical aftercare following surgery on the digestive system (principal); E66.01 Morbid (severe) obesity due to excess calories; K28.9 Gastrojejunal ulcer, unspecified as acute or chronic, without hemorrhage or perforation; K56.699 Other intestinal obstruction unspecified as to partial versus complete obstruction; E63.8 Other specified nutritional deficiencies; E50.9 Vitamin A deficiency, unspecified; M79.3 Panniculitis, unspecified; K82.8 Other specified diseases of gallbladder; K44.9 Diaphragmatic hernia without obstruction or gangrene; Z68.29 Body mass index [BMI] 29.0-29.9, adult; Z71.3 Dietary counseling and surveillance; Z98.84 Bariatric surgery status; Z79.899 Other long term (current) drug therapy
CPT/HCPCS: 99211

== ENCOUNTER → 2020-09-05 | Outpatient (CLI) | payer OTHER ==
[2020-09-05 09:18] LABS: Basophils # (A) 0.1 k/uL (0-0.2); Basophils % (A) 1 %; Eosinophils # (A) 0.1 k/uL (0-0.7); Eosinophils % (A) 1 %; HCT 38.5 % (34.0-46.0); HGB 12.6 gm/dL (11.4-16.0); Lymphocytes % (A) 32 %; MCHC 32.8 g/dL (31.0-37.0); MCV 88.3 fL (80.0-100.0); Mean Platelet Volume 6.5; Monocytes # (A) 0.5 k/uL (0-1.0); Monocytes % (A) 8 %; Neutrophils # (A) 3.5 k/uL (1.3-7.7); Neutrophils % (A) 55 %; Platelet Count 356 k/uL (150-450); RBC 4.35 m/uL (3.80-5.40); RDW 13.8 % (11.5-15.5); WBC 6.3 k/uL (3.8-10.6)
[2020-09-05 09:36] LABS: ALT 11 U/L (4-34); AST 25 U/L (14-36); African American GFR (CKD) >90 (>60 ml/min/1.73 sqM); Albumin 4.1 g/dL (3.5-5.0); Alkaline Phosphatase 52 U/L (38-126); Anion Gap 7 mmol/L; Blood Urea Nitrogen 19 mg/dL (7-17); Calcium 9.3 mg/dL (8.4-10.2); Carbon Dioxide 25 mmol/L (22-30); Chloride 106 mmol/L (98-107); Glucose 86 mg/dL (74-99); Non-African American GFR(CKD) >90 (>60 ml/min/1.73 sqM); Potassium 4.1 mmol/L (3.5-5.1); Sodium 138 mmol/L (137-145); Total Bilirubin 0.4 mg/dL (0.2-1.3); Total Protein 6.8 g/dL (6.3-8.2)
== END | disposition home or self-care (01) ==
LOC: LABPAT 08:10
PROVIDERS: ATTEND Surgery Plastic and Reconstructive Surgery
DX: Z01.818 Encounter for other preprocedural examination (principal)
CPT/HCPCS: 80053; 85025; 93005

== ENCOUNTER 2020-09-09 11:12 | Observation (INO) | payer OTHER ==
--- NOTE | 2020-09-09 05:14 | P.GSHP ---
History of Present Illness H&P Date: 09/09/20 CHIEF COMPLAINT: Paraesophageal hiatal hernia with gastroesophageal reflux disease. HISTORY OF PRESENT ILLNESS: The patient is a 29-year-old female who presents with paraesophageal hiatal hernia and moderate to severe gastroesophageal reflux disease. She has completed an upper endoscopy workup. Now she presents for surgical intervention. PAST MEDICAL HISTORY: Please see list. PAST SURGICAL HISTORY: Please see list. MEDICATIONS: Please see list. ALLERGIES: Please see list. SOCIAL HISTORY: No illicit drug use FAMILY HISTORY: No reports of Crohn disease or ulcerative colitis. REVIEW OF ORGAN SYSTEMS: CONSTITUTIONAL: No reports of fevers or chills. GI: Denies any blood in stools or constipation. PHYSICAL EXAM: VITAL SIGNS: Stable GENERAL: Well-developed pleasant and in no acute distress. HEENT: No scleral icterus. Extraocular movements grossly intact. Moist buccal mucosa. NECK: Supple without lymphadenopathy. CHEST: Unlabored respirations. Equal bilateral excursions. CARDIOVASCULAR: Regular rate and rhythm. Distal 2+ pulses. ABDOMEN: Soft, nondistended. No peritoneal signs. MUSCULOSKELETAL: No clubbing, cyanosis, or edema. SKIN: Well-perfused. Good skin turgor. ASSESSMENT: 1. Diaphragmatic paraesophageal hiatal hernia with severe gastroesophageal reflux disease. PLAN: 1. Recommend proceeding with a robotic paraesophageal hiatal hernia with possible mesh. 2. Benefits and risks of surgical intervention was discussed including possibility of open technique. 3. Inpatient hospitalization recommended of 2 nights 4. DVT prophylaxis. 5. Antibiotic prophylaxis. 6. He has also completed a very low caloric high-protein diet to address under lying hepatomegaly. Past Medical History Past Medical History: GERD/Reflux, Seizure Disorder, Thyroid Disorder Additional Past Medical History / Comment(s): seizures as child-no rx, last seizure 2000, "blood clot in head age 4", gastric ulcer," vomiting a times" past history of rapid heartbeat. History of Any Multi-Drug Resistant Organisms: None Reported Past Surgical History: Bariatric Surgery, Orthopedic Surgery Additional Past Surgical History / Comment(s): surgery to put plates in arianna feet for "flat feet", gastric bypass 10-25-17, endoscopy Past Anesthesia/Blood Transfusion Reactions: No Reported Reaction Smoking Status: Never smoker - Past Family History Mother Family Medical History: Asthma, Diabetes Mellitus, Sleep Apnea/CPAP/BIPAP Additional Family Medical History / Comment(s): Type 2 Diabetes - diet controlled Father Family Medical History: Hyperlipidemia, Hypertension Additional Family Medical History / Comment(s): Hypertension. Hyperlipidaemia Medications and Allergies Home Medications Medication Instructions Recorded Confirmed Type FLUoxetine HCL [PROzac] 60 mg PO DAILY 09/14/18 09/04/20 History Multivitamins, Thera [Multivitamin 1 tab PO DAILY 09/14/18 09/04/20 History (formulary)] Allergies Allergy/AdvReac Type Severity Reaction Status Date / Time No Known Allergies Allergy Verified 09/04/20 13:06
[~2020-09-09 11:12] MED LIST changes: -CHLORHEXIDINE GLUCONATE 15 ML CUP MUCOUS MEM ONE; -DEXAMETHASONE SOD PHOSPHATE 10 MG/ML 1 ML VIAL IV ONE; +DEXAMETHASONE SOD PHOSPHATE 4 MG/ML 1 ML VIAL IV ONE; +HEPARIN SODIUM,PORCINE 5,000 UNIT/ML 1 ML VIAL SQ STA; +LIDOCAINE 1% (10MG/ML) FOR IV START INTRADERMA PRN; -MIDAZOLAM 2 MG/2 ML VIAL IV PRN; -PANTOPRAZOLE 40 MG/10 ML VIAL IV STA; -SCOPOLAMINE 1.5MG/72HR PATCH TRANSDERM STA
[2020-09-09] MEDS ORDERED: KETAMINE 10 MG/ML 20 ML VIAL ONE (13:16)
[2020-09-09] MEDS ORDERED: HYDROmorphone (PF) 1 MG/ML ONE (13:16)
[2020-09-09] MEDS ORDERED: LIDOCAINE 1% INJ 10MG/ML (20 ML MDV) ONE (13:16)
[2020-09-09] MEDS ORDERED: MIDAZOLAM 2 MG/2 ML VIAL ONE (13:16)
[2020-09-09] MEDS ORDERED: PROPOFOL 10 MG/ML 20 ML VIAL IV ONE (13:16)
[2020-09-09] MEDS ORDERED: GLYCOPYRROLATE 0.2 MG/ML 2 ML VIAL ONE (13:16)
[2020-09-09] MEDS ORDERED: NEOSTIGMINE 1 MG/ML 10 ML VIAL ONE (13:16)
[2020-09-09] MEDS ORDERED: ROCURONIUM 10 MG/ML (10 ML VIAL) IV ONE (13:16)
[2020-09-09] MEDS ORDERED: fentaNYL (PF) 50 MCG/ML 2 ML AMP ONE (13:16)
[2020-09-09] MEDS ORDERED: LIDOCAINE 2%-EPI 1:100,000 20 ML VIAL SQ ONE (13:44)
[2020-09-09] MEDS ORDERED: LACTATED RINGERS 1,000 ML IV ONE (14:18)
[2020-09-09] MEDS ORDERED: NALOXONE 0.4 MG/ML 1 ML VIAL IV PRN (15:37)
[2020-09-09] MEDS ORDERED: diphenhydrAMINE 50 MG/ML 1 ML VIAL IVP PRN (15:37)
--- NOTE | 2020-09-09 15:52 | P.OP ---
Date of Procedure: 09/09/20 Description of Procedure: SURGEON: STEPHANI ELLIOTT MD PREOPERATIVE DIAGNOSES: 1. Gastroesophageal reflux disease, with erosive esophagitis 2. Paraesophageal hiatal hernia, midline 3. History of gastric bypass POSTOPERATIVE DIAGNOSES: 1. Gastroesophageal reflux disease, with erosive esophagitis 2. Paraesophageal hiatal hernia, midline 3. History of gastric bypass 4. Peritoneal adhesions with partial small bowel obstruction 5. Chronic gastrojejunal ulcers. OPERATION: 1. Robotic-assisted da Adi Xi laparoscopic reduction and repair of incarcerated paraesophageal hiatal hernia, 3 x 2 cm without mesh 2. Intraoperative esophagogastroscopy ANESTHESIA: General with local anesthetic. ESTIMATED BLOOD LOSS: 10 mL Pathology: None COMPLICATIONS: None. FINDINGS: 1. Incarcerated upper pole of the stomach 2. 2 cm paraesophageal incarcerated diaphragmatic hiatal hernia 3. Peritoneal adhesion of jejujejunostomy to abdominal wall causing functional intermittent small bowel obstruction lysed. 4. Chronic gastrojejunal ulcer INDICATIONS: The patient is a 29 year-old female who presents with epigastric abdominal pain, dysphagia, history of sleeve gastrectomy, gastroesophageal reflux recalcitrant to medical therapy with a symptomatic diaphragmatic hiatal hernia. Preoperative workup including upper endoscopy demonstrated hiatal hernia with erosive esophagitis. Given the severity of symptoms, she had elected for surgical intervention. Benefits and risks including bleeding, infection, recurrence, dysphagia, injury to the lung, need for further surgery was described at length. Informed consent was obtained. DESCRIPTION: The patient was brought into the operating room and placed in supine position. Preoperatively she had received heparin subcutaneously for DVT prophylaxis. After general induction, the abdomen was prepped and draped in standard sterile fashion. The patient had previously voided prior to coming to the operating room. Ioban draping was placed along the abdomen. A timeout protocol was confirmed with the surgical team, for which the patient's name, procedure to be performed including DVT prophylaxis with bilateral SCDs, and preoperative antibiotics were also confirmed. A robotic da Adi Xi system was prepped and primed. At 13 cm from the xiphoid to just below the umbilicus, proposed port sites were marked with indelible marker along the left axillary line, left mid-clavicular line with each ports were marked 10 cm from each other. A 5 mm 0 degrees laparoscopic trocar entry was performed along the left upper quadrant. The abdomen was insufflated to 15 mmHg pressure was tolerated well. Diagnostic laparoscopy demonstrated no injury to bowel, viscera. Adhesions along the left upper quadrant involving the jejunojejunostomy to the abdominal wall created a functional intermittent small bowel obstruction. Next, one 8 mm robotic port was placed along the right upper abdomen. An 8-mm port was were placed along the left lateral abdominal wall. The camera 8-mm port was maintained along the epigastrium. Another 12 mm port was placed along the left upper abdominal wall after exchanging the 5 mm port. Please note that the ports were placed at least 20 cm away from the target anatomy. Care was taken to check that each robotic arm were safely away from collision with the bed or the patient. The patient was repositioned in reverse Trendelenburg position at 21-degrees after lowering the bed. The robot was docked above the left side of the patient. Using a grasper for arm 3, a grasper for arm 1, including vessel sealer for arm 2, the robotic system was docked and primed as described. Instruments were inte rchanged by the dental front office assistant. I had sat at the console. Initial attention was brought to hiatus. Circumferentially the dissection at the hiatus was performed using vessel sealer including blunt dissection. The adhesive band at the left upper quadrant was resected releasing an intermittent small bowel obstruction at the jejunojejunostomy. The gastrohepatic ligament was cleaved using a vessel sealer. Next, the phrenoesophageal ligament was mobilized and the distal esophagus was mobilized circumferentially. An incarcerated hernia sac was found into the mediastinum. The left and right crura was identified. Circumferentially, the hernia sac was incised and brought into the abdominal cavity. Care was taken to avoid any gastrotomy to the incarcerated upper pole of the stomach. The measured defect was measured with a ruler consistent with 3 cm axial length and 2 cm in width. The distal esophagus at least 1 cm was brought into the abdominal cavity. Once the hiatus and crura was dissected, 2-0 VLOC nonabsorbable suture was placed as a running suture to re-approximate the diaphragmatic hiatus posteriorly. Next, intraoperative esophagogastroduodenoscopy was performed. An Olympus gastroscope was passed through posterior oropharynx, where the anastomosis, two gastrojejunal chronic ulcers 2 to 3 mm in size was found without active bleeding. The hiatus repair was confirmed from the incisors. The stomach was entered. The stomach had been desufflated. No evidence of leaks were found or mucosal defects of the esophagus or stomach. This concluded the endoscopic portion of the case. The robot was undocked from the patient. I re-scrubbed into the case. All instruments and pneumoperitoneum were evacuated from the abdominal cavity. The incisions were cleansed with dilute hydrogen peroxide with saline solution. Incisions were reapproximated using 4-0 Monocryl in an interrupted subcuticular fashion. The 12-mm port site fascial defect was less than 8 mm in size. Exofin was applied to the skin. Local anesthetic was infiltrated in all wounds for postop analgesia. Multiple intra-abdominal films were obtained. At the end of the procedure, needle, sponge, and instrument count was verified correct by the sanitation technician. The patient had tolerated the procedure well and was taken to the postanesthesia unit in stable condition. Intraoperative films were reviewed with the patient's family who were pleased with the level of care. Plan - Discharge Summary Discharge Rx Participant: Yes New Discharge Prescriptions: No Action FLUoxetine HCL [PROzac] 60 mg PO DAILY Multivitamins, Thera [Multivitamin (formulary)] 1 tab PO DAILY Discharge Medication List FLUoxetine HCL [PROzac] 60 mg PO DAILY 09/14/18 [History] Multivitamins, Thera [Multivitamin (formulary)] 1 tab PO DAILY 09/14/18 [History]
[2020-09-09] MEDS ORDERED: ACETAMINOPHEN IV (For NPO) 1,000 MG in EMPTY BAG 1 BAG IVPB ONE (16:45)
[2020-09-09] MEDS: ALBUTEROL NEBULIZED 2.5 MG/3 ML INHALATION SCH ×2 (16:49→21:18)
[2020-09-09] MEDS: 0.9% NACL WITH KCL 20 MEQ/L 1,000 ML IV SCH ×2 (17:12→22:14)
[2020-09-09] MEDS: SIMETHICONE 40 MG/0.6 ML DROPS 2,000 MG/30 ML BOTTLE PO SCH ×2 (17:57→23:37)
[2020-09-09] MEDS: HYOSCYAMINE ORAL DROPS 1.875 MG/15 ML BOTTLE PO SCH ×2 (18:00→23:36)
[2020-09-09] MEDS: KETOROLAC 15 MG/ML 1 ML VIAL IVP SCH ×2 (18:01→23:39)
[2020-09-09] MEDS: ONDANSETRON 4 MG/2 ML VIAL IVP SCH ×2 (18:02→23:39)
[2020-09-09] MEDS: HYDROmorphone 1 MG/ML 1 ML SYRINGE IVP PRN (19:57)
[2020-09-10] MEDS: HYDROmorphone 1 MG/ML 1 ML SYRINGE IVP PRN ×2 (02:49→06:02)
[2020-09-10] MEDS: 0.9% NACL WITH KCL 20 MEQ/L 1,000 ML IV SCH ×3 (04:58→20:31)
[2020-09-10] MEDS: KETOROLAC 15 MG/ML 1 ML VIAL IVP SCH ×4 (05:32→23:32)
[2020-09-10] MEDS: ONDANSETRON 4 MG/2 ML VIAL IVP SCH ×4 (05:33→23:32)
[2020-09-10] MEDS: HYOSCYAMINE ORAL DROPS 1.875 MG/15 ML BOTTLE PO SCH ×4 (05:37→23:33)
[2020-09-10] MEDS: SIMETHICONE 40 MG/0.6 ML DROPS 2,000 MG/30 ML BOTTLE PO SCH ×4 (05:37→23:33)
[2020-09-10 07:12] LABS: Basophils % (A) 0 %; Eosinophils % (A) 1 %; HCT 36.5 % (34.0-46.0); HGB 11.7 gm/dL (11.4-16.0); Lymphocytes % (A) 25 %; MCH 28.1 pg (25.0-35.0); MCHC 31.9 g/dL (31.0-37.0); Mean Platelet Volume 6.3; Monocytes # (A) 0.5 k/uL (0-1.0); Monocytes % (A) 7 %; Neutrophils # (A) 5.4 k/uL (1.3-7.7); Neutrophils % (A) 66 %; Platelet Count 322 k/uL (150-450); RBC 4.15 m/uL (3.80-5.40); WBC 8.1 k/uL (3.8-10.6)
[2020-09-10 07:18] LABS: African American GFR (CKD) >90 (>60 ml/min/1.73 sqM); Anion Gap 3 mmol/L; Blood Urea Nitrogen 11 mg/dL (7-17); Calcium 8.7 mg/dL (8.4-10.2); Carbon Dioxide 26 mmol/L (22-30); Chloride 109 mmol/L (98-107); Magnesium 1.9 mg/dL (1.6-2.3); Non-African American GFR(CKD) >90 (>60 ml/min/1.73 sqM); Potassium 4.2 mmol/L (3.5-5.1); Sodium 138 mmol/L (137-145)
[2020-09-10] MEDS: ALBUTEROL NEBULIZED 2.5 MG/3 ML INHALATION SCH ×4 (07:51→19:15)
[2020-09-10 08:42] LABS: Appearance,Urine Clear (Clear); Bilirubin,Urine Negative (Negative); Blood,Urine Negative (Negative); Color,Urine Yellow; Glucose,Urine (UA) Negative (Negative); Ketones,Urine 1+ (Negative); Leukocyte Esterase,Urine Negative (Negative); Nitrite,Urine Negative (Negative); Protein,Urine Negative (Negative); Specific Gravity,Urine 1.023 (1.001-1.035); Urobilinogen,Urine <2.0 mg/dL (<2.0)
--- NOTE | 2020-09-10 09:03 | FL ---
EXAMINATION TYPE: FL UGI DATE OF EXAM: 09/10/2020 LIMITED UGI-ESOPHAGRAM: CLINICAL HISTORY: History of gastric bypass surgery in the past with hiatal hernia and reflux, statu s post Joshua fundoplication surgery yesterday TECHNIQUE: Limited esophagram is performed utilizing 75 oz of Isovue-370. A total of 16 seconds of f luoroscopic time was utilized during procedure. 18 spot images saved to PACS. FINDINGS: The patient swallowed contrast without difficulty or delay. Esophageal peristalsis and mo tility are within normal limits. There is good flow of contrast along the diaphragmatic hiatus into t he stomach remnant and subsequent efferent small bowel loop, there is no evidence of contrast extrava sation to suggest leak. Small persistent hiatal hernia is seen. Small amount of free air below right hemidiaphragm presumed postoperative. Patient remains asymptomatic. IMPRESSION: No evidence of leak or significant obstruction status post Walker fundoplication surgery yesterday. Small residual hiatal hernia is noted on images saved.
[2020-09-10] MEDS: ACETAMINOPHEN TAB 500 MG TAB PO SCH ×3 (09:12→20:29)
[2020-09-10] MEDS: ENOXAPARIN 40 MG/0.4 ML SYRINGE SQ SCH (09:13)
[2020-09-10] MEDS: SUCRALFATE 1 GM TAB PO SCH ×3 (09:14→18:13)
[2020-09-10] MEDS: TAMSULOSIN 0.4 MG CAP.ER.24H PO SCH (11:02)
[2020-09-10] MEDS: SODIUM CHLORIDE 0.9% 1,000 ML IV SCH ×2 (11:10→13:11)
[2020-09-10 12:01] VITALS: BMI 27.0
--- NOTE | 2020-09-10 12:44 | P.PN ---
Subjective Progress Note Date: 09/10/20 CHIEF COMPLAINT: Paraesophageal hiatal hernia and GERD HISTORY OF PRESENT ILLNESS: Patient is postop day #1 status post Robotic- assisted da Adi Xi laparoscopic reduction and repair of incarcerated paraes ophageal hiatal hernia, 3 x 2 cm without mesh and Intraoperative esophagogastroscopy. Patient had been complaining of abdominal pain mostly in the suprapubic area. She had issues with urinary retention and had to be straight cathed 2 times to the night. Patient has been tolerating the bariatric clear liquid diet. She does report having a full sensation earlier than usual. She has been tachycardic heart rate 118 into the low 100s. She's receiving 2 L fluid bolus. She did have some nausea. And does feel dry. Patient denies any vomiting. Afebrile. WBC 8.1 hemoglobin 11.7 potassium 4.2 magnesium 1.9 Upper GI shows no evidence of leak or significant obstruction PHYSICAL EXAM: VITAL SIGNS: Reviewed GENERAL: Well-developed in no acute distress. HEENT: No sclera icterus. Extraocular movements grossly intact. Moist buccal mucosa. Head is atraumatic, normocephalic. Hears conversational speech. No nasal drainage. NECK: Supple without lymphadenopathy. CHEST: Non-labored respirations and equal bilateral excursions. CARDIOVASCULAR: Regular rate with regular rhythm. Palpable 2+ radial pulses. ABDOMEN: Soft. Nondistended. suprapubic tenderness incision sites clean dry and intact MUSCULOSKELETAL: No clubbing or cyanosis. NEUROLOGIC: No focal or lateralizing signs. Cranial nerves II through XII grossly intact. PSYCH: Appropriate affect. Alert and oriented to person, place and time. SKIN: Well perfused. Good skin turgor. ASSESSMENT: 1. Gastroesophageal reflux disease, with erosive esophagitis 2. Paraesophageal hiatal hernia, midline 3. History of gastric bypass 4. Peritoneal adhesions with partial small bowel obstruction 5. Chronic gastrojejunal ulcers. 6. Urinary retention likely secondary to anesthesia PLAN: -continue bariatric clear liquid diet -We'll give the 2 L fluid bolus -Flomax added for urinary retention -Check postvoid residual and insert Cruz catheter if patient has further evidence of urinary retention -Continue pain medication regimen Physician Business Support note has been reviewed by physician. Signing provider agrees with the documented findings, assessment, and plan of care. Objective - Vital Signs Vital signs: Vital Signs Temp 97.9 F 12/15/20 08:00 Pulse 74 09/10/20 11:33 Resp 17 09/10/20 11:33 BP 100/66 09/10/20 08:00 Pulse Ox 99 09/10/20 08:00 Intake & Output 09/09/20 09/10/20 09/10/20 18:59 06:59 18:59 Intake Total 1910 Output Total 10 1400 Balance 1900 -1400 Weight 71.4 kg 71.4 kg Intake: IV 1850 Oral 60 Output: Urine 1400 Straight 1400 Estimated Blood Loss 10 Other: Voiding Method Toilet Toilet Toilet Indwelling Catheter - Labs CBC & Chem 7: 09/10/20 06:50 09/10/20 06:50 Labs: Abnormal Lab Results - Last 24 Hours (Table) 09/10/20 09/10/20 Range/Units 06:50 08:15 Chloride 109 H (98-107) mmol/L Urine Ketones 1+ H (Negative)
[2020-09-11] MEDS: ACETAMINOPHEN TAB 500 MG TAB PO SCH ×3 (02:12→13:47)
[2020-09-11] MEDS: 0.9% NACL WITH KCL 20 MEQ/L 1,000 ML IV SCH (05:27)
[2020-09-11] MEDS: KETOROLAC 15 MG/ML 1 ML VIAL IVP SCH ×2 (06:19→11:51)
[2020-09-11] MEDS: ONDANSETRON 4 MG/2 ML VIAL IVP SCH ×2 (06:19→13:13)
[2020-09-11] MEDS: SUCRALFATE 1 GM TAB PO SCH ×2 (06:19→11:52)
[2020-09-11] MEDS: HYOSCYAMINE ORAL DROPS 1.875 MG/15 ML BOTTLE PO SCH ×2 (06:20→11:53)
[2020-09-11] MEDS: SIMETHICONE 40 MG/0.6 ML DROPS 2,000 MG/30 ML BOTTLE PO SCH ×2 (06:20→11:52)
[2020-09-11] MEDS: ALBUTEROL NEBULIZED 2.5 MG/3 ML INHALATION SCH ×2 (07:56→11:31)
[2020-09-11] MEDS ORDERED: bisacodyL 5 MG TABLET.DR PO PRN (08:00)
[2020-09-11 08:47] VITALS: BP 96/61; RESP 20; TEMP 97.3
[2020-09-11] MEDS: ENOXAPARIN 40 MG/0.4 ML SYRINGE SQ SCH (08:59)
[2020-09-11] MEDS: TAMSULOSIN 0.4 MG CAP.ER.24H PO SCH (08:59)
[2020-09-11 11:34] VITALS: PULSE 80
--- NOTE | 2020-09-11 13:26 | P.DS ---
Providers Date of admission: 09/09/20 15:37 Expected date of discharge: 09/11/20 Attending physician: Leila Early Primary care physician: Stated None Hospital Course: Discharge diagnosis 1. Gastroesophageal reflux disease, with erosive esophagitis 2. Paraesophageal hiatal hernia, midline 3. History of gastric bypass 4. Peritoneal adhesions with partial small bowel obstruction 5. Chronic gastrojejunal ulcers. 6. Urinary retention likely secondary to anesthesia Hospital course The patient is a 29 year-old female who presents with epigastric abdominal pain, dysphagia, history of sleeve gastrectomy, gastroesophageal reflux recalcitrant to medical therapy with a symptomatic diaphragmatic hiatal hernia. Preoperative workup including upper endoscopy demonstrated hiatal hernia with erosive esophagitis. Patient is status post Robotic-assisted da Adi Xi laparoscopic reduction and repair of incarcerated paraesophageal hiatal hernia, 3 x 2 cm without mesh and Intraoperative esophagogastroscopy. Patient is tolerating bariatric clear liquid diet. She had upper GI completed which showed no evidence of leak or significant obstruction. Her pain is controlled. She is afebrile. She is passing gas. She is urinating without difficulty. She is ambulating. Patient is stable for discharge home. Physician Line Camera Operator note has been reviewed by physician. Signing provider agrees with the documented findings, assessment, and plan of care. Patient Condition at Discharge: Stable Plan - Discharge Summary Discharge Rx Participant: Yes New Discharge Prescriptions: New Sucralfate [Carafate] 1 gm PO AC-TID #180 tab Pantoprazole Sodium [Protonix] 40 mg PO DAILY #60 tablet. Acetaminophen Tab [Tylenol] 1,000 mg PO Q6H PRN #30 tab PRN Reason: Pain Continue FLUoxetine HCL [PROzac] 60 mg PO DAILY Discontinued Multivitamins, Thera [Multivitamin (formulary)] 1 tab PO DAILY Discharge Medication List FLUoxetine HCL [PROzac] 60 mg PO DAILY 09/14/18 [History] Acetaminophen Tab [Tylenol] 1,000 mg PO Q6H PRN #30 tab 09/11/20 [Rx] Pantoprazole Sodium [Protonix] 40 mg PO DAILY #60 tablet. 09/11/20 [Rx] Sucralfate [Carafate] 1 gm PO AC-TID #180 tab 09/11/20 [Rx] [place] [facility] [facility] Activity/Diet/Wound Care/Special Instructions: Wear abdominal binder at all times for comfort. No lifting over 4 pounds in 4 weeks until Oct 07. January shower. No bath tub soaks for two weeks until Sep 23 Use ice along incisions for the today to prevent swelling. No straws and carbonated beverages Continue Bariatric liquid diet Discharge Disposition: HOME SELF-CARE
== END 2020-09-11 14:20 | disposition home or self-care (01) ==
LOC: OR 11:12 → 6PED 15:37 → INTOOBSV 15:37 → OR 15:37 → 6PED 15:42 → UNDODISIN 09-11 14:20
PROVIDERS: ADMIT Surgery Plastic and Reconstructive Surgery; ATTEND Surgery Plastic and Reconstructive Surgery
PROC: 0BQT4ZZ Repair Diaphragm, Percutaneous Endoscopic Approach (ICD-10-PCS; principal; 2020-09-09 12:40)
PROC: 0DNW4ZZ Release Peritoneum, Percutaneous Endoscopic Approach (ICD-10-PCS; principal; 2020-09-09 12:40)
PROC: 8E0W4CZ Robotic Assisted Procedure of Trunk Region, Percutaneous Endoscopic Approach (ICD-10-PCS; principal; 2020-09-09 12:40)
PROC: 0DJ08ZZ Inspection of Upper Intestinal Tract, Via Natural or Artificial Opening Endoscopic (ICD-10-PCS; principal; 2020-09-09 12:40)
DX: K44.9 Diaphragmatic hernia without obstruction or gangrene (principal); K56.51 Intestinal adhesions [bands], with partial obstruction; K21.00 Gastro-esophageal reflux disease with esophagitis, without bleeding; K28.7 Chronic gastrojejunal ulcer without hemorrhage or perforation; R33.8 Other retention of urine; R11.0 Nausea; R16.0 Hepatomegaly, not elsewhere classified; E07.9 Disorder of thyroid, unspecified; F32.9 Major depressive disorder, single episode, unspecified; F41.9 Anxiety disorder, unspecified; F90.9 Attention-deficit hyperactivity disorder, unspecified type; Z87.39 Personal history of other diseases of the musculoskeletal system and connective tissue; Z98.84 Bariatric surgery status; Z86.69 Personal history of other diseases of the nervous system and sense organs; Z98.890 Other specified postprocedural states; Z87.898 Personal history of other specified conditions; Z82.49 Family history of ischemic heart disease and other diseases of the circulatory system; Z83.3 Family history of diabetes mellitus; Z82.5 Family history of asthma and other chronic lower respiratory diseases
CPT/HCPCS: 43281; S2900; 74240; 80051; 81003; 81025; 82310; 82565; 83735; 84100; 84520; 85025; 87086; 88305; 94640; 94760

== ENCOUNTER → 2020-09-18 | Outpatient (CLI) | payer OTHER ==
[2020-09-18 13:51] VITALS: BP 108/68; PULSE 80; RESP 18; TEMP 98
--- NOTE | 2020-09-18 13:57 | P.PN ---
Subjective Progress Note Date: 09/18/20 DATE OF SERVICE: 09/18/2020 CHIEF COMPLAINT: Status post gastric bypass HISTORY OF PRESENT ILLNESS: Celena Nava now Celena Jorge is a 29-year-old female is status post gastric bypass 10/25/2017. She is 2 years out. She is now status post hiatal hernia repair, 09/09/2020. She is 2 weeks out. She had ulcers at the time of her surgery. No reports of acute abdominal pain. She reports lower abdominal pain. Separately she is looking into a panniculectomy. At her height of 5 foot 4 inches, her ideal body weight is 144 pounds. Her highest weight was 284 pounds. She comes in 162 pounds from 171 pounds, 2 months ago. She has lost 9 pounds in 2 months. Lifetime weight loss of 122 pounds. Her body mass index is down from 48.9 to 27.8. Percent excess weight loss is 87 %. PHYSICAL EXAM: VITAL SIGNS: Height 5 foot 4 inches, weight 162 pounds. BMI 27.8 Vital Signs Temp 98 F 09/18/20 13:46 Pulse 80 09/18/20 13:46 Resp 18 09/18/20 13:46 BP 108/68 09/18/20 13:46 Pulse Ox GENERAL: Well-developed female in no acute distress. HEENT: No scleral icterus. Extraocular movements grossly intact. Hears conversational speech. No nasal drainage. NECK: Supple without lymphadenopathy. CHEST: Nonlabored respirations with equal bilateral excursions. CARDIOVASCULAR: Regular rate and regular rhythm. Distal 2+ pulses. ABDOMEN: Incisions are intact MUSCULOSKELETAL: No clubbing, cyanosis, or edema. NEURO: No focal or lateralizing signs. Cranial nerves 2 through 12 grossly within normal limits. PSYCH: Appropriate affect. Alert and oriented to person, place and time. SKIN: Good skin turgor. Well perfused. ASSESSMENT: 1. Morbid obesity due to excess calories. 2. Body mass index of 48.9 down to 27.8 3. Status post gastric bypass. 4. Chronic gastrojejunal ulcer with stricture 5. Dietary surveillance and counseling 6. Inadequate protein intake. 7. Vitamin A deficiency. 8. Panniculitis 9. Dysphagia 10. Gallbladder disorder 11. Status post hiatal hernia repair 12. Gastric ulcers PLAN: 1. Recommend carafate and prilosec for gastric ulcers. 2. Recommend deferred assessment for panniculectomy. Objective - Vital Signs Vital signs: Vital Signs Temp 98 F 09/18/20 13:46 Pulse 80 09/18/20 13:46 Resp 18 09/18/20 13:46 BP 108/68 09/18/20 13:46 Pulse Ox Intake & Output 09/17/20 09/18/20 09/18/20 18:59 06:59 18:59 Weight 73.482 kg
== END | disposition home or self-care (01) ==
LOC: BARWHC3 13:09
PROVIDERS: ATTEND Surgery Plastic and Reconstructive Surgery
DX: E66.01 Morbid (severe) obesity due to excess calories (principal); K25.9 Gastric ulcer, unspecified as acute or chronic, without hemorrhage or perforation; E50.9 Vitamin A deficiency, unspecified; E63.8 Other specified nutritional deficiencies; R13.10 Dysphagia, unspecified; M79.3 Panniculitis, unspecified; K82.9 Disease of gallbladder, unspecified; Z68.27 Body mass index [BMI] 27.0-27.9, adult; Z98.84 Bariatric surgery status; Z71.3 Dietary counseling and surveillance; Z98.890 Other specified postprocedural states
CPT/HCPCS: 99211

== ENCOUNTER → 2021-07-23 | Outpatient (CLI) | payer BC, OTHER ==
[2021-07-23 14:55] VITALS: BP 99/63; PULSE 83; RESP 18; TEMP 98.7; BMI 28.6
--- NOTE | 2021-07-23 14:59 | P.HPBAR ---
Bariatric H&P - History & Physicial H&P Date: 07/23/21 History & Physicial: Visit/CC: follow up Patient initial contact: 05/05/17 Initial weight: 137.529 kg Initial weight in pounds: 303.20 Height: 5 ft 4 in Initial BMI: 52.0 Last weight: Current weight: 75.75 kg Current weight in pounds: 167.00 Current BMI: 28.6 [place] body weight (based on NIH guidelines): 54.431 kg Excess body weight loss: 74.3% The patient is a 30 year-old F who presents for Bariatric Assessment. She is 1st trimester. She has not checked her bariatric labs in 2 years. She has not told her OB of her bariatric procedure. Recommend bariatric labs. Increase PNV to 2 daily. Follow up in 1 month. Past Medical History Past Medical History: GERD/Reflux, Seizure Disorder, Thyroid Disorder Additional Past Medical History / Comment(s): seizures as child-no rx, last seizure 2000, "blood clot in head age 4", gastric ulcer," vomiting a times" past history of rapid heartbeat. History of Any Multi-Drug Resistant Organisms: None Reported Past Surgical History: Bariatric Surgery, Orthopedic Surgery Additional Past Surgical History / Comment(s): surgery to put plates in arianna feet for "flat feet", gastric bypass 10-25-17, endoscopy Past Anesthesia/Blood Transfusion Reactions: No Reported Reaction Smoking Status: Never smoker - Past Family History Mother Family Medical History: Asthma, Diabetes Mellitus, Sleep Apnea/CPAP/BIPAP Additional Family Medical History / Comment(s): Type 2 Diabetes - diet controlled Father Family Medical History: Hyperlipidemia, Hypertension Additional Family Medical History / Comment(s): Hypertension. Hyperlipidaemia Surgical - Exam Vital Signs Temp Pulse Resp BP 98.7 F 83 18 99/63 07/23/21 14:49 07/23/21 14:49 07/23/21 14:49 07/23/21 14:49 Bariatric Checklist Checklist: Plan: Checklist: EGD: 1. Hiatal hernia: 2. H. Pylori: HgbA1c: Vitamin D: Smoking: Never smoker Primary care physician referral: [facility] Psychiatry clearance: Cardiology clearance: Sleep study: Diet journal: VTE risk score: VTE risk level: Rehab needs at discharge:
[2021-07-23 15:47] LABS: Anisocytosis Slight; HCT 34.6 % (34.0-46.0); HGB 11.2 gm/dL (11.4-16.0); MCH 27.5 pg (25.0-35.0); MCHC 32.4 g/dL (31.0-37.0); MCV 84.9 fL (80.0-100.0); Platelet Count 355 k/uL (150-450); RBC 4.07 m/uL (3.80-5.40); RDW 17.8 % (11.5-15.5); WBC 9.3 k/uL (3.8-10.6)
[2021-07-23 18:54] LABS: INR 0.9 (<1.2); Partial Thromboplastin Time 21.5 sec (22.0-30.0); Prothrombin Time 9.5 sec (9.0-12.0)
[2021-07-24 01:03] LABS: % Iron Saturation 15.04 (12.00-45.00); ALT 13 U/L (8-44); AST 20 U/L (13-35); African American GFR (CKD) 166.2 (60.0-200.0); Albumin 3.9 g/dL (3.8-4.9); Albumin/Globulin Ratio 1.83 (1.60-3.17); Alkaline Phosphatase 45 U/L (41-126); Blood Urea Nitrogen 13.8 mg/dL (9.0-27.0); Calcium 9.2 mg/dL (8.7-10.3); Carbon Dioxide 29.3 mmol/L (21.6-31.8); Chloride 103 mmol/L (96-109); Chol/HDL Ratio 1.86 Ratio; Ferritin 7.6 ng/mL (10.0-291.0); Globulin 2.1 g/dL (1.6-3.3); Glucose 80 mg/dL (70-110); Iron 72 ug/dL (50-170); LDL Cholesterol,Calculated 51.4 mg/dL (0.0-131.0); Magnesium 1.8 mg/dL (1.5-2.4); Non-African American GFR(CKD) 143.4 (60.0-200.0); Phosphorus 4.1 mg/dL (2.4-5.1); Potassium 4.3 mmol/L (3.5-5.5); Prealbumin 21.1 mg/dL (18.0-42.0); Sodium 134 mmol/L (135-145); Total Bilirubin <0.20 mg/dL (0.30-1.20); Total Iron Binding Capacity 480 ug/dL (228-460); VLDL Calculation 10.88 mg/dL (5.00-40.00)
[2021-07-24 13:24] LABS: Zinc, Serum 87 ug/dL (60-130)
[2021-07-25 06:46] LABS: Vitamin A 40 ug/dL (38-106)
[2021-07-25 13:23] LABS: Vit B1(Thiamine) 99 ug/L (38-122)
== END ==
LOC: BARWHC3 13:39
PROVIDERS: ATTEND Surgery Plastic and Reconstructive Surgery
DX: E66.01 Morbid (severe) obesity due to excess calories (principal); E89.1 Postprocedural hypoinsulinemia; D50.8 Other iron deficiency anemias; E44.0 Moderate protein-calorie malnutrition; E55.9 Vitamin D deficiency, unspecified; K74.1 Hepatic sclerosis; N19 Unspecified kidney failure; K50.90 Crohn's disease, unspecified, without complications; Z68.28 Body mass index [BMI] 28.0-28.9, adult; Z98.84 Bariatric surgery status
CPT/HCPCS: 80053; 80061; 82306; 82525; 82607; 82728; 82746; 83036; 83540; 83550; 83735; 83970; 84100; 84134; 84255; 84425; 84443; 84590; 84630; 85027; 85610; 85730; 99211

== ENCOUNTER 2021-09-07 14:09 | Emergency (ER) | payer BC ==
[2021-09-07 14:26] VITALS: RESP 18; TEMP 98.3
[2021-09-07] MEDS ORDERED: SODIUM CHLORIDE 0.9% 1,000 ML IV STA ×2 (14:53→15:54)
[2021-09-07 15:10] LABS: Basophils % (A) 0 %; Eosinophils # (A) 0.1 k/uL (0-0.7); Eosinophils % (A) 2 %; HCT 33.6 % (34.0-46.0); HGB 10.6 gm/dL (11.4-16.0); Hypochromasia Slight; Lymphocytes # (A) 1.1 k/uL (1.0-4.8); Lymphocytes % (A) 17 %; MCH 27.3 pg (25.0-35.0); MCHC 31.5 g/dL (31.0-37.0); MCV 86.8 fL (80.0-100.0); Mean Platelet Volume 7.4; Monocytes # (A) 0.4 k/uL (0-1.0); Monocytes % (A) 7 %; Neutrophils # (A) 4.8 k/uL (1.3-7.7); Neutrophils % (A) 73 %; Platelet Count 389 k/uL (150-450); RBC 3.87 m/uL (3.80-5.40); RDW 15.4 % (11.5-15.5); WBC 6.5 k/uL (3.8-10.6)
[2021-09-07 15:25] LABS: Potassium 3.4 mmol/L (3.5-5.1)
[2021-09-07 15:26] LABS: ALT 12 U/L (4-34); AST 25 U/L (14-36); African American GFR (CKD) >90 (>60 ml/min/1.73 sqM); Albumin 3.4 g/dL (3.5-5.0); Alkaline Phosphatase 50 U/L (38-126); Amylase 64 U/L (30-110); Anion Gap 7 mmol/L; Appearance,Urine Cloudy (Clear); Bacteria,Urine Occasional /hpf; Bilirubin,Urine Negative (Negative); Blood Urea Nitrogen 6 mg/dL (7-17); Blood,Urine Negative (Negative); Calcium 8.5 mg/dL (8.4-10.2); Carbon Dioxide 19 mmol/L (22-30); Chloride 107 mmol/L (98-107); Color,Urine Yellow; Glucose 79 mg/dL (74-99); Glucose,Urine (UA) Negative (Negative); Ketones,Urine 3+ (Negative); Leukocyte Esterase,Urine Moderate (Negative); Lipase 174 U/L (23-300); Mucus,Urine Occasional /hpf; Nitrite,Urine Negative (Negative); Non-African American GFR(CKD) >90 (>60 ml/min/1.73 sqM); PH, Urine 5.5 (5.0-8.0); Protein,Urine Trace (Negative); RBC,Urine 3 /hpf (0-5); Sodium 133 mmol/L (137-145); Specific Gravity,Urine 1.017 (1.001-1.035); Squamous Epithelial Cell,Urine 7 /hpf (0-4); Total Bilirubin 0.4 mg/dL (0.2-1.3); Total Protein 6.2 g/dL (6.3-8.2); Urobilinogen,Urine <2.0 mg/dL (<2.0); WBC,Urine 4 /hpf (0-5)
--- NOTE | 2021-09-07 15:27 | ED ---
General Adult HPI - General Chief complaint: Vaginal Bleeding Stated complaint: 17 weeks , dehydrated Time Seen by Provider: 09/07/21 14:34 Source: patient, EMS, RN notes reviewed Mode of arrival: EMS - History of Present Illness Initial comments: 30-year-old female currently 17 weeks presents to the emergency room for a chief complaint of abdominal pain. Patient states she has had sharp abdominal cramping in the lower abdomen for the past day or so. Prior to that she hadn't felt the baby move for a few days. Patient is having diarrhea and is not sure if this is what causing the pain. Patient denies fevers. She denies nausea vomiting.Patient has no other complaints at this time including shortness of breath, chest pain, nausea or vomiting, headache, or visual changes. - Related Data Home Medications Medication Instructions Recorded Confirmed Pnv No.95/Ferrous Fum/Folic AC 1 each PO DAILY 07/23/21 07/23/21 [ Multivitamin Tablet] Previous Rx's Medication Instructions Recorded Acetaminophen Tab [Tylenol] 1,000 mg PO Q6H PRN #30 tab 09/11/20 Allergies Allergy/AdvReac Type Severity Reaction Status Date / Time No Known Allergies Allergy Verified 07/23/21 14:55 Review of Systems ROS Statement: Those systems with pertinent positive or pertinent negative responses have been documented in the HPI. ROS Other: All systems not noted in ROS Statement are negative. Past Medical History Past Medical History: GERD/Reflux, Seizure Disorder, Thyroid Disorder Additional Past Medical History / Comment(s): seizures as child-no rx, last seizure 2000, "blood clot in head age 4", gastric ulcer," vomiting a times" past history of rapid heartbeat. History of Any Multi-Drug Resistant Organisms: None Reported Past Surgical History: Bariatric Surgery, Orthopedic Surgery Additional Past Surgical History / Comment(s): surgery to put plates in arianna feet for "flat feet", gastric bypass 10-25-17, endoscopy Past Anesthesia/Blood Transfusion Reactions: No Reported Reaction Past Psychological History: ADD/ADHD, Depression Smoking Status: Never smoker Past Alcohol Use History: None Reported Past Drug Use History: None Reported - Past Family History Mother Family Medical History: Asthma, Diabetes Mellitus, Sleep Apnea/CPAP/BIPAP Additional Family Medical History / Comment(s): Type 2 Diabetes - diet controlled Father Family Medical History: Hyperlipidemia, Hypertension Additional Family Medical History / Comment(s): Hypertension. Hyperlipidaemia General Exam General appearance: alert, in no apparent distress Head exam: Present: atraumatic Eye exam: Present: normal appearance, PERRL, EOMI. Absent: scleral icterus, conjunctival injection ENT exam: Present: normal exam, mucous membranes moist Neck exam: Present: normal inspection, full ROM. Absent: tenderness Respiratory exam: Present: normal lung sounds bilaterally. Absent: respiratory distress, wheezes Cardiovascular Exam: Present: regular rate, normal rhythm, normal heart sounds GI/Abdominal exam: Present: soft, normal bowel sounds. Absent: distended, tenderness (No abdominal tenderness on exam), guarding, rebound, rigid Neurological exam: Present: alert Course Vital Signs 09/07/21 14:20 Temperature 98.3 F Pulse Rate 90 Respiratory 18 Rate Blood Pressure 101/71 O2 Sat by Pulse 99 Oximetry Medical Decision Making - Medical Decision Making Vitals are stable. HPI and physical exam as documented. Nontender abdomen. No vaginal bleeding. CBC unremarkable. CMP does show evidence of dehydration with 3+ ketones in the urine. COVID-19 negative. ultrasound shows a gestational age of 18 weeks without complicating process. Patient was given 2 L of fluid for dehydration. He was assured that this point in time ultrasound looks good for her but that she needs to follow up with her OB. She does have an established OB out of town. She will return here for any worsening symptoms - Lab Data Result diagrams: 09/07/21 15:06 09/07/21 15:06 Lab Results 09/07/21 09/07/21 09/07/21 Range/Units 15:06 15:06 15:06 WBC 6.5 (3.8-10.6) k/uL RBC 3.87 (3.80-5.40) m/uL Hgb 10.6 L (11.4-16.0) gm/dL Hct 33.6 L (34.0-46.0) % MCV 86.8 (80.0-100.0) fL MCH 27.3 (25.0-35.0) pg MCHC 31.5 (31.0-37.0) g/dL RDW 15.4 (11.5-15.5) % Plt Count 389 (150-450) k/uL MPV 7.4 Neutrophils % 73 % Lymphocytes % 17 % Monocytes % 7 % Eosinophils % 2 % Basophils % 0 % Neutrophils # 4.8 (1.3-7.7) k/uL Lymphocytes # 1.1 (1.0-4.8) k/uL Monocytes # 0.4 (0-1.0) k/uL Eosinophils # 0.1 (0-0.7) k/uL Basophils # 0.0 (0-0.2) k/uL Hypochromasia Slight Sodium 133 L (137-145) mmol/L Potassium 3.4 L (3.5-5.1) mmol/L Chloride 107 (98-107) mmol/L Carbon Dioxide 19 L (22-30) mmol/L Anion Gap 7 mmol/L BUN 6 L (7-17) mg/dL Creatinine 0.41 L (0.52-1.04) mg/dL Est GFR (CKD-EPI)AfAm >90 (>60 ml/min/1.73 sqM) Est GFR (CKD-EPI)NonAf >90 (>60 ml/min/1.73 sqM) Glucose 79 (74-99) mg/dL Calcium 8.5 (8.4-10.2) mg/dL Total Bilirubin 0.4 (0.2-1.3) mg/dL AST 25 (14-36) U/L ALT 12 (4-34) U/L Alkaline Phosphatase 50 (38-126) U/L Total Protein 6.2 L (6.3-8.2) g/dL Albumin 3.4 L (3.5-5.0) g/dL Amylase 64 (30-110) U/L Lipase 174 (23-300) U/L Urine Color Yellow Urine Appearance Cloudy H (Clear) Urine pH 5.5 (5.0-8.0) Ur Specific [place] 1.017 (1.001-1.035) Urine Protein Trace H (Negative) Urine Glucose (UA) Negative (Negative) Urine Ketones 3+ H (Negative) Urine Blood Negative (Negative) Urine Nitrite Negative (Negative) Urine Bilirubin Negative (Negative) Urine Urobilinogen <2.0 (<2.0) mg/dL Ur Leukocyte Esterase Moderate H (Negative) Urine RBC 3 (0-5) /hpf Urine WBC 4 (0-5) /hpf Ur Squamous Epith Cells 7 H (0-4) /hpf Urine Bacteria Occasional H (None) /hpf Urine Mucus Occasional H (None) /hpf Coronavirus (PCR) (Not Detectd) 09/07/21 Range/Units 15:14 WBC (3.8-10.6) k/uL RBC (3.80-5.40) m/uL Hgb (11.4-16.0) gm/dL Hct (34.0-46.0) % MCV (80.0-100.0) fL MCH (25.0-35.0) pg MCHC (31.0-37.0) g/dL RDW (11.5-15.5) % Plt Count (150-450) k/uL MPV Neutrophils % % Lymphocytes % % Monocytes % % Eosinophils % % Basophils % % Neutrophils # (1.3-7.7) k/uL Lymphocytes # (1.0-4.8) k/uL Monocytes # (0-1.0) k/uL Eosinophils # (0-0.7) k/uL Basophils # (0-0.2) k/uL Hypochromasia Sodium (137-145) mmol/L Potassium (3.5-5.1) mmol/L Chloride (98-107) mmol/L Carbon Dioxide (22-30) mmol/L Anion Gap mmol/L BUN (7-17) mg/dL Creatinine (0.52-1.04) mg/dL Est GFR (CKD-EPI)AfAm (>60 ml/min/1.73 sqM) Est GFR (CKD-EPI)NonAf (>60 ml/min/1.73 sqM) Glucose (74-99) mg/dL Calcium (8.4-10.2) mg/dL Total Bilirubin (0.2-1.3) mg/dL AST (14-36) U/L ALT (4-34) U/L Alkaline Phosphatase (38-126) U/L Total Protein (6.3-8.2) g/dL Albumin (3.5-5.0) g/dL Amylase (30-110) U/L Lipase (23-300) U/L Urine Color Urine Appearance (Clear) Urine pH (5.0-8.0) Ur Specific [place] (1.001-1.035) Urine Protein (Negative) Urine Glucose (UA) (Negative) Urine Ketones (Negative) Urine Blood (Negative) Urine Nitrite (Negative) Urine Bilirubin (Negative) Urine Urobilinogen (<2.0) mg/dL Ur Leukocyte Esterase (Negative) Urine RBC (0-5) /hpf Urine WBC (0-5) /hpf Ur Squamous Epith Cells (0-4) /hpf Urine Bacteria (None) /hpf Urine Mucus (None) /hpf Coronavirus (PCR) Not Detected (Not Detectd) Disposition Clinical Impression: Dehydration, Diarrhea, Intrauterine Disposition: HOME SELF-CARE Condition: Good Instructions (If sedation given, give patient instructions): Acute Diarrhea (ED) Additional Instructions: Please drink plenty of fluids. Please follow-up with your doctor in one to 2 days. Return to the emergency room for any worsening symptoms. Is patient prescribed a controlled substance at d/c from ED?: No Referrals: Nelly Feliciano DO [Primary Care Provider] - 1-2 days Time of Disposition: 16:45
--- NOTE | 2021-09-07 15:56 | US ---
EXAMINATION TYPE: US OB >= 14 wk fetus DATE OF EXAM: 09/07/2021 COMPARISON: None CLINICAL HISTORY: pain TECHNIQUE: GESTATIONAL AGE / DATING Physician Established: (18 weeks/0 days) EDC: 02-08-22 Dates by LMP: LMP unknown Dates by First Scan: No previous at this facility Dates by Current Scan: (18 weeks/0 days) EDC: 02-08-22 SURVEY IUP: Single PLACENTA: Posterior PREVIA: No Previa KIMBERLEY: 14.2 cm CERVICAL LENGTH (transabdominal: norm > 3.0cm): 3.6 cm BIOMETRY PRESENTATION: Breech BPD: 4.1 cm 18 weeks / 4 days HC: 15.0 cm 18 weeks / 0 days AC: 13.0 cm 18 weeks / 4 days FL: 2.5 cm 17 weeks / 4 days ESTIMATED WEIGHT IN GRAMS: 222 grams ESTIMATED WEIGHT IN LBS/OZ: 0 lbs. 8 oz. HC/AC: 1.2 FL/AC: 19.2 HEART RATE: 158 bpm RHYTHM: Normal IMPRESSION: The ultrasound gestational age is 18 weeks. No complicating process seen.
[2021-09-07 17:02] VITALS: BP 104/70; PULSE 84
== END 2021-09-07 17:18 | disposition home or self-care (01) ==
LOC: EC 14:09
DX: O99.611 Diseases of the digestive system complicating pregnancy, first trimester (principal); O99.283 Endocrine, nutritional and metabolic diseases complicating pregnancy, third trimester; E86.0 Dehydration; R19.7 Diarrhea, unspecified; G40.909 Epilepsy, unspecified, not intractable, without status epilepticus; Z3A.17 17 weeks gestation of pregnancy; F90.9 Attention-deficit hyperactivity disorder, unspecified type; F32.A Depression, unspecified
CPT/HCPCS: 36415; 76805; 80053; 81001; 82150; 83690; 85025; 87635; 99284

== ENCOUNTER 2022-03-05 15:45 | Inpatient (IN) | payer BC ==
[2022-03-05] MEDS ORDERED: SODIUM CHLORIDE 0.9% 1,000 ML IV STA (20:23)
[2022-03-05] MEDS ORDERED: SODIUM CHLORIDE 0.9% 2,000 ML IV ONE (20:27)
--- NOTE | 2022-03-05 20:29 | ED ---
General Adult HPI - General Chief complaint: Dizziness Stated complaint: dehydration, SOB Time Seen by Provider: 03/05/22 20:17 Source: patient, RN notes reviewed Mode of arrival: wheelchair Limitations: no limitations - History of Present Illness Initial comments: This is a pleasant 31-year-old female who is 3 weeks from a vaginal delivery. Patient presents today complaining of 2 days of lightheadedness, palpitations, and generalized abdominal discomfort. Patient has had nausea but no vomiting. Denies any overt shortness of breath. No cough. No diarrhea. Patient states that the delivery went well. She is describing rubra lochia. Patient describing lightheadedness as opposed to overt dizziness. No headache, no fever or chills, no changes in vision or hearing, no sore throat or difficulty with speech, no neck pain, no chest pain or shortness of breath, no abdominal pain, no nausea or vomiting, no changes in urination or bowel movements, no numbness or tingling, no extremity pain, no skin rashes or lesions. - Related Data Home Medications Medication Instructions Recorded Confirmed FLUoxetine HCL [PROzac] 20 mg PO DAILY 03/05/22 03/05/22 FLUoxetine HCL [PROzac] 40 mg PO DAILY 03/05/22 03/05/22 Ferrous Sulfate [Feosol] 325 mg PO DAILY 03/05/22 03/05/22 Allergies Allergy/AdvReac Type Severity Reaction Status Date / Time No Known Allergies Allergy Verified 03/05/22 20:42 Review of Systems ROS Statement: Those systems with pertinent positive or pertinent negative responses have been documented in the HPI. ROS Other: All systems not noted in ROS Statement are negative. Past Medical History Past Medical History: GERD/Reflux, Seizure Disorder, Thyroid Disorder Additional Past Medical History / Comment(s): seizures as child-no rx, last seizure 2000, "blood clot in head age 4", gastric ulcer," vomiting a times" past history of rapid heartbeat. History of Any Multi-Drug Resistant Organisms: None Reported Past Surgical History: Bariatric Surgery, Orthopedic Surgery Additional Past Surgical History / Comment(s): surgery to put plates in arianna feet for "flat feet", gastric bypass 10-25-17, endoscopy Past Anesthesia/Blood Transfusion Reactions: No Reported Reaction Past Psychological History: ADD/ADHD, Depression Smoking Status: Never smoker - Past Family History Mother Family Medical History: Asthma, Diabetes Mellitus, Sleep Apnea/CPAP/BIPAP Additional Family Medical History / Comment(s): Type 2 Diabetes - diet controlled Father Family Medical History: Hyperlipidemia, Hypertension Additional Family Medical History / Comment(s): Hypertension. Hyperlipidaemia General Exam - General Exam Comments Initial Comments: Patient appears to have adequate perfusion. However she is noted to be tachycardic. Remainder of vital signs are stable. Systolic blood pressure in the 90s. Limitations: no limitations General appearance: alert, in distress Head exam: Present: atraumatic, normocephalic, normal inspection Eye exam: Present: normal appearance, PERRL, EOMI. Absent: scleral icterus, conjunctival injection, periorbital swelling ENT exam: Present: normal exam, normal oropharynx, mucous membranes dry, mucous membranes moist Neck exam: Present: normal inspection, full ROM. Absent: tenderness, meningismus, lymphadenopathy Respiratory exam: Present: normal lung sounds bilaterally. Absent: respiratory distress, wheezes, rales, rhonchi, stridor Cardiovascular Exam: Present: normal rhythm, tachycardia, normal heart sounds. Absent: systolic murmur, diastolic murmur, rubs, gallop, clicks GI/Abdominal exam: Present: soft, tenderness (Relies tenderness to palpation), normal bowel sounds. Absent: distended, guarding, rebound, rigid External exam: Present: normal external exam. Absent: erythema, swelling, lesions, lacerations, ecchymosis Speculum exam: Present: vaginal discharge, vaginal bleeding (Evidence of old vaginal bleeding with some purulent discharge noted as well.), other (Chaperoned by Mesha MIR). Absent: normal speculum exam, erythema, cervical discharge, foreign body, tissue, laceration Extremities exam: Present: normal inspection, full ROM, normal capillary refill. Absent: tenderness, pedal edema, joint swelling, calf tenderness Back exam: Present: normal inspection Neurological exam: Present: alert, oriented X3, CN II-XII intact Psychiatric exam: Present: normal affect, normal mood Skin exam: Present: warm, dry, intact, normal color. Absent: rash Course Vital Signs 03/05/22 03/05/22 03/05/22 16:55 20:55 22:00 Temperature 98.8 F Pulse Rate 121 H 105 H 104 H Respiratory 16 18 16 Rate Blood Pressure 96/68 103/73 102/71 O2 Sat by Pulse 98 99 97 Oximetry 03/05/22 03/05/22 03/06/22 22:45 23:00 00:00 Temperature Pulse Rate 103 H 104 H 104 H Respiratory 16 16 16 Rate Blood Pressure 103/72 103/74 97/67 O2 Sat by Pulse 97 98 Oximetry 03/06/22 03/06/22 01:00 02:00 Temperature Pulse Rate 105 H 104 H Respiratory 16 16 Rate Blood Pressure 95/73 105/75 O2 Sat by Pulse 97 97 Oximetry - Reevaluation(s) Reevaluation #1: 03/05/22 22:01 Medical record is reviewed Symptoms are minimally improved here in the emergency department Patient is informed of results and questions answered Patient in no distress Reevaluation #2: 03/05/22 23:34 Medical record is reviewed Symptoms are improved here in the emergency department Patient is informed of results and questions answered Patient in no distress Computed tomography scan shows a large saddle embolus. Spoke to on-call vascular who suggested heparin drip with possible ICU admission was discussed with the correspondent - Consultations Consultation #1: Case was discussed in detail with the on-call vascular surgeon, Dr. Feliz, who suggested heparin drip and possible EKOS in the morning. He also suggested possible ICU admission. We'll discuss with medicine. EKG Findings - EKG Comments: EKG Findings:: EKG done at 1701 and regular ED attending physician reveals sinus tachycardia with rate 122. Nonspecific ST and T wave abnormalities. Normal axis. Normal intervals. Medical Decision Making - Medical Decision Making Patient 3 weeks , tachycardic, intermittent abdominal pains and palpitations. Differential includes infectious etiology, possible pulmonary embolism. Dehydration. Anemia. Received a call from the radiologist, patient has a large saddle embolus Case discussed with both the vascular surgeon on-call and the correspondent. The case was discussed in detail with ED attending physician. Presentation, findings, treatment plan discussed in detail. sugar refinery supervisor, Dr. Ordaz - Lab Data Result diagrams: 03/05/22 20:54 03/05/22 20:54 Lab Results 03/05/22 03/05/22 03/05/22 Range/Units 20:54 20:54 20:54 WBC 10.1 (3.8-10.6) k/uL RBC 4.52 (3.80-5.40) m/uL Hgb 9.8 L (11.4-16.0) gm/dL Hct 34.7 (34.0-46.0) % MCV 76.8 L (80.0-100.0) fL MCH 21.7 L (25.0-35.0) pg MCHC 28.2 L (31.0-37.0) g/dL RDW 18.7 H (11.5-15.5) % Plt Count 443 (150-450) k/uL MPV 6.8 Neutrophils % 68 % Lymphocytes % 22 % Monocytes % 6 % Eosinophils % 1 % Basophils % 1 % Neutrophils # 6.8 (1.3-7.7) k/uL Lymphocytes # 2.2 (1.0-4.8) k/uL Monocytes # 0.6 (0-1.0) k/uL Eosinophils # 0.1 (0-0.7) k/uL Basophils # 0.1 (0-0.2) k/uL Hypochromasia Marked Anisocytosis Slight Microcytosis Slight PT (9.0-12.0) sec INR (<1.2) D-Dimer (<0.60) mg/L FEU Sodium 140 (137-145) mmol/L Potassium 4.2 (3.5-5.1) mmol/L Chloride 106 (98-107) mmol/L Carbon Dioxide 24 (22-30) mmol/L Anion Gap 10 mmol/L BUN 17 (7-17) mg/dL Creatinine 0.56 (0.52-1.04) mg/dL Est GFR (CKD-EPI)AfAm >90 (>60 ml/min/1.73 sqM) Est GFR (CKD-EPI)NonAf >90 (>60 ml/min/1.73 sqM) Glucose 90 (74-99) mg/dL Plasma Lactic Acid Scott 1.1 (0.7-2.0) mmol/L Calcium 8.7 (8.4-10.2) mg/dL Magnesium 2.1 (1.6-2.3) mg/dL Total Bilirubin 0.4 (0.2-1.3) mg/dL AST 22 (14-36) U/L ALT 8 (4-34) U/L Alkaline Phosphatase 102 (38-126) U/L Troponin I (0.000-0.034) ng/mL NT-Pro-B Natriuret Pep pg/mL Total Protein 6.9 (6.3-8.2) g/dL Albumin 3.6 (3.5-5.0) g/dL Lipase 109 (23-300) U/L Urine Color Urine Appearance (Clear) Urine pH (5.0-8.0) Ur Specific [place] (1.001-1.035) Urine Protein (Negative) Urine Glucose (UA) (Negative) Urine Ketones (Negative) Urine Blood (Negative) Urine Nitrite (Negative) Urine Bilirubin (Negative) Urine Urobilinogen (<2.0) mg/dL Ur Leukocyte Esterase (Negative) Urine RBC (0-5) /hpf Urine WBC (0-5) /hpf Ur Squamous Epith Cells (0-4) /hpf Urine Bacteria (None) /hpf Urine Mucus (None) /hpf Coronavirus (PCR) (Not Detectd) Trichomonas Ag (Rapid) (Negative) 03/05/22 03/05/22 03/05/22 Range/Units 20:54 20:54 21:06 WBC (3.8-10.6) k/uL RBC (3.80-5.40) m/uL Hgb (11.4-16.0) gm/dL Hct (34.0-46.0) % MCV (80.0-100.0) fL MCH (25.0-35.0) pg MCHC (31.0-37.0) g/dL RDW (11.5-15.5) % Plt Count (150-450) k/uL MPV Neutrophils % % Lymphocytes % % Monocytes % % Eosinophils % % Basophils % % Neutrophils # (1.3-7.7) k/uL Lymphocytes # (1.0-4.8) k/uL Monocytes # (0-1.0) k/uL Eosinophils # (0-0.7) k/uL Basophils # (0-0.2) k/uL Hypochromasia Anisocytosis Microcytosis PT (9.0-12.0) sec INR (<1.2) D-Dimer 8.70 H (<0.60) mg/L FEU Sodium (137-145) mmol/L Potassium (3.5-5.1) mmol/L Chloride (98-107) mmol/L Carbon Dioxide (22-30) mmol/L Anion Gap mmol/L BUN (7-17) mg/dL Creatinine (0.52-1.04) mg/dL Est GFR (CKD-EPI)AfAm (>60 ml/min/1.73 sqM) Est GFR (CKD-EPI)NonAf (>60 ml/min/1.73 sqM) Glucose (74-99) mg/dL Plasma Lactic Acid Scott (0.7-2.0) mmol/L Calcium (8.4-10.2) mg/dL Magnesium (1.6-2.3) mg/dL Total Bilirubin (0.2-1.3) mg/dL AST (14-36) U/L ALT (4-34) U/L Alkaline Phosphatase (38-126) U/L Troponin I (0.000-0.034) ng/mL NT-Pro-B Natriuret Pep pg/mL Total Protein (6.3-8.2) g/dL Albumin (3.5-5.0) g/dL Lipase (23-300) U/L Urine Color Dark Yellow Urine Appearance Cloudy H (Clear) Urine pH 6.0 (5.0-8.0) Ur Specific [place] 1.033 (1.001-1.035) Urine Protein 2+ H (Negative) Urine Glucose (UA) Negative (Negative) Urine Ketones Trace H (Negative) Urine Blood Large H (Negative) Urine Nitrite Negative (Negative) Urine Bilirubin 1+ H (Negative) Urine Urobilinogen 12.0 (<2.0) mg/dL Ur Leukocyte Esterase Large H (Negative) Urine RBC 134 H (0-5) /hpf Urine WBC >182 H (0-5) /hpf Ur Squamous Epith Cells 3 (0-4) /hpf Urine Bacteria Occasional H (None) /hpf Urine Mucus Many H (None) /hpf Coronavirus (PCR) Not Detected (Not Detectd) Trichomonas Ag (Rapid) (Negative) 03/05/22 03/05/22 03/05/22 Range/Units 22:53 23:53 23:53 WBC (3.8-10.6) k/uL RBC (3.80-5.40) m/uL Hgb (11.4-16.0) gm/dL Hct (34.0-46.0) % MCV (80.0-100.0) fL MCH (25.0-35.0) pg MCHC (31.0-37.0) g/dL RDW (11.5-15.5) % Plt Count (150-450) k/uL MPV Neutrophils % % Lymphocytes % % Monocytes % % Eosinophils % % Basophils % % Neutrophils # (1.3-7.7) k/uL Lymphocytes # (1.0-4.8) k/uL Monocytes # (0-1.0) k/uL Eosinophils # (0-0.7) k/uL Basophils # (0-0.2) k/uL Hypochromasia Anisocytosis Microcytosis PT (9.0-12.0) sec INR (<1.2) D-Dimer (<0.60) mg/L FEU Sodium (137-145) mmol/L Potassium (3.5-5.1) mmol/L Chloride (98-107) mmol/L Carbon Dioxide (22-30) mmol/L Anion Gap mmol/L BUN (7-17) mg/dL Creatinine (0.52-1.04) mg/dL Est GFR (CKD-EPI)AfAm (>60 ml/min/1.73 sqM) Est GFR (CKD-EPI)NonAf (>60 ml/min/1.73 sqM) Glucose (74-99) mg/dL Plasma Lactic Acid Scott (0.7-2.0) mmol/L Calcium (8.4-10.2) mg/dL Magnesium (1.6-2.3) mg/dL Total Bilirubin (0.2-1.3) mg/dL AST (14-36) U/L ALT (4-34) U/L Alkaline Phosphatase (38-126) U/L Troponin I 0.128 H* (0.000-0.034) ng/mL NT-Pro-B Natriuret Pep 3300 pg/mL Total Protein (6.3-8.2) g/dL Albumin (3.5-5.0) g/dL Lipase (23-300) U/L Urine Color Urine Appearance (Clear) Urine pH (5.0-8.0) Ur Specific [place] (1.001-1.035) Urine Protein (Negative) Urine Glucose (UA) (Negative) Urine Ketones (Negative) Urine Blood (Negative) Urine Nitrite (Negative) Urine Bilirubin (Negative) Urine Urobilinogen (<2.0) mg/dL Ur Leukocyte Esterase (Negative) Urine RBC (0-5) /hpf Urine WBC (0-5) /hpf Ur Squamous Epith Cells (0-4) /hpf Urine Bacteria (None) /hpf Urine Mucus (None) /hpf Coronavirus (PCR) (Not Detectd) Trichomonas Ag (Rapid) Negative (Negative) 03/06/22 Range/Units 01:05 WBC (3.8-10.6) k/uL RBC (3.80-5.40) m/uL Hgb (11.4-16.0) gm/dL Hct (34.0-46.0) % MCV (80.0-100.0) fL MCH (25.0-35.0) pg MCHC (31.0-37.0) g/dL RDW (11.5-15.5) % Plt Count (150-450) k/uL MPV Neutrophils % % Lymphocytes % % Monocytes % % Eosinophils % % Basophils % % Neutrophils # (1.3-7.7) k/uL Lymphocytes # (1.0-4.8) k/uL Monocytes # (0-1.0) k/uL Eosinophils # (0-0.7) k/uL Basophils # (0-0.2) k/uL Hypochromasia Anisocytosis Microcytosis PT 12.6 H (9.0-12.0) sec INR 1.2 H (<1.2) D-Dimer (<0.60) mg/L FEU Sodium (137-145) mmol/L Potassium (3.5-5.1) mmol/L Chloride (98-107) mmol/L Carbon Dioxide (22-30) mmol/L Anion Gap mmol/L BUN (7-17) mg/dL Creatinine (0.52-1.04) mg/dL Est GFR (CKD-EPI)AfAm (>60 ml/min/1.73 sqM) Est GFR (CKD-EPI)NonAf (>60 ml/min/1.73 sqM) Glucose (74-99) mg/dL Plasma Lactic Acid [place] (0.7-2.0) mmol/L Calcium (8.4-10.2) mg/dL Magnesium (1.6-2.3) mg/dL Total Bilirubin (0.2-1.3) mg/dL AST (14-36) U/L ALT (4-34) U/L Alkaline Phosphatase (38-126) U/L Troponin I (0.000-0.034) ng/mL NT-Pro-B Natriuret Pep pg/mL Total Protein (6.3-8.2) g/dL Albumin (3.5-5.0) g/dL Lipase (23-300) U/L Urine Color Urine Appearance (Clear) Urine pH (5.0-8.0) Ur Specific [place] (1.001-1.035) Urine Protein (Negative) Urine Glucose (UA) (Negative) Urine Ketones (Negative) Urine Blood (Negative) Urine Nitrite (Negative) Urine Bilirubin (Negative) Urine Urobilinogen (<2.0) mg/dL Ur Leukocyte Esterase (Negative) Urine RBC (0-5) /hpf Urine WBC (0-5) /hpf Ur Squamous Epith Cells (0-4) /hpf Urine Bacteria (None) /hpf Urine Mucus (None) /hpf Coronavirus (PCR) (Not Detectd) Trichomonas Ag (Rapid) (Negative) Critical Care Time Critical Care Time: Yes Total Critical Care Time: 45 Critical Care Time: Multiple repeat evaluations. Discussion with the correspondent. Discussion with the vascular specialist. Ordering of interventions. According diagnostic tests. Disposition Clinical Impression: Pulmonary embolism, Vaginal discharge Disposition: ADMITTED IP TO THIS [facility] Condition: Fair Time of Disposition: 23:45
[2022-03-05 21:15] LABS: Anisocytosis Slight; Basophils # (A) 0.1 k/uL (0-0.2); Basophils % (A) 1 %; Eosinophils # (A) 0.1 k/uL (0-0.7); Eosinophils % (A) 1 %; HCT 34.7 % (34.0-46.0); HGB 9.8 gm/dL (11.4-16.0); Hypochromasia Marked; Lymphocytes # (A) 2.2 k/uL (1.0-4.8); Lymphocytes % (A) 22 %; MCH 21.7 pg (25.0-35.0); MCHC 28.2 g/dL (31.0-37.0); MCV 76.8 fL (80.0-100.0); Mean Platelet Volume 6.8; Microcytosis Slight; Monocytes # (A) 0.6 k/uL (0-1.0); Monocytes % (A) 6 %; Neutrophils # (A) 6.8 k/uL (1.3-7.7); Neutrophils % (A) 68 %; Platelet Count 443 k/uL (150-450); RBC 4.52 m/uL (3.80-5.40); RDW 18.7 % (11.5-15.5); WBC 10.1 k/uL (3.8-10.6)
[2022-03-05 21:23] LABS: ALT 8 U/L (4-34); AST 22 U/L (14-36); African American GFR (CKD) >90 (>60 ml/min/1.73 sqM); Albumin 3.6 g/dL (3.5-5.0); Alkaline Phosphatase 102 U/L (38-126); Anion Gap 10 mmol/L; Blood Urea Nitrogen 17 mg/dL (7-17); Calcium 8.7 mg/dL (8.4-10.2); Carbon Dioxide 24 mmol/L (22-30); Chloride 106 mmol/L (98-107); Glucose 90 mg/dL (74-99); Lipase 109 U/L (23-300); Magnesium 2.1 mg/dL (1.6-2.3); Non-African American GFR(CKD) >90 (>60 ml/min/1.73 sqM); Potassium 4.2 mmol/L (3.5-5.1); Sodium 140 mmol/L (137-145); Total Bilirubin 0.4 mg/dL (0.2-1.3); Total Protein 6.9 g/dL (6.3-8.2)
[2022-03-05 21:24] LABS: Appearance,Urine Cloudy (Clear); Bacteria,Urine Occasional /hpf; Bilirubin,Urine 1+ (Negative); Blood,Urine Large (Negative); Color,Urine Dark Yellow; Glucose,Urine (UA) Negative (Negative); Ketones,Urine Trace (Negative); Leukocyte Esterase,Urine Large (Negative); Mucus,Urine Many /hpf; Nitrite,Urine Negative (Negative); Protein,Urine 2+ (Negative); RBC,Urine 134 /hpf (0-5); Specific Gravity,Urine 1.033 (1.001-1.035); Squamous Epithelial Cell,Urine 3 /hpf (0-4); WBC,Urine >182 /hpf (0-5)
[2022-03-05] MEDS ORDERED: AMPICILLIN-SULBACTAM 3 GM in SODIUM CHLORIDE 0.9% 50 ML IVPB SCH (22:00)
--- NOTE | 2022-03-05 22:07 | XR ---
EXAMINATION TYPE: XR abdomen acute w cxr DATE OF EXAM: 03/05/2022 CLINICAL HISTORY: Pain TECHNIQUE: Upright AP chest, upright AP abdomen, supine lower abdomen/pelvis AP views COMPARISON: 11/11/1987 FINDINGS: The lungs are grossly clear without pleural effusion or pneumothorax. Cardiac silhouette size appears borderline enlarged, but this may be due to AP technique. Gas is noted in nondistended small bowel loops. Gas and fecal material is seen in nondistended colon . No pneumoperitoneum, visceromegaly, or suspicious calcification is identified. The osseous structures are intact. IMPRESSION: No acute radiographic process.
[2022-03-05] MEDS: DOXYCYCLINE 100 MG in SODIUM CHLORIDE 0.9% 100 ML IVPB SCH (22:45)
--- NOTE | 2022-03-05 23:31 | CT ---
EXAMINATION TYPE: CT angio chest DATE OF EXAM: 03/05/2022 COMPARISON: 01/10/2016 HISTORY: Chest pain Tachycardia elevated d dimer CT DLP: 279.4 mGycm Automated exposure control for dose reduction was used. CONTRAST: Performed with IV Contrast, patient injected with 100ml mL of Isovue 370. Images obtained from the thoracic inlet to the diaphragm with IV contrast. There are Three-D postproc essed images. Heart appears slightly enlarged. No pericardial effusion. The lungs are clear of consolidation. No pu lmonary mass. There are large filling defects in the lower lobe pulmonary arteries bilaterally. There is also signi ficant filling defect in the left upper lobe pulmonary artery.There is saddle embolism with blood keyana t across the pulmonary arteries. The thoracic aorta is intact. No aneurysm or dissection. The thoracic vertebra have normal alignment. No compression fracture. The bony thorax is intact. Ribs are intact. Upper abdominal soft tissues ar e intact. There are clips apparently from gastric bariatric surgery. There is hiatal hernia. IMPRESSION: There is extensive bilateral pulmonary emboli in the lower lobe and left upper lobe pulmonary arterie s. There is saddle embolism. Heart appears slightly enlarged. Right ventricle is large and there is p robably right heart strain. Exam was discussed with emergency room attending staff at 11:30 PM
[2022-03-05] MEDS ORDERED: HEPARIN SODIUM 1,000 UN/ML (10ML VL) IV ONE (23:32)
[2022-03-05] MEDS ORDERED: HEPARIN SODIUM 1,000 UN/ML (10ML VL) IV PRN (23:32)
[2022-03-05] MEDS ORDERED: NALOXONE 0.4 MG/ML 1 ML VIAL IV PRN (23:45)
[2022-03-05] MEDS ORDERED: ONDANSETRON 4 MG/2 ML VIAL IVP PRN (23:52)
[2022-03-05] MEDS: HEPARIN SOD,PORK IN 0.45% NACL 25,000 UNIT in 0.45% NACL 1 250ML.BAG IV SCH (23:57)
[2022-03-06] MEDS: SODIUM CHLORIDE 0.9% 1,000 ML IV SCH ×5 (00:01→16:24)
[2022-03-06] MEDS: PANTOPRAZOLE 40 MG/10 ML VIAL IV SCH ×2 (00:03→10:01)
--- NOTE | 2022-03-06 00:08 | US ---
EXAMINATION TYPE: US pelvic complete DATE OF EXAM: 03/05/2022 COMPARISON: NONE CLINICAL HISTORY: Pelvic pain. Pelvic pain. Patient is 3 week with vaginal delivery TECHNIQUE: Transabdominal (TA). EXAM MEASUREMENTS: Uterus: 9.9 x 6.7 x 7.7 cm Endometrial Stripe: Not well delineated Right Ovary: 2.4 x 2.9 x 1.4 cm Left Ovary: 2.7 x 1.7 x 2.5 cm 1. Uterus: Anteverted Appears normal for uterus 2. Endometrium: Not well delineated for measurement 3. Right Ovary: Appears wnl; follicles seen 4. Left Ovary: Appears wnl 5. Bilateral Adnexa: wnl 6. Posterior cul-de-sac: wnl IMPRESSION: No adnexal mass or free fluid. Uterus within normal limits.
[2022-03-06] MEDS: AMPICILLIN-SULBACTAM 3 GM in SODIUM CHLORIDE 0.9% 100 ML IVPB SCH ×2 (01:30→05:49)
[2022-03-06 02:10] LABS: INR 1.2 (<1.2); Prothrombin Time 12.6 sec (9.0-12.0)
--- NOTE | 2022-03-06 07:03 | P.OBCN ---
History of Present Illness Consult date: 03/06/22 Reason for consult: other (Pulmonary embolism, ) Chief complaint: Chest pain History of present illness: This patient is a 31-year-old 2 para 1 female status post vaginal delivery of a viable female infant on February 12 and [facility]. 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 Patient began having some chest discomfort and pain went to her family doctor who was subsequently referred her to the emergency department. Evaluation here has shown multiple pulmonary emboli including a saddle emboli. Patient did report some vaginal discharge and they an ultrasound was ordered which showed a normal uterus. Review of Systems Genitourinary: Reports as per HPI Past Medical History Past Medical History: GERD/Reflux, Seizure Disorder, Thyroid Disorder Additional Past Medical History / Comment(s): seizures as child-no rx, last seizure 2000, "blood clot in head age 4", gastric ulcer," vomiting a times" past history of rapid heartbeat. History of Any Multi-Drug Resistant Organisms: None Reported Past Surgical History: Bariatric Surgery, Orthopedic Surgery Additional Past Surgical History / Comment(s): surgery to put plates in arianna feet for "flat feet", gastric bypass 10-25-17, endoscopy Past Anesthesia/Blood Transfusion Reactions: No Reported Reaction Past Psychological History: ADD/ADHD, Depression Smoking Status: Never smoker - Past Family History Mother Family Medical History: Asthma, Diabetes Mellitus, Sleep Apnea/CPAP/BIPAP Additional Family Medical History / Comment(s): Type 2 Diabetes - diet controlled Father Family Medical History: Hyperlipidemia, Hypertension Additional Family Medical History / Comment(s): Hypertension. Hyperlipidaemia Medications and Allergies Home Medications Medication Instructions Recorded Confirmed Type FLUoxetine HCL [PROzac] 20 mg PO DAILY 03/05/22 03/05/22 History FLUoxetine HCL [PROzac] 40 mg PO DAILY 03/05/22 03/05/22 History Ferrous Sulfate [Feosol] 325 mg PO DAILY 03/05/22 03/05/22 History Allergies Allergy/AdvReac Type Severity Reaction Status Date / Time No Known Allergies Allergy Verified 03/05/22 20:42 Exam Vital Signs Temp Pulse Resp BP Pulse Ox 03/06/22 06:00 97.7 F 107 H 16 110/76 96 03/06/22 05:00 107 H 16 107/79 96 03/06/22 04:00 105 H 16 99/73 95 03/06/22 03:00 105 H 16 103/75 95 03/06/22 02:00 104 H 16 105/75 97 03/06/22 01:00 105 H 16 95/73 97 03/06/22 00:00 104 H 16 97/67 98 03/05/22 23:00 104 H 16 103/74 03/05/22 22:45 103 H 16 103/72 97 03/05/22 22:00 104 H 16 102/71 97 03/05/22 20:55 105 H 18 103/73 99 03/05/22 16:55 98.8 F 121 H 16 98 Intake and Output 03/05/22 03/05/22 03/06/22 14:59 22:59 06:59 Other: Weight 69.853 kg Results Result Diagrams: 03/05/22 20:54 03/05/22 20:54 Abnormal Lab Results - Last 24 Hours (Table) 03/05/22 03/05/22 03/05/22 Range/Units 20:54 20:54 21:06 Hgb 9.8 L (11.4-16.0) gm/dL MCV 76.8 L (80.0-100.0) fL MCH 21.7 L (25.0-35.0) pg MCHC 28.2 L (31.0-37.0) g/dL RDW 18.7 H (11.5-15.5) % PT (9.0-12.0) sec INR (<1.2) D-Dimer 8.70 H (<0.60) mg/L FEU Troponin I (0.000-0.034) ng/mL Urine Appearance Cloudy H (Clear) Urine Protein 2+ H (Negative) Urine Ketones Trace H (Negative) Urine Blood Large H (Negative) Urine Bilirubin 1+ H (Negative) Ur Leukocyte Esterase Large H (Negative) Urine RBC 134 H (0-5) /hpf Urine WBC >182 H (0-5) /hpf Urine Bacteria Occasional H (None) /hpf Urine Mucus Many H (None) /hpf 03/05/22 03/06/22 Range/Units 23:53 01:05 Hgb (11.4-16.0) gm/dL MCV (80.0-100.0) fL MCH (25.0-35.0) pg MCHC (31.0-37.0) g/dL RDW (11.5-15.5) % PT 12.6 H (9.0-12.0) sec INR 1.2 H (<1.2) D-Dimer (<0.60) mg/L FEU Troponin I 0.128 H* (0.000-0.034) ng/mL Urine Appearance (Clear) Urine Protein (Negative) Urine Ketones (Negative) Urine Blood (Negative) Urine Bilirubin (Negative) Ur Leukocyte Esterase (Negative) Urine RBC (0-5) /hpf Urine WBC (0-5) /hpf Urine Bacteria (None) /hpf Urine Mucus (None) /hpf Microbiology - Last 24 Hours (Table) 03/05/22 21:06 Urine Culture - Preliminary Urine,Voided 03/05/22 22:53 Genital Culture - Preliminary Vaginal Assessment and Plan Assessment: This is a 31-year-old 2 para 1 female approximately 3-4 weeks from vaginal delivery now with multiple pulmonary emboli. Patient's lochia vaginal discharge is very consistent with a normal state. There is no indication of infection. Certainly there is no contraindication to anticoagulation. Patient should follow up with her primary truck repair supervisor Dr. Carmona upon discharge for her scheduled visit at 6 weeks. Thank you very much for this consultation. (1) Status post normal delivery Current Visit: Yes Status: Acute Code(s): RUP7866 - SNOMED Code(s): 175974296 (2) Pulmonary embolism Current Visit: Yes Status: Acute Code(s): I26.99 - OTHER PULMONARY EMBOLISM WITHOUT ACUTE COR PULMONALE SNOMED Code(s): 45889865
[2022-03-06 07:34] LABS: Anisocytosis Slight; Basophils % (A) 0 %; Eosinophils # (A) 0.1 k/uL (0-0.7); Eosinophils % (A) 2 %; HCT 27.4 % (34.0-46.0); Hypochromasia Marked; Lymphocytes # (A) 1.7 k/uL (1.0-4.8); Lymphocytes % (A) 23 %; MCH 22.4 pg (25.0-35.0); MCHC 29.2 g/dL (31.0-37.0); MCV 76.6 fL (80.0-100.0); Mean Platelet Volume 7.2; Microcytosis Slight; Monocytes # (A) 0.4 k/uL (0-1.0); Monocytes % (A) 6 %; Neutrophils # (A) 4.8 k/uL (1.3-7.7); Neutrophils % (A) 65 %; Platelet Count 349 k/uL (150-450); RBC 3.58 m/uL (3.80-5.40); RDW 18.9 % (11.5-15.5); WBC 7.4 k/uL (3.8-10.6)
--- NOTE | 2022-03-06 07:52 | US ---
EXAMINATION TYPE: US venous doppler duplex LE DATE OF EXAM: 03/06/2022 7:41 AM COMPARISON: None CLINICAL HISTORY: dvt. Positive for PE. On IV heparin. EC patient. Recent vaginal delivery x 3 wee ks ago. SIDE PERFORMED: Bilateral TECHNIQUE: The lower extremity deep venous system is examined utilizing real time linear array sonog rashida with graded compression, doppler sonography and color-flow sonography. VESSELS IMAGED: Common Femoral Vein Deep Femoral Vein Greater Saphenous Vein * Femoral Vein Popliteal Vein Small Saphenous Vein * Proximal Calf Veins (* superficial vessels) Bilateral popliteal compressions deferred Right Leg: Positive for DVT in proximal popliteal to calf veins Left Leg: Positive for DVT in proximal popliteal to calf veins IMPRESSION: 1. Deep venous thrombosis present within the popliteal and proximal tibial veins bilaterally
[2022-03-06] MEDS: metroNIDAZOLE-NS PMX 500 MG in SALINE 1 100ML.BAG IVPB SCH ×2 (08:39)
--- NOTE | 2022-03-06 09:37 | P.GSCN ---
History of Present Illness Consult date: 03/06/22 Reason for Consult: Submassive pulmonary embolism Requesting physician: Neeraj Sawant History of present illness: This is a 31-year-old female who presented to the emergency department with complaints of lightheadedness, palpitations and abdominal pain. She has no significant past medical history. On she is approximately 3 weeks . She had a spontaneous vaginal delivery on 02/12/[address] [facility]. She said her and delivery were uncomplicated. Her initial labs showed an elevated d-dimer. Data CT angiogram of the chest that showed a submassive pulmonary embolism with enlarged right ventricle. She denies any previous history of blood clots. She denies any clotting disorders or family history of clotting disorders. She is a nonsmoker. She denies any lower extremity swelling or pain. Patient is tachycardic with heart rate in the 100s, blood pressure 115/81, oxygen level 96% on room air. She has been started on a heparin drip. Venous duplex and echocardiogram ordered. Echocardiogram pending. Of bilateral lower extremities positive for DVT. She currently states that she has no chest pain, no shortness of breath but does feel her heart racing. No abdominal pain, nausea or vomiting. Review of Systems A 14 point review systems was completed all pertinent positives and negatives as stated in the HPI. Past Medical History Past Medical History: GERD/Reflux, Seizure Disorder, Thyroid Disorder Additional Past Medical History / Comment(s): seizures as child-no rx, last seizure 2000, "blood clot in head age 4", gastric ulcer," vomiting a times" past history of rapid heartbeat. History of Any Multi-Drug Resistant Organisms: None Reported Past Surgical History: Bariatric Surgery, Orthopedic Surgery Additional Past Surgical History / Comment(s): surgery to put plates in arianna feet for "flat feet", gastric bypass 10-25-17, endoscopy Past Anesthesia/Blood Transfusion Reactions: No Reported Reaction Past Psychological History: ADD/ADHD, Depression Smoking Status: Never smoker - Past Family History Mother Family Medical History: Asthma, Diabetes Mellitus, Sleep Apnea/CPAP/BIPAP Additional Family Medical History / Comment(s): Type 2 Diabetes - diet controlled Father Family Medical History: Hyperlipidemia, Hypertension Additional Family Medical History / Comment(s): Hypertension. Hyperlipidaemia Medications and Allergies Home Medications Medication Instructions Recorded Confirmed Type FLUoxetine HCL [PROzac] 20 mg PO DAILY 03/05/22 03/05/22 History FLUoxetine HCL [PROzac] 40 mg PO DAILY 03/05/22 03/05/22 History Ferrous Sulfate [Feosol] 325 mg PO DAILY 03/05/22 03/05/22 History Allergies Allergy/AdvReac Type Severity Reaction Status Date / Time No Known Allergies Allergy Verified 03/05/22 20:42 Surgical - Exam Vital Signs Temp Pulse Resp BP Pulse Ox 98.8 F 121 H 16 96/68 98 03/05/22 16:55 03/05/22 16:55 03/05/22 16:55 03/05/22 16:55 03/05/22 16:55 General appearance: The patient is alert, oriented, appears in no acute distress. HET: Head is normocephalic and atraumatic. Pupils are equal and reactive. Neck: Supple without lymphadenopathy. Trachea midline. Heart: S1 S2. Regular rate and rhythm. Tachycardic. Lungs: Clear to auscultation bilaterally. Abdomen: Soft, nontender, nondistended. Extremities: Normal skin color and turgor. No cyanosis, rash, ulceration, clu bbing, or edema. Radial and pedal pulses are 2/4 bilaterally. Neurological: No focal deficits. Strength and sensation are grossly intact. Results - Labs 03/06/22 07:18 03/05/22 20:54 Abnormal Lab Results - Last 24 Hours (Table) 03/05/22 03/05/22 03/05/22 Range/Units 20:54 20:54 21:06 RBC (3.80-5.40) m/uL Hgb 9.8 L (11.4-16.0) gm/dL Hct (34.0-46.0) % MCV 76.8 L (80.0-100.0) fL MCH 21.7 L (25.0-35.0) pg MCHC 28.2 L (31.0-37.0) g/dL RDW 18.7 H (11.5-15.5) % PT (9.0-12.0) sec INR (<1.2) APTT (22.0-30.0) sec D-Dimer 8.70 H (<0.60) mg/L FEU Troponin I (0.000-0.034) ng/mL Urine Appearance Cloudy H (Clear) Urine Protein 2+ H (Negative) Urine Ketones Trace H (Negative) Urine Blood Large H (Negative) Urine Bilirubin 1+ H (Negative) Ur Leukocyte Esterase Large H (Negative) Urine RBC 134 H (0-5) /hpf Urine WBC >182 H (0-5) /hpf Urine Bacteria Occasional H (None) /hpf Urine Mucus Many H (None) /hpf 03/05/22 03/06/22 03/06/22 Range/Units 23:53 01:05 07:18 RBC 3.58 L (3.80-5.40) m/uL Hgb 8.0 L D (11.4-16.0) gm/dL Hct 27.4 L (34.0-46.0) % MCV 76.6 L (80.0-100.0) fL MCH 22.4 L (25.0-35.0) pg MCHC 29.2 L (31.0-37.0) g/dL RDW 18.9 H (11.5-15.5) % PT 12.6 H (9.0-12.0) sec INR 1.2 H (<1.2) APTT (22.0-30.0) sec D-Dimer (<0.60) mg/L FEU Troponin I 0.128 H* (0.000-0.034) ng/mL Urine Appearance (Clear) Urine Protein (Negative) Urine Ketones (Negative) Urine Blood (Negative) Urine Bilirubin (Negative) Ur Leukocyte Esterase (Negative) Urine RBC (0-5) /hpf Urine WBC (0-5) /hpf Urine Bacteria (None) /hpf Urine Mucus (None) /hpf 03/06/22 Range/Units 07:18 RBC (3.80-5.40) m/uL Hgb (11.4-16.0) gm/dL Hct (34.0-46.0) % MCV (80.0-100.0) fL MCH (25.0-35.0) pg MCHC (31.0-37.0) g/dL RDW (11.5-15.5) % PT (9.0-12.0) sec INR (<1.2) APTT 43.7 H (22.0-30.0) sec D-Dimer (<0.60) mg/L FEU Troponin I (0.000-0.034) ng/mL Urine Appearance (Clear) Urine Protein (Negative) Urine Ketones (Negative) Urine Blood (Negative) Urine Bilirubin (Negative) Ur Leukocyte Esterase (Negative) Urine RBC (0-5) /hpf Urine WBC (0-5) /hpf Urine Bacteria (None) /hpf Urine Mucus (None) /hpf Microbiology - Last 24 Hours (Table) 03/05/22 21:06 Urine Culture - Preliminary Urine,Voided 03/05/22 22:53 Genital Culture - Preliminary Vaginal Diabetes panel 03/05/22 Range/Units 20:54 Sodium 140 (137-145) mmol/L Potassium 4.2 (3.5-5.1) mmol/L Chloride 106 (98-107) mmol/L Carbon Dioxide 24 (22-30) mmol/L BUN 17 (7-17) mg/dL Creatinine 0.56 (0.52-1.04) mg/dL Glucose 90 (74-99) mg/dL Calcium 8.7 (8.4-10.2) mg/dL AST 22 (14-36) U/L ALT 8 (4-34) U/L Alkaline Phosphatase 102 (38-126) U/L Total Protein 6.9 (6.3-8.2) g/dL Albumin 3.6 (3.5-5.0) g/dL Calcium panel 03/05/22 Range/Units 20:54 Calcium 8.7 (8.4-10.2) mg/dL Albumin 3.6 (3.5-5.0) g/dL Pituitary panel 03/05/22 Range/Units 20:54 Sodium 140 (137-145) mmol/L Potassium 4.2 (3.5-5.1) mmol/L Chloride 106 (98-107) mmol/L Carbon Dioxide 24 (22-30) mmol/L BUN 17 (7-17) mg/dL Creatinine 0.56 (0.52-1.04) mg/dL Glucose 90 (74-99) mg/dL Calcium 8.7 (8.4-10.2) mg/dL Adrenal panel 03/05/22 Range/Units 20:54 Sodium 140 (137-145) mmol/L Potassium 4.2 (3.5-5.1) mmol/L Chloride 106 (98-107) mmol/L Carbon Dioxide 24 (22-30) mmol/L BUN 17 (7-17) mg/dL Creatinine 0.56 (0.52-1.04) mg/dL Glucose 90 (74-99) mg/dL Calcium 8.7 (8.4-10.2) mg/dL Total Bilirubin 0.4 (0.2-1.3) mg/dL AST 22 (14-36) U/L ALT 8 (4-34) U/L Alkaline Phosphatase 102 (38-126) U/L Total Protein 6.9 (6.3-8.2) g/dL Albumin 3.6 (3.5-5.0) g/dL - Imaging Comments: CT angiogram chest: There is extensive bilateral pulmonary emboli in the lower lobe and left upper lobe pulmonary arteries. There is saddle embolism. Heart appears slightly enlarged. Right ventricle is large and there is probably right heart strain. A venous duplex bilateral lower extremities: Deep venous thrombosis present within the popliteal and proximal tibial veins bilaterally Acute abdomen series: No acute radiographic process. Pelvis ultrasound: No adnexal mass or free fluid. Uterus within normal limits. Assessment and Plan Assessment: 1. Saddle embolism with enlarged right ventricle 2. Elevated troponins 3. Bilateral lower extremity DVT 4. , spontaneous vaginal delivery 02/12/2022 5. Tachycardia Plan: 1. Continue heparin drip 2. Keep nothing by mouth 3. Patient tentatively scheduled for EKOS procedure please consent for bilateral selective pulmonary angiogram, initiation of pulmonary pharmacal mechanical thrombolysis with EKOS 4. Await echocardiogram results 5. Further recommendations forthcoming per vascular surgeon Thank you for this consultation, we will continue to follow. The impression and plan of care has been dictated as directed. Dr. Cruz I performed a history and examination of this patient, discussed the same with the dictator. I agree with the dictator's note ,documented as a scribe. Any additional findings or plans will be noted.
[2022-03-06 10:46] LABS: Glucose,Whole Blood 101 mg/dL (75-99)
--- NOTE | 2022-03-06 10:59 | CA ---
Transthoracic Echo Report Name: Celena Jorge Age: 31 Gender: F : 1990 Exam Date: 03/06/2022 08:10 Exam Location: [facility] Ht (in): 64 Wt (lb): 154 Ordering Physician: Eligio Ordaz DO Attending/Referring Phys: [id number], Sushma Telecommunicator Sandra Hill RDCS Procedure CPT: Indications: PE Cardiac Hx: Technical Quality: Fair Contrast 1: Total Dose (mL): Contrast 2: Total Dose (mL): MEASUREMENTS (Male / Female) Normal Values 2D ECHO LV Diastolic Diameter PLAX 3.5 cm 4.2 - 5.9 / 3.9 - 5.3 cm LV Systolic Diameter PLAX 2.6 cm IVS Diastolic Thickness 1.1 cm 0.6 - 1.0 / 0.6 - 0.9 cm LVPW Diastolic Thickness 1.4 cm 0.6 - 1.0 / 0.6 - 0.9 cm LV Relative Wall Thickness 0.7 RV Internal Dim ED PLAX 4.6 cm LA Volume 37.5 cm??? 18 - 58 / 22 - 52 cm??? M-MODE Aortic Root Diameter MM 2.9 cm LA Systolic Diameter MM 3.4 cm LA Ao Ratio MM 1.2 AV Cusp Separation MM 1.7 cm DOPPLER AV Peak Velocity 108.7 cm/s AV Peak Gradient 4.7 mmHg AI Peak Velocity 341.6 cm/s AI Peak Gradient 46.7 mmHg AI Pressure Half Time 589.4 ms LVOT Peak Velocity 81.0 cm/s LVOT Peak Gradient 2.6 mmHg MV Area PHT 3.3 cm??? Mitral E Point Velocity 49.2 cm/s Mitral A Point Velocity 65.2 cm/s Mitral E to A Ratio 0.8 MV Deceleration Time 229.6 ms TR Peak Velocity 288.9 cm/s TR Peak Gradient 33.4 mmHg Right Ventricular Systolic Press 36.6 mmHg FINDINGS Left Ventricle Mildly increased left ventricular wall thickness. Normal left ventricular systolic function with no obvious regional wall motion abnormalities. Normal left ventricular diastolic filling pattern. Left ventricular ejection fraction is estimated at 50 -55 %. Right Ventricle Severe right ventricular dilatation. Moderate pulmonary hypertension. Right ventricular systolic pressure estimated at 58 mm hg. TAPSE is 21 mm and S' wave is 11 cm/sec. Right Atrium Mild right atrial dilatation. Left Atrium Normal left atrial size. No evidence for an atrial septal defect. Mitral Valve Structurally normal mitral valve. No mitral stenosis, regurgitation or prolapse. Aortic Valve Trileaflet aortic valve. No aortic stenosis. Mild aortic regurgitation. Tricuspid Valve Structurally normal tricuspid valve. [id number] tricuspid regurgitation. Pulmonic Valve Structurally normal pulmonic valve. Trace pulmonic regurgitation. Pericardium No pericardial effusion. Aorta Normal size aortic root and proximal ascending aorta. CONCLUSIONS #1. Normal left ventricular size with mild hypertrophy with preserved LV function. #2. Severe right ventricular dilatation with moderate to severe pulmonary hypertension. There is a right ventricular stran #3. Dilated inferior vena cava Previewed by: Dr. Mariana Owusu MD (Electronically Signed) Final Date: 06 March 2022 10:59
--- NOTE | 2022-03-06 11:34 | P.CNPUL ---
History of Present Illness Consult date: 03/06/22 Reason for consult: pulmonary embolism History of present illness: 31-year-old female patient who presented with massive bilateral pulmonary embo lism. Patient went to a spontaneous vaginal delivery on 02/12/2022 and the delivery was uncomplicated. The patient became dizzy and short of breath and the patient was also having palpitations. She came into the hospital and the patient was found to have bilateral popliteal DVTs and a CT angiogram showed massive pulmonary embolism with extensive breath or pulmonary filling defects and the patient also has enlarged RV. Echocardiogram is still pending for now. Despite the significant clot burden, the patient is on room air oxygen. She did have a troponin leak and troponin was at 0.18. ProBNP level was 3300 coagulation profile was normal. The patient was started on IV heparin. Vascular surgery was consulted and the patient is being considered for catheter directed intra-arterial thrombolytic therapy with EKOS. The patient denies having any previous history of DVT or pulmonary embolism. She is not sedentary. No history of any blood disorders or malignancies. No history of any orthopedic surgery. She is currently resting comfortably in bed. Review of Systems Constitutional: Denies chills, Denies fever Eyes: denies as per HPI, denies blurred vision, denies bulging eye, denies decreased vision, denies diplopia, denies discharge, denies dry eye, denies irritation, denies itching, denies pain, denies photophobia, denies loss of peripheral vision, denies loss of vision, denies tunnel vision/blind spots Ears: deny: decreased hearing, ear discharge, earache, tinnitus Ears, nose, mouth and throat: Reports as per HPI Breasts: absent: as per HPI, change in shape, gynecomastia, masses, nipple discharge, pain, skin changes, swelling Cardiovascular: Reports palpitations Respiratory: Reports as per HPI Gastrointestinal: Reports abdominal pain Genitourinary: Reports as per HPI Menstruation: Reports as per HPI Musculoskeletal: Reports as per HPI Musculoskeletal: absent: ankle pain, ankle stiffness, ankle swelling, as per HPI, elbow pain, elbow stiffness, elbow swelling, foot pain, foot stiffness, foot swelling, hand pain, hand stiffness, hand swelling, hip pain, hip stiffness, hip swelling, knee pain, knee stiffness, knee swelling, shoulder pain, shoulder stiffness, shoulder swelling, wrist pain, wrist stiffness, wrist swelling Integumentary: Reports as per HPI Neurological: Reports as per HPI Psychiatric: Reports as per HPI Endocrine: Reports as per HPI Hematologic/Lymphatic: Reports as per HPI Allergic/Immunologic: Reports as per HPI Past Medical History Past Medical History: GERD/Reflux, Seizure Disorder, Thyroid Disorder Additional Past Medical History / Comment(s): seizures as child-no rx, last seizure 2000, "blood clot in head age 4", gastric ulcer," vomiting a times" past history of rapid heartbeat. History of Any Multi-Drug Resistant Organisms: None Reported Past Surgical History: Bariatric Surgery, Orthopedic Surgery Additional Past Surgical History / Comment(s): surgery to put plates in arianna feet for "flat feet", gastric bypass 10-25-17, endoscopy Past Anesthesia/Blood Transfusion Reactions: No Reported Reaction Past Psychological History: ADD/ADHD, Depression Additional Psychological History / Comment(s): Takes fluoxetine regularly Smoking Status: Never smoker Past Alcohol Use History: None Reported Past Drug Use History: None Reported - Past Family History Mother Family Medical History: Asthma, Diabetes Mellitus, Sleep Apnea/CPAP/BIPAP Additional Family Medical History / Comment(s): Type 2 Diabetes - diet controlled Father Family Medical History: Hyperlipidemia, Hypertension Additional Family Medical History / Comment(s): Hypertension. Hyperlipidaemia Medications and Allergies Home Medications Medication Instructions Recorded Confirmed Type FLUoxetine HCL [PROzac] 20 mg PO DAILY 03/05/22 03/05/22 History FLUoxetine HCL [PROzac] 40 mg PO DAILY 03/05/22 03/05/22 History Ferrous Sulfate [Feosol] 325 mg PO DAILY 03/05/22 03/05/22 History Allergies Allergy/AdvReac Type Severity Reaction Status Date / Time No Known Allergies Allergy Verified 03/05/22 20:42 Physical Exam Vitals: Vital Signs Temp Pulse Resp BP Pulse Ox 03/06/22 11:00 101 H 21 118/77 93 L 03/06/22 10:45 98.6 F 98 19 118/77 96 03/06/22 10:03 98.4 F 104 H 18 111/81 97 03/06/22 08:18 111 H 18 115/81 96 03/06/22 07:00 101 H 16 108/74 95 03/06/22 06:00 97.7 F 107 H 16 110/76 96 03/06/22 05:00 107 H 16 107/79 96 03/06/22 04:00 105 H 16 99/73 95 03/06/22 03:00 105 H 16 103/75 95 03/06/22 02:00 104 H 16 105/75 97 03/06/22 01:00 105 H 16 95/73 97 03/06/22 00:00 104 H 16 97/67 98 03/05/22 23:00 104 H 16 103/74 03/05/22 22:45 103 H 16 103/72 97 03/05/22 22:00 104 H 16 102/71 97 03/05/22 20:55 105 H 18 103/73 99 03/05/22 16:55 98.8 F 121 H 16 96/68 98 Intake and Output 03/05/22 03/06/22 03/06/22 22:59 06:59 14:59 Intake Total 130 Balance 130 Intake: IV 130 Sodium Chloride 0.9% 1, 130 000 ml @ 130 mls/hr IV . Q7H42M [facility] Rx#:[id number] Other: Voiding Method Bedside Commode Weight 69.853 kg 69.853 kg The patient appeared well nourished and normally developed. Vital signs as documented. Head exam is unremarkable. No scleral icterus or corneal arcus noted. Neck is without jugular venous distension, thyromegaly, or carotid bruits. Carotid upstrokes are brisk bilaterally. Lungs are clear to auscultation and percussion. Cardiac exam reveals the PMI to be normally sized and situated. Rhythm is regular. First and second heart sounds normal. No murmurs, rubs or gallops. Abdominal exam reveals normal bowel sounds, no masses, no organomegaly and no aortic enlargement. Extremities are nonedematous and both femoral and pedal pulses are normal.Examination of the skin revealed no evidence of si gnificant rashes, suspicious appearing nevi or other concerning lesions.Neurologically, the patient is awake and alert and the patient does not have any focal neurological deficit. Cranial nerves are essentially intact. Results - Laboratory Findings CBC and BMP: 03/06/22 07:18 03/05/22 20:54 PT/INR, D-dimer PT 12.6 sec (9.0-12.0) H 03/06/22 01:05 INR 1.2 (<1.2) H 03/06/22 01:05 D-Dimer 8.70 mg/L FEU (<0.60) H 03/05/22 20:54 Abnormal lab findings: Abnormal Labs 03/05/22 03/05/22 03/05/22 20:54 20:54 21:06 RBC Hgb 9.8 L Hct MCV 76.8 L MCH 21.7 L MCHC 28.2 L RDW 18.7 H PT INR APTT D-Dimer 8.70 H POC Glucose (mg/dL) Troponin I Urine Appearance Cloudy H Urine Protein 2+ H Urine Ketones Trace H Urine Blood Large H Urine Bilirubin 1+ H Ur Leukocyte Esterase Large H Urine RBC 134 H Urine WBC >182 H Urine Bacteria Occasional H Urine Mucus Many H 03/05/22 03/06/22 03/06/22 23:53 01:05 07:18 RBC 3.58 L Hgb 8.0 L D Hct 27.4 L MCV 76.6 L MCH 22.4 L MCHC 29.2 L RDW 18.9 H PT 12.6 H INR 1.2 H APTT D-Dimer POC Glucose (mg/dL) Troponin I 0.128 H* Urine Appearance Urine Protein Urine Ketones Urine Blood Urine Bilirubin Ur Leukocyte Esterase Urine RBC Urine WBC Urine Bacteria Urine Mucus 03/06/22 03/06/22 07:18 10:44 RBC Hgb Hct MCV MCH MCHC RDW PT INR APTT 43.7 H D-Dimer POC Glucose (mg/dL) 101 H Troponin I Urine Appearance Urine Protein Urine Ketones Urine Blood Urine Bilirubin Ur Leukocyte Esterase Urine RBC Urine WBC Urine Bacteria Urine Mucus - Diagnostic Findings Chest x-ray: image reviewed CT scan - chest: image reviewed Assessment and Plan Plan: Acute bilateral pulmonary embolism with significant clot burden and RV dilatation. Awaiting an echocardiogram to evaluate the patient's pulmonary hypertension and RV strain. Nevertheless, clinically, the patient has a large clot burden along with bilateral lower extremity DVT, unprovoked with a recent . The patient is going to require catheter directed intra-arterial thrombolytic therapy Bilateral DVTs Troponin leak secondary to above Recent normal vaginal delivery Previous history of seizure disorder, last seizure was in 2000 History of gastric ulcer History of thyroid disease Plan Keep the patient intensive care unit Continue IV heparin Echocardiogram Proceed with catheter directed intra-arterial thrombolytic therapy by vascular surgery EKOS Resume all medications We'll continue to follow
[2022-03-06] MEDS: DOXYCYCLINE 100 MG in SODIUM CHLORIDE 0.9% 100 ML IVPB SCH (11:57)
[2022-03-06] MEDS ORDERED: LIDOCAINE 1% INJ 10MG/ML (30 ML VIAL-PF) SQ ONE (13:27)
[2022-03-06] MEDS ORDERED: ALTEPLASE 2 MG VIAL (CATHFLO) IV STA ×2 (13:28→13:29)
[2022-03-06] MEDS ORDERED: IV FLUID CONTINUATION 1,000 ML IV ONE (13:30)
[2022-03-06] MEDS ORDERED: fentaNYL (PF) 50 MCG/ML 2 ML AMP ONE (13:30)
[2022-03-06] MEDS ORDERED: MIDAZOLAM 2 MG/2 ML VIAL IVP ONE (13:31)
[2022-03-06] MEDS ORDERED: fentaNYL (PF) 50 MCG/ML 2 ML AMP IVP ONE (13:31)
[2022-03-06] MEDS: ALTEPLASE 10 MG in SODIUM CHLORIDE 0.9% 90 ML IV ONE ×16 (13:53→14:20)
[2022-03-06] MEDS: HEPARIN SOD,PORK IN 0.45% NACL 25,000 UNIT in 0.45% NACL 1 250ML.BAG IV SCH ×5 (13:54→16:20)
[2022-03-06] MEDS ORDERED: IOPAMIDOL-250 100ML BTL INTRAARTER ONE (14:02)
[2022-03-06] MEDS ORDERED: SODIUM CHLORIDE 0.9% 1,000 ML IV ONE ×4 (14:05)
--- NOTE | 2022-03-06 14:22 | IR ---
EXAMINATION TYPE: IR transcath embolizat therapy DATE OF EXAM: 03/06/2022 COMPARISON: NONE HISTORY: Fluoroscopy time. Fluoroscopy was provided to the referring clinician.
--- NOTE | 2022-03-06 14:23 | P.OP ---
Date of Procedure: 03/06/22 Description of Procedure: Preoperative diagnosis: Submassive bilateral pulmonary emboli Postoperative diagnosis: Same Procedure: #1 ultrasound-guided right common femoral vein access of central venous catheters x2 #2 bilateral selective pulmonary angiogram #3 Initiation of pulmonary pharmacal mechanical thrombolysis with EKOS #4 Moderate conscious sedation x 36 m Surgeon: Marce Cruz D.O. EBL: Less than 10 mL IV fluids: See records Urine output: See records Drains: None Complications: None immediately apparent Condition: Stable to ICU Operative indication and findings: Patient is a 31-year-old female who recently had a vaginal delivery. She denies a history of previous blood clot. She is found to have bilateral lower extremity popliteal to posterior tibial vein thrombus as well as a submassive PE with troponin leak elevated BNP and significant findings on computed tomography scan of a saddle emboli with evidence of right heart strain. Given the findings it was discussed with her going forward with thrombolysis of her pulmonary embolism. Risks and benefits were discussed including but not limited to bleeding, injury to the vessels. She seemingly understood and was willing to proceed. Procedure in detail: [The patient was taken to the radiology suite and placed in supine position. Bilateral groins are prepped and draped in usual sterile fashion. A preprocedure timeout was performed, all parties were in agreement. The right common femoral vein was identified and found to be compressible without any evidence of visible thrombus. The skin overlying was anesthetized 1% lidocaine plain. A multipurpose needle was used and the vein was accessed and a wire was placed. This was done again through a separate access site. 2, 6-Libyan sheaths were placed. Using catheters and wires the right and left pulmonary arteries were accessed. Pulmonic angiograms were performed confirming positioning. An EKOS ultrasonic pharmacomechanical infusion catheter was placed and confirmed appropriate positioning within the pulmonary arteries. 2 mg of TPA was placed in each catheter. The catheters were hooked up to appropriate fluid infusions for the Cope II protocol for submassive pulmonary emboli. The sheaths were sutured in place. Dressing was placed. The patient was transferred back to ICU in stable condition having tolerated the procedure well.
--- NOTE | 2022-03-06 14:42 | P.HPIM ---
History of Present Illness H&P Date: 03/06/22 this is a 31 year old post female with medical history of seizure disorder as a child, hypothyroid, gastroesophageal reflux disease, bariatric surgery, gastric ulcers. She presents to the emergency room with complaints of shortness of breath with palpitations, chest discomfort, and dizziness over the last week. She states she fell at home 3 times, went to see her PCP Dr Feliciano yesterday who instructed the patient to come to the EC. She had a spontaneous vaginal delivery on February 12 at [facility], her sister in law currently has the infant. She is not breast feeding. States she had an uncomplicated and did have vaginal tearing during delivery. Having some brown vaginal discharge, no bright red bleeding or clots. No abdominal pain, no nausea, vomiting, or diarrhea. She reports dysuria with burning and hesitancy over the last few days as well. Denies fever, chills. Urinalysis was completed showing cloudy urine with 2+protein, large blood, large luekocyte esterase, >182 WBCs. She was started on IV metronidazole, IV ampicillin and IV doxycycline. However has been changed to IV ceftriaxone while urine culture finalizes. D-Dimer is 8.70, Troponin 0.128, proBNP 3300. Patient underwent chest CTA which reveals extensive bilateral pulmonary emboli in the right lower lobe and left upper lobe pulmonary arteries. There is saddle embolism. Right ventricle is large and there is probably right heart strain. Doppler showing bilataral lower extremity DVT. Echocardiogram showing severe right ventricular dilation with moderate to severe pulmonary hypertension with right ventricular strain. Also dilated inferior vena cava. Moderate to severe tricuspid regurg. Ejection fraction is 50 to 55% Patient is admitted to the intensive care unit and will undergo EKOS procedure this afternoon. She has consult placed to vascular services. Denies history of PE / DVT, no family history reported of clotting disorder. Patient was also evaluated by OBGYN. She was also recently started on prozac post . She was scheduled to see Dr Carmona her OB for 6 week visit on March 31. Additional diagnostics Abdominal xray negative for acute process Pelvis ultrasound showing uterus, endometrium, right and left ovary, bilateral adnexa, and posterior cul de sac within normal limits EKG showing sinus tachycardia heart rate 122, QT interval 414 Trichomonas negative, covid negative White count 10.1, hgb 9.8, platelets 443, INR 1.2, PT 12.6, PTT 43.7 Chemistry panel unremarkable Troponin level 0.128, pro BNP 3300 Vital signs Temp - 98.6, heart rate 107, blood pressure 107/76, 95% room air. REVIEW OF SYSTEMS: CONSTITUTIONAL: No fever, no malaise, no fatigue. HEENT: No recent visual problems or hearing problems. Denied any sore throat. CARDIOVASCULAR: Reports chest pain with deep inspiration, orthopnea, PND, no palpitations, no syncope. PULMONARY: Reports shortness of breath at rest worse with ambulation no cough, no hemoptysis. GASTROINTESTINAL: No diarrhea, no nausea, no vomiting, no abdominal pain. NEUROLOGICAL: No headaches, no weakness, no numbness. HEMATOLOGICAL: Denies any bleeding or petechiae. GENITOURINARY: Reports burning with urination, hesitency, dark brown vaginal discharge she is 3 weeks MUSCULOSKELETAL/RHEUMATOLOGICAL: Denies any joint pain, swelling, or any muscle pain. ENDOCRINE: Denies any polyuria or polydipsia. The rest of the 14-point review of systems is negative. PHYSICAL EXAMINATION: GENERAL: The patient is alert and oriented x3, not in any acute distress. Well developed, well nourished. She is tearful and crying. HEENT: Pupils are round and equally reacting to light. EOMI. No scleral icterus. No conjunctival pallor. Normocephalic, atraumatic. No pharyngeal erythema. No thyromegaly. CARDIOVASCULAR: S1 and S2 present. No murmurs, rubs, or gallops. Tachycardic PULMONARY: Chest is diminished ABDOMEN: Soft, nontender, nondistended, normoactive bowel sounds. No palpable organomegaly. MUSCULOSKELETAL: No joint swelling or deformity. EXTREMITIES: No cyanosis, clubbing, or pedal edema. NEUROLOGICAL: Gross neurological examination did not reveal any focal deficits. SKIN: No rashes. exam deferred Assessment and Plan Assessment Bilateral pulmonary embolism with saddle PE with evidence of right ventricular heart strain on echocardiogram patient will undergo EKOS procedure Bilateral lower extremity DVT Troponin leak Moderate to severe pulmonary hypertension 3 weeks vaginal delivery Acute UTI Anemia, microcytic, probably iron deficient she is maintained on oral iron at home History of seizure disorder, last seziure in 2000 History of thyroid disorder History of GERD History of gastric bypass History of stomach ulcers GI prophylaxis: IV protonix DVT porphylaxis IV heparin Full Code Plan This is a 31 year old post female with PE and right heart strain Patient is monitored in the ICU Continues on IV heparin Pending EKOS procedure today Continue IV antibiotics Pending urine culture Follow up hemoglobin Continue all other supportive care The impression and plan of care has been dictated by Jeniffer Torres Nurse Practitioner as directed. Dr. Alicia MD I have performed a history and physical examination and medical decision making of this patient, discussed the same with the dictator, and agree with the dictators assessment and plan as written, documented as a scribe. Based on total visit time, I have performed more than 50% of this visit. Past Medical History Past Medical History: GERD/Reflux, Seizure Disorder, Thyroid Disorder Additional Past Medical History / Comment(s): seizures as child-no rx, last seizure 2000, "blood clot in head age 4", gastric ulcer," vomiting a times" past history of rapid heartbeat. History of Any Multi-Drug Resistant Organisms: None Reported Past Surgical History: Bariatric Surgery, Orthopedic Surgery Additional Past Surgical History / Comment(s): surgery to put plates in arianna feet for "flat feet", gastric bypass 10-25-17, endoscopy Past Anesthesia/Blood Transfusion Reactions: No Reported Reaction Past Psychological History: ADD/ADHD, Depression Additional Psychological History / Comment(s): Takes fluoxetine regularly Smoking Status: Never smoker Past Alcohol Use History: None Reported Past Drug Use History: None Reported - Past Family History Mother Family Medical History: Asthma, Diabetes Mellitus, Sleep Apnea/CPAP/BIPAP Additional Family Medical History / Comment(s): Type 2 Diabetes - diet cont rolled Father Family Medical History: Hyperlipidemia, Hypertension Additional Family Medical History / Comment(s): Hypertension. Hyperlipidaemia Medications and Allergies Home Medications Medication Instructions Recorded Confirmed Type FLUoxetine HCL [PROzac] 20 mg PO DAILY 03/05/22 03/05/22 History FLUoxetine HCL [PROzac] 40 mg PO DAILY 03/05/22 03/05/22 History Ferrous Sulfate [Feosol] 325 mg PO DAILY 03/05/22 03/05/22 History Allergies Allergy/AdvReac Type Severity Reaction Status Date / Time No Known Allergies Allergy Verified 03/05/22 20:42 Physical Exam Vitals: Vital Signs Temp Pulse Resp BP Pulse Ox 03/06/22 10:45 98.6 F 22 95 03/06/22 10:03 98.4 F 104 H 18 111/81 97 03/06/22 08:18 111 H 18 115/81 96 03/06/22 07:00 101 H 16 108/74 95 03/06/22 06:00 97.7 F 107 H 16 110/76 96 03/06/22 05:00 107 H 16 107/79 96 03/06/22 04:00 105 H 16 99/73 95 03/06/22 03:00 105 H 16 103/75 95 03/06/22 02:00 104 H 16 105/75 97 03/06/22 01:00 105 H 16 95/73 97 03/06/22 00:00 104 H 16 97/67 98 03/05/22 23:00 104 H 16 103/74 03/05/22 22:45 103 H 16 103/72 97 03/05/22 22:00 104 H 16 102/71 97 03/05/22 20:55 105 H 18 103/73 99 03/05/22 16:55 98.8 F 121 H 16 96/68 98 Intake and Output 03/05/22 03/06/22 03/06/22 22:59 06:59 14:59 Other: Weight 69.853 kg 69.853 kg Results CBC & Chem 7: 03/06/22 07:18 03/05/22 20:54 Labs: Abnormal Lab Results - Last 24 Hours (Table) 03/05/22 03/05/22 03/05/22 Range/Units 20:54 20:54 21:06 RBC (3.80-5.40) m/uL Hgb 9.8 L (11.4-16.0) gm/dL Hct (34.0-46.0) % MCV 76.8 L (80.0-100.0) fL MCH 21.7 L (25.0-35.0) pg MCHC 28.2 L (31.0-37.0) g/dL RDW 18.7 H (11.5-15.5) % PT (9.0-12.0) sec INR (<1.2) APTT (22.0-30.0) sec D-Dimer 8.70 H (<0.60) mg/L FEU POC Glucose (mg/dL) (75-99) mg/dL Troponin I (0.000-0.034) ng/mL Urine Appearance Cloudy H (Clear) Urine Protein 2+ H (Negative) Urine Ketones Trace H (Negative) Urine Blood Large H (Negative) Urine Bilirubin 1+ H (Negative) Ur Leukocyte Esterase Large H (Negative) Urine RBC 134 H (0-5) /hpf Urine WBC >182 H (0-5) /hpf Urine Bacteria Occasional H (None) /hpf Urine Mucus Many H (None) /hpf 03/05/22 03/06/22 03/06/22 Range/Units 23:53 01:05 07:18 RBC 3.58 L (3.80-5.40) m/uL Hgb 8.0 L D (11.4-16.0) gm/dL Hct 27.4 L (34.0-46.0) % MCV 76.6 L (80.0-100.0) fL MCH 22.4 L (25.0-35.0) pg MCHC 29.2 L (31.0-37.0) g/dL RDW 18.9 H (11.5-15.5) % PT 12.6 H (9.0-12.0) sec INR 1.2 H (<1.2) APTT (22.0-30.0) sec D-Dimer (<0.60) mg/L FEU POC Glucose (mg/dL) (75-99) mg/dL Troponin I 0.128 H* (0.000-0.034) ng/mL Urine Appearance (Clear) Urine Protein (Negative) Urine Ketones (Negative) Urine Blood (Negative) Urine Bilirubin (Negative) Ur Leukocyte Esterase (Negative) Urine RBC (0-5) /hpf Urine WBC (0-5) /hpf Urine Bacteria (None) /hpf Urine Mucus (None) /hpf 03/06/22 03/06/22 Range/Units 07:18 10:44 RBC (3.80-5.40) m/uL Hgb (11.4-16.0) gm/dL Hct (34.0-46.0) % MCV (80.0-100.0) fL MCH (25.0-35.0) pg MCHC (31.0-37.0) g/dL RDW (11.5-15.5) % PT (9.0-12.0) sec INR (<1.2) APTT 43.7 H (22.0-30.0) sec D-Dimer (<0.60) mg/L FEU POC Glucose (mg/dL) 101 H (75-99) mg/dL Troponin I (0.000-0.034) ng/mL Urine Appearance (Clear) Urine Protein (Negative) Urine Ketones (Negative) Urine Blood (Negative) Urine Bilirubin (Negative) Ur Leukocyte Esterase (Negative) Urine RBC (0-5) /hpf Urine WBC (0-5) /hpf Urine Bacteria (None) /hpf Urine Mucus (None) /hpf Microbiology - Last 24 Hours (Table) 03/05/22 21:06 Urine Culture - Preliminary Urine,Voided 03/05/22 22:53 Genital Culture - Preliminary Vaginal Thrombosis Risk Factor Assmnt - Choose All That Apply Any of the Below Risk Factors Present?: Yes Each Factor Represents 1 point: Medical pt on bed rest, Obesity (BMI >25), or Other Risk Factors: Yes Each Risk Factor Represents 3 Points: History of DVT/PE Other congenital or acquired thrombophilia - If yes, enter type in comment: No Thrombosis Risk Factor Assessment Total Risk Factor Score: 6 Thrombosis Risk Factor Assessment Level: High Risk Assessment and Plan Time with Patient: Less than 30
[2022-03-06] MEDS: MORPHINE SULFATE 2 MG/ML SYRINGE IV PRN ×2 (16:18→21:11)
[2022-03-06] MEDS ORDERED: SODIUM CHLORIDE 0.9% IV ONE ×4 (20:00)
[2022-03-06] MEDS ORDERED: ALTEPLASE IV ONE ×4 (20:00)
[2022-03-07] MEDS: MORPHINE SULFATE 2 MG/ML SYRINGE IV PRN ×2 (00:25→03:59)
[2022-03-07 06:57] LABS: Anisocytosis Slight; HCT 29.6 % (34.0-46.0); HGB 8.5 gm/dL (11.4-16.0); Hypochromasia Marked; MCH 22.3 pg (25.0-35.0); MCHC 28.7 g/dL (31.0-37.0); MCV 77.5 fL (80.0-100.0); Mean Platelet Volume 6.9; Microcytosis Slight; Platelet Count 335 k/uL (150-450); RBC 3.82 m/uL (3.80-5.40); RDW 18.8 % (11.5-15.5); WBC 7.9 k/uL (3.8-10.6)
[2022-03-07 07:04] LABS: African American GFR (CKD) >90 (>60 ml/min/1.73 sqM); Anion Gap 6 mmol/L; Blood Urea Nitrogen 11 mg/dL (7-17); Carbon Dioxide 21 mmol/L (22-30); Chloride 112 mmol/L (98-107); Glucose 89 mg/dL (74-99); Non-African American GFR(CKD) >90 (>60 ml/min/1.73 sqM); Potassium 4.2 mmol/L (3.5-5.1); Sodium 139 mmol/L (137-145)
--- NOTE | 2022-03-07 08:24 | P.PN ---
Subjective Progress Note Date: 03/07/22 31-year-old female patient who presented with massive bilateral pulmonary embolism. Patient went to a spontaneous vaginal delivery on 02/12/2022 and the delivery was uncomplicated. The patient became dizzy and short of breath and the patient was also having palpitations. She came into the hospital and the patient was found to have bilateral popliteal DVTs and a CT angiogram showed massive pulmonary embolism with extensive breath or pulmonary filling defects and the patient also has enlarged RV. Echocardiogram is still pending for now. Despite the significant clot burden, the patient is on room air oxygen. She did have a troponin leak and troponin was at 0.18. ProBNP level was 3300 coagulat ion profile was normal. The patient was started on IV heparin. Vascular surgery was consulted and the patient is being considered for catheter directed intra-arterial thrombolytic therapy with EKOS. The patient denies having any previous history of DVT or pulmonary embolism. She is not sedentary. No history of any blood disorders or malignancies. No history of any orthopedic surgery. She is currently resting comfortably in bed. 03/07/2022, the patient is being seen in intensive care unit. The patient was taken to the vascular lab for catheter directed thrombolytic therapy for submass nevaeh pulmonary embolism. She is currently comfortable on 2 L of oxygen nasal cannula and her pulse ox is around 95%. Urine output is low in the order of 10- 20 mL an hour. The patient is completing. Thrombolytic therapy for now. The white cell count is at 7.9 with a hemoglobin of 8.5 and a platelet count of 335. BNP is 11 with a creatinine of 0.6 and the sodium level is at 139. The UA from yesterday was quite abnormal and there may be a possibility of an underlying urine checked infection. The patient was started on IV Rocephin pending urine cultures. IV fluids as running at the rate of 35 mL an hour in each catheter in the form of normal saline. The patient is running normal intake at 1 mg an hour in addition to IV heparin. The catheter sites of dry clean and intact. No indication of any bleeding. Echo from yesterday showed normal LV, severe RV dilatation with moderate to severe pulmonary hypertension related to pulmonary embolism. She has no chest pain. No shortness of breath. She is on O2 at 2 L per minute nasal cannula. She has bilateral lower extremity DVTs. Objective - Vital Signs Vital signs: Vital Signs Temp 97.8 F 03/07/22 04:00 Pulse 95 03/07/22 07:00 Resp 38 H 03/07/22 07:00 BP 123/85 03/07/22 07:00 Pulse Ox 95 03/07/22 07:00 FiO2 Intake & Output 03/06/22 03/07/22 03/07/22 18:59 06:59 18:59 Intake Total 1070 1320 70 Output Total 160 Balance 1070 1160 70 Weight 69.853 kg 71.8 kg Intake: IV 1070 840 70 Sodium Chloride 0.9% 1, 920 840 70 000 ml @ 130 mls/hr IV . Q7H42M [facility] Rx#:[id number] Oral 480 Output: Urine 160 Other: Voiding Method Bedside Commode Bedpan # Voids 1 1 - Exam The patient appeared well nourished and normally developed. She is laying down comfortably in bed and she is currently on 2 L of O2 nasal cannula. Vital signs as documented. Head exam is unremarkable. No scleral icterus or corneal arcus noted. Neck is without jugular venous distension, thyromegaly, or carotid bruits. Carotid upstrokes are brisk bilaterally. Lungs are clear to auscultation and percussion. Cardiac exam reveals the PMI to be normally sized and situated. Rhythm is regular. First and second heart sounds normal. No murmurs, rubs or gallops. Abdominal exam reveals normal bowel sounds, no masses, no organomegaly and no aortic enlargement. Extremities are nonedematous and both femoral and pedal pulses are normal.Examination of the skin revealed no evidence of significant rashes, suspicious appearing nevi or other concerning lesions.Neuro logically, the patient is awake and alert and the patient does not have any focal neurological deficit. Cranial nerves are essentially intact. Skin, the patient has clean groin sites at the site of the catheter insertion. The patient also has adequate pulses in lower extremity is bilaterally. Th rombolytics are still running for now. - Labs CBC & Chem 7: 03/07/22 06:06 03/07/22 06:06 Labs: Abnormal Lab Results - Last 24 Hours (Table) 03/06/22 03/07/22 03/07/22 Range/Units 10:44 06:06 06:06 Hgb 8.5 L (11.4-16.0) gm/dL Hct 29.6 L (34.0-46.0) % MCV 77.5 L (80.0-100.0) fL MCH 22.3 L (25.0-35.0) pg MCHC 28.7 L (31.0-37.0) g/dL RDW 18.8 H (11.5-15.5) % Chloride 112 H (98-107) mmol/L Carbon Dioxide 21 L (22-30) mmol/L POC Glucose (mg/dL) 101 H (75-99) mg/dL Calcium 8.0 L (8.4-10.2) mg/dL Microbiology - Last 24 Hours (Table) 03/05/22 20:40 Blood Culture - Preliminary Blood No Growth after 24 hours 03/05/22 20:54 Blood Culture - Preliminary Blood No Growth after 24 hours 03/05/22 21:06 Urine Culture - Preliminary Urine,Voided Gram Neg Bacilli Assessment and Plan Plan: Acute bilateral pulmonary embolism with significant clot burden and RV dil atation. The echo of the heart showed severe pulmonary hypertension. Preserved LV function. The patient is currently undergoing catheter directed thrombolytic therapy/ EKOS and this needs to be completed today. She is hemodynamically stable. She does have a large clot burden and severe pulmonary hypertension. She is on 2 L of oxygen nasal cannula and she is maintaining her on blood pressure for now. No signs of any bleeding as the patient is receiving thrombolytic and IV heparin. Bilateral DVTs Troponin leak secondary to above Suspected UTI with gram-negative , is currently on IV Rocephin Recent normal vaginal delivery Previous history of seizure disorder, last seizure was in 2000 History of gastric ulcer History of thyroid disease Plan Keep the patient intensive care unit Continue IV heparin and IV thrombolytics per protocol for catheter directed thrombolytic therapy. No signs of any bleeding. Hemoglobin is currently at 8.5. Echocardiogram was noted and the patient has severe pulmonary hypertension Complete catheter directed intra-arterial thrombolytic therapy by vascular surgery EKOS and the catheters can be removed after completing the protocol IV Rocephin ending urine cultures Maintaining O2 at 2 L nasal cannula provide the patient incentive spirometer Echo was noted and the patient has signs of severe pulmonary hypertension We'll keep the patient ICU for now. We'll continue to follow
[2022-03-07] MEDS: SODIUM CHLORIDE 0.9% 1,000 ML IV SCH ×4 (09:09→13:07)
[2022-03-07] MEDS: PANTOPRAZOLE 40 MG/10 ML VIAL IV SCH (09:15)
[2022-03-07 12:52] LABS: Anisocytosis Slight; HCT 28.1 % (34.0-46.0); HGB 8.1 gm/dL (11.4-16.0); Hypochromasia Marked; MCH 22.2 pg (25.0-35.0); MCHC 28.7 g/dL (31.0-37.0); MCV 77.3 fL (80.0-100.0); Mean Platelet Volume 7.3; Microcytosis Slight; Platelet Count 298 k/uL (150-450); RBC 3.64 m/uL (3.80-5.40)
[2022-03-07] MEDS: HEPARIN SOD,PORK IN 0.45% NACL 25,000 UNIT in 0.45% NACL 1 250ML.BAG IV SCH ×2 (13:07)
[2022-03-07] MEDS ORDERED: SODIUM CHLORIDE 0.9% 500 ML 500 ML IV ONE (14:54)
--- NOTE | 2022-03-07 15:11 | P.PN ---
Subjective Progress Note Date: 03/07/22 this is a 31 year old post female with medical history of seizure disorder as a child, hypothyroid, gastroesophageal reflux disease, bariatric surgery, gastric ulcers. She presents to the emergency room with complaints of shortness of breath with palpitations, chest discomfort, and dizziness over the last week. She states she fell at home 3 times, went to see her PCP Dr Feliciano yesterday who instructed the patient to come to the EC. She had a spontaneous vaginal delivery on February 12 at [facility], her sister in law currently has the infant. She is not breast feeding. States she had an uncomplicated and did have vaginal tearing during delivery. Having some brown vaginal discharge, no bright red bleeding or clots. No abdominal pain, no nausea, vomiting, or diarrhea. She reports dysuria with burning and hesitancy over the last few days as well. Denies fever, chills. Urinalysis was completed showing cloudy urine with 2+protein, large blood, large luekocyte esterase, >182 WBCs. She was started on IV metronidazole, IV ampicillin and IV doxycycline. However has been changed to IV ceftriaxone while urine culture finalizes. D-Dimer is 8.70, Troponin 0.128, proBNP 3300. Patient underwent chest CTA which reveals extensive bilateral pulmonary emboli in the right lower lobe and left upper lobe pulmonary arteries. There is saddle embolism. Right ventricle is large and there is probab ly right heart strain. Doppler showing bilataral lower extremity DVT. Echocardiogram showing severe right ventricular dilation with moderate to severe pulmonary hypertension with right ventricular strain. Also dilated inferior vena cava. Moderate to severe tricuspid regurg. Ejection fraction is 50 to 55% Patient is admitted to the intensive care unit and will undergo EKOS procedure this afternoon. She has consult placed to vascular services. Denies history of PE / DVT, no family history reported of clotting disorder. Patient was also evaluated by OBGYN. She was also recently started on prozac post . She was scheduled to see Dr Carmona her OB for 6 week visit on March 31. Additional diagnostics Abdominal xray negative for acute process Pelvis ultrasound showing uterus, endometrium, right and left ovary, bilateral adnexa, and posterior cul de sac within normal limits EKG showing sinus tachycardia heart rate 122, QT interval 414 Trichomonas negative, covid negative White count 10.1, hgb 9.8, platelets 443, INR 1.2, PT 12.6, PTT 43.7 Chemistry panel unremarkable Troponin level 0.128, pro BNP 3300 Vital signs Temp - 98.6, heart rate 107, blood pressure 107/76, 95% room air. 03/07/2022 Patient is evaluated today in the intensive care unit status post EKOS procedure yesterday for submassive pulmonary embolism with vascular surgery. She continues on thrombolytic therapy, we will send for wes to be kaur checked prior to discharge. Her parents are at the bedside. She denies shortness of breath today, does continue on 2L of oxygen via nasal cannula and maintaining saturations at 93%, blood pressure 96/63, heart rate 98. She is afebrile. Labs today showing white count 8, hemoglobin 8.1, is microcytic, platelet count 298. Sodium was 133, potassium 4.2, chloride 112, CO2 21, creatinine stable at 0.65, calcium 8.0. Patient is tolerating diet well. Urine culture showing gram- negative bacilli should be finalized tomorrow for now continue on IV ceftriax one. She remains tearful when talking about her daughter, but family states she is doing well with her sister in law who is taking care of her. Plan is to finish thrombolytic therapy and catheters can be removed. She is being followed closely by pulmonary electrotyper apprentice and will continue to be monitored overnight in the ICU. Review of Systems Constitutional: Denied any fatigue denied any fever. Cardio vascular: denied any chest pain, palpitations Gastrointestinal: denied any nausea, vomiting, diarrhea Pulmonary: Denied any shortness of breath cough Neurologic denied any new focal deficits All inpatient medications were reviewed and appropriate changes in these medications as dictated in the interval history and assessment and plan. The rest of the 14-point review of systems is negative. PHYSICAL EXAMINATION: GENERAL: The patient is alert and oriented x3, not in any acute distress. Well developed, well nourished. She is tearful and crying. HEENT: Pupils are round and equally reacting to light. EOMI. No scleral icterus. No conjunctival pallor. Normocephalic, atraumatic. No pharyngeal erythema. No thyromegaly. CARDIOVASCULAR: S1 and S2 present. No murmurs, rubs, or gallops. Tachycardic PULMONARY: Chest is diminished ABDOMEN: Soft, nontender, nondistended, normoactive bowel sounds. No palpable organomegaly. MUSCULOSKELETAL: No joint swelling or deformity. EXTREMITIES: No cyanosis, clubbing, or pedal edema. NEUROLOGICAL: Gross neurological examination did not reveal any focal deficits. SKIN: No rashes. exam deferred Assessment and Plan Assessment Bilateral pulmonary embolism with saddle PE with evidence of right ventricular heart strain on echocardiogram mehran is status post EKOS procedure and currently finishing thrombolytic therapy. Bilateral lower extremity DVT Troponin leak Moderate to severe pulmonary hypertension 3 weeks vaginal delivery Acute UTI with gram negative, patient was symptomatic at home, will continue IV ceftriaxone pending finalized cultures Anemia, microcytic, probably iron deficient she is maintained on oral iron at home History of seizure disorder, last seziure in 2000 History of thyroid disorder History of GERD History of gastric bypass History of stomach ulcers GI prophylaxis: IV protonix DVT porphylaxis IV heparin Full Code Plan This is a 31 year old post female with PE and right heart strain Patient is monitored in the ICU Continues on thrombolytic therapy Continue IV antibiotics Pending urine culture Follow up hemoglobin Continue all other supportive care Eliquis sent for kaur check The impression and plan of care has been dictated by Jeniffer Torres Nurse Practitioner as directed. Dr. Alicia MD I have performed a history and physical examination and medical decision making of this patient, discussed the same with the dictator, and agree with the dictators assessment and plan as written, documented as a scribe. Based on total visit time, I have performed more than 50% of this visit. Objective - Vital Signs Vital signs: Vital Signs Temp 98.1 F 03/07/22 12:00 Pulse 98 03/07/22 14:00 Resp 20 03/07/22 14:00 BP 96/63 03/07/22 14:00 Pulse Ox 93 L 03/07/22 14:00 FiO2 Intake & Output 03/06/22 03/07/22 03/07/22 18:59 06:59 18:59 Intake Total 1070 1320 820 Output Total 160 0 Balance 1070 1160 820 Weight 69.853 kg 71.8 kg Intake: IV 1070 840 230 Sodium Chloride 0.9% 1, 920 840 230 000 ml @ 130 mls/hr IV . Q7H42M [facility] Rx#:[id number] Intake, IV Titration 590 Amount Sodium Chloride 0.9% 1, 450 000 ml @ 0 mls/hr IV .STK -[facility] ONE Rx#:[id number] Sodium Chloride 0.9% 1, 90 000 ml @ 130 mls/hr IV . Q7H42M [facility] Rx#:[id number] cefTRIAXone 2 gm In 50 Sodium Chloride 0.9% 50 ml @ 100 mls/hr IVPB Q24HR [facility] Rx#:[id number] Oral 480 Output: Urine 160 0 Other: Voiding Method Bedside Commode Bedpan Bedpan # Voids 1 1 - Labs CBC & Chem 7: 03/07/22 12:20 03/07/22 06:06 Labs: Abnormal Lab Results - Last 24 Hours (Table) 03/07/22 03/07/22 03/07/22 Range/Units 06:06 06:06 12:20 RBC 3.64 L (3.80-5.40) m/uL Hgb 8.5 L 8.1 L (11.4-16.0) gm/dL Hct 29.6 L 28.1 L (34.0-46.0) % MCV 77.5 L 77.3 L (80.0-100.0) fL MCH 22.3 L 22.2 L (25.0-35.0) pg MCHC 28.7 L 28.7 L (31.0-37.0) g/dL RDW 18.8 H 19.0 H (11.5-15.5) % Chloride 112 H (98-107) mmol/L Carbon Dioxide 21 L (22-30) mmol/L Calcium 8.0 L (8.4-10.2) mg/dL Microbiology - Last 24 Hours (Table) 03/05/22 20:40 Blood Culture - Preliminary Blood No Growth after 24 hours 03/05/22 20:54 Blood Culture - Preliminary Blood No Growth after 24 hours 03/05/22 21:06 Urine Culture - Preliminary Urine,Voided Gram Neg Bacilli Assessment and Plan Time with Patient: Less than 30
--- NOTE | 2022-03-07 15:44 | P.PN ---
Subjective Progress Note Date: 03/07/22 Principal diagnosis: PE patient seen and examined. Doing well. States breathing improved. No complaints. EKOS catheters still in place. Objective - Vital Signs Vital signs: Vital Signs Temp 98.1 F 03/07/22 12:00 Pulse 98 03/07/22 14:00 Resp 20 03/07/22 14:00 BP 96/63 03/07/22 14:00 Pulse Ox 93 L 03/07/22 14:00 FiO2 Intake & Output 03/06/22 03/07/22 03/07/22 18:59 06:59 18:59 Intake Total 1070 1320 820 Output Total 160 0 Balance 1070 1160 820 Weight 69.853 kg 71.8 kg Intake: IV 1070 840 230 Sodium Chloride 0.9% 1, 920 840 230 000 ml @ 130 mls/hr IV . Q7H42M COUNTS INCLUDE 234 BEDS AT [facility] Rx#:[id number] Intake, IV Titration 590 Amount Sodium Chloride 0.9% 1, 450 000 ml @ 0 mls/hr IV .STK -[facility] ONE Rx#:[id number] Sodium Chloride 0.9% 1, 90 000 ml @ 130 mls/hr IV . Q7H42M COUNTS INCLUDE 234 BEDS AT THE [facility] Rx#:[id number] cefTRIAXone 2 gm In 50 Sodium Chloride 0.9% 50 ml @ 100 mls/hr IVPB Q24HR COUNTS INCLUDE 234 BEDS AT THE [facility] Rx#:[id number] Oral 480 Output: Urine 160 0 Other: Voiding Method Bedside Commode Bedpan Bedpan # Voids 1 1 - Exam right femoral sheaths in place. No hematoma. Catheters in place. - Constitutional General appearance: Present: cooperative, no acute distress - Respiratory Respiratory: bilateral: CTA - Cardiovascular Rhythm: regular - Psychiatric Psychiatric: Present: A&O x's 3, appropriate affect - Labs CBC & Chem 7: 03/07/22 12:20 03/07/22 06:06 Labs: Abnormal Lab Results - Last 24 Hours (Table) 03/07/22 03/07/22 03/07/22 Range/Units 06:06 06:06 12:20 RBC 3.64 L (3.80-5.40) m/uL Hgb 8.5 L 8.1 L (11.4-16.0) gm/dL Hct 29.6 L 28.1 L (34.0-46.0) % MCV 77.5 L 77.3 L (80.0-100.0) fL MCH 22.3 L 22.2 L (25.0-35.0) pg MCHC 28.7 L 28.7 L (31.0-37.0) g/dL RDW 18.8 H 19.0 H (11.5-15.5) % Chloride 112 H (98-107) mmol/L Carbon Dioxide 21 L (22-30) mmol/L Calcium 8.0 L (8.4-10.2) mg/dL Microbiology - Last 24 Hours (Table) 03/05/22 20:40 Blood Culture - Preliminary Blood No Growth after 24 hours 03/05/22 20:54 Blood Culture - Preliminary Blood No Growth after 24 hours 03/05/22 21:06 Urine Culture - Preliminary Urine,Voided Gram Neg Bacilli Assessment and Plan Assessment: Bilateral Acute Saddle PE with right heart strain S/P EKOS thrombolysis Bilateral lower extremity DVT , vaginal delivery Plan: Doing well. Catheters pulled without issue. Sheaths to be pulled today. Ok to increase activity 1 hour after catheters removed. Start oral anticoagulation today- Eliquis. Will need x 6 months. Follow up with Dr. Cruz in office in 2-4 weeks.
[2022-03-07 18:31] LABS: Anisocytosis Slight; HCT 29.7 % (34.0-46.0); HGB 8.3 gm/dL (11.4-16.0); Hypochromasia Marked; MCH 22.1 pg (25.0-35.0); MCV 78.9 fL (80.0-100.0); Mean Platelet Volume 7.6; Microcytosis Slight; Platelet Count 278 k/uL (150-450); RBC 3.76 m/uL (3.80-5.40); RDW 18.9 % (11.5-15.5); WBC 7.6 k/uL (3.8-10.6)
[2022-03-07] MEDS: APIXABAN 5 MG TAB PO SCH (20:09)
[2022-03-07] MEDS ORDERED: ACETAMINOPHEN TAB 325 MG TAB PO PRN (22:21)
[2022-03-07] MEDS ORDERED: HYDROcodone/APAP 5-325MG 1 EACH TAB PO PRN (22:21)
[2022-03-08] MEDS: PANTOPRAZOLE 40 MG TABLET PO SCH (06:53)
[2022-03-08] MEDS: APIXABAN 5 MG TAB PO SCH (09:05)
[2022-03-08] MEDS ORDERED: Magnesium Replacement Protocol 1 EACH MISC MISCELLANE PRN (10:46)
[2022-03-08] MEDS: MAGNESIUM SULFATE-D5W PMX 1 GM in DEXTROSE/WATER 1 100ML.BAG IVPB SCH ×2 (12:03→14:04)
[2022-03-08] MEDS ORDERED: MAGNESIUM SULFATE-D5W PMX 1 GM in DEXTROSE/WATER 1 100ML.BAG IVPB ONE (13:00)
--- NOTE | 2022-03-08 13:32 | P.PN ---
Subjective Progress Note Date: 03/08/22 31-year-old female patient who presented with massive bilateral pulmonary embolism. Patient went to a spontaneous vaginal delivery on 02/12/2022 and the delivery was uncomplicated. The patient became dizzy and short of breath and the patient was also having palpitations. She came into the hospital and the patient was found to have bilateral popliteal DVTs and a CT angiogram showed massive pulmonary embolism with extensive breath or pulmonary filling defects and the patient also has enlarged RV. Echocardiogram is still pending for now. Despite the significant clot burden, the patient is on room air oxygen. She did have a troponin leak and troponin was at 0.18. ProBNP level was 3300 coagulat ion profile was normal. The patient was started on IV heparin. Vascular surgery was consulted and the patient is being considered for catheter directed intra-arterial thrombolytic therapy with EKOS. The patient denies having any previous history of DVT or pulmonary embolism. She is not sedentary. No history of any blood disorders or malignancies. No history of any orthopedic surgery. She is currently resting comfortably in bed. 03/07/2022, the patient is being seen in intensive care unit. The patient was taken to the vascular lab for catheter directed thrombolytic therapy for submass nevaeh pulmonary embolism. She is currently comfortable on 2 L of oxygen nasal cannula and her pulse ox is around 95%. Urine output is low in the order of 10- 20 mL an hour. The patient is completing. Thrombolytic therapy for now. The white cell count is at 7.9 with a hemoglobin of 8.5 and a platelet count of 335. BNP is 11 with a creatinine of 0.6 and the sodium level is at 139. The UA from yesterday was quite abnormal and there may be a possibility of an underlying urine checked infection. The patient was started on IV Rocephin pending urine cultures. IV fluids as running at the rate of 35 mL an hour in each catheter in the form of normal saline. The patient is running normal intake at 1 mg an hour in addition to IV heparin. The catheter sites of dry clean and intact. No indication of any bleeding. Echo from yesterday showed normal LV, severe RV dilatation with moderate to severe pulmonary hypertension related to pulmonary embolism. She has no chest pain. No shortness of breath. She is on O2 at 2 L per minute nasal cannula. She has bilateral lower extremity DVTs. 03/08/2022, the patient is doing well. She has completed EKOS treatment without any complications. The patient otherwise is doing well. The patient is on anticoagulation with Eliquis 10 mg by mouth twice a day. Surgical sites are dry clean and intact. The patient is on room air oxygen. Tolerating his diet. No nausea or vomiting. She got transferred out of the intensive care unit yesterday. She is on IV Rocephin regarding E. coli in her urine. No chest pain. No pleurisy. No hemoptysis. No syncope. Objective - Vital Signs Vital signs: Vital Signs Temp 97.5 F L 03/08/22 08:00 Pulse 90 03/08/22 08:00 Resp 17 03/08/22 08:00 BP 94/65 03/08/22 08:00 Pulse Ox 98 03/08/22 08:00 FiO2 Intake & Output 03/07/22 03/08/22 03/08/22 18:59 06:59 18:59 Intake Total 960 10 Output Total 250 Balance 710 10 Intake: IV 370 10 Sodium Chloride 0.9% 1, 370 10 000 ml @ 130 mls/hr IV . Q7H42M [facility] Rx#:[id number] Intake, IV Titration 590 Amount Sodium Chloride 0.9% 1, 450 000 ml @ 0 mls/hr IV .[facility] Rx#:[id number] Sodium Chloride 0.9% 1, 90 000 ml @ 130 mls/hr IV . Q7H42M [facility] Rx#:[id number] cefTRIAXone 2 gm In 50 Sodium Chloride 0.9% 50 ml @ 100 mls/hr IVPB Q24HR [facility] Rx#:[id number] Output: Urine 250 Other: Voiding Method Bedpan Toilet Toilet # Voids 1 - Exam The patient appeared well nourished and normally developed. She is laying down comfortably in bed and she is currently on 2 L of O2 nasal cannula. Vital signs as documented. Head exam is unremarkable. No scleral icterus or corneal arcus noted. Neck is without jugular venous distension, thyromegaly, or carotid bruits. Carotid upstrokes are brisk bilaterally. Lungs are clear to auscultation and percussion. Cardiac exam reveals the PMI to be normally sized and situated. Rhythm is regular. First and second heart sounds normal. No murmurs, rubs or gallops. Abdominal exam reveals normal bowel sounds, no masses, no organomegaly and no aortic enlargement. Extremities are nonedematous and both femoral and pedal pulses are normal.Examination of the skin revealed no evidence of significant rashes, suspicious appearing nevi or other concerning lesions.Neurologically, the patient is awake and alert and the patient does not have any focal neurological deficit. Cranial nerves are essentially intact. Skin, the patient has clean groin sites at the site of the catheter insertion. The patient also has adequate pulses in lower extremity is bilaterally. Thrombolytics are still running for now. - Labs CBC & Chem 7: 03/07/22 18:02 03/07/22 06:06 Labs: Abnormal Lab Results - Last 24 Hours (Table) 03/07/22 03/07/22 Range/Units 12:20 18:02 RBC 3.64 L 3.76 L (3.80-5.40) m/uL Hgb 8.1 L 8.3 L (11.4-16.0) gm/dL Hct 28.1 L 29.7 L (34.0-46.0) % MCV 77.3 L 78.9 L (80.0-100.0) fL MCH 22.2 L 22.1 L (25.0-35.0) pg MCHC 28.7 L 28.0 L (31.0-37.0) g/dL RDW 19.0 H 18.9 H (11.5-15.5) % Microbiology - Last 24 Hours (Table) 03/05/22 20:40 Blood Culture - Preliminary Blood No Growth after 48 hours 03/05/22 20:54 Blood Culture - Preliminary Blood No Growth after 48 hours 03/05/22 21:06 Urine Culture - Final Urine,Voided Escherichia coli Assessment and Plan Plan: Acute bilateral pulmonary embolism with significant clot burden and RV dilatation. The echo of the heart showed severe pulmonary hypertension. Preserved LV function. The patient is currently undergoing catheter directed thrombolytic therapy/ EKOS and this needs to be completed today. She is hemodynamically stable. She does have a large clot burden and severe pulmonary hypertension. The patient is currently off IV heparin and the patient is currently on anticoagulation with Eliquis. No bleeding complications. She is currently on a oxygen. No hemodynamic instability. Bilateral DVTs Troponin leak secondary to above Suspected UTI with gram-negative , is currently on IV Rocephin Recent normal vaginal delivery Previous history of seizure disorder, last seizure was in 2000 History of gastric ulcer History of thyroid disease Plan Continue Eliquis Increase his mobility as tolerated Monitor hemoglobin levels, currently at 8.3, stable Echocardiogram was noted and the patient has severe pulmonary hypertension Complete catheter directed intra-arterial thrombolytic therapy by vascular surgery EKOS and the catheters can be removed after completing the protocol IV Rocephin ending urine cultures Room air oxygen Echo was noted and the patient has signs of severe pulmonary hypertension We'll continue to follow, possible discharge in a.m.
--- NOTE | 2022-03-08 15:32 | P.PN ---
Subjective Progress Note Date: 03/08/22 this is a 31 year old post female with medical history of seizure disorder as a child, hypothyroid, gastroesophageal reflux disease, bariatric surgery, gastric ulcers. She presents to the emergency room with complaints of shortness of breath with palpitations, chest discomfort, and dizziness over the last week. She states she fell at home 3 times, went to see her PCP Dr Feliciano yesterday who instructed the patient to come to the EC. She had a spontaneous vaginal delivery on February 12 at [facility], her sister in law currently has the infant. She is not breast feeding. States she had an uncomplicated and did have vaginal tearing during delivery. Having some brown vaginal discharge, no bright red bleeding or clots. No abdominal pain, no nausea, vomiting, or diarrhea. She reports dysuria with burning and hesitancy over the last few days as well. Denies fever, chills. Urinalysis was completed showing cloudy urine with 2+protein, large blood, large luekocyte esterase, >182 WBCs. She was started on IV metronidazole, IV ampicillin and IV doxycycline. However has been changed to IV ceftriaxone while urine culture finalizes. D-Dimer is 8.70, Troponin 0.128, proBNP 3300. Patient underwent chest CTA which reveals extensive bilateral pulmonary emboli in the right lower lobe and left upper lobe pulmonary arteries. There is saddle embolism. Right ventricle is large and there is probab ly right heart strain. Doppler showing bilataral lower extremity DVT. Echocardiogram showing severe right ventricular dilation with moderate to severe pulmonary hypertension with right ventricular strain. Also dilated inferior vena cava. Moderate to severe tricuspid regurg. Ejection fraction is 50 to 55% Patient is admitted to the intensive care unit and will undergo EKOS procedure this afternoon. She has consult placed to vascular services. Denies history of PE / DVT, no family history reported of clotting disorder. Patient was also evaluated by OBGYN. She was also recently started on prozac post . She was scheduled to see Dr Carmona her OB for 6 week visit on March 31. Additional diagnostics Abdominal xray negative for acute process Pelvis ultrasound showing uterus, endometrium, right and left ovary, bilateral adnexa, and posterior cul de sac within normal limits EKG showing sinus tachycardia heart rate 122, QT interval 414 Trichomonas negative, covid negative White count 10.1, hgb 9.8, platelets 443, INR 1.2, PT 12.6, PTT 43.7 Chemistry panel unremarkable Troponin level 0.128, pro BNP 3300 Vital signs Temp - 98.6, heart rate 107, blood pressure 107/76, 95% room air. 03/07/2022 Patient is evaluated today in the intensive care unit status post EKOS procedure yesterday for submassive pulmonary embolism with vascular surgery. She continues on thrombolytic therapy, we will send for eliquis to be kaur checked prior to discharge. Her parents are at the bedside. She denies shortness of breath today, does continue on 2L of oxygen via nasal cannula and maintaining saturations at 93%, blood pressure 96/63, heart rate 98. She is afebrile. Labs today showing white count 8, hemoglobin 8.1, is microcytic, platelet count 298. Sodium was 133, potassium 4.2, chloride 112, CO2 21, creatinine stable at 0.65, calcium 8.0. Patient is tolerating diet well. Urine culture showing gram- negative bacilli should be finalized tomorrow for now continue on IV ceftriax one. She remains tearful when talking about her daughter, but family states she is doing well with her sister in law who is taking care of her. Plan is to finish thrombolytic therapy and catheters can be removed. She is being followed closely by pulmonary mamma logist and will continue to be monitored overnight in the ICU. 03/08/2022 Patient has been transferred out of the ICU to the step down unit she is status post EKOS procedure. She has complained of some pain to her right calf throughout the night that has improved today. +2 dorsalis pedis pulses are present. She his trace ankle edema but stable. She denies chest pain or shortness of breath, continues to wear 2L of oxygen as needed for comfort which she can be trialed off oxygen. She is denying dysuria however has some vaginal burning and discomfort which she is . Can use witch navid pads or ice pack as needed for that. She otherwise is in much better spirits today now that catheters have been removed. Groin is soft. She had a bowel movement today. Eliquis is not covered and she will be changed to xarelto and this was cleared with vascular. Blood pressure 116/64. Plan for discharge tomorrow. Review of Systems Constitutional: Denied any fatigue denied any fever. Cardio vascular: denied any chest pain, palpitations Gastrointestinal: denied any nausea, vomiting, diarrhea Pulmonary: Denied any shortness of breath cough Neurologic denied any new focal deficits All inpatient medications were reviewed and appropriate changes in these medications as dictated in the interval history and assessment and plan. The rest of the 14-point review of systems is negative. PHYSICAL EXAMINATION: GENERAL: The patient is alert and oriented x3, not in any acute distress. Well developed, well nourished. She is tearful and crying. HEENT: Pupils are round and equally reacting to light. EOMI. No scleral icterus. No conjunctival pallor. Normocephalic, atraumatic. No pharyngeal erythema. No thyromegaly. CARDIOVASCULAR: S1 and S2 present. No murmurs, rubs, or gallops. Tachycardic PULMONARY: Chest is diminished ABDOMEN: Soft, nontender, nondistended, normoactive bowel sounds. No palpable organomegaly. MUSCULOSKELETAL: No joint swelling or deformity. EXTREMITIES: No cyanosis, clubbing, or pedal edema. NEUROLOGICAL: Gross neurological examination did not reveal any focal deficits. SKIN: No rashes. exam deferred Assessment and Plan Assessment Bilateral pulmonary embolism with saddle PE with evidence of right ventricular heart strain on echocardiogram paitent is status post EKOS and has been moved out of the intensive care unit Bilateral lower extremity DVT Troponin leak Moderate to severe pulmonary hypertension 3 weeks vaginal delivery Acute UTI with e.coli will continue IV ceftriaxone while inpatient and finish course of antibiotic therapy outpatient with oral ceftin. Anemia, microcytic, probably iron deficient she is maintained on oral iron at home History of seizure disorder, last seziure in 2000 History of thyroid disorder History of GERD History of gastric bypass History of stomach ulcers GI prophylaxis: IV protonix DVT porphylaxis IV heparin Full Code Plan This is a 31 year old post female with PE and right heart strain Patient has been moved to the medical floor post EKOS thrombolytic treatment Continue IV antibiotics Follow up hemoglobin Anticoagulation with xarelto which she will need to continue for 6 months Plan for possible D/C tomorrow The impression and plan of care has been dictated by Jeniffer Torres Nurse Practitioner as directed. Dr. Alicia MD I have performed a history and physical examination and medical decision making of this patient, discussed the same with the dictator, and agree with the dictators assessment and plan as written, documented as a scribe. Based on total visit time, I have performed more than 50% of this visit. Objective - Vital Signs Vital signs: Vital Signs Temp 97.4 F L 03/08/22 12:00 Pulse 80 03/08/22 12:00 Resp 16 03/08/22 12:00 BP 116/64 03/08/22 12:00 Pulse Ox 97 03/08/22 12:00 FiO2 Intake & Output 03/07/22 03/08/22 03/08/22 18:59 06:59 18:59 Intake Total 960 10 Output Total 250 Balance 710 10 Intake: IV 370 10 Sodium Chloride 0.9% 1, 370 10 000 ml @ 130 mls/hr IV . Q7H42M [facility] Rx#:[id number] Intake, IV Titration 590 Amount Sodium Chloride 0.9% 1, 450 000 ml @ 0 mls/hr IV .[facility] Rx#:[id number] Sodium Chloride 0.9% 1, 90 000 ml @ 130 mls/hr IV . Q7H42M [facility] Rx#:[id number] cefTRIAXone 2 gm In 50 Sodium Chloride 0.9% 50 ml @ 100 mls/hr IVPB Q24HR [facility] Rx#:[id number] Output: Urine 250 Other: Voiding Method Bedpan Toilet Toilet # Voids 1 - Labs CBC & Chem 7: 03/07/22 18:02 03/07/22 06:06 Labs: Abnormal Lab Results - Last 24 Hours (Table) 03/07/22 Range/Units 18:02 RBC 3.76 L (3.80-5.40) m/uL Hgb 8.3 L (11.4-16.0) gm/dL Hct 29.7 L (34.0-46.0) % MCV 78.9 L (80.0-100.0) fL MCH 22.1 L (25.0-35.0) pg MCHC 28.0 L (31.0-37.0) g/dL RDW 18.9 H (11.5-15.5) % Microbiology - Last 24 Hours (Table) 03/05/22 20:40 Blood Culture - Preliminary Blood No Growth after 48 hours 03/05/22 20:54 Blood Culture - Preliminary Blood No Growth after 48 hours 03/05/22 21:06 Urine Culture - Final Urine,Voided Escherichia coli Assessment and Plan Time with Patient: Less than 30
[2022-03-08] MEDS: RIVAROXABAN 15 MG TAB PO SCH (16:11)
[2022-03-08] MEDS ORDERED: PREGABALIN 100 MG CAP PO PRN (17:24)
[2022-03-08] MEDS ORDERED: RIVAROXABAN 15 MG TAB PO SCH (17:30)
[2022-03-09] MEDS: RIVAROXABAN 15 MG TAB PO SCH (07:07)
[2022-03-09] MEDS: PANTOPRAZOLE 40 MG TABLET PO SCH (07:07)
[2022-03-09 10:55] LABS: Anisocytosis Slight; Basophils % (A) 0 %; Eosinophils # (A) 0.2 k/uL (0-0.7); Eosinophils % (A) 4 %; HCT 27.3 % (34.0-46.0); HGB 7.6 gm/dL (11.4-16.0); Hypochromasia Marked; Lymphocytes # (A) 1.3 k/uL (1.0-4.8); Lymphocytes % (A) 24 %; MCH 21.6 pg (25.0-35.0); MCHC 27.7 g/dL (31.0-37.0); MCV 78.2 fL (80.0-100.0); Mean Platelet Volume 7.8; Microcytosis Slight; Monocytes # (A) 0.3 k/uL (0-1.0); Monocytes % (A) 6 %; Neutrophils # (A) 3.6 k/uL (1.3-7.7); Neutrophils % (A) 63 %; Platelet Count 308 k/uL (150-450); RBC 3.49 m/uL (3.80-5.40); RDW 19.2 % (11.5-15.5); WBC 5.7 k/uL (3.8-10.6)
[2022-03-09 13:05] VITALS: BP 100/66; PULSE 96; RESP 14; TEMP 98.8
[2022-03-09 14:20] LABS: C. trachomatis,PCR Negative (Neg,Equiv); Chlamydia trachomatis Source Vagina; N. gonorrhoeae,PCR Negative (Neg,Equiv); Neisseria Source Vagina
--- NOTE | 2022-03-09 15:17 | P.PN ---
Subjective Progress Note Date: 03/09/22 Principal diagnosis: Submassive Pulmonary embolism with right heart strain Patient is seen and examined as a follow-up for EKOS procedure. Patient tolerated procedure well. She states her breathing has improved. She denies any shortness of breath or chest pain. She has been transitioned to Xarelto. Objective - Vital Signs Vital signs: Vital Signs Temp 98.7 F 03/09/22 04:55 Pulse 87 03/09/22 04:55 Resp 15 03/09/22 04:55 BP 99/68 03/09/22 04:55 Pulse Ox 98 03/09/22 04:55 FiO2 Intake & Output 03/08/22 03/09/22 03/09/22 18:59 06:59 18:59 Intake Total 120 120 Balance 120 120 Weight 71.3 kg Intake: Oral 120 120 Other: Voiding Method Toilet Toilet # Voids 2 - Exam General appearance: The patient is alert, oriented, appears in no acute distress. HET: Head is normocephalic and atraumatic. Neck: Supple without lymphadenopathy. Trachea midline. Heart: S1 S2. Regular rate and rhythm. Lungs: Clear to auscultation bilaterally. Abdomen: Soft, nontender, nondistended. Extremities: Normal skin color and turgor. No cyanosis, rash, ulceration, clubbing, or edema. Radial and pedal pulses are 2/4 bilaterally. Right groin access site without any hematoma or ecchymosis. Neurological: No focal deficits. Alert and oriented 3. - Labs CBC & Chem 7: 03/09/22 05:45 03/07/22 06:06 Labs: Microbiology - Last 24 Hours (Table) 03/05/22 20:40 Blood Culture - Preliminary Blood No Growth after 72 hours 03/05/22 20:54 Blood Culture - Preliminary Blood No Growth after 72 hours 03/05/22 22:53 Genital Culture - Final Vaginal Assessment and Plan Assessment: 1. Saddle embolism with right heart strain status post EKOS thromboliasis 2. Bilateral lower extremity DVT 3. , spontaneous vaginal delivery 02/12/2022 Plan: 1. Encourage ambulation 2. Continue anticoagulation 3. Follow-up with Dr. Cruz and 2-4 weeks 4. Patient is cleared by vascular surgery for discharge The impression and plan of care has been dictated as directed. Dr. Cuppari I performed a history and examination of this patient, discussed the same with the dictator. I agree with the dictator's note ,documented as a scribe. Any additional findings or plans will be noted.
--- NOTE | 2022-03-09 15:17 | P.PN ---
Subjective Progress Note Date: 03/09/22 Principal diagnosis: Acute bilateral pulmonary embolism 31-year-old female patient who presented with massive bilateral pulmonary embolism. Patient went to a spontaneous vaginal delivery on 02/12/2022 and the delivery was uncomplicated. The patient became dizzy and short of breath and the patient was also having palpitations. She came into the hospital and the patient was found to have bilateral popliteal DVTs and a CT angiogram showed massive pulmonary embolism with extensive breath or pulmonary filling defects and the patient also has enlarged RV. Echocardiogram is still pending for now. Despite the significant clot burden, the patient is on room air oxygen. She did have a troponin leak and troponin was at 0.18. ProBNP level was 3300 coagulation profile was normal. The patient was started on IV heparin. Vascular surgery was consulted and the patient is being considered for catheter directed intra-arterial thrombolytic therapy with EKOS. The patient denies having any previous history of DVT or pulmonary embolism. She is not sedentary. No history of any blood disorders or malignancies. No history of any orthopedic surgery. She is currently resting comfortably in bed. 03/07/2022, the patient is being seen in intensive care unit. The patient was taken to the vascular lab for catheter directed thrombolytic therapy for submassive pulmonary embolism. She is currently comfortable on 2 L of oxygen nasal cannula and her pulse ox is around 95%. Urine output is low in the order of 10-20 mL an hour. The patient is completing. Thrombolytic therapy for now. The white cell count is at 7.9 with a hemoglobin of 8.5 and a platelet count of 335. BNP is 11 with a creatinine of 0.6 and the sodium level is at 139. The UA from yesterday was quite abnormal and there may be a possibility of an underlying urine checked infection. The patient was started on IV Rocephin pending urine cultures. IV fluids as running at the rate of 35 mL an hour in e ach catheter in the form of normal saline. The patient is running normal intake at 1 mg an hour in addition to IV heparin. The catheter sites of dry clean and intact. No indication of any bleeding. Echo from yesterday showed normal LV, severe RV dilatation with moderate to severe pulmonary hypertension related to pulmonary embolism. She has no chest pain. No shortness of breath. She is on O2 at 2 L per minute nasal cannula. She has bilateral lower extremity DVTs. 03/08/2022, the patient is doing well. She has completed EKOS treatment without any complications. The patient otherwise is doing well. The patient is on anticoagulation with Eliquis 10 mg by mouth twice a day. Surgical sites are dry clean and intact. The patient is on room air oxygen. Tolerating his diet. No nausea or vomiting. She got transferred out of the intensive care unit yesterday. She is on IV Rocephin regarding E. coli in her urine. No chest pain. No pleurisy. No hemoptysis. No syncope. On 03/09/2022 patient seen in follow-up. Patient is awake and alert, in no acute distress, breathing comfortable, room air pulse ox is 95-96%, vital signs have been stable, no complaints of hemoptysis, no complaint of worsening dyspnea or chest discomfort. She's had no acute events overnight. She is doing well, she continues on antibiotics for acute urinary tract infection. She has been transitioned to Xarelto. Vital signs have been stable, patient is status post EKOS. Objective - Vital Signs Vital signs: Vital Signs Temp 98.8 F 03/09/22 13:00 Pulse 96 03/09/22 13:00 Resp 14 03/09/22 13:00 BP 100/66 03/09/22 13:00 Pulse Ox 95 03/09/22 13:00 FiO2 Intake & Output 03/08/22 03/09/22 03/09/22 18:59 06:59 18:59 Intake Total 120 480 Balance 120 480 Weight 71.3 kg Intake: Oral 120 480 Other: Voiding Method Toilet Toilet Toilet # Voids 2 2 - Exam GENERAL EXAM: Alert, very pleasant, 31-year-old female, on room air with pulse ox of 95-96% comfortable in no apparent distress. HEAD: Normocephalic/atraumatic. EYES: Normal reaction of pupils, equal size. Conjunctiva pink, sclera white. NOSE: Clear with pink turbinates. THROAT: No erythema or exudates. NECK: No masses, no JVD, no thyroid enlargement, no adenopathy. CHEST: No chest wall deformity. Symmetrical expansion. LUNGS: Equal air entry with no crackles, wheeze, rhonchi or dullness. CVS: Regular rate and rhythm, normal S1 and S2, no gallops, no murmurs, no rubs ABDOMEN: Soft, nontender. No hepatosplenomegaly, normal bowel sounds, no guarding or rigidity. EXTREMITIES: No clubbing, no edema, no cyanosis, 2+ pulses and upper and lower extremities. MUSCULOSKELETAL: Muscle strength and tone normal. SPINE: No scoliosis or deformity SKIN: No rashes CENTRAL NERVOUS SYSTEM: Alert and oriented -3. No focal deficits, tone is normal in all 4 extremities. PSYCHIATRIC: Alert and oriented -3. Appropriate affect. Intact judgment and insight. - Labs CBC & Chem 7: 03/09/22 05:45 03/07/22 06:06 Labs: Abnormal Lab Results - Last 24 Hours (Table) 03/09/22 Range/Units 05:45 RBC 3.49 L (3.80-5.40) m/uL Hgb 7.6 L (11.4-16.0) gm/dL Hct 27.3 L (34.0-46.0) % MCV 78.2 L (80.0-100.0) fL MCH 21.6 L (25.0-35.0) pg MCHC 27.7 L (31.0-37.0) g/dL RDW 19.2 H (11.5-15.5) % Microbiology - Last 24 Hours (Table) 03/05/22 20:40 Blood Culture - Preliminary Blood No Growth after 72 hours 03/05/22 20:54 Blood Culture - Preliminary Blood No Growth after 72 hours 03/05/22 22:53 Genital Culture - Final Vaginal Assessment and Plan Plan: Assessment: Acute bilateral pulmonary embolism with significant clot burden and RV dilatation. The echo of the heart showed severe pulmonary hypertension. Preserved LV function. The patient is currently undergoing catheter directed thrombolytic therapy/ EKOS and this needs to be completed today. She is hemodynamically stable. She does have a large clot burden and severe pulmonary hypertension. The patient is currently off IV heparin and the patient is currently on anticoagulation with Eliquis. No bleeding complications. She is currently on a oxygen. No hemodynamic instability. Bilateral DVTs Troponin leak secondary to above Suspected UTI with gram-negative , is currently on IV Rocephin Recent normal vaginal delivery Previous history of seizure disorder, last seizure was in 2000 History of gastric ulcer History of thyroid disease Plan: Patient is doing well No worsening dyspnea or hypoxia No hemoptysis or chest pain Continue oral anticoagulation Stable for discharge home today from pulmonary perspective I have personally seen and examined the patient, performed the documentation and the assessment and plan as written. Number of minutes spent on the visit: [10] Time with Patient: Less than 30
--- NOTE | 2022-03-09 23:18 | P.DS ---
Providers Date of admission: 03/06/22 02:28 Attending physician: Neeraj Sawant Consults: 03/05/22 23:45 Consult Physician Stat Consulting Provider: Riki Van Consult Reason/Comments: Pulmonary embolism Do you want consulting provider notified?: Already Contacted Consult Physician Urgent Consulting Provider: Singh Garcia Consult Reason/Comments: Pulmonary embolism, vaginal discharge, 3 weeks Do you want consulting provider notified?: Yes, Notify in am 03/06/22 07:54 Consult Physician Stat Consulting Provider: Omar Feliz Consult Reason/Comments: Pulmonary Embolism Do you want consulting provider notified?: Yes Primary care physician: Nelly Puentesarlo [facility] Course: Final Diagnosis Bilateral pulmonary embolism with saddle PE with evidence of right ventricular heart strain on echocardiogram mehran is status post EKOS and has been moved out of the intensive care unit Bilateral lower extremity DVT Troponin leak Moderate to severe pulmonary hypertension 3 weeks vaginal delivery Acute UTI with e.coli will continue IV ceftriaxone while inpatient and finish course of antibiotic therapy outpatient with oral ceftin. Anemia, microcytic, probably iron deficient she is maintained on oral iron at home History of seizure disorder, last seziure in 2000 History of thyroid disorder History of GERD History of gastric bypass History of stomach ulcers Full Code Discharge Disposition Patient is stable for discharge, prognosis remains guarded. Patient admitted with submassive bilateral pulmonary emboli with evidence for right heart strain Bilateral DVT in popliteal and proximal tibial veins Underwent EKOS thrombolytic therapy on 03/06/[address] Cruz Take xarelto 15 mg PO BID for 21 days, then switch to Xarelto 20 mg PO daily Xarelto will need to be taken for 6 months Monitor for signs of bleeding including rectal bleeding, can be bright red, maroon, black or tarry. Any emesis that appears red in color or looks like coffee grounds should also be reported to your primary care provider. Continue on protonix to prevent stomach irritation from blood thinner. Continue oral iron supplementation. Lyrica 100 mg PO BID for lower extremity pain/discomfort Follow up with vascular surgery in 6 weeks Keep same follow up appointment with your OBGYN for 6 week visit Repeat labs in 2-3 days, scripts have been provided control method needs to be progesterone only Estrogen containing products can increase risk for blood clot formation Discuss this with your OBGYN at follow up visit Hospital Course This is a 31 year old post female with medical history of seizure disorder as a child, hypothyroid, gastroesophageal reflux disease, bariatric surgery, gastric ulcers. She presents to the emergency room with complaints of shortness of breath with palpitations, chest discomfort, and dizziness over the last week. She states she fell at home 3 times, went to see her PCP Dr Feliciano yesterday who instructed the patient to come to the . She had a spontaneous vaginal delivery on February 12 at [facility], her sister in law currently has the . She is not breast feeding. States she had an uncomplicated and did have vaginal tearing during delivery. Having some brown vaginal discharge, no bright red bleeding or clots. No abdominal pain, no nausea, vomiting, or diarrhea. She reports dysuria with burning and hesitancy over the last few days as well. Denies fever, chills. Urinalysis was completed showing cloudy urine with 2+protein, large blood, large luekocyte esterase, >182 WBCs. She was started on IV metronidazole, IV ampicillin and IV doxycycline. D-Dimer is 8.70, Troponin 0.128, proBNP 3300. Patient underwent chest CTA which reveals extensive bilateral pulmonary emboli in the right lower lobe and left upper lobe pulmonary arteries. There is saddle embolism. Right ventricle is large and there is probably right heart strain. Doppler showing bilataral lower extremity DVT. Echocardiogram showing severe right ventricular dilation with moderate to severe pulmonary hypertension with right ventricular strain. Also dilated inferior vena cava. Moderate to severe tricuspid regurg. Ejection fraction is 50 to 55%. Denies history of PE / DVT, no family history reported of clotting disorder. Patient was also evaluated by OBGYN. She was also recently started on prozac post . She was scheduled to see Dr Carmona her OB for 6 week visit on March 31. Patient was admitted to the hospital in intensive care with consults placed to pulmonary account administrator, vascular surgery, and medicine. Patient underwent EKOS thrombolysis while in the intensive care unit. She was initially started on eliquis DVT protocol however due to insurance she was cleared by vascular surgery to begin xarelto on discharge. She was transferred out of the ICU and evaluated on the medical floor overnight and has been cleared for discharge. Antiobiotics were adjusted to rocephin IV while inpatient as urine culture positive for E. Coli she has been discharge on short course of oral ceftin. Additional diagnostics Abdominal xray negative for acute process Pelvis ultrasound showing uterus, endometrium, right and left ovary, bilateral adnexa, and posterior cul de sac within normal limits EKG showing sinus tachycardia heart rate 122, QT interval 414 Trichomonas negative, covid negative White count 10.1, hgb 9.8, platelets 443, INR 1.2, PT 12.6, PTT 43.7 Chemistry panel unremarkable Troponin level 0.128, pro BNP 3300 Vital signs Temp - 98.6, heart rate 107, blood pressure 107/76, 95% room air. 03/09/2022 Patient evaluated today sitting up at the bedside and she is walking around the room. She denies pain, denies shortness of breath. She has been weaned off oxygen and is maintaining adequate saturation while on room air. Groin is soft, puncture sites are clear and dry. She is denying dysuria. She has been tolerating diet. She did complain of some intermittent leg pain more in the left than right and was started on lyrica for pain regarding DVT. Lungs are clear, S1 S2 auscultated, abdomen is soft and nontender. Focal neurological exam is negative. She is wanting to be discharged home so she can be with her infant. She has an appointment with Dr Feliciano scheduled for March 12 and also see hers OB on March 31. Blood cultures are negative, vaginal culture showing normal sabrina. White count 7.6, hgb 8.3, Hct 29.7, platelet count 278. Magensium was 1.7 yesterday and she received IV supplementation, today it is 2.1. She is afebrile, heart rate 96, blood pressure 100/66 and 95% room air. Please see medication reconciliation for a list of current medication. Thank you for allowing us to participate in the care of this patient. The impression and plan of care has been dictated by Jeniffer Torres, Nurse Practitioner as directed. Dr. Alicia MD I have performed a history and physical examination and medical decision making of this patient, discussed the same with the dictator, and agree with the dictators assessment and plan as written, documented as a scribe. Based on total visit time, I have performed more than 50% of this visit. Patient Condition at Discharge: Fair Plan - Discharge Summary Discharge Rx Participant: Yes New Discharge Prescriptions: New Acetaminophen Tab [Tylenol] 650 mg PO Q6HR PRN tab PRN Reason: Fever And/ Or Pain Rivaroxaban [Xarelto] 20 mg PO DAILY #30 tab Cefuroxime Axetil [Ceftin] 500 mg PO BID 3 Days #6 tab Docusate [Colace] 100 mg PO DAILY #30 capsule Pantoprazole [Protonix] 40 mg PO AC-BRKFST #30 tab Rivaroxaban [Xarelto] 15 mg PO BID 21 Days #42 tab Pregabalin 100 mg PO BID PRN 3 Days #6 cap PRN Reason: Pain Continue Ferrous Sulfate [Iron (65 MG Elemental)] 325 mg PO DAILY FLUoxetine HCL [PROzac] 20 mg PO DAILY FLUoxetine HCL [PROzac] 40 mg PO DAILY Discharge Medication List FLUoxetine HCL [PROzac] 20 mg PO DAILY 03/05/22 [History] FLUoxetine HCL [PROzac] 40 mg PO DAILY 03/05/22 [History] Ferrous Sulfate [Iron (65 MG Elemental)] 325 mg PO DAILY 03/05/22 [History] Acetaminophen Tab [Tylenol] 650 mg PO Q6HR PRN tab 03/08/22 [Rx] Cefuroxime Axetil [Ceftin] 500 mg PO BID 3 Days #6 tab 03/08/22 [Rx] Docusate [Colace] 100 mg PO DAILY #30 capsule 03/08/22 [Rx] Pantoprazole [Protonix] 40 mg PO AC-BRKFST #30 tab 03/08/22 [Rx] Pregabalin 100 mg PO BID PRN 3 Days #6 cap 03/08/22 [Rx] Rivaroxaban [Xarelto] 15 mg PO BID 21 Days #42 tab 03/08/22 [Rx] Rivaroxaban [Xarelto] 20 mg PO DAILY #30 tab 03/08/22 [Rx] Follow up Appointment(s)/Referral(s): Dr. Mathew [Other] - 1 Week (Patient has follow up on March 31 with her OB for 6 week check up) Marce Cruz DO [STAFF PHYSICIAN] - 6 Weeks (Office is closed. Please call to make appointment) Nelly Feliciano DO [Primary Care Provider] - 03/12/22 1:40 pm () Riki Van MD [STAFF PHYSICIAN] - 1 Week Ambulatory/Diagnostic Orders: Basic Metabolic Panel [LAB.AMB] Time Frame: 2 Days, Location: None Selected Complete Blood Count w/diff [LAB.AMB] Time Frame: 2 Days, Location: None Selected Patient Instructions/Handouts: Pulmonary Embolism (DC), Safe Use of Anticoagulants (DC) Activity/Diet/Wound Care/Special Instructions: Patient admitted with submassive bilateral pulmonary emboli with evidence for right heart strain Bilateral DVT in popliteal and proximal tibial veins Underwent EKOS thrombolytic therapy on 03/06/[address] Cruz Take xarelto 15 mg PO BID for 21 days, then switch to Xarelto 20 mg PO daily Xarelto will need to be taken for 6 months Monitor for signs of bleeding including rectal bleeding, can be bright red, maroon, black or tarry. Any emesis that appears red in color or looks like coffee grounds should also be reported to your primary care provider. Continue on protonix to prevent stomach irritation from blood thinner. Continue oral iron supplementation. Lyrica 100 mg PO BID for lower extremity pain/discomfort Follow up with vascular surgery in 6 weeks Keep same follow up appointment with your OBGYN for 6 week visit Repeat labs in 2-3 days, scripts have been provided control method needs to be progesterone only Estrogen containing products can increase risk for blood clot formation Discuss this with your OBGYN at follow up visit Discharge Disposition: HOME SELF-CARE
[2022-03-30] MEDS ORDERED: RIVAROXABAN 20 MG TAB PO SCH (07:30)
== END 2022-03-09 16:56 | disposition home or self-care (01) | DRG 769 ==
LOC: EC 15:45 → 2SICU 03-06 02:28 → 3SCARD 03-07 21:40
PROVIDERS: ADMIT Hospitalist; ATTEND Hospitalist
PROC: 02FQ3Z0 Fragmentation of Right Pulmonary Artery, Percutaneous Approach, Ultrasonic (ICD-10-PCS; 2022-03-06)
PROC: 3E04317 Introduction of Other Thrombolytic into Central Vein, Percutaneous Approach (ICD-10-PCS; 2022-03-06)
PROC: 02FR3Z0 Fragmentation of Left Pulmonary Artery, Percutaneous Approach, Ultrasonic (ICD-10-PCS; principal; 2022-03-06 08:30)
DX: O88.83 Other embolism in the puerperium (principal); I26.92 Saddle embolus of pulmonary artery without acute cor pulmonale; O87.1 Deep phlebothrombosis in the puerperium; O99.355 Diseases of the nervous system complicating the puerperium; I82.433 Acute embolism and thrombosis of popliteal vein, bilateral; O99.43 Diseases of the circulatory system complicating the puerperium; O86.20 Urinary tract infection following delivery, unspecified; N39.0 Urinary tract infection, site not specified; E86.0 Dehydration; Z20.822 Contact with and (suspected) exposure to COVID-19; G40.909 Epilepsy, unspecified, not intractable, without status epilepticus; O99.285 Endocrine, nutritional and metabolic diseases complicating the puerperium; I07.1 Rheumatic tricuspid insufficiency; O99.893 Other specified diseases and conditions complicating puerperium; K21.9 Gastro-esophageal reflux disease without esophagitis; O99.845 Bariatric surgery status complicating the puerperium; E03.9 Hypothyroidism, unspecified; O99.03 Anemia complicating the puerperium; O99.345 Other mental disorders complicating the puerperium; F32.A Depression, unspecified; B96.20 Unspecified Escherichia coli [E. coli] as the cause of diseases classified elsewhere; F90.9 Attention-deficit hyperactivity disorder, unspecified type; I27.20 Pulmonary hypertension, unspecified; Z87.11 Personal history of peptic ulcer disease; Z79.899 Other long term (current) drug therapy; Z83.3 Family history of diabetes mellitus; Z82.5 Family history of asthma and other chronic lower respiratory diseases; Z82.49 Family history of ischemic heart disease and other diseases of the circulatory system
CPT/HCPCS: 36415; 37211; 71275; 74022; 76856; 80048; 80053; 81001; 83605; 83690; 83735; 83880; 84484; 85025; 85027; 85379; 85384; 85610; 85730; 87040; 87070; 87077; 87086; 87186; 87491; 87591; 87635; 87808; 93005; 93306; 93970; 96361; 96365; 96366; 96367; 96368; 96375; 96376; 99291

== ENCOUNTER → 2022-12-09 | Outpatient (CLI) | payer OTHER ==
[2022-12-09 14:47] VITALS: BP 106/69; PULSE 78; TEMP 98.4; BMI 25.5
--- NOTE | 2022-12-09 16:06 | P.HPBAR ---
Bariatric H&P - History & Physicial H&P Date: 12/09/22 History & Physicial: Visit/CC: hospital F/U Patient initial contact: 05/05/17 Initial weight: 137.529 kg Initial weight in pounds: 303.20 Height: 5 ft 4 in Initial BMI: 52.0 Last weight: Current weight: 67.585 kg Current weight in pounds: 149.00 Current BMI: 25.5 [place] body weight (based on NIH guidelines): 54.431 kg Excess body weight loss: 84.1% The patient is a 32 year-old F who presents for Bariatric Assessment. She had a perforated stomach. She had open surgery. She saw Dr. Deshpande and had a laparotomy. She is at her lowest. She is not on an antacid. Midline incision. Family is smoking around her. Past Medical History Past Medical History: GERD/Reflux, Seizure Disorder, Thyroid Disorder Additional Past Medical History / Comment(s): seizures as child-no rx, last seizure 2000, "blood clot in head age 4", gastric ulcer," vomiting a times" past history of rapid heartbeat. bowel obsruction 2022 History of Any Multi-Drug Resistant Organisms: None Reported Past Surgical History: Bariatric Surgery, Bowel Resection, Orthopedic Surgery Additional Past Surgical History / Comment(s): surgery to put plates in arianna feet for "flat feet", gastric bypass 10-25-17, endoscopy, bowel resection 2022 Past Anesthesia/Blood Transfusion Reactions: No Reported Reaction Past Psychological History: ADD/ADHD, Depression Additional Psychological History / Comment(s): Takes fluoxetine regularly Smoking Status: Never smoker Past Alcohol Use History: None Reported Past Drug Use History: None Reported - Past Family History Mother Family Medical History: Asthma, Diabetes Mellitus, Sleep Apnea/CPAP/BIPAP Additional Family Medical History / Comment(s): Type 2 Diabetes - diet controlled Father Family Medical History: Hyperlipidemia, Hypertension Additional Family Medical History / Comment(s): Hypertension. Hyperlipidaemia Surgical - Exam Vital Signs Temp Pulse BP 98.4 F 78 106/69 12/09/22 14:39 12/09/22 14:39 12/09/22 14:39 Bariatric Checklist Checklist: Plan: Checklist: EGD: 1. Hiatal hernia: 2. H. Pylori: HgbA1c: Vitamin D: Smoking: Never smoker Primary care physician referral: [facility] clearance: Cardiology clearance: Sleep study: Diet journal: VTE risk score: VTE risk level: Rehab needs at discharge:
== END ==
LOC: BARWHC3 13:48
PROVIDERS: ATTEND Surgery Plastic and Reconstructive Surgery
DX: E66.01 Morbid (severe) obesity due to excess calories (principal); Z68.25 Body mass index [BMI] 25.0-25.9, adult
CPT/HCPCS: 99211

== ENCOUNTER → 2023-03-10 | Outpatient (CLI) | payer OTHER ==
[2023-03-10 16:47] VITALS: BP 117/74; PULSE 94; TEMP 97.4; BMI 24.7
--- NOTE | 2023-03-10 16:52 | P.BASOAP ---
Subjective Progress Note Date: 03/10/23 She no longer has abdominal pain. Agreeable for skin removal. Objective - Vital Signs Vital signs: Vital Signs Temp 97.4 F L 03/10/23 16:44 Pulse 94 03/10/23 16:44 Resp BP 117/74 03/10/23 16:44 Pulse Ox FiO2 Intake & Output 03/09/23 03/10/23 03/10/23 18:59 06:59 18:59 Weight 65.317 kg Assessment/Plan Plan: Date: 03/10/23 Initial Weight: 137.529 kg Initial BMI: 52.0 Current Weight: 65.317 kg Current BMI: 24.7 Type of Surgery: Total Volume in Band: Previous Volume: Volume Removed: Volume Added: Band Size:
== END ==
LOC: BARWHC3 16:16
PROVIDERS: ATTEND Surgery Plastic and Reconstructive Surgery
DX: E66.01 Morbid (severe) obesity due to excess calories (principal); Z68.24 Body mass index [BMI] 24.0-24.9, adult
CPT/HCPCS: 99211

== ENCOUNTER → 2023-11-03 | Outpatient (CLI) | payer BC ==
[2023-11-03 15:04] LABS: INR 0.9 (<1.2); Partial Thromboplastin Time 23.4 sec (22.0-30.0)
[2023-11-04 02:37] LABS: HCT 38.1 % (37.2-46.3); HGB 11.8 g/dL (12.0-15.0); MCH 27.7 pg (27.0-32.0); MCV 89.4 FL (80.0-97.0); Mean Platelet Volume 9.9 FL (9.5-12.2); NRBC Per 100 WBC 0 X 10*3/uL (0.00-0.01); Platelet Count 432 X 10*3/uL (140-440); RBC 4.26 X 10*6/uL (4.10-5.20); RDW 15.6 % (11.5-14.5)
[2023-11-04 02:58] LABS: Prealbumin 16.4 mg/dL (18.0-42.0)
[2023-11-04 03:32] LABS: % Iron Saturation 3.95 (12.00-45.00); Chol/HDL Ratio 1.88 Ratio; Ferritin 10.5 ng/mL (10.0-291.0); Iron 18 UG/DL (50-170); LDL Cholesterol,Calculated 48.3 mg/dL (0.0-131.0); Magnesium 2.3 mg/dL (1.5-2.4); Phosphorus 3.9 mg/dL (2.4-5.1); Total Iron Binding Capacity 456 UG/DL (228-460); VLDL Calculation 9.76 mg/dL (5.00-40.00)
[2023-11-04 03:36] LABS: ALT 12 U/L (8-44); AST 22 U/L (13-35); Albumin 4.1 g/dL (3.8-4.9); Albumin/Globulin Ratio 1.71 Ratio (1.60-3.17); Alkaline Phosphatase 65 U/L (41-126); Blood Urea Nitrogen 14.7 mg/dL (9.0-27.0); Calcium 9.2 mg/dL (8.7-10.3); Carbon Dioxide 24.1 mmol/L (21.6-31.8); Chloride 106 mmol/L (96-109); Globulin 2.4 g/dL (1.6-3.3); Glucose 81 mg/dL (70-110); Potassium 4.8 mmol/L (3.5-5.5); Sodium 140 mmol/L (135-145); Total Bilirubin <0.2 mg/dL (0.3-1.2); Total Protein 6.5 g/dL (6.2-8.2)
[2023-11-04 13:07] LABS: Zinc, Serum 67 ug/dL (60-130)
[2023-11-05 06:45] LABS: Vitamin A 34 ug/dL (38-106)
[2023-11-05 11:01] LABS: Vit B1(Thiamine) 68 ug/L (38-122)
== END | disposition home or self-care (01) ==
LOC: LABWHC1 13:55
PROVIDERS: ATTEND Surgery Plastic and Reconstructive Surgery
DX: E66.01 Morbid (severe) obesity due to excess calories (principal); E89.1 Postprocedural hypoinsulinemia; D50.8 Other iron deficiency anemias; E44.0 Moderate protein-calorie malnutrition; E55.9 Vitamin D deficiency, unspecified; K74.1 Hepatic sclerosis; N19 Unspecified kidney failure; E44.1 Mild protein-calorie malnutrition; E45 Retarded development following protein-calorie malnutrition; E46 Unspecified protein-calorie malnutrition; K91.2 Postsurgical malabsorption, not elsewhere classified; T56.894A Toxic effect of other metals, undetermined, initial encounter; K50.90 Crohn's disease, unspecified, without complications
CPT/HCPCS: 36415; 80053; 80061; 82306; 82525; 82607; 82728; 82746; 83036; 83540; 83550; 83735; 83970; 84100; 84134; 84255; 84425; 84443; 84590; 84630; 85027; 85610; 85730; 93005

== ENCOUNTER 2023-12-06 11:51 | Observation (INO) | payer BC, OTHER ==
[2023-12-02 12:13] VITALS: BMI 26.6
[~2023-12-06 11:51] MED LIST changes: -ACETAMINOPHEN TAB 500 MG TAB PO STA; -DEXAMETHASONE SOD PHOSPHATE 4 MG/ML 1 ML VIAL IV ONE; -GABAPENTIN 300 MG CAP PO STA; -HEPARIN SODIUM,PORCINE 5,000 UNIT/ML 1 ML VIAL SQ STA; -HYDROmorphone 0.5 MG/0.5 ML SYRINGE IVP PRN; -LACTATED RINGERS 1,000 ML IV SCH; +MIDAZOLAM 2 MG/2 ML VIAL IV PRN; -ONDANSETRON 4 MG/2 ML VIAL IVP ONE; +ONDANSETRON 4 MG/2 ML VIAL IVP PRN; -SCOPOLAMINE 1.5MG/72HR PATCH TRANSDERM ONE
--- NOTE | 2023-12-06 12:03 | P.GSHP ---
History of Present Illness H&P Date: 12/06/23 CHIEF COMPLAINT: Panniculitis HISTORY OF PRESENT ILLNESS: Celena Jorge is a 33-year-old female is status post gastric bypass 10/25/2017. She is 4 years out. She presents for chronic skin infections from panniculitis. She has been treated by dermatology for over 3 years. She has lost moderate weight over 100 pounds. She reports difficulty with activities of daily living including wearing clothing. She reports pulling and tugging of her lower back from her pannus. She presents for panniculectomy. At her height of 5 foot 4 inches, her ideal body weight is 144 pounds. Her highest weight was 284 pounds. She comes in 155 pounds. Lifetime weight loss of 129 pounds. Her body mass index is down from 48.9 to 26.6. Percent excess weight loss is 84 %. PAST MEDICAL HISTORY: 1. Morbid obesity due to excess weight loss 2. Body mass index of 48.9, initial 3. Depression. 4. Osteoarthritis of the lower back. 5. Hypertensive heart disease. 6. Gastroesophageal reflux disease. 7. Panniculitis PAST SURGICAL HISTORY: 1. Upper endoscopy. 2. Gastric bypass. 3. Repair of perforated gastric ulcer HOME MEDICATIONS: Home Medications Medication Instructions Recorded Confirmed Pnv No.95/Ferrous Fum/Folic AC 1 each PO DAILY 07/23/21 07/23/21 [ Multivitamin Tablet] Previous Rx's Medication Instructions Recorded Acetaminophen Tab [Tylenol] 1,000 mg PO Q6H PRN #30 tab 09/11/20 ALLERGIES: Allergies Allergy/AdvReac Type Severity Reaction Status Date / Time No Known Allergies Allergy Verified 07/23/21 14:55 SOCIAL HISTORY: No active tobacco use. FAMILY HISTORY: No family history of ulcerative colitis disease or Crohn's disease. She does have a family history of morbid obesity. She denies any lupus in her family. No reports of stomach or esophageal cancer. She has a family history of diabetes. Family history of H. pylori gastritis. His grandmother with osteoporosis. REVIEW OF ORGAN SYSTEMS: CONSTITUTIONAL: Her body mass index was 48.9. At her height of 5 foot 4 inches, her ideal body weight is 144 pounds. Her highest weight was 284 pounds. HEENT: Denies any active troubles with vision or hearing. ENDOCRINE: No diabetes. No hypothyroidism. CARDIOVASCULAR: No reports of palpitations or heart attacks or chest pain. RESPIRATORY: Has daytime somnolence including occassional snoring. No asthma. GI: Denies any bright red blood per rectum. Has gastroesophageal reflux disease. MUSCULOSKELETAL: Has lower back pain and joint pain. Has osteoarthritis of the hips and knees. NEURO: No headaches. No seizure disorders. PSYCH: Has depression without suicidal ideation. RHEUMATOLOGIC: No lupus. No rheumatoid arthritis. HEMATOLOGIC: Denies any abnormal bleeding or bruising. No personal history of DVTs. SKIN: Has panniculitis. No skin cancer. PHYSICAL EXAM: VITAL SIGNS: Height 5 foot 4 inches, weight 155 pounds. BMI 26.6 GENERAL: Well-developed female in no acute distress. HEENT: No scleral icterus. Extraocular movements grossly intact. Hears conversational speech. No nasal drainage. NECK: Supple without lymphadenopathy. CHEST: Nonlabored respirations with equal bilateral excursions. CARDIOVASCULAR: Regular rate and regular rhythm. Distal 2+ pulses. ABDOMEN: Incisions are intact MUSCULOSKELETAL: No clubbing, cyanosis, or edema. NEURO: No focal or lateralizing signs. Cranial nerves 2 through 12 grossly within normal limits. PSYCH: Appropriate affect. Alert and oriented to person, place and time. SKIN: Good skin turgor. Well perfused. ASSESSMENT: 1. Panniculitis 2. Body mass index of 48.9 down to 26.6 3. Status post gastric bypass. 4. Chronic gastrojejunal ulcer with stricture 5. Dietary surveillance and counseling 6. Inadequate protein intake. 7. Vitamin A deficiency. 8. History exploratory laparotomy for perforated gastric ulcer 9. Dysphagia 10. Gallbladder disorder 11. Status post hiatal hernia repair 12. Gastric ulcers 13. Morbid obesity due to excess calories. PLAN: 1. Recommend panniculectomy for chronic panniculitis with concomittant severe lower back pain and uncontrolled symptoms despite systemic and local treatment including limitation of activities of daily living. Anticipated resection over 10+ pounds described. Panniculectomy should correct her functional deficits. 2. Recommend 2 week protein diet for optimal recovery 3. Risks of bleeding, needs for drains, flap failure, infection, need for further surgery were described. She is high risk for rubi-operative complications with anticipated 10+ skin resection. 4. Inpatient hospitalization also described 5. DVT prophylaxis. 6 Antibiotic prophylaxis 7. She has corrected vitamin deficiencies prior to her panniculectomy. 8. Strict nicotine avoidance of secondhand exposure perioperative including postoperative described to decrease risk of wound infection and complications. 9. Recommend urine nicotine test prior to surgical intervention 10. Extended recovery more than 6-8 weeks described including placement of drains more than 2 weeks reviewed. Past Medical History Past Medical History: GERD/Reflux, Pulmonary Embolus (PE), Seizure Disorder Additional Past Medical History / Comment(s): seizures as child-no rx, last seizure 2000, "blood clot in head age 4", gastric ulcer," vomiting a times" past history of rapid heartbeat. HXHOLE IN STOMACH WITH SURGICAL INTERVENTION AT [facility] 10/2022, PE 03/2022, LOW IRON History of Any Multi-Drug Resistant Organisms: None Reported Past Surgical History: Bariatric Surgery, Bowel Resection, Orthopedic Surgery Additional Past Surgical History / Comment(s): surgery to put plates in arianna feet for "flat feet", gastric bypass 10-25-17 WITH REVISION OCT 2022, endoscopy, bowel resection 2022, COLONOSCOPY, Past Anesthesia/Blood Transfusion Reactions: No Reported Reaction Smoking Status: Never smoker - Past Family History Mother Family Medical History: Asthma, Diabetes Mellitus, Sleep Apnea/CPAP/BIPAP Additional Family Medical History / Comment(s): Type 2 Diabetes - diet controlled Father Family Medical History: Hyperlipidemia, Hypertension Additional Family Medical History / Comment(s): Hypertension. Hyperlipidaemia Medications and Allergies Home Medications Medication Instructions Recorded Confirmed Type Multivitamins, Thera [Multivitamin 1 tab PO DAILY 12/09/22 12/02/23 History (formulary)] Ergocalciferol [Vitamin D2 (1250 50,000 unit PO TU 11/08/23 12/02/23 History Mcg = 93516 Iu)] Iron 64 mg PO DAILY 11/08/23 12/02/23 History Famotidine 20 mg PO DAILY 11/12/23 12/02/23 History Lisdexamfetamine Dimesylate 30 mg PO DAILY 11/12/23 12/02/23 History Complete Bariatric Vit 1 tab PO DAILY 12/02/23 12/02/23 History Ferrocite 1 tab PO DAILY 12/02/23 History Vitamin A Palmitate [Vitamin A-25 7,500 mcg PO DAILY 12/02/23 12/02/23 History (25,000 Units = 7500 MCG)] Allergies Allergy/AdvReac Type Severity Reaction Status Date / Time No Known Allergies Allergy Verified 12/02/23 11:55
[2023-12-06] MEDS: LACTATED RINGERS 1,000 ML IV SCH (13:22)
[2023-12-06] MEDS: ACETAMINOPHEN TAB 500 MG TAB PO PRN (13:29)
[2023-12-06] MEDS: DEXAMETHASONE SOD PHOSPHATE 4 MG/ML 1 ML VIAL IV ONE (13:29)
[2023-12-06] MEDS: HEPARIN SODIUM,PORCINE 5,000 UNIT/ML 1 ML VIAL SQ PRN (13:30)
[2023-12-06] MEDS: ONDANSETRON 4 MG/2 ML VIAL IVP ONE (13:30)
[2023-12-06] MEDS ORDERED: GLYCOPYRROLATE 0.2 MG/ML 2 ML VIAL ONE (15:20)
[2023-12-06] MEDS ORDERED: PHENYLEPHRINE-0.9% NACL SYG 1,000 MCG/10 ML SYRINGE ONE (15:20)
[2023-12-06] MEDS ORDERED: SUCCINYLCHOLINE CHLORIDE 200 MG/10 ML VIAL IV ONE (15:20)
[2023-12-06] MEDS ORDERED: ROCURONIUM 10 MG/ML (5 ML VIAL) IV ONE (15:20)
[2023-12-06] MEDS ORDERED: LIDOCAINE 1% INJ 10MG/ML (20 ML MDV) ONE (15:20)
[2023-12-06] MEDS ORDERED: PROPOFOL 10 MG/ML 20 ML VIAL IV ONE (15:20)
[2023-12-06] MEDS ORDERED: MIDAZOLAM 2 MG/2 ML VIAL ONE (15:20)
[2023-12-06] MEDS ORDERED: fentaNYL (PF) 50 MCG/ML 2 ML AMP ONE (15:20)
[2023-12-06] MEDS ORDERED: ePHEDrine 50 MG/ML 1 ML VIAL ONE (15:20)
[2023-12-06] MEDS ORDERED: HYDROmorphone (PF) 1 MG/ML ONE (15:20)
[2023-12-06] MEDS ORDERED: NEOSTIGMINE 1 MG/ML 10 ML VIAL ONE (15:20)
[2023-12-06] MEDS: LACTATED RINGERS 1,000 ML IV ONE (16:58)
--- NOTE | 2023-12-06 19:15 | P.OP ---
Date of Procedure: 12/06/23 Description of Procedure: SURGEON: STEPHANI ELLIOTT MD PREOPERATIVE DIAGNOSES: 1. Panniculitis 2. Body mass index of 48.9 down to 26.6 3. Status post gastric bypass. 4. Chronic gastrojejunal ulcer with stricture 5. Dietary surveillance and counseling 6. Inadequate protein intake. 7. Vitamin A deficiency. 8. History exploratory laparotomy for perforated gastric ulcer 9. Dysphagia 10. Gallbladder disorder 11. Status post hiatal hernia repair 12. Gastric ulcers 13. Morbid obesity due to excess calories. POSTOPERATIVE DIAGNOSES: 1. Panniculitis 2. Body mass index of 48.9 down to 26.6 3. Status post gastric bypass. 4. Chronic gastrojejunal ulcer with stricture 5. Dietary surveillance and counseling 6. Inadequate protein intake. 7. Vitamin A deficiency. 8. History exploratory laparotomy for perforated gastric ulcer 9. Dysphagia 10. Gallbladder disorder 11. Status post hiatal hernia repair 12. Gastric ulcers 13. Morbid obesity due to excess calories. 14. Incisional hernia, 24 x 10 cm OPERATION: 1. Panniculectomy, 4.08 pounds. 2. Primary repair of ventral hernia 24 x 10 cm without mesh. 3. Abdominal wall reconstruction with myocutaneous bilateral flap advancement. ANESTHESIA: General ESTIMATED BLOOD LOSS: 250 mL SPECIMENS REMOVED: Pannus 4.08 pounds. COMPLICATIONS: None. CONDITION: Stable. DRAINS: Two #19 Oneal drains below abdominal flap extending through the pubis. OPERATIVE FINDINGS: 1. Pannus weighing 4.08 pounds, excised. 2. Abdominal ventral hernia of 24 x 10 cm along the midline repaired primarily using fascial imbrication. INDICATIONS:Celena Jorge is a 33-year-old female is status post gastric bypass 10/25/2017. She is 4 years out. She presents for chronic skin infections from panniculitis. She has been treated for over 3 years for panniculitis. She has lost moderate weight over 100 pounds. She reports difficulty with activities of daily living including wearing clothing. She reports pulling and tugging of her lower back from her pannus. She presents for panniculectomy. At her height of 5 foot 4 inches, her ideal body weight is 144 pounds. Her highest weight was 284 pounds. She comes in 155 pounds. Lifetime weight loss of 129 pounds. Her body mass index is down from 48.9 to 26.6. Percent excess weight loss is 84 %. Benefits and risks of the procedure including bleeding, infection, cosmetic deformity, abdominal seromas, placement of drains, risk of flap failure were described at length. Informed consent was obtained. DESCRIPTION: In the preanesthesia care unit the patient was marked with an indelible marker and was given lovenox subcutaneously. The patient was brought into the operating room and laid in supine position. After general induction, a Cruz catheter was placed. The abdomen was then prepped and draped in standard sterile fashion using ChloraPrep. The skin was prepped as far laterally to the back, inferiorly to the upper thighs and superiorly to above the chest. A timeout protocol was confirmed with the surgical team regarding patient's name, procedure to be performed, including preoperative medications. He had received Ancef IV antibiotics. Once the time-out protocol was confirmed with the surgical team, the patient was re-marked with indelible marker whereby the midline of the xiphoid to the mons pubis was marked. The anterior/superior iliac spine along the bilateral hips was also marked. At 7 cm above the pubis commissure a transverse incision was made for the inferior portion of the flap. Using a #10 blade, the incision was taken from the midline laterally to above the anterior/superior iliac spine, initially on the left side of the patient and then on the right side of the patient. Electro-Bovie cautery was used to control for hemostasis. The dissection was taken down to the level of the fascia. Landmarks used were the xiphoid process as well as the bilateral costal margins for the superior margin. Care was taken to avoid any creation of dog ears during the dissection. Once hemostasis was checked, a large ventral hernia fascial defect of 24 x 10 cm was identified unrelated to previous bariatric procedure. During this dissection, the umbilicus was truncated at its fascial insertion. The umbilicus fascial excision was oversewn using #2 Ethibond. Bilateral myocutaneous flap advancement was performed to close the large defect of 24 x 10 cm using the rectus muscle. After the muscular flaps were exposed, the midline was re-marked again from the xiphoid to the pubis commissure. Fascial imbrications x 4 were completed with primary repair reinforcement of the bilateral myocutaneous flap advancement. Starting from the xiphoid process, the rectus muscle was overlapped in the bilateral myocutaneous flap advancement using #2 Ethibond. The ventral hernia defect was completely repaired and closed. Hemostasis was once again checked with electro-Bovie cautery and all defects were addressed. Attention was now brought to closure of the flap. Using stainless steel skin patsy, the midline was once again marked of the upper flap as well as the pubic commissure. The patient was placed in a flexed position of approximately 30 degrees at the hips. The pannus was extended inferiorly to the feet. The upper flap was created once the excess skin was excised. Again care was taken to avoid any dog ears along the lateral aspect of the incisions. Once excised, the pannus was weighed at 4.08 pounds. The upper and lower flaps were reapproximated at the midline and then laterally to the skin with skin patsy. Once reapproximated, the skin was closed in layers using 0 Vicryl for the superficial fascial system followed by running 3-0 Monocryl for the deep dermis in a running subcuticular fashion. Prior to skin closure, two round #19 Oneal drains were placed underneath the flap and brought out just inferior to the incision along the pubis. Drain stitch using 2-0 nylon was placed. Once the incision was closed, bulb suction was attached. Hemostasis was checked. At the end of the procedure, the needle, sponge and instrument count was verified correct. The skin was cleansed with hydrogen peroxide. Exofin tape including adhesive was placed along the length of the incision. Optifoam dressing was also placed over the incision and over the MIRTHA sites. The patient was then transferred to a hospital bed in a beach chair position. An abdominal binder was placed and marked. The patient was taken to the postanesthesia care unit in stable condition, awake and extubated.
[2023-12-06] MEDS: HYDROmorphone 0.5 MG/0.5 ML SYRINGE IVP PRN (19:17)
[2023-12-06] MEDS: HEPARIN SODIUM,PORCINE 5,000 UNIT/ML 1 ML VIAL SQ SCH (21:07)
[2023-12-06] MEDS: D5-0.45% NACL WITH KCL 20MEQ/L 1,000 ML IV SCH (21:07)
[2023-12-06] MEDS: HYDROmorphone 1 MG/ML 1 ML SYRINGE IVP PRN (22:04)
[2023-12-07] MEDS: ONDANSETRON 4 MG/2 ML VIAL IVP PRN (01:31)
[2023-12-07] MEDS: LISDEXAMFETAMINE DIMESYLATE 30 MG PO SCH (08:54)
[2023-12-07] MEDS: FAMOTIDINE 20 MG TAB PO SCH (09:01)
[2023-12-07] MEDS ORDERED: ONDANSETRON 4 MG/2 ML VIAL IVP PRN (10:15)
[2023-12-07] MEDS: ACETAMINOPHEN TAB 500 MG TAB PO SCH (12:23)
[2023-12-07] MEDS: CYCLOBENZAPRINE 10 MG TAB PO SCH (12:23)
--- NOTE | 2023-12-07 14:37 | P.PN ---
Subjective Progress Note Date: 12/07/23 CHIEF COMPLAINT: Panniculitis HISTORY OF PRESENT ILLNESS: Patient with history of gastric bypass. She has chronic skin infections from panniculitis. She is status post panniculectomy. Patient does report pain. She denies any vomiting. She did report some nausea this morning. Afebrile. Patient seen and examined in the morning. She is just getting up to walk around this afternoon per nursing staff. MIRTHA drains with serosanguineous output. PHYSICAL EXAM: VITAL SIGNS: Reviewed GENERAL: Well-developed in no acute distress. HEENT: No sclera icterus. Extraocular movements grossly intact. Moist buccal mucosa. Head is atraumatic, normocephalic. Hears conversational speech. No nasal drainage. NECK: Supple without lymphadenopathy. CHEST: Non-labored respirations and equal bilateral excursions. CARDIOVASCULAR: Palpable 2+ radial pulses. ABDOMEN: Soft. Nondistended. Abdominal binder in place. [address] MUSCULOSKELETAL: No clubbing or cyanosis. NEUROLOGIC: No focal or lateralizing signs. Cranial nerves II through XII grossly intact. PSYCH: Appropriate affect. Alert and oriented to person, place and time. SKIN: Well perfused. Good skin turgor. ASSESSMENT: 1. Panniculitis 2. Body mass index of 48.9 down to 26.6 3. Status post gastric bypass. 4. Chronic gastrojejunal ulcer with stricture 5. Dietary surveillance and counseling 6. Inadequate protein intake. 7. Vitamin A deficiency. 8. History exploratory laparotomy for perforated gastric ulcer 9. Dysphagia 10. Gallbladder disorder 11. Status post hiatal hernia repair 12. Gastric ulcers 13. Morbid obesity due to excess calories. 14. Incisional hernia, 24 x 10 cm PLAN: -Tylenol and Flexeril scheduled added for pain control -Encourage patient ambulate -Encourage patient to use incentive spirometer -Discontinue Cruz catheter -Continue regular diet -Continue IV fluids -Continue antiemetics -Anticipate possible discharge tomorrow -DVT prophylaxis subcu heparin Physician Palletizer Operator note has been reviewed by physician. Signing provider agrees with the documented findings, assessment, and plan of care. Objective - Vital Signs Vital signs: Vital Signs Temp 98.6 F 12/07/23 10:13 Pulse 86 12/07/23 10:13 Resp 12 12/07/23 10:13 BP 99/66 12/07/23 10:13 Pulse Ox 95 12/07/23 10:13 FiO2 Intake & Output 12/06/23 12/07/23 12/07/23 18:59 06:59 18:59 Intake Total 1550 100 Output Total 400 550 Balance 1150 -450 Weight 70.1 kg 70.1 kg Intake: IV 1550 100 Output: Urine 150 550 Estimated Blood Loss 250 Other: Voiding Method External Catheter
[2023-12-08 08:34] LABS: HCT 31.9 % (37.2-46.3); HGB 10.1 g/dL (12.0-15.0); MCH 28.4 pg (27.0-32.0); MCHC 31.7 g/dL (32.0-37.0); MCV 89.6 FL (80.0-97.0); Mean Platelet Volume 9.3 FL (9.5-12.2); NRBC Per 100 WBC 0 X 10*3/uL (0.00-0.01); Platelet Count 277 X 10*3/uL (140-440); RBC 3.56 X 10*6/uL (4.10-5.20); RDW 17.6 % (11.5-14.5); WBC 7.18 X 10*3/uL (4.50-10.00)
[2023-12-08] MEDS: SODIUM CHLORIDE 0.9% 1,000 ML IV ONE (08:49)
[2023-12-08] MEDS ORDERED: CYCLOBENZAPRINE 5 MG TAB PO PRN (10:57)
--- NOTE | 2023-12-08 13:56 | P.DS ---
Providers Date of admission: 12/07/23 12:08 Expected date of discharge: 12/08/23 Attending physician: Leila Early Primary care physician: Nelly Feliciano Hospital Course: Discharge diagnosis 1. Panniculitis 2. Body mass index of 48.9 down to 26.6 3. Status post gastric bypass. 4. Chronic gastrojejunal ulcer with stricture 5. Dietary surveillance and counseling 6. Inadequate protein intake. 7. Vitamin A deficiency. 8. History exploratory laparotomy for perforated gastric ulcer 9. Dysphagia 10. Gallbladder disorder 11. Status post hiatal hernia repair 12. Gastric ulcers 13. Morbid obesity due to excess calories. 14. Incisional hernia, 24 x 10 cm 15. Hypotension improved with IV fluids Hospital course Celena Joreg is a 33-year-old female is status post gastric bypass 10/25/2017. She is 4 years out. She presents for chronic skin infections from panniculitis. She has been treated for over 3 years for panniculitis. Patient reports her pain is controlled. She has been up and ambulating. She is tolerat ing diet. She is afebrile. Abdominal binder in place. She is having flatus. She is stable for discharge. Physician Bench Tool Maker note has been reviewed by physician. Signing provider agrees with the documented findings, assessment, and plan of care. Patient Condition at Discharge: Stable Plan - Discharge Summary Discharge Rx Participant: Yes New Discharge Prescriptions: New Cyclobenzaprine [Flexeril] 5 mg PO TID PRN #9 tablet PRN Reason: Pain Acetaminophen Tab [Tylenol] 1,000 mg PO Q6HR PRN #30 tablet PRN Reason: Pain Continue Lisdexamfetamine Dimesylate 30 mg PO DAILY Famotidine 20 mg PO DAILY No Action Vitamin A Palmitate [Vitamin A-25 (25,000 Units = 7500 MCG)] 7,500 mcg PO DAILY Ferrocite 1 tab PO DAILY Multivitamins, Thera [Multivitamin (formulary)] 1 tab PO DAILY Ergocalciferol [Vitamin D2 (1250 Mcg = 00304 Iu)] 50,000 unit PO TU Iron 64 mg PO DAILY Complete Bariatric Vit 1 tab PO DAILY Discharge Medication List Multivitamins, Thera [Multivitamin (formulary)] 1 tab PO DAILY 12/09/22 [History] Ergocalciferol [Vitamin D2 (1250 Mcg = 68663 Iu)] 50,000 unit PO TU 11/08/23 [History] Iron 64 mg PO DAILY 11/08/23 [History] Famotidine 20 mg PO DAILY 11/12/23 [History] Lisdexamfetamine Dimesylate 30 mg PO DAILY 11/12/23 [History] Complete Bariatric Vit 1 tab PO DAILY 12/02/23 [History] Ferrocite 1 tab PO DAILY 12/02/23 [History] Vitamin A Palmitate [Vitamin A-25 (25,000 Units = 7500 MCG)] 7,500 mcg PO DAILY 12/02/23 [History] Acetaminophen Tab [Tylenol] 1,000 mg PO Q6HR PRN #30 tablet 12/08/23 [Rx] Cyclobenzaprine [Flexeril] 5 mg PO TID PRN #9 tablet 12/08/23 [Rx] [facility] [facility] [facility] [place]10/23 9:00 am Activity/Diet/Wound Care/Special Instructions: No lifting over 4 pounds in 4 weeks. No bathtub soaks. No shower. No stretching or twisting. Sleep in a recliner. DO NOT REMOVE DRESSINGS. DO NOT REMOVE BINDER. Keep record of MIRTHA outputs daily. Hold on taking vitamins until seen by surgeon Discharge Disposition: HOME SELF-CARE
[2023-12-08 14:35] VITALS: RESP 20; TEMP 98.3
[2023-12-08 15:18] VITALS: BP 100/66; PULSE 109
== END 2023-12-08 18:46 | disposition home or self-care (01) ==
LOC: OR 11:51 → 4SSUR 18:46 → OR 12-07 12:08 → 4SSUR 12-07 12:08
PROVIDERS: ADMIT Surgery Plastic and Reconstructive Surgery; ATTEND Surgery Plastic and Reconstructive Surgery
DX: M79.3 Panniculitis, unspecified (principal); E65 Localized adiposity; K28.7 Chronic gastrojejunal ulcer without hemorrhage or perforation; E50.9 Vitamin A deficiency, unspecified; R13.10 Dysphagia, unspecified; K25.9 Gastric ulcer, unspecified as acute or chronic, without hemorrhage or perforation; K43.2 Incisional hernia without obstruction or gangrene; K82.9 Disease of gallbladder, unspecified; E63.8 Other specified nutritional deficiencies; I95.9 Hypotension, unspecified; F32.A Depression, unspecified; I11.9 Hypertensive heart disease without heart failure; K21.9 Gastro-esophageal reflux disease without esophagitis; M47.816 Spondylosis without myelopathy or radiculopathy, lumbar region; E66.01 Morbid (severe) obesity due to excess calories; Z68.26 Body mass index [BMI] 26.0-26.9, adult; Z98.84 Bariatric surgery status
CPT/HCPCS: 15830; 96376; 96365; 96366 ×3; 96367; 96372 ×3; 96375 ×2; 85027; 49595; G0378 ×2; J2250; J0330; J1644 ×3; J1100; J2710; J0690 ×2; J2405 ×2; J2001; J3010; J1170 ×3; J2704; J2371

== ENCOUNTER → 2023-12-10 | Outpatient (CLI) | payer BC ==
--- NOTE | 2023-12-10 09:51 | P.BASOAP ---
Subjective Progress Note Date: 12/10/23 No signs of infection. Patient has history of bilateral foot surgery. Has right foot swelling. No swelling of the calf. No calf pain tenderness noted. No clinical findings of DVT. She is persistently tachycardic. She confirms decreased oral intake. Recommend protein intake of 90 g daily. IV fluid hydration advised. May need ultrasound of the left leg. Patient reports swelling just started in the last 24 hours. Incidentally, patient has weight gain of 1 pound despite skin removal of 4 pounds and additional weight loss from 161 to 155 pounds preop. Binder readjusted. JPs were stripped. All dressings clean dry intact. Follow-up 1 week. Assessment/Plan Plan: Date: Initial Weight: 137.529 kg Initial BMI: Current Weight: Current BMI: Type of Surgery: Total Volume in Band: Previous Volume: Volume Removed: Volume Added: Band Size:
[2023-12-10 10:30] VITALS: BP 107/71; PULSE 109; TEMP 97.9; BMI 27.8
== END ==
LOC: BARWHC3 08:49
PROVIDERS: ATTEND Surgery Plastic and Reconstructive Surgery
DX: Z53.9 Procedure and treatment not carried out, unspecified reason (principal)
CPT/HCPCS: 99212

== ENCOUNTER → 2023-12-15 | Outpatient (CLI) | payer BC ==
--- NOTE | 2023-12-15 16:39 | P.BASOAP ---
Subjective Progress Note Date: 12/15/23 NO infection. Drains are yellow. Stripped. No infections. New binder. Wt loss 10#. FU 1 week. Dressings removed. January 23 Assessment/Plan Plan: Date: Initial Weight: 137.529 kg Initial BMI: Current Weight: Current BMI: Type of Surgery: Total Volume in Band: Previous Volume: Volume Removed: Volume Added: Band Size:
[2023-12-15 17:26] VITALS: BP 99/70; PULSE 88; TEMP 98.1; BMI 26.1
== END ==
LOC: BARWHC3 14:16
PROVIDERS: ATTEND Surgery Plastic and Reconstructive Surgery
DX: E66.01 Morbid (severe) obesity due to excess calories (principal); Z53.9 Procedure and treatment not carried out, unspecified reason
CPT/HCPCS: 99212

== ENCOUNTER → 2023-12-22 | Outpatient (CLI) | payer BC ==
--- NOTE | 2023-12-22 15:40 | P.BASOAP ---
Subjective Progress Note Date: 12/22/23 REmoved drains. Right side infected with cultures obtained. Cats gave her an infection with laying with cat. Binder very tight only take for shower in 48 hrs. Weight everyday for fluid increase. FU for fluids and cultures. No infection of skin. Assessment/Plan Plan: Date: Initial Weight: 137.529 kg Initial BMI: Current Weight: Current BMI: Type of Surgery: Total Volume in Band: Previous Volume: Volume Removed: Volume Added: Band Size:
[2023-12-23 14:52] VITALS: BP 96/94; PULSE 88; TEMP 98; BMI 26.7
== END ==
LOC: BARWHC3 13:42
PROVIDERS: ATTEND Surgery Plastic and Reconstructive Surgery
DX: E66.01 Morbid (severe) obesity due to excess calories (principal); Z53.9 Procedure and treatment not carried out, unspecified reason
CPT/HCPCS: 87070; 87075; 87077; 87186; 87205; 99212

== ENCOUNTER → 2023-12-29 | Outpatient (CLI) | payer BC ==
--- NOTE | 2023-12-29 14:47 | P.BASOAP ---
Subjective Progress Note Date: 12/29/23 Weight is stable. No fluid. Needs new binder. Protein. Want to go back to work. Official January 23. Keep binder. Two week follow-up. New binder. Weight the same. Assessment/Plan Plan: Date: Initial Weight: 137.529 kg Initial BMI: Current Weight: Current BMI: Type of Surgery: Total Volume in Band: Previous Volume: Volume Removed: Volume Added: Band Size:
[2023-12-29 15:12] VITALS: BP 98/66; PULSE 81; RESP 16; TEMP 98.1; BMI 26.7
== END | disposition home or self-care (01) ==
LOC: BARWHC3 12:38
PROVIDERS: ATTEND Surgery Plastic and Reconstructive Surgery
DX: E66.01 Morbid (severe) obesity due to excess calories (principal); Z98.84 Bariatric surgery status; Z68.26 Body mass index [BMI] 26.0-26.9, adult
CPT/HCPCS: 99211

== ENCOUNTER → 2024-01-12 | Outpatient (CLI) | payer BC ==
[2024-01-12 14:08] VITALS: BP 110/73; PULSE 71; TEMP 98.1; BMI 26.2
--- NOTE | 2024-01-12 15:09 | P.BASOAP ---
Subjective Progress Note Date: 01/12/24 Patient doing well. No abdominal wall seroma. Binder readjusted for firm fitting. Recommend wearing a binder in 1 month until February 10. May return to work without restrictions January 16. Objective - Vital Signs Vital signs: Vital Signs Temp 98.1 F 01/12/24 13:49 Pulse 71 01/12/24 13:49 Resp BP 110/73 01/12/24 13:49 Pulse Ox FiO2 Intake & Output 01/11/24 01/12/24 01/12/24 18:59 06:59 18:59 Weight 69.4 kg Assessment/Plan Plan: Date: 01/12/24 Initial Weight: 137.529 kg Initial BMI: 52.0 Current Weight: 69.4 kg Current BMI: 26.2 Type of Surgery: Total Volume in Band: Previous Volume: Volume Removed: Volume Added: Band Size:
--- NOTE | 2024-01-12 15:09 | P.PN ---
Progress Note - Text Progress Note Date: 01/12/24 To whom it may concern: Celena Jorge is under my surgical care. She may return to work without restrictions Wednesday, January 17, 2024. Regards, Leila Early MD
== END ==
LOC: BARWHC3 12:58
PROVIDERS: ATTEND Surgery Plastic and Reconstructive Surgery
DX: E66.01 Morbid (severe) obesity due to excess calories (principal); Z98.84 Bariatric surgery status; Z90.3 Acquired absence of stomach [part of]; Z68.26 Body mass index [BMI] 26.0-26.9, adult
CPT/HCPCS: 99212